=== PATIENT | male | born 1950 | race Caucasian/White ===

== ENCOUNTER 2019-06-03 13:42 | Observation (INO) | payer MEDICARE, OTHER ==
[2019-06-03] MEDS ORDERED: SODIUM CHLORIDE 0.9% 500 ML 500 ML IV STA (14:30)
--- NOTE | 2019-06-03 14:52 | ED ---
General Adult HPI <Willard Cano - Last Filed: 06/03/19 16:27> - General Source: patient, RN notes reviewed Mode of arrival: ambulatory Limitations: no limitations <Narciso Steel - Last Filed: 06/03/19 23:56> - General Chief complaint: Upper Respiratory Infection Stated complaint: Cough, fever Time Seen by Provider: 06/03/19 14:02 - History of Present Illness Initial comments: 69-year-old male with a past medical history of hypertension, aortic repair 6 years ago presents to the emergency department for a chief complaint of cough. Patient states that for the past 2 days he has had a productive with white sputum. States that he has been a little weak because of this cough and has had hot and cold spells however has not checked his temperature at home. Patient states that when he coughs he has a little bit of epigastric discomfort but otherwise denies any chest pain or shortness of breath whatsoever.Patient has no other complaints at this time including shortness of breath, chest pain, abdominal pain, nausea or vomiting, headache, or visual changes. (Narciso Steel) - Related Data Home Medications Medication Instructions Recorded Confirmed Aspirin EC [Ecotrin Low Dose] 81 mg PO DAILY 06/03/19 06/03/19 Allergies Allergy/AdvReac Type Severity Reaction Status Date / Time Penicillins Allergy Rash/Hives Verified 06/03/19 17:37 Review of Systems ROS Other: All systems not noted in ROS Statement are negative. <Willard Cano - Last Filed: 06/03/19 16:27> ROS Other: All systems not noted in ROS Statement are negative. <Narciso Steel - Last Filed: 06/03/19 23:56> ROS Statement: Those systems with pertinent positive or pertinent negative responses have been documented in the HPI. Past Medical History Past Medical History: Hypertension History of Any Multi-Drug Resistant Organisms: None Reported Past Surgical History: Joint Replacement Additional Past Surgical History / Comment(s): hip replacement, aortic repair, right BKA Past Psychological History: No Psychological Hx Reported Smoking Status: Never smoker Past Alcohol Use History: None Reported Past Drug Use History: None Reported <Narciso Steel - Last Filed: 06/03/19 23:56> General Exam Limitations: no limitations General appearance: alert, in no apparent distress Head exam: Present: atraumatic, normocephalic, normal inspection Eye exam: Present: normal appearance, PERRL, EOMI. Absent: scleral icterus, conjunctival injection, periorbital swelling ENT exam: Present: normal exam, mucous membranes moist Neck exam: Present: normal inspection, full ROM. Absent: tenderness, meningismus, lymphadenopathy Respiratory exam: Present: normal lung sounds bilaterally, chest wall tenderness (Minimal anterior chest wall tenderness, surgical scar is well appearing.). Absent: respiratory distress, wheezes, rales, rhonchi, stridor Cardiovascular Exam: Present: regular rate, normal rhythm, normal heart sounds. Absent: systolic murmur, diastolic murmur, rubs, gallop, clicks GI/Abdominal exam: Present: soft, normal bowel sounds. Absent: distended, tenderness, guarding, rebound, rigid Neurological exam: Present: alert Psychiatric exam: Present: normal affect, normal mood Skin exam: Present: warm, dry, intact, normal color. Absent: rash, diaphoretic <Narciso Steel - Last Filed: 06/03/19 23:56> Course Vital Signs 06/03/19 06/03/19 14:09 16:55 Temperature 98.6 F 98.2 F Pulse Rate 67 79 Respiratory 18 18 Rate Blood Pressure 208/112 194/100 O2 Sat by Pulse 99 98 Oximetry EKG Findings - EKG Comments: EKG Findings:: Normal sinus rhythm, ventricular rate 64, AR interval 164, QTc 48 6, repolarization noted., No previous to compare. <Narciso Steel - Last Filed: 06/03/19 23:56> Medical Decision Making - Lab Data Result diagrams: 06/03/19 15:00 06/03/19 15:00 <Willard Cano - Last Filed: 06/03/19 16:27> - Lab Data Result diagrams: 06/03/19 15:00 06/03/19 15:00 - EKG Data -: EKG Interpreted by Me (And Dr. Cano) When compared to previous EKG there are: previous EKG unavailable <Narciso Steel - Last Filed: 06/03/19 23:56> - Medical Decision Making Case was discussed with practitioner Milvia. Chart and results reviewed. Dr. Escoto paged again for admission. (Willard Cano) 69-year-old male with a past medical history hypertension, aortic repair 6 years ago presents for chief complaint of cough. States that for the past 2 days he has had a productive cough with white sputum. States that he has felt weak because of this cough and has had hot and cold spells. States that when he coughs he has a small amount epigastric discomfort but otherwise denies any chest pain or shortness of breath whatsoever. On exam he does have some minimal reproducible anterior chest wall tenderness, likely secondary from coughing. EKG was obtained which shows repolarization abnormalities and was reviewed by myself and Dr. Cano. CBC is unremarkable. CMP does show evidence of acute renal failure with a creatinine of 2.38. Elevated troponin of 0.074 is likely secondary to this. Patient started on hydralazine as he is hypertensive. Chest x-ray is obtained which shows cardiomegaly with new patchy left basilar acute infiltrate and atelectasis and small to tiny left pleural effusion. This was reviewed by myself and Dr. Cano. Patient symptoms likely secondary to pneu monia. Patient will be started on azithromycin and Rocephin and given fluids. He will be admitted to the hospital for further monitoring. (Narciso Steel) - Lab Data Lab Results 06/03/19 06/03/19 06/03/19 Range/Units 15:00 15:00 15:00 WBC 6.5 (3.8-10.6) k/uL RBC 4.88 (4.30-5.90) m/uL Hgb 14.0 (13.0-17.5) gm/dL Hct 42.1 (39.0-53.0) % MCV 86.4 (80.0-100.0) fL MCH 28.6 (25.0-35.0) pg MCHC 33.2 (31.0-37.0) g/dL RDW 14.9 (11.5-15.5) % Plt Count 171 (150-450) k/uL Neutrophils % 46 % Lymphocytes % 33 % Monocytes % 9 % Eosinophils % 7 % Basophils % 2 % Neutrophils # 3.0 (1.3-7.7) k/uL Lymphocytes # 2.2 (1.0-4.8) k/uL Monocytes # 0.6 (0-1.0) k/uL Eosinophils # 0.5 (0-0.7) k/uL Basophils # 0.1 (0-0.2) k/uL PT (9.0-12.0) sec INR (<1.2) APTT (22.0-30.0) sec Sodium 143 (137-145) mmol/L Potassium 4.6 (3.5-5.1) mmol/L Chloride 104 (98-107) mmol/L Carbon Dioxide 27 (22-30) mmol/L Anion Gap 12 mmol/L BUN 27 H (9-20) mg/dL Creatinine 2.38 H (0.66-1.25) mg/dL Est GFR (CKD-EPI)AfAm 31 (>60 ml/min/1.73 sqM) Est GFR (CKD-EPI)NonAf 27 (>60 ml/min/1.73 sqM) Glucose 94 (74-99) mg/dL Plasma Lactic Acid Walt (0.7-2.0) mmol/L Calcium 9.7 (8.4-10.2) mg/dL Total Bilirubin 0.6 (0.2-1.3) mg/dL AST 32 (17-59) U/L ALT 23 (21-72) U/L Alkaline Phosphatase 128 H (38-126) U/L Troponin I (0.000-0.034) ng/mL Total Protein 8.3 H (6.3-8.2) g/dL Albumin 4.6 (3.5-5.0) g/dL Influenza Type A RNA Not Detected (Not Detectd) Influenza Type B (PCR) Not Detected (Not Detectd) 06/03/19 06/03/19 06/03/19 Range/Units 15:00 15:00 15:00 WBC (3.8-10.6) k/uL RBC (4.30-5.90) m/uL Hgb (13.0-17.5) gm/dL Hct (39.0-53.0) % MCV (80.0-100.0) fL MCH (25.0-35.0) pg MCHC (31.0-37.0) g/dL RDW (11.5-15.5) % Plt Count (150-450) k/uL Neutrophils % % Lymphocytes % % Monocytes % % Eosinophils % % Basophils % % Neutrophils # (1.3-7.7) k/uL Lymphocytes # (1.0-4.8) k/uL Monocytes # (0-1.0) k/uL Eosinophils # (0-0.7) k/uL Basophils # (0-0.2) k/uL PT 10.1 (9.0-12.0) sec INR 0.9 (<1.2) APTT 27.1 (22.0-30.0) sec Sodium (137-145) mmol/L Potassium (3.5-5.1) mmol/L Chloride (98-107) mmol/L Carbon Dioxide (22-30) mmol/L Anion Gap mmol/L BUN (9-20) mg/dL Creatinine (0.66-1.25) mg/dL Est GFR (CKD-EPI)AfAm (>60 ml/min/1.73 sqM) Est GFR (CKD-EPI)NonAf (>60 ml/min/1.73 sqM) Glucose (74-99) mg/dL Plasma Lactic Acid Walt 0.9 (0.7-2.0) mmol/L Calcium (8.4-10.2) mg/dL Total Bilirubin (0.2-1.3) mg/dL AST (17-59) U/L ALT (21-72) U/L Alkaline Phosphatase (38-126) U/L Troponin I 0.074 H* (0.000-0.034) ng/mL Total Protein (6.3-8.2) g/dL Albumin (3.5-5.0) g/dL Influenza Type A RNA (Not Detectd) Influenza Type B (PCR) (Not Detectd) Disposition <Willard Cano - Last Filed: 06/03/19 16:27> Is patient prescribed a controlled substance at d/c from ED?: No Time of Disposition: 16:11 <Narciso Steel - Last Filed: 06/03/19 23:56> Clinical Impression: Pneumonia, Cough, Acute renal failure Disposition: ADMITTED IP TO THIS HOSP Condition: Serious
[2019-06-03 15:16] LABS: Basophils # (A) 0.1 k/uL (0-0.2); Basophils % (A) 2 %; Eosinophils # (A) 0.5 k/uL (0-0.7); Eosinophils % (A) 7 %; HCT 42.1 % (39.0-53.0); Lymphocytes # (A) 2.2 k/uL (1.0-4.8); Lymphocytes % (A) 33 %; MCH 28.6 pg (25.0-35.0); MCHC 33.2 g/dL (31.0-37.0); MCV 86.4 fL (80.0-100.0); Mean Platelet Volume 8.3; Monocytes # (A) 0.6 k/uL (0-1.0); Monocytes % (A) 9 %; Neutrophils % (A) 46 %; Platelet Count 171 k/uL (150-450); RBC 4.88 m/uL (4.30-5.90); RDW 14.9 % (11.5-15.5); WBC 6.5 k/uL (3.8-10.6)
[2019-06-03 15:22] LABS: INR 0.9 (<1.2); Partial Thromboplastin Time 27.1 sec (22.0-30.0); Prothrombin Time 10.1 sec (9.0-12.0)
[2019-06-03 15:27] LABS: Albumin 4.6 g/dL (3.5-5.0); Calcium 9.7 mg/dL (8.4-10.2); Potassium 4.6 mmol/L (3.5-5.1); Total Bilirubin 0.6 mg/dL (0.2-1.3); Total Protein 8.3 g/dL (6.3-8.2)
[2019-06-03] MEDS ORDERED: ENALAPRILAT 1.25 MG/ML 1 ML VIAL IVP STA (15:34)
--- NOTE | 2019-06-03 15:38 | XR ---
EXAMINATION TYPE: XR chest 2V DATE OF EXAM: 06/03/2019 COMPARISON: Chest x-ray November 27, 2012. HISTORY: History of ruptured aorta and repair with productive cough TECHNIQUE: Frontal and lateral views of the chest are obtained. FINDINGS: There is new patchy left basilar opacity. Right lung is clear. Suspect small left pleural effusion. The cardiac silhouette size remains enlarged. Overlying sternal wires are now present, mason ral which are broken. New right axillary surgical clips are now identified. Cholecystectomy clips are noted. Multilevel spurring in thoracic spine. IMPRESSION: Cardiomegaly with new patchy left basilar acute infiltrate and atelectasis and small to tiny left pleural effusion.
[2019-06-03] MEDS ORDERED: hydrALAZINE HCL 20 MG/ML 1 ML VIAL IVP STA (16:08)
[2019-06-03] MEDS ORDERED: NALOXONE 0.4 MG/ML 1 ML VIAL IV PRN (16:09)
[2019-06-03] MEDS ORDERED: AZITHROMYCIN 500 MG in SODIUM CHLORIDE 0.9% 250 ML IVPB ONE (16:15)
[2019-06-03] MEDS ORDERED: SODIUM CHLORIDE 0.9% 1,000 ML IV SCH (16:15)
[2019-06-03] MEDS ORDERED: hydrALAZINE HCL 20 MG/ML 1 ML VIAL IVP PRN (19:06)
[2019-06-03] MEDS ORDERED: LORazepam 2 MG/ML INJ IV PRN (19:07)
--- NOTE | 2019-06-03 20:41 | CT ---
EXAMINATION TYPE: CT chest wo con DATE OF EXAM: 06/03/2019 COMPARISON: None HISTORY: Abnormal cxr. CT DLP: 598.4 mGycm. Automated Exposure Control for Dose Reduction was Utilized. TECHNIQUE: CT scan of the thorax is performed without IV contrast. FINDINGS: There is some patchy atelectasis and linear density at the lung bases on the left side. There is mini mal left basilar pleural thickening. Exam is limited by lack of contrast. There is focal aneurysm of the descending thoracic aorta. This measures up to 7 cm. The lumen is difficult to evaluate with lack of contrast. There is coronary artery calcification. There is no mediastinal adenopathy. There are no hilar masses . The right lung is clear of infiltrate. There are numerous cysts involving both kidneys. There is right side hydronephrosis. There are clips from cholecystectomy. IMPRESSION: Aneurysm of the descending thoracic aorta. This could be a leaking aneurysm. There is alicia e pleural thickening and atelectasis at the left posterior lung base. Follow-up recommended. Contrast CT scan would be helpful. This exam was discussed with the patient's nurse on the floor [place] at 8:40 PM.
[2019-06-03] MEDS ORDERED: amLODIPine 5 MG TAB PO SCH (21:00)
[2019-06-03] MEDS: LABETALOL 200 MG in SODIUM CHLORIDE 0.9% 160 ML IV SCH (22:20)
--- NOTE | 2019-06-03 22:44 | HP ---
HISTORY AND PHYSICAL CHIEF COMPLAINT: A 69-year-old white male was admitted to the hospital. He has had a history of hypertension and aortic repair 6 years ago, presents to the ER with cough, productive of white sputum, hot/cold spells. A little bit epigastric discomfort. Denied any significant chest pain or shortness of breath, but had some diaphoresis and coughing and looked funny and so his and daughter brought him to the hospital. Denies any chest pain, abdominal pain, nausea, vomiting, headache, or visual changes. ALLERGIES: PENICILLINS. Long-standing hypertension. Person does not take any medicines. It has been 6 or 7 years since I have seen him in the office. He has not seen a doctor since. MEDICATIONS: Mentioned none. REVIEW OF SYMPTOMS: 14-point review of systems negative except for mentioned in HPI. PAST MEDICAL HISTORY: Hypertension as mentioned. SURGICAL HISTORY: Apparently had some kind aortic repair 6 or 7 years ago. LABORATORY DATA: Labs show elevated troponin of 0.7, BUN of 27, creatinine is 2.53, blood pressure is 208/112 on admission, currently 170s over 100. EKG shows sinus rhythm. White count is normal. Hemoglobin is normal. BUN 27, creatinine 2.38. Chest x-ray shows opacity left lower lobe significant for pneumonia, he was admitted to the hospital, placed on Rocephin and azithromycin by the ER physician. Elevated troponin was thought to be due to acute renal failure due to abnormal chest x-ray. I ordered a CT scan without contrast due to elevated creatinine. There was no contrast used. 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 Discussed the case with the [facility] transfer team. Once a labetalol drip started. Will transfer him and they have a bed available. I transferred him to the ICU under Dr. Puentes's care at this time with labetalol drip, Norvasc 5 mg, have been given, hydralazine 10 mg IV x2 has been given. We will control his blood pressure aggressively until he can be transferred for descending aortic aneurysm surgery. Acute renal failure; rehydration is being done. Blood pressure control is being done pneumonia. Continue IV antibiotics. Await for transfer team to take him. Jeronimo for blood pressure control. In the meantime, consult map colorer, Dr. Puentes. MMODL / IJN: [id number] /
[2019-06-03 23:22] VITALS: RESP 17; TEMP 98
[2019-06-03] MEDS ORDERED: ONDANSETRON 4 MG/2 ML VIAL IVP PRN (23:56)
[2019-06-04] MEDS: LABETALOL 200 MG in SODIUM CHLORIDE 0.9% 160 ML IV SCH (00:51)
[2019-06-04 00:56] LABS: Basophils # (A) 0.2 k/uL (0-0.2); Basophils % (A) 3 %; Eosinophils # (A) 0.3 k/uL (0-0.7); Eosinophils % (A) 5 %; HCT 36.7 % (39.0-53.0); Lymphocytes # (A) 1.2 k/uL (1.0-4.8); Lymphocytes % (A) 16 %; MCH 27.9 pg (25.0-35.0); MCHC 32.6 g/dL (31.0-37.0); MCV 85.4 fL (80.0-100.0); Monocytes # (A) 0.5 k/uL (0-1.0); Monocytes % (A) 7 %; Neutrophils # (A) 5.1 k/uL (1.3-7.7); Neutrophils % (A) 69 %; Platelet Count 164 k/uL (150-450); RBC 4.29 m/uL (4.30-5.90); RDW 13.8 % (11.5-15.5); WBC 7.4 k/uL (3.8-10.6)
[2019-06-04 01:01] LABS: Albumin 3.8 g/dL (3.5-5.0); Calcium 8.9 mg/dL (8.4-10.2); Potassium 3.9 mmol/L (3.5-5.1); Total Bilirubin 0.5 mg/dL (0.2-1.3); Total Protein 6.9 g/dL (6.3-8.2)
[2019-06-04 01:41] VITALS: BP 124/57; PULSE 60
[2019-06-04] MEDS ORDERED: AZITHROMYCIN 500 MG in SODIUM CHLORIDE 0.9% 250 ML IVPB SCH (17:00)
== END 2019-06-04 01:40 | disposition short-term general hospital, planned readmission (82) ==
LOC: EC 13:42 → 3SCARD 16:29
PROVIDERS: ADMIT Family Medicine; ATTEND Family Medicine
DX: J18.1 Lobar pneumonia, unspecified organism (principal); I71.01 Dissection of thoracic aorta; N17.9 Acute kidney failure, unspecified; I11.9 Hypertensive heart disease without heart failure; N13.30 Unspecified hydronephrosis; R77.8 Other specified abnormalities of plasma proteins; Z88.0 Allergy status to penicillin; Z79.82 Long term (current) use of aspirin; Z89.511 Acquired absence of right leg below knee; Z96.649 Presence of unspecified artificial hip joint; Z90.49 Acquired absence of other specified parts of digestive tract
CPT/HCPCS: 96376; 96366; 96367; 96375 ×3; 96361; 96365; 99285; 36415; 93005; 83880; 80061; 80053 ×2; 84443; 83605; 84484 ×2; 85025 ×2; 85610; 85730; 87040; 87502; 71046; 71250; G0378 ×2; G0103; J2060; J0360; J2405; J0696

== ENCOUNTER 2019-06-22 11:31 | Inpatient (IN) | payer MEDICARE, OTHER ==
[2019-06-22] MEDS ORDERED: hydrALAZINE HCL 20 MG/ML 1 ML VIAL IVP STA (12:04)
--- NOTE | 2019-06-22 12:20 | ED ---
General Adult HPI - General Chief complaint: Recheck/Abnormal Lab/Rx Stated complaint: Bleeding from nose Time Seen by Provider: 06/22/19 11:50 Source: patient, RN notes reviewed Mode of arrival: wheelchair Limitations: no limitations - History of Present Illness Initial comments: This is a 69-year-old male who presents to the emergency department with a right-sided nosebleed. Patient recently had carotid surgery and has a history of a thoracic aneurysm. The primary medical care doctor Dr. Quesada sent him over so we stop the nosebleed. Patient's nosebleed stopped prior to entering the emergency department however. Dr. Escoto also wanted us to do a CTA of his chest and abdomen. Patient denies any chest pain palpitations difficulty breathing or shortness of breath. Patient denies abdominal pain patient denies nausea vomiting per patient denies any fever chills. Patient states he is very fatigued but aside from that in the nosebleed he has no other complaints. - Related Data Home Medications Medication Instructions Recorded Confirmed Aspirin EC [Ecotrin Low Dose] 81 mg PO DAILY 06/03/19 06/22/19 Doxycycline Hyclate [Vibramycin] 100 mg PO BID 06/22/19 06/22/19 Moxifloxacin HCl 400 mg PO DAILY 06/22/19 06/22/19 Allergies Allergy/AdvReac Type Severity Reaction Status Date / Time Penicillins Allergy Rash/Hives Verified 06/22/19 12:34 Review of Systems ROS Statement: Those systems with pertinent positive or pertinent negative responses have been documented in the HPI. ROS Other: All systems not noted in ROS Statement are negative. Past Medical History Past Medical History: Hypertension Additional Past Medical History / Comment(s): KIDNEY STONES History of Any Multi-Drug Resistant Organisms: None Reported Past Surgical History: Heart Catheterization With Stent, Joint Replacement Additional Past Surgical History / Comment(s): hip replacement, aortic repair, right BKA, carotid endartecomy Past Anesthesia/Blood Transfusion Reactions: No Reported Reaction Past Psychological History: No Psychological Hx Reported Smoking Status: Never smoker Past Alcohol Use History: None Reported Past Drug Use History: None Reported - Past Family History Mother Family Medical History: Myocardial Infarction ([place]) Father Family Medical History: Myocardial Infarction ([place]) General Exam - General Exam Comments Initial Comments: GENERAL: Patient is well-developed and well-nourished. Patient is nontoxic and well- hydrated and is in mild distress. ENT: Neck is soft and supple. No significant lymphadenopathy is noted. Inside the right near was an area of clotted blood on the septum I suspect this to be possibly the area of the nosebleed. Oropharynx is clear. Moist mucous membranes. Neck has full range of motion without eliciting any pain. Patient's surgical sites did not look infected on the neck or groin or arm. EYES: The sclera were anicteric and conjunctiva were pink and moist. Extraocular movements were intact and pupils were equal round and reactive to light. Eyelids were unremarkable. PULMONARY: Unlabored respirations. Good breath sounds bilaterally. No audible rales rhonchi or wheezing was noted. CARDIOVASCULAR: There is a regular rate and rhythm without any murmurs gallops or rubs. ABDOMEN: Soft and nontender with normal bowel sounds. SKIN: Skin is clear with no lesions or rashes and otherwise unremarkable. NEUROLOGIC: Patient is alert and oriented x3. Cranial nerves II through XII are grossly intact. Motor and sensory are also intact. Normal speech, volume and content. Symmetrical smile. MUSCULOSKELETAL: Normal extremities with adequate strength and full range of motion. LYMPHATICS: No significant lymphadenopathy is noted PSYCHIATRIC: Normal psychiatric evaluation. Limitations: no limitations Course Vital Signs 06/22/19 11:49 Temperature 99.0 F Pulse Rate 92 Respiratory 18 Rate Blood Pressure 117/73 O2 Sat by Pulse 99 Oximetry Medical Decision Making - Medical Decision Making I spoke with Og Escoto because his hemoglobin was done to him all he wanted to watch him overnight and monitor his hemoglobin. He will also determine what to do about his CTA since his creatinine is elevated. - Lab Data Result diagrams: 06/22/19 12:22 06/22/19 12:22 Lab Results 06/22/19 06/22/19 06/22/19 Range/Units 12:22 12:22 12:22 WBC 9.9 (3.8-10.6) k/uL RBC 3.10 L (4.30-5.90) m/uL Hgb 9.0 L D (13.0-17.5) gm/dL Hct 26.1 L (39.0-53.0) % MCV 84.1 (80.0-100.0) fL MCH 28.9 (25.0-35.0) pg MCHC 34.4 (31.0-37.0) g/dL RDW 12.9 (11.5-15.5) % Plt Count 280 (150-450) k/uL Neutrophils % 71 % Lymphocytes % 10 % Monocytes % 9 % Eosinophils % 8 % Basophils % 1 % Neutrophils # 7.0 (1.3-7.7) k/uL Lymphocytes # 1.0 (1.0-4.8) k/uL Monocytes # 0.9 (0-1.0) k/uL Eosinophils # 0.8 H (0-0.7) k/uL Basophils # 0.1 (0-0.2) k/uL PT 10.8 (9.0-12.0) sec INR 1.0 (<1.2) APTT 24.9 (22.0-30.0) sec Sodium 137 (137-145) mmol/L Potassium 4.8 (3.5-5.1) mmol/L Chloride 102 (98-107) mmol/L Carbon Dioxide 25 (22-30) mmol/L Anion Gap 10 mmol/L BUN 27 H (9-20) mg/dL Creatinine 2.10 H (0.66-1.25) mg/dL Est GFR (CKD-EPI)AfAm 36 (>60 ml/min/1.73 sqM) Est GFR (CKD-EPI)NonAf 31 (>60 ml/min/1.73 sqM) Glucose 95 (74-99) mg/dL Calcium 8.7 (8.4-10.2) mg/dL Total Bilirubin 0.4 (0.2-1.3) mg/dL AST 50 (17-59) U/L ALT 61 (21-72) U/L Alkaline Phosphatase 110 (38-126) U/L Total Protein 6.7 (6.3-8.2) g/dL Albumin 3.2 L (3.5-5.0) g/dL Disposition Clinical Impression: Anemia, Epistaxis Disposition: ADMITTED IP TO THIS HOSP Referrals: Anant Escoto MD [REFERRING] - 1-2 days Time of Disposition: 14:00
[2019-06-22 12:38] LABS: Basophils # (A) 0.1 k/uL (0-0.2); Basophils % (A) 1 %; Eosinophils # (A) 0.8 k/uL (0-0.7); Eosinophils % (A) 8 %; HCT 26.1 % (39.0-53.0); Lymphocytes % (A) 10 %; MCH 28.9 pg (25.0-35.0); MCHC 34.4 g/dL (31.0-37.0); MCV 84.1 fL (80.0-100.0); Monocytes # (A) 0.9 k/uL (0-1.0); Monocytes % (A) 9 %; Neutrophils % (A) 71 %; Platelet Count 280 k/uL (150-450); RDW 12.9 % (11.5-15.5); WBC 9.9 k/uL (3.8-10.6)
[2019-06-22 12:41] LABS: Partial Thromboplastin Time 24.9 sec (22.0-30.0); Prothrombin Time 10.8 sec (9.0-12.0)
[2019-06-22 12:54] LABS: Albumin 3.2 g/dL (3.5-5.0); Calcium 8.7 mg/dL (8.4-10.2); Potassium 4.8 mmol/L (3.5-5.1); Total Bilirubin 0.4 mg/dL (0.2-1.3); Total Protein 6.7 g/dL (6.3-8.2)
[2019-06-22] MEDS ORDERED: SODIUM CHLORIDE 0.9% 1,000 ML IV ONE (14:00)
[2019-06-22 18:05] LABS: Basophils # (A) 0.1 k/uL (0-0.2); Basophils % (A) 1 %; Eosinophils # (A) 0.6 k/uL (0-0.7); Eosinophils % (A) 8 %; HCT 31.6 % (39.0-53.0); HGB 10.6 gm/dL (13.0-17.5); Hypochromasia Slight; Lymphocytes # (A) 0.9 k/uL (1.0-4.8); Lymphocytes % (A) 12 %; MCH 28.9 pg (25.0-35.0); MCHC 33.6 g/dL (31.0-37.0); MCV 85.9 fL (80.0-100.0); Monocytes # (A) 0.3 k/uL (0-1.0); Monocytes % (A) 5 %; Neutrophils # (A) 5.1 k/uL (1.3-7.7); Neutrophils % (A) 72 %; Platelet Count 231 k/uL (150-450); RBC 3.68 m/uL (4.30-5.90)
[2019-06-22] MEDS: DOXYCYCLINE 100 MG CAP PO SCH (20:55)
[2019-06-22] MEDS: MELATONIN 5 MG TABLET PO SCH (20:55)
[2019-06-23 00:45] LABS: Basophils # (A) 0.1 k/uL (0-0.2); Basophils % (A) 1 %; Eosinophils # (A) 0.7 k/uL (0-0.7); Eosinophils % (A) 7 %; HCT 26.2 % (39.0-53.0); Hypochromasia Slight; Lymphocytes # (A) 1.3 k/uL (1.0-4.8); Lymphocytes % (A) 13 %; MCH 28.9 pg (25.0-35.0); MCHC 33.6 g/dL (31.0-37.0); Mean Platelet Volume 6.9; Monocytes # (A) 0.7 k/uL (0-1.0); Monocytes % (A) 7 %; Neutrophils # (A) 6.9 k/uL (1.3-7.7); Neutrophils % (A) 69 %; Platelet Count 268 k/uL (150-450); RBC 3.05 m/uL (4.30-5.90); RDW 12.9 % (11.5-15.5)
[2019-06-23 00:49] LABS: HGB 8.8 gm/dL (13.0-17.5)
[2019-06-23] MEDS: DOXYCYCLINE 100 MG CAP PO SCH ×2 (08:34→20:56)
[2019-06-23] MEDS: ASPIRIN 81 MG PO SCH (08:35)
[2019-06-23] MEDS: amLODIPine 5 MG TAB PO SCH (08:35)
[2019-06-23] MEDS ORDERED: LEVOFLOXACIN 750 MG TAB PO SCH (09:00)
[2019-06-23 13:22] LABS: HCT 27.7 % (39.0-53.0); HGB 9.2 gm/dL (13.0-17.5); Hypochromasia Slight; MCHC 33.2 g/dL (31.0-37.0); MCV 87.4 fL (80.0-100.0); Mean Platelet Volume 6.8; Platelet Count 266 k/uL (150-450); RBC 3.17 m/uL (4.30-5.90); WBC 9.8 k/uL (3.8-10.6)
--- NOTE | 2019-06-23 18:23 | HP ---
HISTORY AND PHYSICAL DATE OF SERVICE: 06/22/2019 This 69-year-old white male came into the emergency room with significant right-sided nasal bleeding, lightheaded and dizziness, possible severe anemia, status post carotid bypass and thoracic aortic aneurysm. CT of the chest and abdomen were not done due to elevated creatinine level. No nausea, vomiting. Severe nasal bleeding, fatigue, at which time he was admitted to the hospital. HOME MEDICATIONS: Home medications include: 1. Vibramycin. 2. Moxifloxacin. 3. Aspirin. ALLERGIES: PENICILLIN. REVIEW OF SYSTEMS: Fourteen-point review of systems negative except for uncontrolled hypertension for many years and descending aortic aneurysm 7 cm and a carotid bypass in the past 2 weeks, joint replacements, right BKA, aortic repair in the past, carotid endarterectomy. FAMILY HISTORY: Mother with myocardial infarction. Father with myocardial infarction. PHYSICAL EXAMINATION: Well-developed, well-nourished white male. He looks pale, weak, fatigued. Nasal bleeding out of the right naris . Pupils equal, round, reactive. Lungs are clear. CARDIOVASCULAR: S1, S2. Abdomen is soft. Skin pale. NEUROLOGIC: Cranial nerves are intact. MUSCULOSKELETAL: Full range of motion. PSYCH: Normal. Blood pressure 117/73, oxygen 99%, respiratory rate 18-20, . Hemoglobin is 9.0, white count 9.9, BUN 27, creatinine 2.1. ASSESSMENT: 1. Epistaxis. 2. Status post carotid bypass. 3. Lightheadedness. 4. Dizziness. 5. Syncope. 6. Suspect severe anemia. 7. Acute on chronic renal insufficiency. 8. Hypertension acceleration. 9. Descending aortic aneurysm. Started on Norvasc. Monitor hemoglobins. ENT consult. MMODL / IJN: [id number] /
[2019-06-23 19:38] VITALS: RESP 18
[2019-06-23] MEDS: MELATONIN 5 MG TABLET PO SCH (20:56)
[2019-06-24 06:22] LABS: Basophils # (A) 0.1 k/uL (0-0.2); Basophils % (A) 2 %; Eosinophils # (A) 0.7 k/uL (0-0.7); Eosinophils % (A) 7 %; HCT 27.7 % (39.0-53.0); HGB 8.5 gm/dL (13.0-17.5); Hypochromasia Slight; Lymphocytes # (A) 1.1 k/uL (1.0-4.8); Lymphocytes % (A) 12 %; MCH 28.1 pg (25.0-35.0); MCHC 30.8 g/dL (31.0-37.0); MCV 91.4 fL (80.0-100.0); Mean Platelet Volume 7.6; Monocytes # (A) 0.6 k/uL (0-1.0); Monocytes % (A) 7 %; Neutrophils # (A) 6.4 k/uL (1.3-7.7); Neutrophils % (A) 70 %; Platelet Count 251 k/uL (150-450); RBC 3.03 m/uL (4.30-5.90); RDW 13.3 % (11.5-15.5); WBC 9.1 k/uL (3.8-10.6)
[2019-06-24 06:36] LABS: Albumin 3.4 g/dL (3.5-5.0); Calcium 9.1 mg/dL (8.4-10.2); Potassium 4.7 mmol/L (3.5-5.1); Total Bilirubin 0.4 mg/dL (0.2-1.3)
[2019-06-24 07:50] VITALS: TEMP 97.3
[2019-06-24] MEDS: DOXYCYCLINE 100 MG CAP PO SCH (09:16)
[2019-06-24] MEDS: amLODIPine 5 MG TAB PO SCH (09:16)
[2019-06-24] MEDS: ASPIRIN 81 MG PO SCH (09:16)
--- NOTE | 2019-06-24 11:54 | CT ---
EXAMINATION TYPE: CT neck chest without con DATE OF EXAM: 06/24/2019 COMPARISON: 06/03/2019 and 11/27/2012 HISTORY: 69-year-old male Epistaxis, hematoma CT DLP: 1154.7 mGycm Automated exposure control for dose reduction was used. FINDINGS: Neck: Visualized intracranial structures show mild age-related volume loss. Orbits and globes and mastoid a ir cells are clear. Mild mucosal thickening floors of the maxillary sinuses. Lack of IV contrast limits assessment of the cervical mucosal space. No gross contour deforming lesio n seen within the oropharynx or nasopharynx. This seems to be an elongated lobular mucoid material wi thin the posterior right nasopharynx measuring up to 2.8 cm long and 9 mm wide. The glottic and subglottic structures as well as the tracheal column appear clear. Bulky anterior endplate spondylosis from C4 through C7 levels. There is evidence of a right common carotid to left subclavian artery bypass graft. This courses duane g the prevertebral region, posterior to the cervical esophagus. Hemorrhagic fluid surrounds the anast omotic sites along the right common carotid space and left supraclavicular soft tissues. Some additional surgical material in the region of the brachiocephalic artery. There is no airway compromise. CHEST: Endovascular stent graft of the ascending aorta. The surgical material arises from the stent graft ex tending into the brachiocephalic artery and should be correlated clinically as to any clinical signif icance. Scattered nonenlarged mildly enlarged mediastinal lymph nodes measuring up to 1.1 cm in the right tra cheobronchial angle region. Mildly enlarged caliber to the main right and the pulmonary arteries are 3.0 and 2.7 cm, respectively, suggesting underlying pulmonary hypertension. Median sternotomy wires a re present with chronic nonunion of the patient's sternotomy. Heart is borderline enlarged without pericardial effusion. Extensive coronary vessel calcifications a re present. In 2012, aortic dissection involving the entire aortic arch and extended down the descending thoracic aorta. Limited assessment on noncontrast CT. The distal arch or the caliber of 3.5 cm which is mildl y aneurysmal but unchanged from 06/03/2019. There is ballooning of the descending thoracic aorta at the level of the mid thorax for caliber to 6. One centimeters that does not appear significantly changed from 06/03/2019 but is much larger from 11/27/2012 where it measured only 3.4 cm. Faint dissection flap is demonstrated extending from the mid de scending thoracic aorta down into the visualized mid abdominal aorta. Proximal abdominal aorta measur es up to 4.8 cm, unchanged from 06/03/2019 but increased from 12/09/2012 where it measured 3.2 cm. Mid abdominal aorta at the level of the renal arteries measures 3.6 cm, unchanged from 06/03/2019 but larg er from tree 2013 where it measured 2.8 m. There is increased small left pleural effusion now with left lower lobe collapse. Visualized upper abdomen shows cholecystectomy clips, bilateral renal cysts measuring up to 7.37 mm o n the left, and a 3 mm nonobstructive right renal calculus. However, there is appearance of moderate right-sided hydronephrosis which is new from 11/27/2012. Bones: [facility] throughout the mid to lower thoracic spine. IMPRESSION: 1. LIMITED ASSESSMENT DUE TO LACK OF IV CONTRAST. 2. BYPASS GRAFT EXTENDING FROM THE RIGHT COMMON CAROTID ARTERY TO THE LEFT SUBCLAVIAN ARTERY. THERE I S MODERATE HEMATOMA AND TRACKING HEMORRHAGE ALONG THE ANASTOMOTIC SITES. THE BYPASS COURSES ALONG THE PREVERTEBRAL REGION, POSTERIOR TO THE CERVICAL ESOPHAGUS. NO AIRWAY COMPROMISE. 3. ENDOVASCULAR STENT GRAFT REPAIR OF THE ASCENDING AORTA AND PROXIMAL ARCH WITH SOME TYPE OF SURGICA L MATERIAL/GRAFT WITHIN THE BRACHIOCEPHALIC ARTERY, NEW FROM 06/03/2019. AGAIN, LACK OF IV CONTRAST LI MITS ASSESSMENT. 4. DISSECTION WITHIN THE AORTIC ARCH AND DESCENDING THORACIC AORTA SEEN IN 2012 IS NOT WELL VISUALIZE D ON THIS NONCONTRAST STUDY. A SUBTLE DISSECTION FLAP IS VISUALIZED FROM THE MID DESCENDING THORACIC AORTIC LEVEL AND EXTENDS DOWN BEYOND THE [id number] WITH THE SCAN TERMINATING AT THE LEVEL OF THE MID ABDOMINAL AORTA. 5. DISSECTING ANEURYSM STABLE FROM 06/03/2019. MID DESCENDING THORACIC AORTA MEASURES UP TO AT LEAST 6 .1 CM VERSUS 3.4 CM ON 11/27/2012. AT THE THORACOABDOMINAL JUNCTION, IT MEASURES 4.8 CM VERSUS 3.2 CM I N 2012. AT THE MID ABDOMINAL AORTA MEASURES 3.6 CM VERSUS 2.8 CM IN 2012. 6. INCREASED SMALL LEFT PLEURAL EFFUSION NOW WITH LEFT LOWER LOBAR COLLAPSE. 7. THIS SEEMS TO BE MODERATE HYDRONEPHROSIS OF THE RIGHT KIDNEY. CORRELATE FOR POSSIBILITY OF OBSTRUC TIVE UROPATHY.
[2019-06-24 12:53] VITALS: BP 142/75; PULSE 92
[2019-06-25] MEDS ORDERED: LEVOFLOXACIN 750 MG TAB PO SCH (09:00)
== END 2019-06-24 14:11 | disposition short-term general hospital (02) | DRG 812 ==
LOC: EC 11:31 → SUPCPDRO 11:31 → 1SOBS 14:04 → OBSVTOIN 06-24 12:23
PROVIDERS: ADMIT Family Medicine; ATTEND Family Medicine
DX: D64.9 Anemia, unspecified (principal); N18.9 Chronic kidney disease, unspecified; I12.9 Hypertensive chronic kidney disease with stage 1 through stage 4 chronic kidney disease, or unspecified chronic kidney disease; I71.9 Aortic aneurysm of unspecified site, without rupture; Z98.890 Other specified postprocedural states; R04.0 Epistaxis; Z79.82 Long term (current) use of aspirin; Z82.49 Family history of ischemic heart disease and other diseases of the circulatory system; Z87.442 Personal history of urinary calculi; Z89.511 Acquired absence of right leg below knee; Z96.649 Presence of unspecified artificial hip joint; R55 Syncope and collapse; Z88.0 Allergy status to penicillin; Z79.2 Long term (current) use of antibiotics; I25.10 Atherosclerotic heart disease of native coronary artery without angina pectoris; Z95.5 Presence of coronary angioplasty implant and graft
CPT/HCPCS: 36415; 70490; 71250; 80053; 85025; 85027; 85610; 85730; 96374; 99284

== ENCOUNTER 2019-07-06 12:13 | Inpatient (IN) | payer MEDICARE ==
[2019-07-06 12:26] LABS: Glucose,Whole Blood 110 mg/dL (75-99)
[2019-07-06] MEDS ORDERED: SODIUM CHLORIDE 0.9% 500 ML 500 ML IV STA (12:30)
--- NOTE | 2019-07-06 12:38 | ED ---
General Adult HPI - General Chief complaint: Weakness Stated complaint: near syncope/weakness Time Seen by Provider: 07/06/19 12:15 Source: patient, RN notes reviewed Mode of arrival: wheelchair Limitations: no limitations - History of Present Illness Initial comments: This is a 69-year-old male who has a past medical history significant for a dissecting aortic aneurysm. Patient also had a graft placed from the common carotid to the left subclavian. Patient also appears to have had a graft placed in his ascending thoracic aorta into the proximal portion of the arch. Patient comes in today because family states he's altered mentally. Patient was up at night eating breakfast and appeared normal to them. Shortly thereafter he seemed extremely fatigued falls asleep very quickly and was saying things to them that weren't making sense. Patient himself has no complaints of pain however he states he is extremely tired and weak all over. Patient denies any chest pain shortness of breath or difficulty breathing patient denies any headache patient denies any focal weakness or any areas of numbness. Patient denies any recent fever chills. Patient states he recently about 3 weeks ago had a procedure at [facility] on his heart rate doesn't know what it was. Patient states he discharged the next day. Patient denies any recent injury or trauma. - Related Data Home Medications Medication Instructions Recorded Confirmed Aspirin EC [Ecotrin Low Dose] 81 mg PO DAILY 06/03/19 07/06/19 Allergies Allergy/AdvReac Type Severity Reaction Status Date / Time Penicillins Allergy Rash/Hives Verified 07/06/19 13:24 Review of Systems ROS Statement: Those systems with pertinent positive or pertinent negative responses have been documented in the HPI. ROS Other: All systems not noted in ROS Statement are negative. 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 Past Psychological History: No Psychological Hx Reported Smoking Status: Never smoker - Past Family History Mother Family Medical History: Myocardial Infarction (NH) Additional Family Medical History / Comment(s): Mother of a NH at the age of 37yrs. Father Family Medical History: Myocardial Infarction (NH) Additional Family Medical History / Comment(s): Father of a NH at the age of 58yrs. General Exam - General Exam Comments Initial Comments: GENERAL: Patient is well-developed and well-nourished. Patient is nontoxic and well- hydrated and is in mild distress and very fatigued. ENT: Neck is soft and supple. No significant lymphadenopathy is noted. Oropharynx is clear. Moist mucous membranes. Neck has full range of motion without eliciting any pain. EYES: The sclera were anicteric and conjunctiva were pink and moist. Extraocular movements were intact and pupils were equal round and reactive to light. Eyelids were unremarkable. PULMONARY: Unlabored respirations. Good breath sounds bilaterally. No audible rales rhonchi or wheezing was noted. CARDIOVASCULAR: There is a regular rate and rhythm without any murmurs gallops or rubs. ABDOMEN: Soft and nontender with normal bowel sounds. No palpable organomegaly was noted. There is no palpable pulsatile mass. SKIN: Skin is clear with no lesions or rashes and otherwise unremarkable. NEUROLOGIC: Patient is alert and oriented x3. Cranial nerves II through XII are grossly intact. Motor and sensory are also intact. Normal speech, volume and content. Symmetrical smile. Finger to nose cerebellar testing is normal bilaterally MUSCULOSKELETAL: She has a prosthetic device on the right lower leg. Left leg has no swelling no calf tenderness and has normal range of motion. LYMPHATICS: No significant lymphadenopathy is noted PSYCHIATRIC: Normal psychiatric evaluation. Limitations: no limitations Course Vital Signs 1007/06/19 07/06/19 12:14 12:23 12:30 Temperature 97.9 F Pulse Rate 102 H 95 Respiratory 20 36 H Rate Blood Pressure 132/82 147/76 O2 Sat by Pulse 97 98 98 Oximetry 07/06/19 07/06/19 07/06/19 12:40 12:50 13:00 Temperature Pulse Rate 90 93 87 Respiratory 21 20 18 Rate Blood Pressure 141/90 144/87 136/88 O2 Sat by Pulse 97 98 98 Oximetry 07/06/19 07/06/19 07/06/19 13:10 13:20 13:30 Temperature Pulse Rate 87 85 Respiratory 20 19 Rate Blood Pressure 136/87 142/87 145/92 O2 Sat by Pulse 97 95 Oximetry 07/06/19 07/06/19 07/06/19 13:40 13:50 14:00 Temperature Pulse Rate 82 87 Respiratory 20 20 Rate Blood Pressure 155/89 150/90 142/94 O2 Sat by Pulse 97 97 Oximetry 07/06/19 07/06/19 07/06/19 14:10 14:20 14:30 Temperature Pulse Rate 82 84 80 Respiratory 20 25 H 20 Rate Blood Pressure 146/97 149/86 159/94 O2 Sat by Pulse 100 99 100 Oximetry 07/06/19 07/06/19 07/06/19 14:40 14:50 15:00 Temperature Pulse Rate 80 84 84 Respiratory 40 H 24 37 H Rate Blood Pressure 161/99 159/99 159/101 O2 Sat by Pulse 100 100 100 Oximetry 07/06/19 07/06/19 07/06/19 15:10 15:20 15:30 Temperature Pulse Rate 80 88 89 Respiratory 36 H 28 H 23 Rate Blood Pressure 155/100 153/96 146/92 O2 Sat by Pulse 100 100 100 Oximetry 07/06/19 07/06/19 15:40 19:24 Temperature Pulse Rate 88 92 Respiratory 31 H 18 Rate Blood Pressure 151/95 115/80 O2 Sat by Pulse 100 96 Oximetry Medical Decision Making - Medical Decision Making EKG shows sinus rhythm with an occasional PAC at 96 bpm MO interval 164 110 QT Interval 396 QTC Is 500. She Is EKG Inverted T Waves in V5 and V6 As Well As [address] of the chest showed no obvious acute abnormality. Patient's CT of the brain showed no acute abnormality. Chest x-ray showed retrocardiac area that appeared to be a pleural effusion. When all the labs and tests were done. I went back in to speak to the family and the patient he was at his baseline according to family and patient had no complaints at this time. I spoke with Dr. Escoto he agreed to admit the patient admitted the patient wrote admitting orders. I spoke with Dr. Padilla the marketing services coordinator. He did not want the patient started he love secondary to the patient's past history of bleeds and dissection. He will follow-up the patient tomorrow. - Lab Data Result diagrams: 07/06/19 12:36 07/06/19 12:36 Lab Results 07/06/19 07/06/19 07/06/19 Range/Units 12:23 12:36 12:36 WBC 8.2 (3.8-10.6) k/uL RBC 3.72 L (4.30-5.90) m/uL Hgb 10.4 L (13.0-17.5) gm/dL Hct 33.3 L (39.0-53.0) % MCV 89.6 (80.0-100.0) fL MCH 27.9 (25.0-35.0) pg MCHC 31.2 (31.0-37.0) g/dL RDW 14.4 (11.5-15.5) % Plt Count 204 (150-450) k/uL Neutrophils % 65 % Lymphocytes % 19 % Monocytes % 5 % Eosinophils % 8 % Basophils % 1 % Neutrophils # 5.3 (1.3-7.7) k/uL Lymphocytes # 1.6 (1.0-4.8) k/uL Monocytes # 0.4 (0-1.0) k/uL Eosinophils # 0.7 (0-0.7) k/uL Basophils # 0.1 (0-0.2) k/uL Hypochromasia Slight PT (9.0-12.0) sec INR (<1.2) APTT (22.0-30.0) sec Sodium 139 (137-145) mmol/L Potassium 4.6 (3.5-5.1) mmol/L Chloride 105 (98-107) mmol/L Carbon Dioxide 21 L (22-30) mmol/L Anion Gap 13 mmol/L BUN 22 H (9-20) mg/dL Creatinine 2.30 H (0.66-1.25) mg/dL Est GFR (CKD-EPI)AfAm 32 (>60 ml/min/1.73 sqM) Est GFR (CKD-EPI)NonAf 28 (>60 ml/min/1.73 sqM) Glucose 139 H (74-99) mg/dL POC Glucose (mg/dL) 110 H (75-99) mg/dL POC Glu Sports Umpire ID [place] Plasma Lactic Acid Walt (0.7-2.0) mmol/L Calcium 9.2 (8.4-10.2) mg/dL Total Bilirubin 0.4 (0.2-1.3) mg/dL AST 27 (17-59) U/L ALT 25 (21-72) U/L Alkaline Phosphatase 146 H (38-126) U/L Troponin I (0.000-0.034) ng/mL Total Protein 7.9 (6.3-8.2) g/dL Albumin 3.8 (3.5-5.0) g/dL Urine Color Urine Appearance (Clear) Urine pH (5.0-8.0) Ur Specific Bartlett (1.001-1.035) Urine Protein (Negative) Urine Glucose (UA) (Negative) Urine Ketones (Negative) Urine Blood (Negative) Urine Nitrite (Negative) Urine Bilirubin (Negative) Urine Urobilinogen (<2.0) mg/dL Ur Leukocyte Esterase (Negative) Urine RBC (0-5) /hpf Urine WBC (0-5) /hpf Ur Squamous Epith Cells (0-4) /hpf Urine Bacteria (None) /hpf Urine Mucus (None) /hpf 07/06/19 07/06/19 07/06/19 Range/Units 12:36 12:36 12:36 WBC (3.8-10.6) k/uL RBC (4.30-5.90) m/uL Hgb (13.0-17.5) gm/dL Hct (39.0-53.0) % MCV (80.0-100.0) fL MCH (25.0-35.0) pg MCHC (31.0-37.0) g/dL RDW (11.5-15.5) % Plt Count (150-450) k/uL Neutrophils % % Lymphocytes % % Monocytes % % Eosinophils % % Basophils % % Neutrophils # (1.3-7.7) k/uL Lymphocytes # (1.0-4.8) k/uL Monocytes # (0-1.0) k/uL Eosinophils # (0-0.7) k/uL Basophils # (0-0.2) k/uL Hypochromasia PT 10.5 (9.0-12.0) sec INR 1.0 (<1.2) APTT 22.9 (22.0-30.0) sec Sodium (137-145) mmol/L Potassium (3.5-5.1) mmol/L Chloride (98-107) mmol/L Carbon Dioxide (22-30) mmol/L Anion Gap mmol/L BUN (9-20) mg/dL Creatinine (0.66-1.25) mg/dL Est GFR (CKD-EPI)AfAm (>60 ml/min/1.73 sqM) Est GFR (CKD-EPI)NonAf (>60 ml/min/1.73 sqM) Glucose (74-99) mg/dL POC Glucose (mg/dL) (75-99) mg/dL POC Glu Sports Umpire ID Plasma Lactic Acid Walt 1.8 (0.7-2.0) mmol/L Calcium (8.4-10.2) mg/dL Total Bilirubin (0.2-1.3) mg/dL AST (17-59) U/L ALT (21-72) U/L Alkaline Phosphatase (38-126) U/L Troponin I 0.560 H* (0.000-0.034) ng/mL Total Protein (6.3-8.2) g/dL Albumin (3.5-5.0) g/dL Urine Color Urine Appearance (Clear) Urine pH (5.0-8.0) Ur Specific Bartlett (1.001-1.035) Urine Protein (Negative) Urine Glucose (UA) (Negative) Urine Ketones (Negative) Urine Blood (Negative) Urine Nitrite (Negative) Urine Bilirubin (Negative) Urine Urobilinogen (<2.0) mg/dL Ur Leukocyte Esterase (Negative) Urine RBC (0-5) /hpf Urine WBC (0-5) /hpf Ur Squamous Epith Cells (0-4) /hpf Urine Bacteria (None) /hpf Urine Mucus (None) /hpf 07/06/19 Range/Units 14:10 WBC (3.8-10.6) k/uL RBC (4.30-5.90) m/uL Hgb (13.0-17.5) gm/dL Hct (39.0-53.0) % MCV (80.0-100.0) fL MCH (25.0-35.0) pg MCHC (31.0-37.0) g/dL RDW (11.5-15.5) % Plt Count (150-450) k/uL Neutrophils % % Lymphocytes % % Monocytes % % Eosinophils % % Basophils % % Neutrophils # (1.3-7.7) k/uL Lymphocytes # (1.0-4.8) k/uL Monocytes # (0-1.0) k/uL Eosinophils # (0-0.7) k/uL Basophils # (0-0.2) k/uL Hypochromasia PT (9.0-12.0) sec INR (<1.2) APTT (22.0-30.0) sec Sodium (137-145) mmol/L Potassium (3.5-5.1) mmol/L Chloride (98-107) mmol/L Carbon Dioxide (22-30) mmol/L Anion Gap mmol/L BUN (9-20) mg/dL Creatinine (0.66-1.25) mg/dL Est GFR (CKD-EPI)AfAm (>60 ml/min/1.73 sqM) Est GFR (CKD-EPI)NonAf (>60 ml/min/1.73 sqM) Glucose (74-99) mg/dL POC Glucose (mg/dL) (75-99) mg/dL POC Glu Sports Umpire ID Plasma Lactic Acid Walt (0.7-2.0) mmol/L Calcium (8.4-10.2) mg/dL Total Bilirubin (0.2-1.3) mg/dL AST (17-59) U/L ALT (21-72) U/L Alkaline Phosphatase (38-126) U/L Troponin I (0.000-0.034) ng/mL Total Protein (6.3-8.2) g/dL Albumin (3.5-5.0) g/dL Urine Color Yellow Urine Appearance Clear (Clear) Urine pH 5.5 (5.0-8.0) Ur Specific Bartlett 1.017 (1.001-1.035) Urine Protein 2+ H (Negative) Urine Glucose (UA) Negative (Negative) Urine Ketones Negative (Negative) Urine Blood Trace H (Negative) Urine Nitrite Negative (Negative) Urine Bilirubin Negative (Negative) Urine Urobilinogen <2.0 (<2.0) mg/dL Ur Leukocyte Esterase Small H (Negative) Urine RBC 2 (0-5) /hpf Urine WBC 11 H (0-5) /hpf Ur Squamous Epith Cells 1 (0-4) /hpf Urine Bacteria Rare H (None) /hpf Urine Mucus Rare H (None) /hpf Disposition Clinical Impression: Fatigue, Generalized weakness, Acute alteration in mental status Disposition: ADMITTED IP TO THIS [facility] Time of Disposition: 18:53
[2019-07-06 12:59] LABS: Basophils # (A) 0.1 k/uL (0-0.2); Basophils % (A) 1 %; Eosinophils # (A) 0.7 k/uL (0-0.7); Eosinophils % (A) 8 %; HCT 33.3 % (39.0-53.0); HGB 10.4 gm/dL (13.0-17.5); Hypochromasia Slight; Lymphocytes # (A) 1.6 k/uL (1.0-4.8); Lymphocytes % (A) 19 %; MCH 27.9 pg (25.0-35.0); MCHC 31.2 g/dL (31.0-37.0); MCV 89.6 fL (80.0-100.0); Mean Platelet Volume 7.2; Monocytes # (A) 0.4 k/uL (0-1.0); Monocytes % (A) 5 %; Neutrophils # (A) 5.3 k/uL (1.3-7.7); Neutrophils % (A) 65 %; Platelet Count 204 k/uL (150-450); RBC 3.72 m/uL (4.30-5.90); RDW 14.4 % (11.5-15.5); WBC 8.2 k/uL (3.8-10.6)
[2019-07-06 13:11] LABS: Albumin 3.8 g/dL (3.5-5.0); Calcium 9.2 mg/dL (8.4-10.2); Potassium 4.6 mmol/L (3.5-5.1); Total Bilirubin 0.4 mg/dL (0.2-1.3); Total Protein 7.9 g/dL (6.3-8.2)
[2019-07-06 13:13] LABS: Partial Thromboplastin Time 22.9 sec (22.0-30.0); Prothrombin Time 10.5 sec (9.0-12.0)
--- NOTE | 2019-07-06 13:34 | CT ---
EXAMINATION TYPE: CT brain wo con DATE OF EXAM: 07/06/2019 COMPARISON: None HISTORY: Altered mental status CT DLP: 1139.4 mGycm Automated exposure control for dose reduction was used. TECHNIQUE: CT scan of the head is performed without contrast. FINDINGS: There is no acute intracranial hemorrhage or midline shift identified. There is diffuse v entricular and sulcal prominence consistent with diffuse age-related cerebral atrophy. There is low- attenuation in the periventricular white matter consistent with chronic small vessel ischemic change. The globes are intact. Probable 1.0 cm mucosal retention cyst that is slightly complex is seen of t he anterolateral right maxillary sinus. Mild mucosal thickening is also seen within the remainder the right maxillary sinus and ethmoid sinuses. Scant mucosal thickening of the left maxillary sinus and sphenoid sinus. Frontal sinuses and mastoid air cells are well aerated. There is rightward nasal sept al deviation rightward nasal septal spur. IMPRESSION: 1. No acute intracranial hemorrhage or midline shift. 2. Diffuse age-related cerebral atrophy and chronic small vessel ischemic change noted. 3. Mild paranasal sinus disease within the maxillary, ethmoid, and sphenoid sinuses with a mildly com plex approximately 1.0 cm right maxillary mucosal retention cyst.
--- NOTE | 2019-07-06 14:14 | XR ---
EXAMINATION TYPE: XR chest 2V DATE OF EXAM: 07/06/2019 COMPARISON: 06/03/2019 HISTORY: Weakness TECHNIQUE: Frontal and lateral views of the chest are obtained. FINDINGS: New retrocardiac opacity is seen with small left pleural effusion. Remainder the lungs are clear. Post CABG changes the chest are seen with enlarged cardiomediastinal silhouette is partially obscured. Surgical clips are seen within the right axilla. Vascular stent is partially visualized of the ascending thoracic aorta. Mild to moderate degenerative changes of the spine. IMPRESSION: New retrocardiac opacity. Considerations are for small pleural effusion with compressive atelectasis or pneumonia in the appropriate clinical setting.
[2019-07-06 14:47] LABS: Appearance,Urine Clear (Clear); Bacteria,Urine Rare /hpf; Bilirubin,Urine Negative (Negative); Blood,Urine Trace (Negative); Color,Urine Yellow; Glucose,Urine (UA) Negative (Negative); Ketones,Urine Negative (Negative); Leukocyte Esterase,Urine Small (Negative); Mucus,Urine Rare /hpf; Nitrite,Urine Negative (Negative); PH, Urine 5.5 (5.0-8.0); Protein,Urine 2+ (Negative); RBC,Urine 2 /hpf (0-5); Specific Gravity,Urine 1.017 (1.001-1.035); Squamous Epithelial Cell,Urine 1 /hpf (0-4); Urobilinogen,Urine <2.0 mg/dL (<2.0); WBC,Urine 11 /hpf (0-5)
[2019-07-06] MEDS ORDERED: METOCLOPRAMIDE 5 MG/ML 2 ML VIAL IVP STA (18:19)
--- NOTE | 2019-07-06 18:49 | CT ---
EXAMINATION TYPE: CT chest wo con DATE OF EXAM: 07/06/2019 COMPARISON: Chest radiographs 07/06/2019; CT 06/03/2019 HISTORY: shortness of breath CT DLP: 468 mGycm. Automated Exposure Control for Dose Reduction was Utilized. TECHNIQUE: CT scan of the thorax is performed without IV contrast. FINDINGS: The amount is seen on the prior CT of 06/03/2019 are redemonstrated. New retrocardiac airlessness is a predominantly due to a small left pleural effusion and partial atel ectasis of the left lower lobe. It is difficult to delineate the margin of the noncontrast enhanced a neurysmal descending aorta from this left lung base retrocardiac airlessness. There is no pulmonary edema. No right pleural effusion. No abnormal gas collections. No pericardial effusion. Unchanged mild/moderate cardiomegaly with interval ascending aortic prosthesis noted. Impression: 1. New small left pleural effusion and left lower lobe partial atelectasis. 2. Redemonstrated aneurysmal ascending thoracic aorta, not well visualized.
[2019-07-06] MEDS ORDERED: SODIUM CHLORIDE 0.9% 1,000 ML IV ONE (19:00)
[2019-07-07] MEDS ORDERED: HEPARIN SODIUM,PORCINE 5,000 UNIT/ML 1 ML VIAL IV ONE (10:24)
[2019-07-07] MEDS ORDERED: HEPARIN SODIUM,PORCINE 5,000 UNIT/ML 1 ML VIAL IV PRN (10:24)
--- NOTE | 2019-07-07 10:25 | P.CRDCN ---
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 The patient also has one kidney with known abnormality in his BUN and creatinine. Patient underwent left subclavian to right carotid bypass on June 10 with vascular surgery at [facility]. He presents to the hospital on this occasion with symptoms of shortness of breath, mental status changes, fatigue and weakness. According to the family members at bedside in the patient, the symptoms came on fairly rapid. A CAT scan of the brain was performed on admission here which did not reveal any acute intracranial hemorrhage or midline shift. Diffuse age-related cerebral atrophy and chronic small vessel ischemia noted. Mild paranasal sinus disease with max illary, ethmoid, and sesamoid sinuses with evidence of a mucosal cyst. Chest x- ray showed new retrocardiac obesity. Considerations for small pleural effusion with compressive atelectasis or pneumonia. CAT scan of the chest was performed, revealed new small left pleural effusion and left lower lobe partial atelectasis. Redemonstrated aneurysmal ascending thoracic aorta. His EKG showed a normal sinus rhythm with evidence of LVH strain pattern and T-wave inversion noted in the lateral leads. Blood pressure this morning 164/70 with a heart rate in the 80s, 98% on room air. Blood cell count 8.2, he will globin 10.4, platelet count 204. D-dimer came back 8.06. Sodium 139, potassium 4.6, B UN 22 and creatinine 2.3. Troponin 0.56, 0.86. At the time of my examination this morning the patient is alert and oriented, feeling much back to his self. He is not currently on any antihypertensives, no statin, no anticoagulation or aspirin. According to the documentation from [facility], patient had been receiving subcu heparin there as well as the aspirin, he is also on considerable amount of antihypertensives with the goal to maintain a systolic blood pressure in the range of 100 to160. 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 Past Psychological History: No Psychological Hx Reported Additional Psychological History / Comment(s): Pt resides with his spouse. He is receiving home care thru [facility]. He is using a walker. He normally drives, but has not since his recent surgery. Smoking Status: Never smoker Past Alcohol Use History: None Reported Past Drug Use History: None Reported - Past Family History Mother Family Medical History: Myocardial Infarction (MA) Additional Family Medical History / Comment(s): Mother of a MA at the age of 37yrs. Father Family Medical History: Myocardial Infarction (MA) Additional Family Medical History / Comment(s): Father of a MA at the age of 58yrs. Medications and Allergies Home Medications Medication Instructions Recorded Confirmed Type Aspirin EC [Ecotrin Low Dose] 81 mg PO DAILY 06/03/19 07/06/19 History Allergies Allergy/AdvReac Type Severity Reaction Status Date / Time Penicillins Allergy Rash/Hives Verified 07/06/19 13:24 Physical Exam Vitals: Vital Signs Temp Pulse Pulse Resp BP BP Pulse Ox 07/07/19 08:36 98.4 F 83 18 164/75 98 07/07/19 04:00 90 18 07/06/19 22:47 90 18 07/06/19 21:55 97.6 F 90 18 145/89 100 07/06/19 21:52 90 18 07/06/19 21:09 92 18 143/85 97 07/06/19 19:24 92 18 115/80 96 07/06/19 15:40 88 31 H 151/95 100 07/06/19 15:30 89 23 146/92 100 07/06/19 15:20 88 28 H 153/96 100 07/06/19 15:10 80 36 H 155/100 100 07/06/19 15:00 84 37 H 159/101 100 07/06/19 14:50 84 24 159/99 100 07/06/19 14:40 80 40 H 161/99 100 07/06/19 14:30 80 20 159/94 100 07/06/19 14:20 84 25 H 149/86 99 07/06/19 14:10 82 20 146/97 100 07/06/19 14:00 142/94 07/06/19 13:50 87 20 150/90 97 07/06/19 13:40 82 20 155/89 97 07/06/19 13:30 85 19 145/92 95 07/06/19 13:20 87 20 142/87 97 07/06/19 13:10 136/87 07/06/19 13:00 87 18 136/88 98 07/06/19 12:50 93 20 144/87 98 07/06/19 12:40 90 21 141/90 97 07/06/19 12:30 95 36 H 147/76 98 07/06/19 12:23 98 07/06/19 12:14 97.9 F 102 H 20 132/82 97 Intake and Output 07/06/19 07/07/19 07/07/19 22:59 06:59 14:59 Intake Total 900 Output Total 100 Balance 800 Intake: Intake, IV Titration 900 Amount Sodium Chloride 0.9% 1, 900 000 ml @ 75 mls/hr IV . [id number] ONE Rx#:[id number] Output: Urine 100 Other: Voiding Method Toilet Toilet Toilet Urinal Urinal # Voids 1 Weight 92.4 kg PHYSICAL EXAMINATION: GENERAL: 69-year-old gentleman in no acute distress at the time of my examination HEENT: Head is atraumatic, normocephalic. Pupils equal, round. Sclera anicteric. Conjunctiva are clear. Mucous membranes of the mouth are moist. Neck is supple. There is no elevated jugular venous pressure. No carotid bruit is heard. HEART EXAMINATION: Heart S1, S2 systolic murmur is heard . CHEST EXAMINATION: Lungs reveal diminished air entry to bilateral bases. ABDOMEN: Soft, nontender. Bowel sounds are heard. No organomegaly noted. EXTREMITIES:[1+ peripheral pulses left lower extremity, patient has a right below the knee amputation. NEUROLOGIC patient is awake, alert and oriented 3 . . Results 07/06/19 12:36 07/06/19 12:36 Cardiac Enzymes 07/06/19 07/06/19 07/06/19 Range/Units 12:36 12:36 19:29 AST 27 (17-59) U/L Troponin I 0.560 H* 0.867 H* (0.000-0.034) ng/mL Coagulation 07/06/19 Range/Units 12:36 PT 10.5 (9.0-12.0) sec APTT 22.9 (22.0-30.0) sec CBC 07/06/19 Range/Units 12:36 WBC 8.2 (3.8-10.6) k/uL RBC 3.72 L (4.30-5.90) m/uL Hgb 10.4 L (13.0-17.5) gm/dL Hct 33.3 L (39.0-53.0) % Plt Count 204 (150-450) k/uL Comprehensive Metabolic Panel 07/06/19 Range/Units 12:36 Sodium 139 (137-145) mmol/L Potassium 4.6 (3.5-5.1) mmol/L Chloride 105 (98-107) mmol/L Carbon Dioxide 21 L (22-30) mmol/L BUN 22 H (9-20) mg/dL Creatinine 2.30 H (0.66-1.25) mg/dL Glucose 139 H (74-99) mg/dL Calcium 9.2 (8.4-10.2) mg/dL AST 27 (17-59) U/L ALT 25 (21-72) U/L Alkaline Phosphatase 146 H (38-126) U/L Total Protein 7.9 (6.3-8.2) g/dL Albumin 3.8 (3.5-5.0) g/dL Intake and Output 07/06/19 07/07/19 07/07/19 22:59 06:59 14:59 Intake Total 900 Output Total 100 Balance 800 Intake: Intake, IV Titration 900 Amount Sodium Chloride 0.9% 1, 900 000 ml @ 75 mls/hr IV . [id number] ONE Rx#:[id number] Output: Urine 100 Other: Voiding Method Toilet Toilet Toilet Urinal Urinal # Voids 1 Weight 92.4 kg Patient Weight 07/08/19 06:59 Weight 92.4 kg 07/06/19 12:36 07/06/19 12:36 EKG Interpretations (text) EKG shows normal sinus rhythm with evidence of LVH strain pattern, T wave inversion in the lateral leads and occasional PAC Assessment and Plan Plan: Assessment and plan #1 symptoms of fairly sudden onset of shortness of breath with associated mental status changes ,severe weakness and fatigue #2 abnormality in troponin, could represent a non-Q-wave MA, could also be secondary to abnormal kidney function. Patient did have troponins drawn while he was here in May 2019, they were in the range of 0.07 at that time. #3 hypertension #4 hyperlipidemia #5 history of type A dissection with prior LAD perfusion leading to aortic arch repair and right BKA in 2012 #67 cm aneurysm of the descending thoracic aorta for which the patient is sched uled for surgery in July at [facility] #7 normocytic anemia #8 history of having only one kidney, chronic renal insufficiency #9 recent left subclavian to right carotid bypass on June 10 at [facility] #10 elevated d-dimer, 8.06 Plan We will obtain an echocardiogram with Doppler study. We will also obtain a third troponin to assess the trend. We will start the patient on IV heparin in the interim. Patient also has a d-dimer of 8.06 and a requirement VQ scan to rule out the possibility of pulmonary embolism. We will start the patient on a baby aspirin along with antihypertensives. Further recommendations to follow. DNP note has been reviewed, I agree with a documented findings and plan of care. Patient was seen and examined.
[2019-07-07] MEDS ORDERED: ASPIRIN 81 MG PO SCH (10:30)
[2019-07-07] MEDS ORDERED: HEPARIN SOD,PORK IN 0.45% NACL 25,000 UNIT in 0.45% NACL 1 250ML.BAG IV SCH (10:30)
[2019-07-07] MEDS ORDERED: METOPROLOL SUCCINATE (ER) 25 MG TAB.ER.24H PO SCH (10:30)
--- NOTE | 2019-07-07 12:01 | ECHOF ---
Referral Reason:abn trop MEASUREMENTS -------- HEIGHT: 175.3 cm WEIGHT: 92.1 kg BP: IVSd: 1.5 cm (0.6 - 1.1) LVIDd: 6.2 cm (3.9 - 5.3) LVPWd: 1.4 cm (0.6 - 1.1) IVSs: 1.8 cm LVIDs: 6.2 cm LVPWs: 1.4 cm LAESV Index (A-L): 38.76 ml/m Ao Diam: 3.7 cm (2.0 - 3.7) AV Cusp: 2.0 cm (1.5 - 2.6) LA Diam: 4.5 cm (2.7 - 3.8) MV EXCURSION: 16.898 mm (> 18.000) MV EF SLOPE: 64 mm/s (70 - 150) EPSS: 3.1 cm MV E Robby: 0.82 m/s MV DecT: 269 ms MV A Robby: 1.08 m/s MV E/A Ratio: 0.76 AV maxP.23 mmHg AV meanP.57 mmHg AR PHT: 677 ms RAP: 5.00 mmHg RVSP: 17.74 mmHg TAPSE: 29.59 mm FINDINGS -------- Sinus rhythm. This was a technically adequate study. The left ventricle is mildly dilated. There is moderate concentric left ventricular hypertrophy. There is severe global hypokinesis of LV . Overall left ventricular systolic function is severely i mpaired with, an EF between 20 - 25 %. Increased LAP Grade 3 Diastolic Dysfunction. The right ventricle is normal in size. The right ventricular systolic function is normal. LA is moderately dilated 34-39 ml/m2 The right atrial size is normal. Aortic valve is trileaflet and is mildly thickened. There is mild aortic regurgitation. The mitral valve is normal. The mitral valve leaflets are mildly thickened. Mild mitral annular c alcification present. [id number] mitral regurgitation is present. The tricuspid valve appears structurally normal. Mild tricuspid regurgitation present. Right vent ricular systolic pressure is normal at < 35 mmHg. There is no pulmonic regurgitation present. The aortic root size is normal. Normal inferior vena cava with normal inspiratory collapse consistent with estimated right atrial pre ssure of 5 mmHg. There is a trivial pericardial effusion present. CONCLUSIONS -------- 1. Sinus rhythm. 2. This was a technically adequate study. 3. The left ventricle is mildly dilated. 4. There is moderate concentric left ventricular hypertrophy. 5. There is severe global hypokinesis of LV . 6. Overall left ventricular systolic function is severely impaired with, an EF between 20 - 25 %. 7. Increased LAP Grade 3 Diastolic Dysfunction. 8. The right ventricle is normal in size. 9. The right ventricular systolic function is normal. 10. LA is moderately dilated 34-39 ml/m2 11. The right atrial size is normal. 12. Aortic valve is trileaflet and is mildly thickened. 13. There is mild aortic regurgitation. 14. The mitral valve is normal. 15. The mitral valve leaflets are mildly thickened. 16. Mild mitral annular calcification present. 17. [id number] mitral regurgitation is present. 18. The tricuspid valve appears structurally normal. 19. Mild tricuspid regurgitation present. 20. Right ventricular systolic pressure is normal at < 35 mmHg. 21. There is no pulmonic regurgitation present. 22. The aortic root size is normal. 23. Normal inferior vena cava with normal inspiratory collapse consistent with estimated right atrial pressure of 5 mmHg. 24. There is a trivial pericardial effusion present. AERODYNAMIC CONSULTANT: Ghazala Mills RDCS
[2019-07-07 12:51] LABS: Basophils % (A) 0 %; Eosinophils # (A) 0.8 k/uL (0-0.7); Eosinophils % (A) 10 %; HGB 9.4 gm/dL (13.0-17.5); Hypochromasia Moderate; Lymphocytes # (A) 1.3 k/uL (1.0-4.8); Lymphocytes % (A) 18 %; MCH 29.3 pg (25.0-35.0); MCHC 32.5 g/dL (31.0-37.0); MCV 90.1 fL (80.0-100.0); Mean Platelet Volume 7.4; Monocytes # (A) 0.4 k/uL (0-1.0); Monocytes % (A) 6 %; Neutrophils # (A) 4.8 k/uL (1.3-7.7); Neutrophils % (A) 64 %; Platelet Count 176 k/uL (150-450); RBC 3.22 m/uL (4.30-5.90); RDW 13.9 % (11.5-15.5); WBC 7.5 k/uL (3.8-10.6)
--- NOTE | 2019-07-07 12:55 | NM ---
EXAMINATION TYPE: NM pul vent and perfuse DATE OF EXAM: 07/07/2019 COMPARISON: CT chest from yesterday. HISTORY: Shortness of breath TECHNIQUE: Utilizing inhalation of 71.6 mCi Tc 99m DTPA aerosol and intravenous injection of 4.97 mC i of Tc 99m MAA, ventilation and perfusion images are acquired post injection in multiple projections . FINDINGS: Poor uptake left lung base corresponds to cardiomegaly along with elevated left hemidiaphra gm and left basilar consolidation. There is no evidence of mismatched defects. IMPRESSION: Low scintigraphic evidence for pulmonary embolism.
[2019-07-07 13:01] LABS: Calcium 8.7 mg/dL (8.4-10.2); Potassium 5.1 mmol/L (3.5-5.1)
[2019-07-07 13:07] LABS: Partial Thromboplastin Time 23.9 sec (22.0-30.0); Prothrombin Time 10.7 sec (9.0-12.0)
--- NOTE | 2019-07-07 14:03 | HP ---
HISTORY AND PHYSICAL He was evaluated on 07/06/2019 in the Emergency Room. Came in with shortness of breath and altered mental status changes, some possible dehydration with decreasing renal function, possible UTI and possible pneumonia with abnormal chest x-ray. CAT scan of the chest is pending. He apparently has one kidney, elevated BUN and creatinine. There is descending aortic aneurysm of 7 cm. He had a recent carotid to carotid anastomosis, bypass done. He came in with the shortness of breath, mental status change, fatigue and weakness. CAT scan of the brain was negative. UA was positive. Urine culture is pending. CAT scan of the chest shows atelectasis versus pneumonia. Will start him on broad-spectrum antibiotics. Pulmonary and Cardiology consults for elevated troponins and abnormal CAT scan of the chest. V/Q scan is ordered also due to elevated D-dimer. PAST MEDICAL HISTORY: Dyslipidemia, hypertension, and vascular disorder. PAST SURGICAL HISTORY: Appendectomy, cholecystectomy, heart catheterization, orthopedic surgery, thoracic aortic aneurysm, left-sided head hemangioma, uncontrolled hypertension with renal insufficiency for many years. Does not smoke or do drugs. Mom had myocardial infarction, father had myocardial infarction. MEDICATIONS: Aspirin, supposed to be on a blood pressure pill and high cholesterol pill. Blood pressure 130s/80s and 90s, temp 98.4, O2 is 100%. He feels weak and fatigued. Family states he is a little bit confused compared to his baseline. HEART: S1, S2. LUNGS: Decreased breath sounds x4. ABDOMEN: Soft. EXTREMITIES: There is right below-knee amputation. His left leg is 1+ pedal edema. Alert and oriented x3, giving slow answers, he feels a little bit better since he has been given IV antibiotics here in the hospital. Elevated troponins mentioned 0.56, 0.87, hemoglobin is 10.4, white count is 8.2, BUN is 22, creatinine 2.3, carbon dioxide 21, alkaline phosphatase 146. EKG, LVH strain. ASSESSMENT: 1. Likely systolic congestive heart failure, ascending aortic aneurysm, rule out pneumonia, rule out pulmonary embolism, possible non-Q-wave myocardial infarction. 2. Hypertension. 3. Dyslipidemia. 4. History of type A dissection prior LAD, perfusion leading to aortic arch repair. 5. Right below-knee amputation 2012. 6. He has a 7 cm aneurysm descending aortic aneurysm now, scheduled for surgery mid July at [facility]. 7. Normocytic anemia. 8. Chronic renal insufficiency with some prerenal insufficiency at this time. 9. Left subclavian right carotid bypass, June 10, 2019 at [facility]. 10.Elevated D-dimer. Echo, V/Q scan, rule out urosepsis. Continue current treatment. Wait for possible rehydration and improvement of his confusion with IV fluids and await for Cardiology and Pack[employer] Weigher recommendations. Rule out urine culture urine infection. MMODL / IJN: [id number] /
--- NOTE | 2019-07-07 15:36 | DS ---
DISCHARGE SUMMARY DISCHARGE MEDICATIONS: 1. Toprol-XL 25 mg daily. 2. Atorvastatin 80 mg daily. 3. Aspirin 81 mg daily. CONDITION: Stable. PROGNOSIS: Guarded. Heparin protocol. He was found to have a non STEMI on admission with elevated troponins x3. He has a descending aortic aneurysm 7.4 cm. He was negative for pulmonary embolism with a V/Q scan, possible pleural effusion versus pneumonia. Will start him on empiric antibiotics. Cardiology recommended to do an echo that shows systolic CHF with an ejection fraction of 20%, elevated troponin and an aneurysm this time down to [facility] for tertiary care which was accomplished. I transferred the patient and discharge prognosis is guarded, condition stable. He appears to be greatly improved as he had some dehydration on admission, so he had acute on chronic renal insufficiency due to dehydration, chronic renal disease stage III non STEMI, descending aortic aneurysm, hypertension acceleration, status post altered mental status secondary to above, status post carotid the carotid surgery and patient will be stabilized and sent home in stable condition down to [facility] for further care including aneurysm repair. MMBRETTL / IJN: [id number] /
[2019-07-07 16:08] VITALS: BP 155/84; PULSE 78; RESP 20; TEMP 97.6
[2019-07-07] MEDS ORDERED: ATORVASTATIN 40 MG TAB PO SCH (21:00)
--- NOTE | 2019-07-13 08:21 | CDI ---
Documentation Clarification Form Date: 07/13/2019 6:21:00 AM From: Yoselin Barrons Phone: If you have a question about this query, please contact Ne Atkins Cord Cutter at [phone] between 8am and 5pm. If you have a question about this query, please contact Ne Atkins Cord Cutter at [phone] between 8am and 5pm. Admit Date: 07/07/2019 3:38:00 PM Patient Name: Wilner Up Visit Number: [id number] Discharge Date: 07/07/2019 8:20:00 PM ATTENTION: The Clinical Documentation Specialists (CDI) and [facility] Coding Staff appreciate your assistance in clarifying documentation. Please respond to the clarification below the line at the bottom and electronically sign. The CDI & [facility] Coding staff will review the response and follow-up if needed. Please note: Queries are made part of the Legal Health Record. If you have any questions, please contact the author of this message via ITS. Dr. Og Escoto Pneumonia was documented in your notes in H and P "rule out pneumonia". DCS documents "possible pleural effusion versus pneumonia will start on empiric antibiotics" Please clarify if patient had pneumonia or was it ruled out. History/Risk Factors: NSTEMI, systolic CHF, hx pneumonia, Vital signs: 97.9 F, 102 bpm, 20, 132/82, 97% RA WBC/Left shift: 8.2 X-ray: Pleural effusion, compressive atelectasis or pneumonia Treatment: empiric antibiotics In order to capture the severity of condition, please clarify if patient had Pneumonia or was pneumonia ruled out. Pneumonia Pneumonia ruled out (specify casual organism (if known) Other, please specify Unable to determine MTDD
--- NOTE | 2019-07-13 23:34 | DS ---
DISCHARGE SUMMARY DISCHARGE SUMMARY ADDENDUM: ADDITION TO HISTORY: Pneumonia ruled out. MMODL / IJN: [id number] /
--- NOTE | 2019-07-14 13:43 | CDI ---
Documentation Clarification Form Date: 07/14/2019 1:28:49 PM From: Yoselin Hidalgo Phone: If you have a question about this query, please contact Ne Atkins Surgical Oncologist at [phone] between 8am and 5pm. Admit Date: 07/07/2019 3:38:00 PM Patient Name: Wilner Up Visit Number: [id number] Discharge Date: 07/07/2019 8:20:00 PM ATTENTION: The Clinical Documentation Specialists (CDI) and [facility] Coding Staff appreciate your assistance in clarifying documentation. Please respond to the clarification below the line at the bottom and electronically sign. The CDI & [facility] Coding staff will review the response and follow-up if needed. Please note: Queries are made part of the Legal Health Record. If you have any questions, please contact the author of this message via ITS. Dr. Og Escoto CHF is documented as Systolic CHF. Please clarify whether systolic CHF is acute, chronic or acute and chronic.. History/Risk Factors: NSTEMI, HTN EF 20%, Left ventricular hypertrophy, severley impaired ventricular systolic function. In your professional opinion, can you please clarify the acuity of systolic CHF if known: Systolic Heart Failure: Acute Chronic Acute on Chronic MTDD
--- NOTE | 2019-07-14 14:03 | CDI ---
Documentation Clarification Form Date: 07/14/2019 1:49:48 PM From: Yoselin Hidalgo Phone: If you have a question about this query, please contact Ne Atkins Parts Coordinator at [phone] between 8am and 5pm. Admit Date: 07/07/2019 3:38:00 PM Patient Name: Wilner Up Visit Number: [id number] Discharge Date: 07/07/2019 8:20:00 PM ATTENTION: The Clinical Documentation Specialists (CDI) and [facility] Coding Staff appreciate your assistance in clarifying documentation. Please respond to the clarification below the line at the bottom and electronically sign. The CDI & [facility] Coding staff will review the response and follow-up if needed. Please note: Queries are made part of the Legal Health Record. If you have any questions, please contact the author of this message via ITS. Dr. Og Escoto Documentation of NSTEMI is throughout the chart. Please clarify type of NSTEMI. In order to capture the severity of condition and necessary documentation specificity, please clarify: Type of NSTEMI: NSTEMI Type 2 due to demand ischemia NSTEMI Type 2 Due to CHF NSTEMI Type 2 Due to ascending aortic aneurysm Unable to determine Other Condition, please specify MTDD
--- NOTE | 2019-07-25 21:56 | DS ---
DISCHARGE SUMMARY ADDENDUM: Please add to discharge summary on [facility]: IMPRESSION: 1. Acute on chronic systolic heart failure. 2. Non ST-elevation myocardial infarction secondary to demand ischemia. MMODL / IJN: [id number] /
== END 2019-07-07 20:20 | disposition short-term general hospital (02) | DRG 280 ==
LOC: EC 12:13 → 3SCARD 18:52 → OBSVTOIN 07-07 15:38
PROVIDERS: ADMIT Family Medicine; ATTEND Family Medicine
DX: I13.0 Hypertensive heart and chronic kidney disease with heart failure and stage 1 through stage 4 chronic kidney disease, or unspecified chronic kidney disease (principal); I21.A1 Myocardial infarction type 2; I50.23 Acute on chronic systolic (congestive) heart failure; I21.4 Non-ST elevation (NSTEMI) myocardial infarction; J98.11 Atelectasis; N18.3 Chronic kidney disease, stage 3 (moderate); D64.9 Anemia, unspecified; E78.5 Hyperlipidemia, unspecified; I71.2 Thoracic aortic aneurysm, without rupture; I73.9 Peripheral vascular disease, unspecified; Z79.82 Long term (current) use of aspirin; Z82.49 Family history of ischemic heart disease and other diseases of the circulatory system; Z87.01 Personal history of pneumonia (recurrent); Z87.442 Personal history of urinary calculi; Z89.511 Acquired absence of right leg below knee; Z90.5 Acquired absence of kidney; R79.1 Abnormal coagulation profile; Z90.49 Acquired absence of other specified parts of digestive tract; Z86.718 Personal history of other venous thrombosis and embolism; Z88.0 Allergy status to penicillin; Z86.79 Personal history of other diseases of the circulatory system; R55 Syncope and collapse
CPT/HCPCS: 36415; 70450; 71046; 71250; 78582; 80048; 80053; 81001; 83605; 84484; 85025; 85379; 85610; 85730; 87086; 93005; 93306; 96360; 96361; 96374; 99285

== ENCOUNTER 2019-07-16 10:54 | Emergency (ER) | payer MEDICARE ==
[2019-07-16 11:03] VITALS: RESP 18
[2019-07-16 11:06] LABS: Glucose,Whole Blood 88 mg/dL (75-99)
[2019-07-16 11:38] LABS: Basophils # (A) 0.1 k/uL (0-0.2); Basophils % (A) 1 %; Eosinophils # (A) 0.7 k/uL (0-0.7); Eosinophils % (A) 9 %; HCT 28.6 % (39.0-53.0); HGB 9.6 gm/dL (13.0-17.5); Hypochromasia Slight; Lymphocytes % (A) 13 %; MCH 29.2 pg (25.0-35.0); MCHC 33.4 g/dL (31.0-37.0); MCV 87.3 fL (80.0-100.0); Monocytes # (A) 0.5 k/uL (0-1.0); Monocytes % (A) 6 %; Neutrophils # (A) 5.4 k/uL (1.3-7.7); Neutrophils % (A) 69 %; Platelet Count 188 k/uL (150-450); Poikilocytosis Slight; RBC 3.28 m/uL (4.30-5.90); RDW 14.3 % (11.5-15.5); WBC 7.9 k/uL (3.8-10.6)
[2019-07-16 11:46] LABS: Albumin 3.6 g/dL (3.5-5.0); Calcium 9.3 mg/dL (8.4-10.2); Potassium 4.6 mmol/L (3.5-5.1); Total Bilirubin 0.6 mg/dL (0.2-1.3); Total Protein 7.2 g/dL (6.3-8.2)
--- NOTE | 2019-07-16 11:46 | CT ---
EXAMINATION TYPE: CT brain wo con for TPA DATE OF EXAM: 07/16/2019 COMPARISON: 07/06/2019 HISTORY: AMS CT DLP: 1086.[address] of the brain was performed. The ventricles, basal cisterns and sulci overlying the cerebral convexities demonstrate mild enlargem ent. There is no evidence for intracranial hemorrhage or sulcal effacement. There is decreased attenuation about the periventricular white matter and deep white matter of both c erebral hemispheres, compatible with chronic small vessel ischemia. Differential diagnosis does inclu de demyelination. No mass effects are seen.No midline shift. Osseous calvarium is intact. Cyst or polyp right maxillary sinus. If symptoms persist consider MRI. IMPRESSION: 1. Age related atrophic and chronic small vessel ischemic change without acute intracranial process s een at this time.
--- NOTE | 2019-07-16 11:59 | CT ---
EXAMINATION TYPE: CT chest wo con DATE OF EXAM: 07/16/2019 COMPARISON: 07/06/2019, 11/27/2012 HISTORY: Dissection CT DLP: 674.[address] of the chest was performed with lung and mediastinal window settings submitted. The la ck of contrast limits evaluation of the vascular, mediastinal and parenchymal structures including th e upper abdomen. LUNGS: Stable left lower lobe atelectasis and/or infiltrate with small effusion. The right lung is cl ear at this time. No atelectasis. No pulmonary nodule or mass is detected. No pleural effusion. No CT evidence of interstitial lung disease. MEDIASTINUM/NANCY: Ascending thoracic aortic graft noted to be in place. There is aneurysmal dilatatio n of the descending thoracic aorta. Greatest aneurysmal component of the distal descending thoracic a quynh measures 5.9 x 5.5 cm versus 6.0 x 5.6 cm previously. While there is a lack of contrast appears to be dissection which has been described dating back to 2012. The heart is enlarged. No evidence for mediastinal mass. No lymph nodes greater than 1cm. UPPER ABDOMEN: Renal cystic changes redemonstrated. Nonobstructing nephrolithiasis upper pole right k idney. The gallbladder surgically absent. OTHER: No significant other abnormality. IMPRESSION: 1. Stable left lower lobe atelectasis and/or infiltrate with small effusion. 2. Ascending thoracic aortic graft noted to be in place. There is aneurysmal dilatation of the descen ding thoracic aorta. Greatest aneurysmal component of the distal descending thoracic aorta measures 5 .9 x 5.5 cm versus 6.0 x 5.6 cm previously. While there is a lack of contrast appears to be dissectio n which has been described dating back to 2013.
[2019-07-16 12:02] LABS: Prothrombin Time 10.7 sec (9.0-12.0)
[2019-07-16] MEDS ORDERED: MORPHINE SULFATE 4 MG/ML SYRINGE IVP STA ×2 (12:05→13:35)
[2019-07-16] MEDS ORDERED: SODIUM CHLORIDE 0.9% 500 ML 500 ML IV STA (12:10)
[2019-07-16 12:13] LABS: Partial Thromboplastin Time 21.3 sec (22.0-30.0)
[2019-07-16] MEDS ORDERED: fentaNYL (PF) 50 MCG/ML 2 ML AMP IVP STA (12:29)
--- NOTE | 2019-07-16 13:41 | ED ---
General Adult HPI - General Chief complaint: Neuro Symptoms/Deficit Stated complaint: AMS Time Seen by Provider: 07/16/19 11:00 Source: patient, EMS Mode of arrival: EMS Limitations: no limitations - History of Present Illness Initial comments: The patient is a 69-year-old male with past medical history of ascending thoracic aneurysm with repair, descending thoracic aneurysm with dissection flap, carotid bypass and bifem bypass who presents emergency Department with syncope and possible strokelike symptoms. provides the history. She states that around 9:00 today she saw her lasts normal. He did take his medications. Shortly afterwards he suffered a syncopal episode while he was sitting in his chair. She denies that he fell or hit his head. Patient was out for approximately 2 minutes when he came to. was calling EMS that he persisted that she hang up. Later on he was requesting a haircut. was cutting his hair approximately 30 minutes later when she noted that he slumped over to the left side. He is complaining of paresthesias and weakness in his left upper extremity. He also had confused speech and facial droop. EMS was then called and did transport the patient to the emergency room. He comes in to us complaining of left upper extremity subjective paresthesias. He does have mild drift of the left upper extremity otherwise strength is intact. No lower extremity symptoms. Is complaining of intrascapular back pain. The patient was found to be hypoxic by EMS. Original saturation cannot be obtained. Patient currently satting 99% on 2 L. Patient does admit to shortness of breath. Also admits to nausea without vomiting. Patient is scheduled to have repair of his descending thoracic aneurysm in mid-July by Dr. Nunez. Patient was just recently discharged from [facility] for evaluation of PE. The patient is otherwise a poor historian. He is denying any headaches or visual changes.Difficulties. Denies any issues with his right upper extremity. No chest pain or abdominal pain. No changes in his bowel or bladder habits. There are no alleviating, precipitating or modifying factors - Related Data Home Medications Medication Instructions Recorded Confirmed Aspirin EC [Ecotrin Low Dose] 81 mg PO DAILY@0900 06/03/19 07/16/19 Atorvastatin [Lipitor] 80 mg PO HS@2100 07/16/19 07/16/19 Carvedilol [Coreg] 6.25 mg PO BID@0900,2100 07/16/19 07/16/19 Furosemide [Lasix] 40 mg PO DAILY@0900 07/16/19 07/16/19 Isosorbide Dinitrate 10 mg PO TID@0900,1500,2100 07/16/19 07/16/19 Lisinopril 40 mg PO DAILY@0900 07/16/19 07/16/19 amLODIPine [Norvasc] 5 mg PO DAILY@0900 07/16/19 07/16/19 hydrALAZINE HCL [Apresoline] 50 mg PO TID@0600,1400,2200 07/16/19 07/16/19 Allergies Allergy/AdvReac Type Severity Reaction Status Date / Time Penicillins Allergy Rash/Hives Verified 07/16/19 12:14 Review of Systems ROS Statement: Those systems with pertinent positive or pertinent negative responses have been documented in the HPI. ROS Other: All systems not noted in ROS Statement are negative. 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 Past Psychological History: No Psychological Hx Reported Smoking Status: Never smoker Past Alcohol Use History: None Reported Past Drug Use History: None Reported - Past Family History Mother Family Medical History: Myocardial Infarction ([place]) Additional Family Medical History / Comment(s): Mother of a ME at the age of 37yrs. Father Family Medical History: Myocardial Infarction ([place]) Additional Family Medical History / Comment(s): Father of a ME at the age of 58yrs. General Exam Limitations: no limitations General appearance: alert, anxious Head exam: Present: other (Left-sided scalp abrasion measuring 2 x 2 centimeters) Eye exam: Present: PERRL, EOMI ENT exam: Present: normal exam, normal oropharynx, mucous membranes moist Neck exam: Present: normal inspection. Absent: tenderness, meningismus Respiratory exam: Present: respiratory distress, rales (Right base). Absent: wheezes Cardiovascular Exam: Present: regular rate, normal rhythm GI/Abdominal exam: Present: soft. Absent: distended, tenderness, pulsatile mass Rectal exam: Present: deferred Extremities exam: Present: other (The patient does have subjective paresthesias of the left upper extremity. He does have drift in this extremity. He does have equal lumber scaler strength bilaterally. Normal strength in the left lower trauma. Right lower extremity is a prosthetic however continues to have normal range of motion) Neurological exam: Present: alert, oriented X3, CN II-XII intact Psychiatric exam: Present: normal affect, anxious Skin exam: Present: warm, dry, intact Course Vital Signs 07/16/19 07/16/19 07/16/19 10:59 11:10 11:25 Temperature 98.2 F 98.1 F 98.1 F Pulse Rate 68 68 67 Respiratory 18 18 18 Rate Blood Pressure 109/67 133/79 O2 Sat by Pulse 99 99 99 Oximetry 07/16/19 07/16/19 07/16/19 12:25 13:25 13:51 Temperature 98 F Pulse Rate 67 70 Respiratory 18 18 Rate Blood Pressure 109/73 125/76 O2 Sat by Pulse 99 99 Oximetry EKG Findings - EKG Comments: EKG Findings:: EKG demonstrates a normal sinus rhythm with a ventricular rate of 67. WV interval 172. QRS 114. QTC 496. There is a prolonged QT. Inverted T waves in lead 1, 2, V4 through V6. There is some J-point elevation in V1 and V2. I did compare this to patient's previous EKG and appears the same Medical Decision Making - Medical Decision Making Upon arrival, the patient is promptly placed into trauma bay 1. A thorough history of physical exam is performed. [facility] scale is provided by the nurse and his score of 3. Last known well was 9:00. We did activate a code stroke. Patient does have a history of chronic kidney disease and therefore family is insistent that he does not receive contrast. Patient is sent over for a CT of his brain as well as a noncontrasted CT of his thorax because of his history. I discussed the case with Dr. Gomez at 11:30 AM and he states that the patient will not be a TPA candidate because of improving symptoms, low NIH score and his history of dissection. CT chest demonstrates a stable left lower lobe atelectasis and/or infiltrate with small effusion, a sending thoracic aortic graft. There is aneurysmal dilation of the descending thoracic aorta. Greatest component is 5.9 x 5.5. 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 Exam is limited because of lack of contrast. CT brain demonstrates age-related atrophic and chronic small vessel ischemic changes. Laboratory studies were conducted. Hemoglobin is 9.6 which appears to be the patient's baseline. Creatinine is 2.2 which is also the patient's baseline. Troponin 0.053 which is improved from previous at 0.74 on the 16th. The patient's vitals remained stable while he is in the emergency department. He is complaining of the intrascapular back pain and therefore is originally given 50 g of fentanyl. I then followed this by 4 mg of morphine. Patient did receive 500 mL normal saline bolus. I talked to the patient's admitting physician, Dr. Puentes. He does not feel comfortable keeping the patient at the [facility] if this may be related to his current dissection. Because of this I did call discuss case with Dr. Barclay at [facility]. He does accept transfer of the patient. Patient will be taken to CAT 1. He was transferred in stable condition - Lab Data Result diagrams: 07/16/19 11:05 07/16/19 11:05 Lab Results 07/16/19 07/16/19 07/16/19 Range/Units 11:04 11:05 11:05 WBC 7.9 (3.8-10.6) k/uL RBC 3.28 L (4.30-5.90) m/uL Hgb 9.6 L (13.0-17.5) gm/dL Hct 28.6 L (39.0-53.0) % MCV 87.3 (80.0-100.0) fL MCH 29.2 (25.0-35.0) pg MCHC 33.4 (31.0-37.0) g/dL RDW 14.3 (11.5-15.5) % Plt Count 188 (150-450) k/uL Neutrophils % 69 % Lymphocytes % 13 % Monocytes % 6 % Eosinophils % 9 % Basophils % 1 % Neutrophils # 5.4 (1.3-7.7) k/uL Lymphocytes # 1.0 (1.0-4.8) k/uL Monocytes # 0.5 (0-1.0) k/uL Eosinophils # 0.7 (0-0.7) k/uL Basophils # 0.1 (0-0.2) k/uL Hypochromasia Slight Poikilocytosis Slight PT (9.0-12.0) sec INR (<1.2) APTT (22.0-30.0) sec Sodium 139 (137-145) mmol/L Potassium 4.6 (3.5-5.1) mmol/L Chloride 106 (98-107) mmol/L Carbon Dioxide 22 (22-30) mmol/L Anion Gap 11 mmol/L BUN 32 H (9-20) mg/dL Creatinine 2.27 H (0.66-1.25) mg/dL Est GFR (CKD-EPI)AfAm 33 (>60 ml/min/1.73 sqM) Est GFR (CKD-EPI)NonAf 28 (>60 ml/min/1.73 sqM) Glucose 107 H (74-99) mg/dL POC Glucose (mg/dL) 88 (75-99) mg/dL POC Glu [employer] Calcium 9.3 (8.4-10.2) mg/dL Total Bilirubin 0.6 (0.2-1.3) mg/dL AST 28 (17-59) U/L ALT 25 (21-72) U/L Alkaline Phosphatase 126 (38-126) U/L Troponin I (0.000-0.034) ng/mL Total Protein 7.2 (6.3-8.2) g/dL Albumin 3.6 (3.5-5.0) g/dL Blood Type Blood Type Recheck Bld Type Recheck Status Antibody Screen Spec Expiration Date 07/16/19 07/16/19 07/16/19 Range/Units 11:05 11:05 11:05 WBC (3.8-10.6) k/uL RBC (4.30-5.90) m/uL Hgb (13.0-17.5) gm/dL Hct (39.0-53.0) % MCV (80.0-100.0) fL MCH (25.0-35.0) pg MCHC (31.0-37.0) g/dL RDW (11.5-15.5) % Plt Count (150-450) k/uL Neutrophils % % Lymphocytes % % Monocytes % % Eosinophils % % Basophils % % Neutrophils # (1.3-7.7) k/uL Lymphocytes # (1.0-4.8) k/uL Monocytes # (0-1.0) k/uL Eosinophils # (0-0.7) k/uL Basophils # (0-0.2) k/uL Hypochromasia Poikilocytosis PT 10.7 (9.0-12.0) sec INR 1.0 (<1.2) APTT 21.3 L (22.0-30.0) sec Sodium (137-145) mmol/L Potassium (3.5-5.1) mmol/L Chloride (98-107) mmol/L Carbon Dioxide (22-30) mmol/L Anion Gap mmol/L BUN (9-20) mg/dL Creatinine (0.66-1.25) mg/dL Est GFR (CKD-EPI)AfAm (>60 ml/min/1.73 sqM) Est GFR (CKD-EPI)NonAf (>60 ml/min/1.73 sqM) Glucose (74-99) mg/dL POC Glucose (mg/dL) (75-99) mg/dL POC Glu Supervisor [employer] ID Calcium (8.4-10.2) mg/dL Total Bilirubin (0.2-1.3) mg/dL AST (17-59) U/L ALT (21-72) U/L Alkaline Phosphatase (38-126) U/L Troponin I 0.053 H* (0.000-0.034) ng/mL Total Protein (6.3-8.2) g/dL Albumin (3.5-5.0) g/dL Blood Type O Positive Blood Type Recheck O Pos Bld Type Recheck Status No Antibody Screen NEGATIVE Spec Expiration Date 07/19/2019 - 2307 Critical Care Time Critical Care Time: Yes Total Critical Care Time: 35 (minutes) Disposition Clinical Impression: Acute alteration in mental status, Thoracic aortic aneurysm Disposition: TRANSFER TO SHORT TERM [facility] Condition: Serious Is patient prescribed a controlled substance at d/c from ED?: No Referrals: Og Escoto MD [Primary Care Provider] - 1-2 days Time of Disposition: 13:44 - Out of Hospital Transfer - Req. Specs Out of Hospital Transfer - Requested Specifics: Other Emergency Center ([facility])
[2019-07-16 13:57] VITALS: BP 125/76; PULSE 70; TEMP 98
== END 2019-07-16 13:51 | disposition short-term general hospital (02) ==
LOC: EC 10:54
DX: I71.2 Thoracic aortic aneurysm, without rupture (principal); R41.82 Altered mental status, unspecified; R29.703 NIHSS score 3; S00.01XA Abrasion of scalp, initial encounter; N18.9 Chronic kidney disease, unspecified; J98.11 Atelectasis; J90 Pleural effusion, not elsewhere classified; I71.01 Dissection of thoracic aorta; G31.9 Degenerative disease of nervous system, unspecified; I67.82 Cerebral ischemia; M54.9 Dorsalgia, unspecified; R06.03 Acute respiratory distress; R20.2 Paresthesia of skin; R29.898 Other symptoms and signs involving the musculoskeletal system; R06.02 Shortness of breath; R11.0 Nausea; R55 Syncope and collapse; E78.5 Hyperlipidemia, unspecified; I12.9 Hypertensive chronic kidney disease with stage 1 through stage 4 chronic kidney disease, or unspecified chronic kidney disease; I73.9 Peripheral vascular disease, unspecified; Z89.511 Acquired absence of right leg below knee; Z88.0 Allergy status to penicillin; Z79.82 Long term (current) use of aspirin; Z79.899 Other long term (current) drug therapy; Z86.718 Personal history of other venous thrombosis and embolism; Z86.010 Personal history of colon polyps; Z95.818 Presence of other cardiac implants and grafts; Z98.890 Other specified postprocedural states; Z82.49 Family history of ischemic heart disease and other diseases of the circulatory system; X58.XXXA Exposure to other specified factors, initial encounter; Z53.8 Procedure and treatment not carried out for other reasons
CPT/HCPCS: 99291; 96374; 96375; 36415; 93005; 86900; 86901; 80053; 84484; 85025; 85610; 85730; 86850; 71250; 70450; J2270; J3010

== ENCOUNTER 2019-11-22 15:27 | Emergency (ER) | payer MEDICARE, OTHER ==
[2019-11-22 15:37] VITALS: RESP 18
[2019-11-22] MEDS ORDERED: LIDOCAINE/EPINEPHR/TETRACAINE 5 ML BOTTLE TOPICAL ONE (15:42)
[2019-11-22] MEDS ORDERED: OXYMETAZOLINE 0.05% NASL SPRAY 1 SPRAY BOTTLE NASAL STA (15:42)
[2019-11-22 16:52] LABS: Anisocytosis Slight; Basophils % (A) 0 %; Eosinophils # (A) 0.5 k/uL (0-0.7); Eosinophils % (A) 6 %; HCT 39.5 % (39.0-53.0); HGB 12.3 gm/dL (13.0-17.5); Lymphocytes # (A) 1.6 k/uL (1.0-4.8); Lymphocytes % (A) 21 %; MCH 25.1 pg (25.0-35.0); MCHC 31.2 g/dL (31.0-37.0); MCV 80.3 fL (80.0-100.0); Mean Platelet Volume 8.3; Monocytes # (A) 0.5 k/uL (0-1.0); Monocytes % (A) 6 %; Neutrophils # (A) 4.9 k/uL (1.3-7.7); Neutrophils % (A) 65 %; Platelet Count 200 k/uL (150-450); RBC 4.92 m/uL (4.30-5.90); RDW 16.2 % (11.5-15.5); WBC 7.6 k/uL (3.8-10.6)
[2019-11-22 17:00] LABS: INR 4.7 (<1.2); Partial Thromboplastin Time 47.2 sec (22.0-30.0); Prothrombin Time 46.5 sec (9.0-12.0)
--- NOTE | 2019-11-22 17:04 | ED ---
General Adult HPI - General Chief complaint: ENT Stated complaint: sent by /zay tam Time Seen by Provider: 11/22/19 15:41 Source: patient, RN notes reviewed Mode of arrival: ambulatory Limitations: no limitations - History of Present Illness Initial comments: 69-year-old male with a past medical history of hyperlipidemia, hypertension presents to the emergency department for nosebleed. Patient states that it started to bleed out of his right nose and down the back of his throat. States this started after he left his doctor's office and was given a new nasal spray. Patient does take Coumadin. Patient states he did not get it to stop with pressure.Patient has no other complaints at this time including shortness of breath, chest pain, abdominal pain, nausea or vomiting, headache, or visual changes. - Related Data Home Medications Medication Instructions Recorded Confirmed Aspirin EC [Ecotrin Low Dose] 81 mg PO DAILY@0900 06/03/19 07/16/19 Atorvastatin [Lipitor] 80 mg PO HS@2100 07/16/19 07/16/19 Carvedilol [Coreg] 6.25 mg PO BID@0900,2100 07/16/19 07/16/19 Furosemide [Lasix] 40 mg PO DAILY@0900 07/16/19 07/16/19 Isosorbide Dinitrate 10 mg PO TID@0900,1500,2100 07/16/19 07/16/19 Lisinopril 40 mg PO DAILY@0900 07/16/19 07/16/19 amLODIPine [Norvasc] 5 mg PO DAILY@0900 07/16/19 07/16/19 hydrALAZINE HCL [Apresoline] 50 mg PO TID@0600,1400,2200 07/16/19 07/16/19 Previous Rx's Medication Instructions Recorded Azithromycin [Zithromax Z-pack] 250 mg PO DIRECTED #6 tab 11/22/19 Allergies Allergy/AdvReac Type Severity Reaction Status Date / Time Penicillins Allergy Rash/Hives Verified 07/16/19 12:14 Review of Systems ROS Statement: Those systems with pertinent positive or pertinent negative responses have been documented in the HPI. ROS Other: All systems not noted in ROS Statement are negative. 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 Past Psychological History: No Psychological Hx Reported Smoking Status: Never smoker Past Alcohol Use History: None Reported Past Drug Use History: None Reported - Past Family History Mother Family Medical History: Myocardial Infarction ([place]) Additional Family Medical History / Comment(s): Mother of a [place] at the age of 37yrs. Father Family Medical History: Myocardial Infarction ([place]) Additional Family Medical History / Comment(s): Father of a [place] at the age of 58yrs. General Exam Limitations: no limitations General appearance: alert, in no apparent distress Head exam: Present: atraumatic, normocephalic, normal inspection Eye exam: Present: normal appearance, PERRL, EOMI. Absent: scleral icterus, conjunctival injection, periorbital swelling ENT exam: Present: normal exam, mucous membranes moist, TM's normal bilaterally, normal external ear exam, other (Patient does have bleeding from the right nare and into the oropharynx). Absent: normal oropharynx (Blood noted in the posterior oropharynx) Neck exam: Present: normal inspection, full ROM. Absent: tenderness, meningismus, lymphadenopathy Respiratory exam: Present: normal lung sounds bilaterally. Absent: respiratory distress, wheezes, rales, rhonchi, stridor Cardiovascular Exam: Present: regular rate, normal rhythm, normal heart sounds. Absent: systolic murmur, diastolic murmur, rubs, gallop, clicks Neurological exam: Present: alert Course Vital Signs 11/22/19 11/22/19 15:32 17:30 Temperature 98.2 F Pulse Rate 58 L 81 Respiratory 18 18 Rate Blood Pressure 125/57 123/68 O2 Sat by Pulse 97 96 Oximetry Medical Decision Making - Medical Decision Making Vitals are stable. I did pack the nose with a rapid Rhino. After packing patient started bleeding down the throat so the posterior cuff was inflated with 5 mL air as well as 5 mL in the anterior cuff. CBC unremarkable. CMP shows evidence of stage III chronic kidney disease as documented in patient's history. INR is elevated at 4.7. I discussed this with Dr. Cano. We are recommending a small dose of oral vitamin K. However patient is refusing this stating he will not under any circumstances risk developing a stroke again. I did discuss the patient that this will help with the bleeding and is a small appropriate dose however he is refusing to take this. Therefore I instructed patient to discontinue Coumadin for the next 2 days. I instructed him to follow up Friday with Dr. Escoto to repeat this lab. I had a very lengthy discussion with patient about all of these instructions and repeated these several times. and son are also in agreement. They will follow up with ENT in 2-3 days for packing removal. He is penicillin ALLERGIC and will take azithromycin. I did walk the patient prior to discharge and he did not have any recurrent bleeding with packing placed. - Lab Data Result diagrams: 11/22/19 16:39 11/22/19 16:39 Lab Results 11/22/19 11/22/19 11/22/19 Range/Units 16:39 16:39 16:39 WBC 7.6 (3.8-10.6) k/uL RBC 4.92 (4.30-5.90) m/uL Hgb 12.3 L (13.0-17.5) gm/dL Hct 39.5 (39.0-53.0) % MCV 80.3 (80.0-100.0) fL MCH 25.1 (25.0-35.0) pg MCHC 31.2 (31.0-37.0) g/dL RDW 16.2 H (11.5-15.5) % Plt Count 200 (150-450) k/uL Neutrophils % 65 % Lymphocytes % 21 % Monocytes % 6 % Eosinophils % 6 % Basophils % 0 % Neutrophils # 4.9 (1.3-7.7) k/uL Lymphocytes # 1.6 (1.0-4.8) k/uL Monocytes # 0.5 (0-1.0) k/uL Eosinophils # 0.5 (0-0.7) k/uL Basophils # 0.0 (0-0.2) k/uL Anisocytosis Slight PT 46.5 H (9.0-12.0) sec INR 4.7 H (<1.2) APTT 47.2 H (22.0-30.0) sec Sodium 139 (137-145) mmol/L Potassium 4.6 (3.5-5.1) mmol/L Chloride 104 (98-107) mmol/L Carbon Dioxide 24 (22-30) mmol/L Anion Gap 11 mmol/L BUN 44 H (9-20) mg/dL Creatinine 2.49 H (0.66-1.25) mg/dL Est GFR (CKD-EPI)AfAm 29 (>60 ml/min/1.73 sqM) Est GFR (CKD-EPI)NonAf 25 (>60 ml/min/1.73 sqM) Glucose 104 H (74-99) mg/dL Calcium 9.1 (8.4-10.2) mg/dL Total Bilirubin 0.4 (0.2-1.3) mg/dL AST 31 (17-59) U/L ALT 22 (4-49) U/L Alkaline Phosphatase 127 H (38-126) U/L Total Protein 7.8 (6.3-8.2) g/dL Albumin 4.1 (3.5-5.0) g/dL Disposition Clinical Impression: Epistaxis, Elevated INR Disposition: HOME SELF-CARE Condition: Good Instructions (If sedation given, give patient instructions): Nosebleed (ED) Additional Instructions: Please take antibiotic as directed. This is only once daily. Follow up with ENT. Call tomorrow for an appointment. You will need the packing removed in 2- 3 days. If you cannot get into ENT return to the emergency department for packing removal. Do not take Coumadin until Friday when you have your level repeated (INR/Coumadin level). Please follow up with Dr. Escoto on Friday. Call tomorrow to let them know that you will need this done. If you have any worsening symptoms or recurrent bleeding return to the emergency department. Prescriptions: Azithromycin [Zithromax Z-pack] 250 mg PO DIRECTED #6 tab Is patient prescribed a controlled substance at d/c from ED?: No Referrals: Og Escoto MD [Primary Care Provider] - 1-2 days Jason Shelley MD [STAFF PHYSICIAN] - 1-2 days Time of Disposition: 17:59
[2019-11-22 17:10] LABS: Albumin 4.1 g/dL (3.5-5.0); Calcium 9.1 mg/dL (8.4-10.2); Potassium 4.6 mmol/L (3.5-5.1); Total Bilirubin 0.4 mg/dL (0.2-1.3); Total Protein 7.8 g/dL (6.3-8.2)
[2019-11-22] MEDS ORDERED: AZITHROMYCIN 500 MG TAB PO STA (17:57)
[2019-11-22 18:23] VITALS: BP 127/61; PULSE 72; TEMP 98.1
== END 2019-11-22 18:15 | disposition home or self-care (01) ==
LOC: EC 15:27
DX: R04.0 Epistaxis (principal); R79.1 Abnormal coagulation profile; N18.3 Chronic kidney disease, stage 3 (moderate); E78.5 Hyperlipidemia, unspecified; I12.9 Hypertensive chronic kidney disease with stage 1 through stage 4 chronic kidney disease, or unspecified chronic kidney disease; I73.9 Peripheral vascular disease, unspecified; Z88.0 Allergy status to penicillin; Z79.01 Long term (current) use of anticoagulants; Z79.82 Long term (current) use of aspirin; Z79.899 Other long term (current) drug therapy; Z86.79 Personal history of other diseases of the circulatory system; Z86.718 Personal history of other venous thrombosis and embolism; Z89.511 Acquired absence of right leg below knee; Z86.010 Personal history of colon polyps; Z95.818 Presence of other cardiac implants and grafts; Z98.890 Other specified postprocedural states; Z53.29 Procedure and treatment not carried out because of patient's decision for other reasons
CPT/HCPCS: 30901; 36415; 80053; 85025; 85610; 85730; 99283

== ENCOUNTER 2020-06-23 17:35 | Inpatient (IN) | payer MEDICARE, OTHER ==
--- NOTE | 2020-06-23 18:05 | ED ---
General Adult HPI - General Stated complaint: Chest Pain Time Seen by Provider: 06/23/20 17:37 Source: patient, RN notes reviewed, old records reviewed Mode of arrival: EMS Limitations: no limitations - History of Present Illness Initial comments: 70-year-old male presenting for evaluation of chest pain. Pain began approximately 3 hours prior to arrival. Patient was transported by EMS. He had left upper chest pain radiating to the left arm. This was associated with diaphoresis. Patient states he has had previous MS and has coronary artery disease. Additionally he had pathology of the aorta, uncertain if this was aneurysm or dissection. 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 He denies any preceding cough, fever. No palpitations. No dyspnea. - Related Data Home Medications Medication Instructions Recorded Confirmed carvediloL [Coreg] 6.25 mg PO BID@1000,1800 07/16/19 06/23/20 Furosemide [Lasix] 20 mg PO DAILY@1000 06/23/20 06/23/20 Warfarin Sodium [Jantoven] 2 mg PO DAILY@1000 06/23/20 06/23/20 Allergies Allergy/AdvReac Type Severity Reaction Status Date / Time codeine Allergy Unknown Verified 06/23/20 19:05 Penicillins Allergy Rash/Hives Verified 06/23/20 19:05 strawberry Allergy Unknown Verified 06/23/20 19:05 Review of Systems ROS Statement: Those systems with pertinent positive or pertinent negative responses have been documented in the HPI. ROS Other: All systems not noted in ROS Statement are negative. 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 Past Psychological History: No Psychological Hx Reported Smoking Status: Never smoker Past Alcohol Use History: None Reported Past Drug Use History: None Reported - Past Family History Mother Family Medical History: Myocardial Infarction (MS) Additional Family Medical History / Comment(s): Mother of a MS at the age of 37yrs. Father Family Medical History: Myocardial Infarction (MS) Additional Family Medical History / Comment(s): Father of a MS at the age of 58yrs. General Exam Limitations: no limitations General appearance: alert, in no apparent distress Head exam: Present: atraumatic, normocephalic Eye exam: Present: normal appearance, PERRL ENT exam: Present: normal exam Neck exam: Present: normal inspection. Absent: tenderness, meningismus Respiratory exam: Present: normal lung sounds bilaterally. Absent: respiratory distress, wheezes Cardiovascular Exam: Present: regular rate, normal rhythm, systolic murmur GI/Abdominal exam: Present: soft. Absent: distended, tenderness Extremities exam: Present: normal capillary refill, other (Right lower extremity amputation) Neurological exam: Present: alert, oriented X3, CN II-XII intact. Absent: motor sensory deficit Psychiatric exam: Present: normal affect, normal mood Skin exam: Present: warm, dry, intact. Absent: cyanosis, diaphoretic Course Vital Signs 06/23/20 06/23/20 06/23/20 17:44 18:29 19:01 Temperature 98.1 F Pulse Rate 92 86 79 Respiratory 16 16 16 Rate Blood Pressure 119/79 112/71 118/71 O2 Sat by Pulse 98 99 98 Oximetry - Reevaluation(s) Reevaluation #1: 06/23/20 1830 Further history is revealed that this patient had aortic dissection, he has a known 7 mm thoracic aneurysm. Respiratory for vascular disease. He's had bilat eral carotid endarterectomies. He's had right below the knee amputation. He remains pain-free while in the emergency department. I would prefer imaging of the aorta in this patient however he has a single kidney and is currently in acute on chronic renal failure. Also would prefer this patient be evaluated by his thoracic surgeon at [facility] however he declines transfer. He states she's been transferred to [facility] at least 5 times from an outside hospital. And he is refusing any contrast studies secondary to his kidney failure. Reevaluation #2: 06/23/20 19:51 CT results were discussed with the patient regarding aneurysm and unchanged dissection flap. Again patient reiterates that he does not want to go to [facility] Reevaluation #3: 06/23/20 20:28 Patient evaluated by his primary care physician Dr. Escoto in the emergency department who will admit. Reevaluation #4: 06/23/20 20:33 Chest pain-free. EKG Findings - EKG Comments: EKG Findings:: EKG showing sinus rhythm, LVH, prolonged QT, rate of 96, FL interval 152, QRS 110, QTC 517, similar EKG compared to June 2019. Medical Decision Making - Medical Decision Making 70-year-old male presenting with an episode of chest pain, given aspirin and nitroglycerin by EMS. Patient is in the emergency department for several hours without further chest pain. He has significant past medical history of aortic pathology including previous dissection, chronic dissection, aneurysm or pressure remained stable and normal throughout his stay. He has a chest x-ray showing left pleural scarring and effusion. He has a supratherapeutic INR 4.4. He is in acute on chronic renal failure with a creatinine of 2.24. He has hemoglobin of 10.7. Troponin is mildly elevated 0.056. This is somewhat chronic for this patient in the setting of chronic renal insufficiency. He was supratherapeutic INR, Coumadin will be held. My preference would be to receive evaluation for his aneurysm and known dissection however patient refuses contrast study and refuses transfer to [facility]. He was evaluated by his primary care physician in the emergency department Dr. Escoto. He will accept admission to this institution for hydration for acute kidney injury and serial cardiac enzymes. Patient is agreeable with this plan, primary care Dr. Rangel will admit. - Lab Data Result diagrams: 06/23/20 17:51 06/23/20 17:51 Lab Results 06/23/20 06/23/20 06/23/20 Range/Units 17:51 17:51 17:51 WBC 7.0 (3.8-10.6) k/uL RBC 3.90 L (4.30-5.90) m/uL Hgb 10.7 L (13.0-17.5) gm/dL Hct 33.4 L (39.0-53.0) % MCV 85.7 (80.0-100.0) fL MCH 27.5 (25.0-35.0) pg MCHC 32.0 (31.0-37.0) g/dL RDW 14.0 (11.5-15.5) % Plt Count 199 (150-450) k/uL Neutrophils % 62 % Lymphocytes % 25 % Monocytes % 5 % Eosinophils % 7 % Basophils % 1 % Neutrophils # 4.3 (1.3-7.7) k/uL Lymphocytes # 1.7 (1.0-4.8) k/uL Monocytes # 0.4 (0-1.0) k/uL Eosinophils # 0.5 (0-0.7) k/uL Basophils # 0.0 (0-0.2) k/uL PT 43.4 H (9.0-12.0) sec INR 4.4 H (<1.2) APTT 54.6 H (22.0-30.0) sec Sodium 140 (137-145) mmol/L Potassium 4.9 (3.5-5.1) mmol/L Chloride 108 H (98-107) mmol/L Carbon Dioxide 23 (22-30) mmol/L Anion Gap 9 mmol/L BUN 42 H (9-20) mg/dL Creatinine 3.24 H (0.66-1.25) mg/dL Est GFR (CKD-EPI)AfAm 21 (>60 ml/min/1.73 sqM) Est GFR (CKD-EPI)NonAf 18 (>60 ml/min/1.73 sqM) Glucose 134 H (74-99) mg/dL Calcium 9.0 (8.4-10.2) mg/dL Magnesium 2.2 (1.6-2.3) mg/dL Total Bilirubin 0.5 (0.2-1.3) mg/dL AST 34 (17-59) U/L ALT 28 (4-49) U/L Alkaline Phosphatase 124 (38-126) U/L Troponin I (0.000-0.034) ng/mL Total Protein 7.9 (6.3-8.2) g/dL Albumin 4.1 (3.5-5.0) g/dL 06/23/20 Range/Units 17:51 WBC (3.8-10.6) k/uL RBC (4.30-5.90) m/uL Hgb (13.0-17.5) gm/dL Hct (39.0-53.0) % MCV (80.0-100.0) fL MCH (25.0-35.0) pg MCHC (31.0-37.0) g/dL RDW (11.5-15.5) % Plt Count (150-450) k/uL Neutrophils % % Lymphocytes % % Monocytes % % Eosinophils % % Basophils % % Neutrophils # (1.3-7.7) k/uL Lymphocytes # (1.0-4.8) k/uL Monocytes # (0-1.0) k/uL Eosinophils # (0-0.7) k/uL Basophils # (0-0.2) k/uL PT (9.0-12.0) sec INR (<1.2) APTT (22.0-30.0) sec Sodium (137-145) mmol/L Potassium (3.5-5.1) mmol/L Chloride (98-107) mmol/L Carbon Dioxide (22-30) mmol/L Anion Gap mmol/L BUN (9-20) mg/dL Creatinine (0.66-1.25) mg/dL Est GFR (CKD-EPI)AfAm (>60 ml/min/1.73 sqM) Est GFR (CKD-EPI)NonAf (>60 ml/min/1.73 sqM) Glucose (74-99) mg/dL Calcium (8.4-10.2) mg/dL Magnesium (1.6-2.3) mg/dL Total Bilirubin (0.2-1.3) mg/dL AST (17-59) U/L ALT (4-49) U/L Alkaline Phosphatase (38-126) U/L Troponin I 0.056 H* (0.000-0.034) ng/mL Total Protein (6.3-8.2) g/dL Albumin (3.5-5.0) g/dL Disposition Clinical Impression: Acute renal failure, Chest pain Disposition: ADMITTED IP TO THIS [facility] Condition: Stable Is patient prescribed a controlled substance at d/c from ED?: No Referrals: Og Escoto MD [Primary Care Provider] - 1-2 days Decision to Admit Reason: Admit from EC Decision Date: 06/23/20 Decision Time: 20:33
[2020-06-23 18:14] LABS: Basophils % (A) 1 %; Eosinophils # (A) 0.5 k/uL (0-0.7); Eosinophils % (A) 7 %; HCT 33.4 % (39.0-53.0); HGB 10.7 gm/dL (13.0-17.5); Lymphocytes # (A) 1.7 k/uL (1.0-4.8); Lymphocytes % (A) 25 %; MCH 27.5 pg (25.0-35.0); MCV 85.7 fL (80.0-100.0); Mean Platelet Volume 8.2; Monocytes # (A) 0.4 k/uL (0-1.0); Monocytes % (A) 5 %; Neutrophils # (A) 4.3 k/uL (1.3-7.7); Neutrophils % (A) 62 %; Platelet Count 199 k/uL (150-450)
[2020-06-23 18:25] LABS: Albumin 4.1 g/dL (3.5-5.0); Magnesium 2.2 mg/dL (1.6-2.3); Potassium 4.9 mmol/L (3.5-5.1); Total Bilirubin 0.5 mg/dL (0.2-1.3); Total Protein 7.9 g/dL (6.3-8.2)
[2020-06-23 18:33] LABS: INR 4.4 (<1.2); Partial Thromboplastin Time 54.6 sec (22.0-30.0); Prothrombin Time 43.4 sec (9.0-12.0)
[2020-06-23] MEDS ORDERED: SODIUM CHLORIDE 0.9% 500 ML 500 ML IV ONE (18:39)
--- NOTE | 2020-06-23 18:43 | XR ---
EXAMINATION TYPE: XR chest 1V portable DATE OF EXAM: 06/23/2020 COMPARISON: 07/06/2019 HISTORY: Weakness. Chest pain TECHNIQUE: FINDINGS: Heart is enlarged. There is blunting of left costophrenic angle. There are sternal wires. T here is no heart failure. Right lung is clear. IMPRESSION: There is pleural diaphragmatic scarring and fluid at the left lung base that is increased slightly compared to old exam. There is some nodular pleural thickening on the left lateral chest wa ll that is new compared to old exam. Follow-up recommended. No heart failure.
[2020-06-23] MEDS: SODIUM CHLORIDE 0.9% 1,000 ML IV SCH ×2 (18:57→22:58)
--- NOTE | 2020-06-23 19:42 | CT ---
EXAMINATION TYPE: CT chest wo con DATE OF EXAM: 06/23/2020 COMPARISON: 07/16/2019 HISTORY: Chest pain. CT DLP: 644.1 mGycm Automated exposure control for dose reduction was used. Images obtained from the thoracic inlet to the diaphragm without contrast. There is stent in the ascending aorta. There is coronary artery calcification. There is no mediastina l adenopathy. There are no hilar masses. There is large aneurysm of the descending thoracic aorta with probably chronic dissection. There is p leural thickening and mild infiltrate and atelectasis adjacent to the aneurysm in the left lower lobe . The aneurysm measures 6.2 x 7.2 cm. The upper abdominal soft tissues show multiple renal cortical cysts. Heart is enlarged. There is no p ericardial effusion. Thoracic spine is intact. There is no compression fracture. There are sternal wires. The ribs appear intact. IMPRESSION: Large aneurysm of the descending lower thoracic aorta which measures slightly increased compared to o ld exam. Old exam shows diameter of 6 cm and now measures 6.2 x 7.2 cm. There is some pleural thicken ing and atelectasis and infiltrate left posterior lung base improved compared to old exam. Cardiomegaly unchanged. There appears to be internal septation of the aneurysm related to dissection. Unchanged.
[2020-06-23] MEDS ORDERED: ACETAMINOPHEN TAB 325 MG TAB PO PRN (20:27)
[2020-06-23] MEDS ORDERED: NALOXONE 0.4 MG/ML 1 ML VIAL IV PRN (20:27)
[2020-06-23] MEDS ORDERED: NITROGLYCERIN SL TABS 0.4 MG TAB SUBLINGUAL PRN (20:28)
--- NOTE | 2020-06-23 23:20 | HP ---
HISTORY AND PHYSICAL DATE OF SERVICE: 06/23/2020 This patient is examined in the emergency room. He is a 70-year-old white male with chest pain 3 hours prior to arrival. He was given 2 nitros in the ambulance and one when he got to the ER, which took his pain away. He took a baby aspirin at home. Apparently he did not do any heavy exertion all day today. He was watching TV. It was associated with some diaphoresis. CT of the chest showed prior dissecting aneurysm which really has not changed much, and the patient refused to go down to [facility] anyways; at this point refuses transfer. Suspect coronary artery disease with elevated troponins of 0.5 up to 0.1 and possibly a non-STEMI. His chest pain resolved with 2 nitros. He had high BUN and creatinine, for which he will be given some fluid hydration overnight to see if this improves, and cardiology consult. He has a history of amputation below the right knee. He does not follow up in the office. He has poor compliance. He states his home medicines he has not including Coreg 6.25 b.i.d., Lasix 20 daily and warfarin 2 mg daily. His INR on admission was 4.1. ALLERGIES: CODEINE. PAST MEDICAL/SURGICAL HISTORY: Thoracic aneurysm with surgery, fem-fem bypass, 7.4 cm aortic aneurysm, recent stent at [facility] and carotid-carotid anastomosis. order worked on, but he is refusing to be transferred at this time. Appendectomy, cholecystectomy, heart catheterization with stent, orthopedic surgery. REVIEW OF SYSTEMS: Fourteen-point review of systems negative except for mentioned in HPI. PHYSICAL EXAMINATION: Temperature 98.1, pulse 90s to 70, blood pressures 110 to 128 over 60s to 70s, oxygen 98, respiratory rate 16 to 18, pulse 80s to 90s. LUNGS: Clear. CARDIOVASCULAR: S1, S2. ABDOMEN: Soft, distended. Obesity. NEUROLOGIC: Cranial nerves intact. PSYCH: Fair mood and affect. He is in no acute distress. SKIN: Warm, dry, intact. CT scan shows aneurysms unchanged. Elevated troponin. Possible non-STEMI. Cardiology will be consulted. Continue with aspirin, nitroglycerin, home medicines, beta blockers. Acute renal insufficiency. Acute on chronic renal disease. Acute tubular necrosis, dehydration. Refuses transfer. Continue with fluid rehydration. Monitor electrolytes. Cardiology consult. Possible heart catheterization or starting oral nitroglycerin for home use. Will see what Cardiology says in the morning. MMODL / IJN: [id number] /
[2020-06-24 08:36] LABS: Basophils % (A) 1 %; Eosinophils # (A) 0.4 k/uL (0-0.7); Eosinophils % (A) 7 %; HCT 31.2 % (39.0-53.0); HGB 9.5 gm/dL (13.0-17.5); Hypochromasia Slight; Lymphocytes # (A) 1.6 k/uL (1.0-4.8); Lymphocytes % (A) 26 %; MCH 26.8 pg (25.0-35.0); MCHC 30.4 g/dL (31.0-37.0); MCV 88.2 fL (80.0-100.0); Mean Platelet Volume 8.7; Monocytes # (A) 0.4 k/uL (0-1.0); Monocytes % (A) 6 %; Neutrophils # (A) 3.8 k/uL (1.3-7.7); Neutrophils % (A) 59 %; Platelet Count 165 k/uL (150-450); RBC 3.53 m/uL (4.30-5.90); RDW 14.3 % (11.5-15.5); WBC 6.3 k/uL (3.8-10.6)
[2020-06-24 08:42] LABS: Albumin 3.5 g/dL (3.5-5.0); Calcium 8.5 mg/dL (8.4-10.2); Potassium 4.9 mmol/L (3.5-5.1); Total Bilirubin 0.5 mg/dL (0.2-1.3)
[2020-06-24] MEDS: FUROSEMIDE 20 MG TAB PO SCH (11:11)
[2020-06-24] MEDS: carvediloL 6.25 MG TAB PO SCH ×2 (11:11→18:27)
[2020-06-24 12:41] LABS: Cholesterol 126 mg/dL (<200); HDL Cholesterol 22 mg/dL (40-60); LDL Cholesterol,Calculated 89 mg/dL (0-99); Triglycerides 76 mg/dL (<150)
--- NOTE | 2020-06-24 12:50 | CONS ---
CONSULTATION Mr. Up is a 70-year-old male who presented with symptoms of chest discomfort. He has a known history of aortic dissection, has underwent surgical repair at [facility]. Yesterday he presented with an episode of chest discomfort radiating to the left arm. At the time of my evaluation, he is pain free. He denies any associated dyspnea. The patient has a known history of type A dissection with a history of impaired perfusion to right lower extremities leading to right BKA. He had aortic arch repair and fem-fem bypass. He also has a history of descending thoracic aortic aneurysm and underwent left subclavian to right carotid bypass a year ago. It is unclear if he has any history of coronary artery disease. According to the patient, he does and yet at one time he said he may have had a heart attack. He has a prior history of stroke as well. He has been anticoagulated. According to him, he has not had any similar symptoms of chest discomfort. He has a history of chronic kidney disease with single kidney. There is no documentation of atrial fibrillation. He has underwent an echocardiogram in June 2019 and at that time was found to have a severely impaired left ventricular systolic function with mild to moderate mitral and mild aortic regurgitation and tricuspid regurgitation. He denies any dizziness or palpitation. He has no peripheral edema on the left lower extremity. He denies any PND or orthopnea. He has no history of chronic tobacco use. He is nondiabetic. Nonsmoker. MEDICATION: At home include Coreg 6.5 mg twice a day, Coumadin, and furosemide 20 mg daily. REVIEW OF SYSTEMS: Respiratory system: He has no recent wheezing or cough. No history of documented obstructive lung disease. GI system: No recent GI bleed. No peptic ulcer disease. system: No dysuria or hematuria. Nervous system: He had a prior history of stroke. PHYSICAL EXAMINATION: He is a 70-year-old male, alert, oriented, in no apparent distress. Blood pressure running in the 120s to 150s with a heart rate in the 60s. HEAD: Normocephalic. Eyes sclerae anicteric. NECK: No jugular venous distention with bruit bilaterally. LUNGS: Clear to auscultation. HEART: Regular rate and rhythm S1, S2. No S3 with systolic murmur 2/6 heard at the base. No diastolic murmur. No rub. ABDOMEN: Soft. Nontender. Positive bowel sounds. No megaly. EXTREMITIES: Status post right amputation. Left lower extremity no edema. LAB DATA: Revealed a hemoglobin of 9.5. INR of 4.4. BUN and creatinine 40 and 3.01. Troponin 0.056, 0.102 and 0.283. TSH of 1.580. EKG revealed a sinus mechanism, rate of [address]-T-wave changes and evidence of left ventricle hypertrophy. Chest x-ray shows no evidence of heart failure. CT scan of the chest shows an aneurysm of the descending lower thoracic aorta with slight increase in the size measuring up to 6.2 x 7.2 cm. IMPRESSION: 1. Episode of chest discomfort with evidence consistent with non ST-segment elevation myocardial infarction. 2. History of aortic dissection status post repair with evidence of thoracic aneurysm with mild increase in the size. 3. History of chronic kidney disease with single kidney. 4. History of stroke. 5. Peripheral vascular disease. 6. Cardiomyopathy. 7. Hypertension. RECOMMENDATIONS: From the cardiac standpoint, I have discussed with the patient the findings. He has elected to go to [facility]. I would obtain an echocardiogram with Doppler. I will add to his regimen nitrate, hydralazine as well as a statin. We will hold his anticoagulation at this time until his INR comes back to below 3. The patient is not a good candidate for coronary angiography in view of his kidneys. Depending on his progress, further recommendations will be made. If the left ventricular systolic function does not improve, he will be a candidate for ICD implantation. Thank you for this consult. We will follow with you. SIML / IJN: [id number] /
[2020-06-24] MEDS: ISOSORBIDE MONONITRATE ER 30 MG TAB.ER.24H PO SCH (12:54)
[2020-06-24] MEDS: hydrALAZINE HCL 25 MG TAB PO SCH ×2 (12:54→20:09)
[2020-06-24] MEDS: ATORVASTATIN 40 MG TAB PO SCH (12:54)
[2020-06-24] MEDS: ASPIRIN 81 MG PO SCH (12:54)
[2020-06-24 13:29] LABS: Hemoglobin A1C 5.1 % (4.0-6.0)
--- NOTE | 2020-06-24 15:57 | ECHOF ---
Referral Reason:mi MEASUREMENTS -------- HEIGHT: 180.3 cm WEIGHT: 85.7 kg BP: IVSd: 2.2 cm (0.6 - 1.1) LVIDd: 6.0 cm (3.9 - 5.3) LVPWd: 1.9 cm (0.6 - 1.1) EDV(Teich): 180 ml IVSs: 2.7 cm LVIDs: 5.0 cm LVPWs: 2.0 cm %IVS Thck: 23 % ESV(Teich): 120 ml EF(Teich): 33 % %FS: 16 % SV(Teich): 60 ml RVIDd: 2.3 cm (< 3.3) LVLd A4C: 9.4 cm LVEDV MOD A4C: 285 ml LVLs A4C: 9.3 cm LVESV MOD A4C: 225 ml LVEF MOD A4C: 21 % SV MOD A4C: 59 ml LALs A4C: 6.6 cm LAAs A4C: 29.4 cm LAESV A-L A4C: 111 ml LAESV MOD A4C: 106 ml LALs A2C: 6.5 cm LAAs A2C: 23.8 cm LAESV A-L A2C: 74 ml LAESV MOD A2C: 70 ml LAESV(A-L): 91 ml LAESV Index (A-L): 44.11 ml/m Ao Diam: 3.4 cm (2.0 - 3.7) LA Diam: 3.9 cm (2.7 - 3.8) AV Cusp: 2.3 cm (1.5 - 2.6) EPSS: 1.8 cm MV E Robby: 0.58 m/s MV DecT: 333 ms MV Dec Bureau: 1.7 m/s MV A Robby: 0.98 m/s MV E/A Ratio: 0.59 MV PHT: 97 ms MR Vmax: 5.05 m/s MR maxP.98 mmHg AV Vmax: 1.27 m/s AV maxP.42 mmHg AR Vmax: 4.48 m/s AR maxP.18 mmHg AR PHT: 706 ms AR Dec Time: 2433 ms AR Dec Bureau: 1.8 m/s PV Vmax: 1.35 m/s PV maxP.32 mmHg VT Vmax: 1.56 m/s VT maxP.77 mmHg VT PHT: 444 ms VT DecT: 1530 ms VT Dec Bureau: 1.0 m/s TR Vmax: 2.47 m/s TR maxP.35 mmHg RAP: 5.00 mmHg RVSP: 29.35 mmHg MV EF SLOPE: 25.69 mm/s (70 - 150) MV EXCURSION: 21.52 mm (> 18.000) FINDINGS -------- Sinus rhythm. This was a technically difficult study with suboptimal views. The left ventricle is moderately dilated. There is severe concentric left ventricular hypertrophy. Overall left ventricular systolic function is moderately impaired with, an EF between 35 - 40 %. The LV end diastolic pressure is elevated 14.87. Basal inferior LV wall motion is hypokinetic. B maximo inferoseptal LV wall motion is hypokinetic. The right ventricle is normal in size. LA is severely dilated >40 ml/m2 The right atrial size is normal. Lumason used The aortic valve is trileaflet and appears structurally normal. There is mild aortic regurgitation. The mitral valve leaflets are mildly thickened. [id number] mitral regurgitation is present. The tricuspid valve appears structurally normal. Mild tricuspid regurgitation present. Right vent ricular systolic pressure is normal at < 35 mmHg. Pulmonic valve appears structurally normal. Trace/mild (physiologic) pulmonic regurgitation. The aortic root size is normal. IVC Not well visulized. There is no pericardial effusion. CONCLUSIONS -------- 1. The left ventricle is moderately dilated. 2. There is severe concentric left ventricular hypertrophy. 3. Overall left ventricular systolic function is moderately impaired with, an EF between 35 - 40 %. 4. The LV end diastolic pressure is elevated 14.87. 5. Basal inferior LV wall motion is hypokinetic. 6. Basal inferoseptal LV wall motion is hypokinetic. 7. LA is severely dilated >40 ml/m2 8. There is mild aortic regurgitation. 9. The mitral valve leaflets are mildly thickened. 10. Rdjimobv-[id number] mitral regurgitation is present. 11. Mild tricuspid regurgitation present. 12. Trace/mild (physiologic) pulmonic regurgitation. 13. There is no pericardial effusion. TON CYLINDER INSPECTOR: Ghazala Mills RDCS
[2020-06-24] MEDS ORDERED: ZOLPIDEM 5 MG TAB PO PRN (19:40)
[2020-06-24] MEDS: SODIUM CHLORIDE 0.9% 1,000 ML IV SCH (20:10)
--- NOTE | 2020-06-24 23:52 | PN ---
PROGRESS NOTE 70-year-old white male who was seen by automotive production worker today as they ordered an echo on him. He has had no chest pain. Says he was seen on the way to the emergency room, relieved by 2 nitroglycerin and wants to be going home today and await Cardiology clears him. Moderately dilated left ventricle, severe LVH, mildly impaired ejection fraction 35-40 percent, hypokinesis, left atrial dilation. Mitral valve is thickened with moderate to severe mitral regurg. ASSESSMENT: 1. Atypical chest pain, suspect unstable angina. 2. Acute on chronic systolic diastolic heart failure. 3. Aortic aneurysm. 4. Carotid anastomosis. 5. History of Pataday resection. 6. Chest x-ray negative. CT scan shows aneurysm 6.2 x 7.2, INR is over 4, now is below 3. 7. He is not a good candidate for coronary angiography due to his kidneys. 8. He may get ICD implant implantation as an outpatient, but not going to do a heart catheterization. 9. We will start him on nitroglycerin and possibly discharge him home tomorrow if cardiology is not going to do anything procedure laguna with him. 10.BUN is 40, creatinine is improved with hydration from 3.24 to 3.01 with a GFR 23. 11.Chronic kidney stage IV. MMODL / IJN: [id number] /
[2020-06-25] MEDS: SODIUM CHLORIDE 0.9% 1,000 ML IV SCH (03:31)
[2020-06-25 08:03] LABS: Basophils % (A) 1 %; Eosinophils # (A) 0.5 k/uL (0-0.7); Eosinophils % (A) 8 %; HCT 28.5 % (39.0-53.0); HGB 9.1 gm/dL (13.0-17.5); Hypochromasia Slight; Lymphocytes # (A) 1.5 k/uL (1.0-4.8); Lymphocytes % (A) 25 %; MCH 27.7 pg (25.0-35.0); MCV 86.7 fL (80.0-100.0); Mean Platelet Volume 8.5; Monocytes # (A) 0.3 k/uL (0-1.0); Monocytes % (A) 5 %; Neutrophils # (A) 3.5 k/uL (1.3-7.7); Neutrophils % (A) 61 %; Platelet Count 156 k/uL (150-450); RBC 3.29 m/uL (4.30-5.90); RDW 14.1 % (11.5-15.5); WBC 5.8 k/uL (3.8-10.6)
[2020-06-25 08:16] LABS: Albumin 3.4 g/dL (3.5-5.0); Calcium 8.3 mg/dL (8.4-10.2); Total Bilirubin 0.6 mg/dL (0.2-1.3); Total Protein 6.9 g/dL (6.3-8.2)
[2020-06-25 08:21] LABS: Potassium 4.8 mmol/L (3.5-5.1)
[2020-06-25] MEDS: hydrALAZINE HCL 25 MG TAB PO SCH (10:24)
[2020-06-25] MEDS: FUROSEMIDE 20 MG TAB PO SCH (10:25)
[2020-06-25] MEDS: ASPIRIN 81 MG PO SCH (10:25)
[2020-06-25] MEDS: carvediloL 6.25 MG TAB PO SCH (10:25)
[2020-06-25] MEDS: ATORVASTATIN 40 MG TAB PO SCH (10:25)
[2020-06-25] MEDS: ISOSORBIDE MONONITRATE ER 30 MG TAB.ER.24H PO SCH (10:25)
[2020-06-25 11:25] VITALS: RESP 18; TEMP 98
--- NOTE | 2020-06-25 11:32 | PN ---
PROGRESS NOTE Mr. Up is a 70-year-old male with a history of aortic dissection, history of right lower extremity amputation, history of peripheral vascular disease and carotid disease, who presented with symptoms of chest discomfort and evidence to suggest non ST-segment elevation myocardial infarction. He is feeling better today. He is quite anxious to go home. He denies any chest pain. He denies any dizziness or palpitation. He denies any nausea. He denies any cough. He has a known history of chronic kidney disease with single kidney. He has been followed at [facility] in the past. He continues to be on aspirin once a day, Lipitor 40 mg daily, Coreg 6.5 mg twice a day, Lasix 20 mg daily, hydralazine 25 mg twice a day, isosorbide mononitrate 30 mg daily. He underwent an echocardiogram yesterday that showed a severely impaired systolic function, ejection fraction 35-40 percent with segmental wall motion abnormality. There was also moderate severe mitral regurgitation. PHYSICAL EXAMINATION: Blood pressure 124/70 with a heart rate in the 60s. LUNGS: Clear. HEART: Regular rate and rhythm S1, S2. No S3 with systolic at the base and a holosystolic murmur in the apex. ABDOMEN: Soft, nontender. EXTREMITIES: No significant edema on the left side, status post amputation on the right side. LAB DATA: BUN and creatinine 42 and 3.0, hemoglobin of 9.1. Potassium 4.8. IMPRESSION: 1. Non ST-segment elevation myocardial infarction. The patient is asymptomatic at this time. 2. Moderate to severe impairment of left ventricular systolic function. 3. Status post aortic dissection repair with evidence of thoracic aneurysm. 4. Chronic kidney disease with single kidney. 5. History of stroke. 6. Peripheral vascular disease. 7. Hypertension. 8. Hyperlipidemia. RECOMMENDATIONS: From the cardiac standpoint, I will continue on present therapy. Patient is anxious to go home. He should be able to resume his Coumadin and the aspirin. I suggested to the patient that he is followed at [facility] regarding his cardiac status in view of his severe vascular disease his complex history. In the meantime, we will continue present therapy. Unfortunately, the prognosis is guarded. MMODL / IJN: [id number] /
[2020-06-25 12:22] VITALS: BP 157/82; PULSE 68
[2020-06-25 12:36] LABS: Prothrombin Time 29.3 sec (9.0-12.0)
== END 2020-06-25 13:45 | disposition home or self-care (01) | DRG 280 ==
LOC: EC 17:35 → 3SCARD 20:28 → OBSVTOIN 06-25 10:03
PROVIDERS: ADMIT Family Medicine; ATTEND Family Medicine
DX: I21.4 Non-ST elevation (NSTEMI) myocardial infarction (principal); I50.43 Acute on chronic combined systolic (congestive) and diastolic (congestive) heart failure; N17.0 Acute kidney failure with tubular necrosis; I13.0 Hypertensive heart and chronic kidney disease with heart failure and stage 1 through stage 4 chronic kidney disease, or unspecified chronic kidney disease; I42.9 Cardiomyopathy, unspecified; N18.4 Chronic kidney disease, stage 4 (severe); E78.5 Hyperlipidemia, unspecified; I08.1 Rheumatic disorders of both mitral and tricuspid valves; I25.10 Atherosclerotic heart disease of native coronary artery without angina pectoris; I25.2 Old myocardial infarction; I73.9 Peripheral vascular disease, unspecified; J98.4 Other disorders of lung; R79.1 Abnormal coagulation profile; Z89.511 Acquired absence of right leg below knee; R94.31 Abnormal electrocardiogram [ECG] [EKG]; Z86.73 Personal history of transient ischemic attack (TIA), and cerebral infarction without residual deficits; Z79.01 Long term (current) use of anticoagulants; Z79.899 Other long term (current) drug therapy; Z82.49 Family history of ischemic heart disease and other diseases of the circulatory system; Z87.442 Personal history of urinary calculi; E86.0 Dehydration; Z87.01 Personal history of pneumonia (recurrent); Z86.010 Personal history of colon polyps; Z86.718 Personal history of other venous thrombosis and embolism; I71.9 Aortic aneurysm of unspecified site, without rupture; Z91.19 Patient's noncompliance with other medical treatment and regimen; Z90.49 Acquired absence of other specified parts of digestive tract; Z79.82 Long term (current) use of aspirin; Z88.5 Allergy status to narcotic agent; Z95.5 Presence of coronary angioplasty implant and graft
CPT/HCPCS: 36415; 71045; 71250; 80053; 80061; 83036; 83735; 84443; 84484; 85025; 85610; 85730; 93005; 93306; 96360; 96361; 99285

== ENCOUNTER 2020-06-27 09:03 | Inpatient (IN) | payer MEDICARE, OTHER ==
[2020-06-27] MEDS ORDERED: SODIUM CHLORIDE 0.9% 1,000 ML IV STA (09:19)
--- NOTE | 2020-06-27 09:39 | ED ---
Neuro HPI - General Chief Complaint: Neuro Symptoms/Deficit Stated Complaint: AMS Time Seen by Provider: 06/27/20 09:18 Source: patient, family, RN notes reviewed, old records reviewed Mode of arrival: ambulatory Limitations: no limitations - History of Present Illness Is the patient presenting with stroke symptoms?: No Initial Comments: This is a 70-year-old male who was discharged 2 days ago from this facility after a workup for chest pain who was brought in today after family found that he was confused speaking different languages thinking is from [place] which she isn't. Slurred speech watery eyes and generalized weakness. Currently has some blurry vision also has right eye. He apparently slept most of the day yesterday was found this way by a daughter. No reports of falls no fevers chills nausea vomiting sweats dysuria hematuria. The patient himself is a poor historian - Related Data Home Medications: Home Medications Medication Instructions Recorded Confirmed carvediloL [Coreg] 6.25 mg PO BID@1000,1800 07/16/19 06/27/20 Furosemide [Lasix] 20 mg PO DAILY@1000 06/23/20 06/27/20 Warfarin Sodium [Jantoven] 2 mg PO HS 06/23/20 06/27/20 Previous Rx's Medication Instructions Recorded Aspirin 81 mg PO DAILY 90 Days #90 chew 06/25/20 Atorvastatin [Lipitor] 40 mg PO DAILY 90 Days #90 tab 06/25/20 Isosorbide Mononitrate ER [Imdur] 30 mg PO DAILY 90 Days #90 06/25/20 tab.er.24h Nitroglycerin Sl Tabs [Nitrostat] 0.4 mg SUBLINGUAL Q5M PRN 180 Days 06/25/20 #100 tab hydrALAZINE HCL [Apresoline] 25 mg PO BID 90 Days #180 tab 06/25/20 Allergies/Adverse Reactions: Allergies Allergy/AdvReac Type Severity Reaction Status Date / Time codeine Allergy Unknown Verified 06/27/20 10:08 Penicillins Allergy Rash/Hives Verified 06/27/20 10:08 strawberry Allergy Unknown Verified 06/27/20 10:08 Review of Systems ROS Statement: Those systems with pertinent positive or pertinent negative responses have been documented in the HPI. ROS Other: All systems not noted in ROS Statement are negative. Limitations: ROS unobtainable due to patients medical condition General Exam - General Exam Comments Initial Comments: This is a well-developed well-nourished awake alert but confused male Limitations: no limitations, altered mental status, physical limitation (Generalized weakness) General appearance: alert, lethargic Head exam: Present: atraumatic, normocephalic, normal inspection Eye exam: Present: normal appearance, PERRL, EOMI. Absent: scleral icterus, conjunctival injection, periorbital swelling ENT exam: Present: normal exam, mucous membranes moist Neck exam: Present: normal inspection, full ROM, other (No stridor JVD or bruits). Absent: tenderness, meningismus, lymphadenopathy Respiratory exam: Present: normal lung sounds bilaterally. Absent: respiratory distress, wheezes, rales, rhonchi, stridor Cardiovascular Exam: Present: regular rate, normal rhythm, normal heart sounds. Absent: systolic murmur, diastolic murmur, rubs, gallop, clicks GI/Abdominal exam: Present: soft, normal bowel sounds. Absent: distended, tenderness, guarding, rebound, rigid Extremities exam: Present: full ROM, normal capillary refill, other (Right below-knee inpatient with prosthesis). Absent: tenderness, pedal edema, joint swelling, calf tenderness Back exam: Present: normal inspection Neurological exam: Present: alert, altered, CN II-XII intact Psychiatric exam: Present: flat affect Skin exam: Present: warm, dry, intact, normal color. Absent: rash Stroke MDM - Lab Data Result diagrams: 06/27/20 09:31 06/27/20 09:31 Lab Results 06/27/20 06/27/20 06/27/20 Range/Units 09:29 09:31 09:31 WBC 7.0 (3.8-10.6) k/uL RBC 3.75 L (4.30-5.90) m/uL Hgb 11.0 L (13.0-17.5) gm/dL Hct 33.3 L (39.0-53.0) % MCV 88.8 (80.0-100.0) fL MCH 29.3 (25.0-35.0) pg MCHC 33.0 (31.0-37.0) g/dL RDW 14.6 (11.5-15.5) % Plt Count 174 (150-450) k/uL Neutrophils % 60 % Lymphocytes % 24 % Monocytes % 7 % Eosinophils % 8 % Basophils % 1 % Neutrophils # 4.2 (1.3-7.7) k/uL Lymphocytes # 1.7 (1.0-4.8) k/uL Monocytes # 0.5 (0-1.0) k/uL Eosinophils # 0.6 (0-0.7) k/uL Basophils # 0.1 (0-0.2) k/uL Hypochromasia Slight PT 23.0 H (9.0-12.0) sec INR 2.4 H (<1.2) APTT 38.1 H (22.0-30.0) sec Sodium (137-145) mmol/L Potassium (3.5-5.1) mmol/L Chloride (98-107) mmol/L Carbon Dioxide (22-30) mmol/L Anion Gap mmol/L BUN (9-20) mg/dL Creatinine (0.66-1.25) mg/dL Est GFR (CKD-EPI)AfAm (>60 ml/min/1.73 sqM) Est GFR (CKD-EPI)NonAf (>60 ml/min/1.73 sqM) Glucose (74-99) mg/dL Calcium (8.4-10.2) mg/dL Total Bilirubin (0.2-1.3) mg/dL AST (17-59) U/L ALT (4-49) U/L Alkaline Phosphatase (38-126) U/L Creatine Kinase (55-170) U/L Troponin I (0.000-0.034) ng/mL Total Protein (6.3-8.2) g/dL Albumin (3.5-5.0) g/dL Urine Color Yellow Urine Appearance Clear (Clear) Urine pH 5.5 (5.0-8.0) Ur Specific [place] 1.012 (1.001-1.035) Urine Protein 1+ H (Negative) Urine Glucose (UA) Negative (Negative) Urine Ketones Negative (Negative) Urine Blood Trace H (Negative) Urine Nitrite Negative (Negative) Urine Bilirubin Negative (Negative) Urine Urobilinogen <2.0 (<2.0) mg/dL Ur Leukocyte Esterase Trace H (Negative) Urine RBC 4 (0-5) /hpf Urine WBC 5 (0-5) /hpf Ur Squamous Epith Cells <1 (0-4) /hpf Urine Mucus Rare H (None) /hpf 06/27/20 06/27/20 Range/Units 09:31 09:31 WBC (3.8-10.6) k/uL RBC (4.30-5.90) m/uL Hgb (13.0-17.5) gm/dL Hct (39.0-53.0) % MCV (80.0-100.0) fL MCH (25.0-35.0) pg MCHC (31.0-37.0) g/dL RDW (11.5-15.5) % Plt Count (150-450) k/uL Neutrophils % % Lymphocytes % % Monocytes % % Eosinophils % % Basophils % % Neutrophils # (1.3-7.7) k/uL Lymphocytes # (1.0-4.8) k/uL Monocytes # (0-1.0) k/uL Eosinophils # (0-0.7) k/uL Basophils # (0-0.2) k/uL Hypochromasia PT (9.0-12.0) sec INR (<1.2) APTT (22.0-30.0) sec Sodium 142 (137-145) mmol/L Potassium 5.2 H (3.5-5.1) mmol/L Chloride 109 H (98-107) mmol/L Carbon Dioxide 24 (22-30) mmol/L Anion Gap 9 mmol/L BUN 36 H (9-20) mg/dL Creatinine 3.19 H (0.66-1.25) mg/dL Est GFR (CKD-EPI)AfAm 21 (>60 ml/min/1.73 sqM) Est GFR (CKD-EPI)NonAf 19 (>60 ml/min/1.73 sqM) Glucose 105 H (74-99) mg/dL Calcium 9.0 (8.4-10.2) mg/dL Total Bilirubin 0.6 (0.2-1.3) mg/dL AST 28 (17-59) U/L ALT 20 (4-49) U/L Alkaline Phosphatase 116 (38-126) U/L Creatine Kinase 66 (55-170) U/L Troponin I 0.430 H* (0.000-0.034) ng/mL Total Protein 7.6 (6.3-8.2) g/dL Albumin 3.9 (3.5-5.0) g/dL Urine Color Urine Appearance (Clear) Urine pH (5.0-8.0) Ur Specific [place] (1.001-1.035) Urine Protein (Negative) Urine Glucose (UA) (Negative) Urine Ketones (Negative) Urine Blood (Negative) Urine Nitrite (Negative) Urine Bilirubin (Negative) Urine Urobilinogen (<2.0) mg/dL Ur Leukocyte Esterase (Negative) Urine RBC (0-5) /hpf Urine WBC (0-5) /hpf Ur Squamous Epith Cells (0-4) /hpf Urine Mucus (None) /hpf - NIH Stroke Scale 1a. Level of Consciousness: (0) alert 1b. LOC Questions: (1) answers 1 question correctly 1c. LOC Commands: (1) performs 1 task correctly 2. Best Gaze: (0) normal 3. Visual: (0) no visual loss 4. Facial Palsy: (0) normal symmetrical movement 5a. Motor Arm Left: (0) no drift 5b. Motor Arm Right: (0) no drift 6a. Motor Leg Left: (0) no drift 6b. Motor Leg Right: (0) no drift 7. Limb Ataxia: (0) absent 8. Sensory: (0) normal 9. Best Language: (0) no aphasia 10. Dysarthria: (1) mild/moderate dysarthria 11. Extinction/Inattention: (0) no abnormality - Thrombolytic Inclusion/Exclusion Thrombolytic Exclusion Criteria: Onset of Symptoms Unknown - Medical Decision Making I did discuss findings with patient family as well as Dr. Thompson and patient be admitted. Troponin is elevated more so than at discharge. Patient's had no chest pain however. Patient will be admitted. The case is discussed both with Dr. Escoto and with Dr. Gallo - EKG Data -: EKG Interpreted by Me EKG shows normal: sinus rhythm (Sinus rhythm at 66. ID Interval 172 QRS 110, QT since QTC 444/465, LVH with repolarization abnormality.) Past Medical History Past Medical History: CVA/TIA, Hyperlipidemia, Hypertension, Vascular Disorder Additional Past Medical History / Comment(s): Past thoracic aneurysm with surgery and fem fem bypass in 2012, current 7.4 cm aortic aneurym with recent stent at [facility] and needs further intervention per pt, recent caratid artery bypass done at [facility], PVD, DVT R leg with BKA, kidney stones which pt passed on his own, L kidney is nonfunctioning, R kidney functions at about 50%, bronchitis, recent pneumonia, benign colon polypectomy. 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 Past Psychological History: No Psychological Hx Reported Smoking Status: Never smoker Past Alcohol Use History: None Reported Past Drug Use History: None Reported - Past Family History Mother Family Medical History: Myocardial Infarction (CT) Additional Family Medical History / Comment(s): Mother of a CT at the age of 37yrs. Father Family Medical History: Myocardial Infarction (CT) Additional Family Medical History / Comment(s): Father of a CT at the age of 58yrs. Course Vital Signs 06/27/20 06/27/20 06/27/20 09:07 09:22 10:19 Temperature 98 F Pulse Rate 68 68 65 Respiratory 18 14 14 Rate Blood Pressure 108/58 117/73 111/72 O2 Sat by Pulse 98 96 97 Oximetry 06/27/20 11:23 Temperature Pulse Rate 65 Respiratory 14 Rate Blood Pressure 120/70 O2 Sat by Pulse 96 Oximetry - Reevaluation(s) Reevaluation #1: 06/27/20 11:05 Patient does seem a little bit more responsive. Denies any chest pain. Disposition Clinical Impression: Non-STEMI (non-ST elevated myocardial infarction), Chronic renal failure, Acute confusional state, Pleural effusion, Acute alteration in mental status Disposition: ADMITTED IP TO THIS HOSP Condition: Fair Referrals: Og Escoto MD [Primary Care Provider] - 1-2 days
[2020-06-27 09:50] LABS: Basophils # (A) 0.1 k/uL (0-0.2); Basophils % (A) 1 %; Eosinophils # (A) 0.6 k/uL (0-0.7); Eosinophils % (A) 8 %; HCT 33.3 % (39.0-53.0); Hypochromasia Slight; Lymphocytes # (A) 1.7 k/uL (1.0-4.8); Lymphocytes % (A) 24 %; MCH 29.3 pg (25.0-35.0); MCV 88.8 fL (80.0-100.0); Mean Platelet Volume 8.2; Monocytes # (A) 0.5 k/uL (0-1.0); Monocytes % (A) 7 %; Neutrophils # (A) 4.2 k/uL (1.3-7.7); Neutrophils % (A) 60 %; Platelet Count 174 k/uL (150-450); RBC 3.75 m/uL (4.30-5.90); RDW 14.6 % (11.5-15.5)
[2020-06-27 09:58] LABS: INR 2.4 (<1.2); Partial Thromboplastin Time 38.1 sec (22.0-30.0)
[2020-06-27 09:59] LABS: Albumin 3.9 g/dL (3.5-5.0); Potassium 5.2 mmol/L (3.5-5.1); Total Bilirubin 0.6 mg/dL (0.2-1.3); Total Protein 7.6 g/dL (6.3-8.2)
[2020-06-27 10:04] LABS: Appearance,Urine Clear (Clear); Bilirubin,Urine Negative (Negative); Blood,Urine Trace (Negative); Color,Urine Yellow; Glucose,Urine (UA) Negative (Negative); Ketones,Urine Negative (Negative); Leukocyte Esterase,Urine Trace (Negative); Mucus,Urine Rare /hpf; Nitrite,Urine Negative (Negative); PH, Urine 5.5 (5.0-8.0); Protein,Urine 1+ (Negative); RBC,Urine 4 /hpf (0-5); Specific Gravity,Urine 1.012 (1.001-1.035); Squamous Epithelial Cell,Urine <1 /hpf (0-4); Urobilinogen,Urine <2.0 mg/dL (<2.0); WBC,Urine 5 /hpf (0-5)
--- NOTE | 2020-06-27 10:28 | CT ---
EXAMINATION TYPE: CT brain wo con for TPA DATE OF EXAM: 06/27/2020 HISTORY: altered mental status CT DLP: 1098.4 mGycm. Automated Exposure Control for Dose Reduction was Utilized. TECHNIQUE: CT scan of the head is performed without contrast. COMPARISON: CT brain July 16, 2019 and older study July 06, 2019. FINDINGS: There is no acute intracranial hemorrhage or midline shift identified. There is diffuse v entricular and sulcal prominence consistent with diffuse age-related cerebral atrophy. There is low- attenuation in the periventricular white matter consistent with chronic small vessel ischemic change. Subacute or chronic infarcts new from prior studies high posterior right frontal lobe axial image 33 and inferior left cerebellar hemisphere are now present. Visualized portion of Globes are intact and visualized sinuses are clear. IMPRESSION: No acute intracranial hemorrhage or midline shift. There is background mild to moderate diffuse cerebral atrophy and moderate to advanced chronic small vessel ischemic change redemonstrate d. New from June 2019 but suspected subacute or chronic in age are tentorial infarct high posteri or right frontal lobe and inferior left cerebellar hemisphere.
--- NOTE | 2020-06-27 10:34 | XR ---
EXAMINATION TYPE: XR chest 2V DATE OF EXAM: 06/27/2020 COMPARISON: 06/23/2020 INDICATION: Altered mental status TECHNIQUE: Frontal and lateral views of the chest are obtained. FINDINGS: The heart size is upper limits of normal. The pulmonary vasculature is normal. Small left pleural effusion is present.. Sternotomy wires are in the midline. IMPRESSION: 1. Blunting left costophrenic angle. Small left pleural effusion is suspected.
[2020-06-27] MEDS ORDERED: NITROGLYCERIN SL TABS 0.4 MG TAB SUBLINGUAL PRN (11:37)
[2020-06-27] MEDS ORDERED: INFLUENZA VACCINE (6 MOS+) 60 MCG/0.5 ML SYRINGE IM ONE (12:54)
[2020-06-27] MEDS: SODIUM CHLORIDE 0.9% 1,000 ML IV SCH (14:49)
--- NOTE | 2020-06-27 16:06 | P.CNNES ---
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 Neurology was consulted for right facial droop. Patient was seen at bedside and he was accompanied by his daughter. Per the patient daughter she stated that the she came to the patient's house around 8:00 in the morning and that she found the patient then slumped over on the chair, with right facial droop and drooling and nonresponsive. There is no jerking episode associated with this episode. Episode lasted for about 3 1/2 hours to 4 hours. Patient denies any tongue bite or shortness of the tongue. Denies urinary or bowel incontinence. Per the patient daughter this is the fourth episode that this happened he had the an episode similar to this and that October 2019 in the December 2019 and in February 2020. Each episode lasted about the same time 3-1/2 hours to 4 hours and none with jerking of extremities. Patient does not have history of seizures as a prior to this. Per ED note NIH 3 (1 Loc Question, 1 LOC command and 1 dysarthria). Patient is a product of the normal vaginal delivery, term and there is no complication. There is no family history of seizures. Patient stated that he had a stroke in the past where his left arm was weak and numb. He had a stroke workup at [facility] and that at [facility] and the last 1 year to 1 year and half. At [facility] he had the carotid bypass of the right left a carotid in April 2019. He has been compliant taking his Coumadin as well as aspirin in the last 1 year. He is taking Coumadin because of his DVT. He denies any EEG in past. Also patient stated that he had hemangioma and had it removed at the age of [age] and he said it was on his skull. It was done at the [facility]. He is on Coumadin for his DVTs. As well as the patient is on aspirin 325 and Lipitor 40 mg daily. Patient denies tobacco use, alcohol use or any illicit drug use. Hospital workup consisted of: Initial vital signs is blood pressure of 108/58, heart rate of 68, temperature of 98 Fahrenheit oral, respiratory of 18 and the pulse ox of [address] of the head was reported as no acute intracranial hemorrhage or midline shift. There is back: Mild to moderate diffuse cerebral atrophy and moderate to advanced chronic small vessel ischemic changes redemonstrated. From June 2019 but suspected subacute or chronic in age are tentorial infarct in the high posterior right frontal lobe and inferior left cerebellar hemisphere. I personally reviewed the CT of the head and I felt these were more chronic over the left cerebellar and over the right frontal parietal region. There is no acute ischemia or hemorrhage seen. EKG was reported as normal sinus rhythm. Ventricle rate of 66. Left ventricular hypertrophy with repolarization abnormality. Abnormal EKG. On presentation the patient does not have leukocytosis. Urinalysis shows that the urine was clear, nitrate was negative, leukocyte esterase was trace and the urine white blood cell is 5. Of note patient had an 2D-echocardiogram on 06/24/2020 and was reported as severe concentric left ventricular hypertrophy. Ejection fraction 35-40%. Left ventricular end-diastolic pressure was elevated. Left atrium is severely dilated. Moderate to severe mitral regurgitation is present. Lipid profile on 06/24/2020 was reported as triglyceride of 76, cholesterol of 126, LDL of 89 and HDL 22. TSH is 1.58. Review of Systems Review of system: The 12 point system was reviewed and apparent positive and negative per HPI. Past Medical History Past Medical History: CVA/TIA, Deep Vein Thrombosis (DVT), Eye Disorder, Hyperlipidemia, Hypertension, Pneumonia, Renal Disease, Skin Disorder, Vascular Disorder Additional Past Medical History / Comment(s): Pt recently admitted to [facility] on 06/23/20 with NSTEMI. 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 Smoking Status: Never smoker - Past Family History Mother Family Medical History: Myocardial Infarction ([place]) Additional Family Medical History / Comment(s): Mother of a UT at the age of 37yrs. Father Family Medical History: Myocardial Infarction ([place]) Additional Family Medical History / Comment(s): Father of a UT at the age of 58yrs. Medications and Allergies Home Medications Medication Instructions Recorded Confirmed Type carvediloL [Coreg] 6.25 mg PO BID@1000,1800 07/16/19 06/27/20 History Furosemide [Lasix] 20 mg PO DAILY@1000 06/23/20 06/27/20 History Warfarin Sodium [Jantoven] 2 mg PO HS 06/23/20 06/27/20 History Aspirin 81 mg PO DAILY 90 Days #90 chew 06/25/20 06/27/20 Rx Atorvastatin [Lipitor] 40 mg PO DAILY 90 Days #90 tab 06/25/20 06/27/20 Rx Isosorbide Mononitrate ER [Imdur] 30 mg PO DAILY 90 Days #90 06/25/20 06/27/20 Rx tab.er.24h Nitroglycerin Sl Tabs [Nitrostat] 0.4 mg SUBLINGUAL Q5M PRN 180 Days 06/25/20 06/27/20 Rx #100 tab hydrALAZINE HCL [Apresoline] 25 mg PO BID 90 Days #180 tab 06/25/20 06/27/20 Rx Allergies Allergy/AdvReac Type Severity Reaction Status Date / Time codeine Allergy Unknown Verified 06/27/20 10:08 Penicillins Allergy Rash/Hives Verified 06/27/20 10:08 strawberry Allergy Unknown Verified 06/27/20 10:08 Physical Examination - Vital Signs Vital Signs: Vital Signs Temp Pulse Resp BP Pulse Ox 06/27/20 12:50 97.7 F 64 18 111/65 96 06/27/20 11:23 65 14 120/70 96 06/27/20 10:19 65 14 111/72 97 06/27/20 09:22 68 14 117/73 96 06/27/20 09:07 98 F 68 18 108/58 98 Intake and Output 06/26/20 06/27/20 06/27/20 22:59 06:59 14:59 Other: Weight 87.543 kg GENERAL: The patient is lying in bed and is not in acute distress. CHEST: The heart rate is regular rate rhythm. No murmurs to auscultation. No carotid bruit bilaterally. LUNG: Clear to auscultation bilaterally no wheezing noted throughout. Not labored breathing. ABDOMEN/GI: Bowel sounds present in all 4 quadrants. No tenderness to palpation throughout. NEUROLOGICAL: Higher mental function: The patient is awake, alert, oriented to self, place and time. Patient is following commands. No aphasia and no neglect. Cranial nerves: The pupils are round, equal (3mm bilaterally) and reactive to light. Visual garcia are full to confrontation on the left while right he said he has blurry vision for the past 6 month and was intact to threat. Extraocular movement is intact no nystagmus is noted. Facial sensation is normal to touch throughout. The facial strength is normal throughout. Hearing is normal bilaterally to hand rub. Tongue is midline and moved [id number] without any difficulty. No dysarthria is noted. Shoulder shrug is normal bilaterally. Motor: Gait was walking with temporary prostetic of right lower extremity and had outward rotation of leg with movement. Right distal lower extremity is limited because of patient amputation. Otherwise the strength is 5 over 5 throughout. Normal tone and bulk. Cerebellum: Minimal dysmeteria of finger to nose over the left. Otherwise Normal finger to nose heel over the right. Sensation: Sensation is normal to touch throughout. Reflexes (right/left): Unable to assess right patellar or ankle because of condition. Other 2+ throughout except ankle 1+. Plantars is downgoing over the left. Results BUN is 36 and creatinine is 3.19. Patient creatinine baseline is 2.12 2.4. On the previous admission of 06/23/2020 patient came in with the creatinine of 3.24 and discharged with a creatinine of 3.0 Patient troponin is 0.430 X2. Coagulation study: PT of 23.0, INR 2.4 and PTT of 38.1. - Laboratory Findings CBC and BMP: 06/27/20 09:31 06/27/20 09:31 Abnormal Lab Findings: Abnormal Labs 06/27/20 06/27/20 06/27/20 09:29 09:31 09:31 RBC 3.75 L Hgb 11.0 L Hct 33.3 L PT 23.0 H INR 2.4 H APTT 38.1 H Potassium Chloride BUN Creatinine Glucose Troponin I Urine Protein 1+ H Urine Blood Trace H Ur Leukocyte Esterase Trace H Urine Mucus Rare H 06/27/20 06/27/20 06/27/20 09:31 09:31 12:28 RBC Hgb Hct PT INR APTT Potassium 5.2 H Chloride 109 H BUN 36 H Creatinine 3.19 H Glucose 105 H Troponin I 0.430 H* 0.430 H* Urine Protein Urine Blood Ur Leukocyte Esterase Urine Mucus Assessment and Plan Assessment: Syncope. Cannot exclude seizure especially with history of old stroke which can cause cortical irritability. Another possibility is cardiac in etiology (especially with elevated troponin) Chronic stroke (right fronto-parietal and left cerebellar). Seems cardioembolic. Carotid bypass (right-left) on 04/2019 Hemangioma s/p removal at age [age] years old Elevated troponin EVELIO on CKI Hx of DVT Hx of PVD Hx of Thoracic aneurysm HTN Hyperlipidemia Above Knee amputation Plan: Currently the patient is on the Coumadin and INR is therapeutic. As well as on aspirin 325 and Lipitor 40 mg. 2D-echocardiogram on 06/24/2020 and was reported as severe concentric left ventricular hypertrophy. Ejection fraction 35-40%. Left ventricular end- diastolic pressure was elevated. Left atrium is severely dilated. Moderate to severe mitral regurgitation is present. No need to repeat. Lipid profile on 06/24/2020 was reported as triglyceride of 76, cholesterol of 126, LDL of 89 and HDL 22. No need to repeat. TSH (06/24/20) is 1.58 and HbA1c: 5.1. Ordered ammonia level as well as the vitamin B12. Patient refuses to get an EEG. I notified him that I'm concerned that these episodes could be seizures because of multiple episodes as well as his the strokes can cause cortical irritability which can give him seizures. Patient re fused to be on anti-epileptic drug. Patient also refuses to get any further neurological workup such as a carotid duplex or any further imaging from a neurological standpoint. We'll defer the elevated troponin the cardiology team. Patient was notified that he needs to follow-up with a neurologist as well as the neuro-surgeon regarding management of his strokes, episodes of loss of consciousness as well as this carotid bypass. He said the only thing that he will take into consideration is follow-up with a neurologist as an outpatient if he continues to have the these spells further down the line. Thank you for the consult. Bob Cabrera M.D. Neuro-hospitalist Time with Patient: Greater than 30
[2020-06-27] MEDS: WARFARIN 2 MG TAB PO SCH (17:31)
[2020-06-27] MEDS: carvediloL 6.25 MG TAB PO SCH (17:31)
[2020-06-27] MEDS: hydrALAZINE HCL 25 MG TAB PO SCH (20:33)
--- NOTE | 2020-06-27 23:30 | HP ---
HISTORY AND PHYSICAL A 70-year-old white male with multiple history of strokes, left cerebellar in the last 1-1/2 years, cardiac bypass, [id number], 2018, hypertension, dyslipidemia, thoracic aortic aneurysm, femoral bypass 2012, DVT, peripheral vascular disease, [id number] amputation right lower extremity, on Coumadin, presents to the ER due to worsening confusion and slurring words, not knowing who he was. His daughter and sent him to the hospital about 8 o'clock this morning, episode lasted 3-1/2 to 4 hours. Currently sitting up here in the room and he is talking normal, sitting on the side of the bed. Denies any tongue biting, shortness of breath. Denies bowel or bladder incontinence. No jerking of extremities. No history of seizures. He is on Coumadin due to a DVT. He has had a carotid carotid bypass. He had a stroke and was seen at [facility] a year and a half ago and had carotid carotid bypass. He is on aspirin, Lipitor, cardiac medications. He recently left the hospital after being cleared by Cardiology. He has LVH, ejection fraction 35% and 45% on echo, left atrial dilation, severe mitral regurgitation. He had CT of the head more chronic over the left cerebellar area, right frontal parietal region, no acute ischemia seen. EKG shows sinus rhythm. HOME MEDICINES: See list. FAMILY HISTORY: Mother with myocardial infarction. Father myocardial infarction. SURGERIES: See list. PHYSICAL EXAMINATION: VITAL SIGNS: Temperature 98, pulse 60s to 70s, respiratory rate 16 to 18, blood pressure 110 to 120 over 60s to 70s, O2 of 96% to 98%. PSYCH: He has given appropriate answers, sitting on the side of the bed. CARDIOVASCULAR: S1, S2. LUNGS: Clear. He was given appropriate answers. No facial asymmetry. Good strength in all 4 extremities. BUN is 36, creatinine is 3.19, baseline is 2.12 to 2.4. Troponins elevated about 0.43 x3 of them. INR is 2.4. Hemoglobin is 11. Potassium 5.2. Sodium 142. BUN 36, creatinine 3.19. Platelets ASSESSMENT: 1. Syncope, possible stroke with 4 hours of confusion and slurred speech. 2. Possibly acute on chronic stroke or with acute ischemia in acute stroke versus transient ischemic attack. 3. Possible non ST-elevation myocardial infarction with elevated troponin continuing. 4. Elevated troponin. 5. Acute kidney injury, prerenal renal failure with dehydration. 6. History of deep venous thrombosis. 7. History of peripheral vascular disease. 8. Thoracic aneurysm. 9. Hypertension. 10.Dyslipidemia. 11.Right -[id number]-tkgf amputation. He is refusing MRI and EEG at this time. His Coumadin, INR . He is on aspirin and Lipitor. He has severe mitral regurgitation. I suspect he had a TIA and not a seizure. No history of seizures. His labs were reviewed. He may agree to get an MRI, but I think we need to possibly think about possibly a non STEMI and some cardiac heart cath maybe versus switching him off Coumadin to give like Eliquis if he continues to have strokes for multiple reasons may be embolic from the heart. He has refused to go on antiseizure medicine. He says he did not have a seizure. Will see what Neurology says tomorrow as well as Cardiology. MMODL / IJN: [id number] /
[2020-06-28 06:51] LABS: INR 2.4 (<1.2); Prothrombin Time 23.1 sec (9.0-12.0)
[2020-06-28 06:55] LABS: Calcium 8.5 mg/dL (8.4-10.2); HCT 29.3 % (39.0-53.0); Hypochromasia Slight; MCH 29.2 pg (25.0-35.0); MCHC 32.6 g/dL (31.0-37.0); MCV 89.5 fL (80.0-100.0); Mean Platelet Volume 8.4; Platelet Count 149 k/uL (150-450); Potassium 5.3 mmol/L (3.5-5.1); RBC 3.27 m/uL (4.30-5.90); RDW 14.7 % (11.5-15.5)
[2020-06-28 07:00] LABS: HGB 9.5 gm/dL (13.0-17.5)
[2020-06-28] MEDS ORDERED: ISOSORBIDE MONONITRATE ER 30 MG TAB.ER.24H PO SCH (09:00)
[2020-06-28] MEDS: ATORVASTATIN 40 MG TAB PO SCH (09:12)
[2020-06-28] MEDS: hydrALAZINE HCL 25 MG TAB PO SCH ×2 (09:12→22:16)
[2020-06-28] MEDS: ASPIRIN 325 MG TAB PO SCH (09:12)
[2020-06-28] MEDS: FUROSEMIDE 20 MG TAB PO SCH (09:13)
[2020-06-28] MEDS: carvediloL 6.25 MG TAB PO SCH ×2 (09:14→17:57)
--- NOTE | 2020-06-28 12:07 | P.PN ---
Subjective Progress Note Date: 06/28/20 patient was seen at bedside and there is no family members at bedside accompanied with him. He denies any further episodes of passing since the being in the hospital. He states that he's doing well, denies of any weakness, numbness, slurring of the speech. He continues to not wanting any workup from a neurological standpoint. Objective - Vital Signs Vital signs: Vital Signs Temp 97.8 F 06/28/20 09:18 Pulse 56 L 06/28/20 09:18 Resp 16 06/28/20 09:18 BP 159/87 06/28/20 09:18 Pulse Ox 96 06/28/20 09:18 Intake & Output 06/27/20 06/28/20 06/28/20 18:59 06:59 18:59 Output Total 840 375 Balance -840 -375 Weight 87.543 kg 87.3 kg Output: Urine 840 375 Other: # Voids 0 1 1 # Bowel Movements 1 - Exam GENERAL: The patient is lying in bed and is not in acute distress. CHEST: The heart rate is regular rate rhythm. No murmurs to auscultation. No carotid bruit bilaterally. LUNG: Clear to auscultation bilaterally no wheezing noted throughout. Not labored breathing. ABDOMEN/GI: Bowel sounds present in all 4 quadrants. No tenderness to palpation throughout. NEUROLOGICAL: Higher mental function: The patient is awake, alert, oriented to self, place and time. Patient is following commands. No aphasia and no neglect. Cranial nerves: The pupils are round, equal (3mm bilaterally) and reactive to light. Visual garcia are full to confrontation on the left while right he said he has blurry vision for the past 6 month and was intact to threat. Extraocular movement is intact no nystagmus is noted. Facial sensation is normal to touch throughout. The facial strength is normal throughout. Hearing is normal bilaterally to hand rub. Tongue is midline and moved [id number] without any difficulty. No dysarthria is noted. Shoulder shrug is normal bilaterally. Motor: Gait was walking with temporary prostetic of right lower extremity and had outward rotation of leg with movement. Right distal lower extremity is limited because of patient amputation. Otherwise the strength is 5 over 5 throughout. Normal tone and bulk. Cerebellum: Minimal dysmeteria of finger to nose over the left. Otherwise Normal finger to nose heel over the right. Sensation: Sensation is normal to touch throughout. Reflexes (right/left): Unable to assess right patellar or ankle because of condition. Other 2+ throughout except ankle 1+. Plantars is downgoing over the left. - Labs CBC & Chem 7: 06/28/20 06:11 06/28/20 06:11 Labs: Abnormal Lab Results - Last 24 Hours (Table) 06/27/20 06/27/20 06/28/20 Range/Units 12:28 15:44 06:11 RBC (4.30-5.90) m/uL Hgb (13.0-17.5) gm/dL Hct (39.0-53.0) % Plt Count (150-450) k/uL PT (9.0-12.0) sec INR (<1.2) Potassium 5.3 H (3.5-5.1) mmol/L Chloride 111 H (98-107) mmol/L BUN 35 H (9-20) mg/dL Creatinine 3.02 H (0.66-1.25) mg/dL Troponin I 0.430 H* 0.497 H* (0.000-0.034) ng/mL HDL Cholesterol 22 L (40-60) mg/dL 06/28/20 06/28/20 Range/Units 06:11 06:11 RBC 3.27 L (4.30-5.90) m/uL Hgb 9.5 L D (13.0-17.5) gm/dL Hct 29.3 L (39.0-53.0) % Plt Count 149 L (150-450) k/uL PT 23.1 H (9.0-12.0) sec INR 2.4 H (<1.2) Potassium (3.5-5.1) mmol/L Chloride (98-107) mmol/L BUN (9-20) mg/dL Creatinine (0.66-1.25) mg/dL Troponin I (0.000-0.034) ng/mL HDL Cholesterol (40-60) mg/dL Assessment and Plan Assessment: Syncope. Cannot exclude seizure especially with history of old stroke which can cause cortical irritability. Another possibility is cardiac in etiology (especially with elevated troponin). Cannot exclude TIA. Chronic stroke (right fronto-parietal and left cerebellar). Seems cardioembolic. Carotid bypass (right-left) on 04/2019 Hemangioma s/p removal at age [age] years old Elevated troponin EVELIO on CKI Hx of DVT Hx of PVD Hx of Thoracic aneurysm HTN Hyperlipidemia Above Knee amputation Plan: Currently the patient is on the Coumadin and INR is therapeutic. As well as on aspirin 325 and Lipitor 40 mg. 2D-echocardiogram on 06/24/2020 and was reported as severe concentric left ventricular hypertrophy. Ejection fraction 35-40%. Left ventricular end-diastolic pressure was elevated. Left atrium is severely dilated. Moderate to severe mitral regurgitation is present. No need to repeat. Lipid profile: triglyceride of 76, cholesterol of 91, LDL of 54 and HDL 22. TSH (06/24/20) is 1.58 and HbA1c: 5.1. Ammonia level <9. Vitamin B12: 386. Reason why I felt like this was more possibly a seizure > transient ischemic attack is a from the daughter's description of him being slumped over, unresponsive (with similar episodes in past X3). I cannot exclude a transient ischemic attack. Patient refuses to get an EEG. I notified him that I'm concerned that these episodes could be seizures because of multiple episodes as well as his the strokes can cause cortical irritability which can give him seizures. Patient refused to be on anti-epileptic drug. Patient also refuses to get carotid duplex or any further neurological work-up. We'll defer the elevated troponin the cardiology team. Patient was notified that he needs to follow-up with a neurologist as well as the neuro-surgeon regarding management of his strokes, episodes of loss of consciousness as well as this carotid bypass. He said the only thing that he will take into consideration is follow-up with a neurologist as an outpatient if he continues to have the these spells further down the line. Bob Cabrera M.D. Neuro-hospitalist Time with Patient: Less than 30
--- NOTE | 2020-06-28 12:21 | P.CRDCN ---
<Jeannine Martel - Last Filed: 06/28/20 13:18> History of Present Illness Consult date: 06/28/20 History of present illness: CHIEF COMPLAINT: Elevated troponin HISTORY OF PRESENT ILLNESS: This is a 70-year old male with a past medical history significant for CVA, chronic kidney disease, hyperlipidemia, hypertension, and PVD. 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 We have been asked to see the patient in consultation for elevated troponin. Patient also has a history of aortic dissection with surgical repair at [facility] in [place]. He has also underwent an aortic arch repair and fem- fem bypass along with a left subclavian to right carotid bypass. Patient reports after his aortic dissection he developed ischemia to his leg and underwent right BKA. Patient examined at the bedside. Jolynn is somewhat of a poor historian. He reports his daughter handles most of his medical stuff for him. Patient apparently was brought to the hospital by his family for confusion and slurred speech. He has been evaluated by neurology and has refusing further testing from a neurology standpoint. Patient reports having some chest pain occasionally for the last week. He denies previous cardiac cath. No chest pain at time of examination. No shortness of breath. DIAGNOSTICS: EKG reveals sinus rhythm with T-wave inversions unchanged from previous EKGs. Chest xray small left pleural effusion. Laboratory data: WBC 7.0. Hemoglobin 9.5. Platelet count 149. INR 2.4. Sodium 139. Potassium 5.3. BUN 35. Creatinine 3.02. Troponin 0.430. 0.430. 0.497. Current home cardiac medications include hydralazine 25 mg twice a day, Coreg 6.25 mg twice a day, Coumadin, Imdur 30 mg daily, Lasix 20 mg daily, Lipitor 40 mg daily, and aspirin 81 mg daily Echocardiogram completed 06/24/2020 reveals ejection fraction 35-40%, LV hypokinesis, and moderate to severe mitral regurgitation. REVIEW OF SYSTEMS: At the time of my exam: CONSTITUTIONAL: Denies fever or chills. HEENT: Denies blurred vision, vision changes, or eye pain. Denies hemoptysis CARDIOVASCULAR: Denies chest pain, orthopnea, PND or palpitations RESPIRATORY: No shortness of breath. GASTROINTESTINAL: Denies abdominal pain. Denies nausea or vomiting. HEMATOLOGIC: Denies bleeding disorders. GENITOURINARY: Denies any blood in urine. SKIN: Denies pruitis. Denies rash. PHYSICAL EXAM: VITAL SIGNS: Reviewed. GENERAL: Well-developed in no acute distress. HEENT: Head is normocephalic. Pupils are equal, round. Sclerae anicteric. Mucous membranes of the mouth are moist. Neck supple. No JVD or thyromegaly LUNGS: Respirations even and unlabored. Lungs essentially clear to auscultation bilaterally. HEART: Regular rate and rhythm. S1 and S2 heard. ABDOMEN: Soft. Nondistended. Nontender. EXTREMITIES: Right BKA. Normal range of motion. No clubbing or cyanosis. Peripheral pulses intact. No lower extremity edema NEUROLOGIC: Awake and alert. Oriented x 3. ASSESSMENT: Chest pain with abnormal troponins Altered mental status, neurology following Chronic kidney disease Cardiomyopathy, suspect ischemic in nature, EF 35-40% History of aortic dissection with previous surgical repair History of aortic arch repair and fem-fem bypass History of left subclavian to right carotid bypass History of DVT, on long-term anticoagulation with Coumadin History of CVA History of limb ischemia with right [id number] amputation Hypertension Hyperlipidemia PLAN: Neurology following. Appreciate recommendations Continue current cardiac medications Increase Imdur to 60mg daily Discussed possibility cardiac catheterization with patient and the risk of requiring hemodialysis after cardiac cath. Patient states he does not want to be on hemodialysis and is unsure if he wants to take that risk to undergo cardiac cath. We will continue with medical management at this time. Further recommendations pending patient's course. Nurse practitioner note has been reviewed by physician. Signing provider agrees with the documented findings, assessment, and plan of care. Past Medical History Past Medical History: CVA/TIA, Deep Vein Thrombosis (DVT), Eye Disorder, Hyperlipidemia, Hypertension, Pneumonia, Renal Disease, Skin Disorder, Vascular Disorder Additional Past Medical History / Comment(s): Pt recently admitted to [facility] on 06/23/20 with NSTEMI. 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 Smoking Status: Never smoker - Past Family History Mother Family Medical History: Myocardial Infarction (AR) Additional Family Medical History / Comment(s): Mother of a AR at the age of 37yrs. Father Family Medical History: Myocardial Infarction (AR) Additional Family Medical History / Comment(s): Father of a AR at the age of 58yrs. Medications and Allergies Home Medications Medication Instructions Recorded Confirmed Type carvediloL [Coreg] 6.25 mg PO BID@1000,1800 07/16/19 06/27/20 History Furosemide [Lasix] 20 mg PO DAILY@1000 06/23/20 06/27/20 History Warfarin Sodium [Jantoven] 2 mg PO HS 06/23/20 06/27/20 History Aspirin 81 mg PO DAILY 90 Days #90 chew 06/25/20 06/27/20 Rx Atorvastatin [Lipitor] 40 mg PO DAILY 90 Days #90 tab 06/25/20 06/27/20 Rx Isosorbide Mononitrate ER [Imdur] 30 mg PO DAILY 90 Days #90 06/25/20 06/27/20 Rx tab.er.24h Nitroglycerin Sl Tabs [Nitrostat] 0.4 mg SUBLINGUAL Q5M PRN 180 Days 06/25/20 06/27/20 Rx #100 tab hydrALAZINE HCL [Apresoline] 25 mg PO BID 90 Days #180 tab 06/25/20 06/27/20 Rx Allergies Allergy/AdvReac Type Severity Reaction Status Date / Time codeine Allergy Unknown Verified 06/27/20 10:08 Penicillins Allergy Rash/Hives Verified 06/27/20 10:08 strawberry Allergy Unknown Verified 06/27/20 10:08 Physical Exam Vitals: Vital Signs Temp Pulse Pulse Resp BP BP Pulse Ox 06/28/20 12:00 98.5 F 69 16 129/69 98 06/28/20 09:18 97.8 F 56 L 16 159/87 96 06/28/20 04:19 98.2 F 59 L 16 141/83 98 06/28/20 01:04 97.9 F 64 18 132/60 98 06/27/20 20:00 98.2 F 65 18 126/58 98 06/27/20 16:00 96.9 F L 64 18 154/73 96 06/27/20 14:51 66 20 151/73 98 06/27/20 12:50 97.7 F 64 18 111/65 96 Intake and Output 06/27/20 06/28/20 06/28/20 22:59 06:59 14:59 Output Total 180 660 375 Balance -180 -660 -375 Output: Urine 180 660 375 Other: # Voids 2 1 1 # Bowel Movements 1 Weight 87.3 kg Results 06/28/20 06:11 06/28/20 06:11 Cardiac Enzymes 06/27/20 06/27/20 Range/Units 12:28 15:44 Troponin I 0.430 H* 0.497 H* (0.000-0.034) ng/mL Coagulation 06/28/20 Range/Units 06:11 PT 23.1 H (9.0-12.0) sec Lipids 06/28/20 Range/Units 06:11 Triglycerides 76 (<150) mg/dL Cholesterol 91 (<200) mg/dL HDL Cholesterol 22 L (40-60) mg/dL CBC 06/28/20 Range/Units 06:11 WBC 7.0 (3.8-10.6) k/uL RBC 3.27 L (4.30-5.90) m/uL Hgb 9.5 L D (13.0-17.5) gm/dL Hct 29.3 L (39.0-53.0) % Plt Count 149 L (150-450) k/uL Comprehensive Metabolic Panel 06/28/20 Range/Units 06:11 Sodium 139 (137-145) mmol/L Potassium 5.3 H (3.5-5.1) mmol/L Chloride 111 H (98-107) mmol/L Carbon Dioxide 22 (22-30) mmol/L BUN 35 H (9-20) mg/dL Creatinine 3.02 H (0.66-1.25) mg/dL Glucose 97 (74-99) mg/dL Calcium 8.5 (8.4-10.2) mg/dL Current Medications Generic Name Dose Route Start Last Admin Trade Name Cody PRN Reason Stop Dose Admin Aspirin 325 mg 06/28/20 09:00 06/28/20 09:12 Aspirin 325 Mg Tab PO 325 mg DAILY [facility]ARY Administration Atorvastatin Calcium 40 mg 06/28/20 09:00 06/28/20 09:12 Atorvastatin 40 Mg Tab PO 40 mg DAILY [facility] Administration Carvedilol 6.25 mg 06/27/20 18:00 06/28/20 09:14 Carvedilol 6.25 Mg Tab PO 6.25 mg BID@1000,1800 [facility] Administration Furosemide 20 mg 06/28/20 10:00 06/28/20 09:13 Furosemide 20 Mg Tab PO 20 mg DAILY@1000 [facility] Administration Hydralazine HCl 25 mg 06/27/20 21:00 06/28/20 09:12 Hydralazine Hcl 25 Mg Tab PO 25 mg BID [facility] Administration Sodium Chloride 1,000 mls @ 20 mls/hr 06/27/20 11:45 06/27/20 14:49 Saline 0.9% IV Not Given .Q24H [facility] Isosorbide Mononitrate 30 mg 06/28/20 09:00 06/28/20 09:12 Isosorbide Mononitrate Er 30 Mg Tab.Er.24h PO 30 mg DAILY [facility]ARY Administration Miscellaneous Information 0 each 06/27/20 12:01 Warfarin Per Pharmacy MISCELLANE DIRECTED PRN INR Nitroglycerin 0.4 mg 06/27/20 11:37 Nitroglycerin Sl Tabs 0.4 Mg Tab SUBLINGUAL Q5M PRN Chest Pain Warfarin Sodium 2 mg 06/27/20 18:00 06/27/20 17:31 Warfarin 2 Mg Tab PO 2 mg DAILY@1800 [facility] Administration Intake and Output 06/27/20 06/28/20 06/28/20 22:59 06:59 14:59 Output Total 180 660 375 Balance -180 -660 -375 Output: Urine 180 660 375 Other: # Voids 2 1 1 # Bowel Movements 1 Weight 87.3 kg 06/28/20 06:11 06/28/20 06:11 <Wade Gallo - Last Filed: 06/28/20 16:29> History of Present Illness History of present illness: Long discussion with patient and daughter. Patient with most recent admission last week with chest pain and mildly elevated troponins. Patient was discharged home and had more strokelike symptoms at home with slurred speech and drooping face per daughter. These have since resolved. He additionally does have intermittent chest pain. I had long discussion with patient and daughter about any heart catheterization requiring contrast which may cause kidney failure given his chronic kidney disease. Patient with extensive vascular issues including aneurysm, pseudoaneurysm, complex bypass. Unclear what patient's anatomy is for possible intervention. We will attempt to obtain prior workup pe rformed at [facility]. Patient does have likely ischemic cardiomyopathy with ejection fraction 35-40%. We will attempt to optimize heart failure regimen as well as antianginal regimen. Nephrology recommendations regarding possible need for dialysis if a heart catheterization is performed. Wade Gallo D.O. Physical Exam Vitals: Vital Signs Temp Pulse Resp BP Pulse Ox 06/28/20 12:00 98.5 F 69 16 129/69 98 06/28/20 09:18 97.8 F 56 L 16 159/87 96 06/28/20 04:19 98.2 F 59 L 16 141/83 98 06/28/20 01:04 97.9 F 64 18 132/60 98 06/27/20 20:00 98.2 F 65 18 126/58 98 Intake and Output 06/28/20 06/28/20 06/28/20 06:59 14:59 22:59 Intake Total 222 Output Total 660 500 Balance -660 -278 Intake: Oral 222 Output: Urine 660 500 Other: # Voids 1 1 # Bowel Movements 1 Weight 87.3 kg Results 06/28/20 06:11 06/28/20 06:11 Cardiac Enzymes 06/27/20 Range/Units 15:44 Troponin I 0.497 H* (0.000-0.034) ng/mL Coagulation 06/28/20 Range/Units 06:11 PT 23.1 H (9.0-12.0) sec Lipids 06/28/20 Range/Units 06:11 Triglycerides 76 (<150) mg/dL Cholesterol 91 (<200) mg/dL HDL Cholesterol 22 L (40-60) mg/dL CBC 06/28/20 Range/Units 06:11 WBC 7.0 (3.8-10.6) k/uL RBC 3.27 L (4.30-5.90) m/uL Hgb 9.5 L D (13.0-17.5) gm/dL Hct 29.3 L (39.0-53.0) % Plt Count 149 L (150-450) k/uL Comprehensive Metabolic Panel 06/28/20 Range/Units 06:11 Sodium 139 (137-145) mmol/L Potassium 5.3 H (3.5-5.1) mmol/L Chloride 111 H (98-107) mmol/L Carbon Dioxide 22 (22-30) mmol/L BUN 35 H (9-20) mg/dL Creatinine 3.02 H (0.66-1.25) mg/dL Glucose 97 (74-99) mg/dL Calcium 8.5 (8.4-10.2) mg/dL Current Medications Generic Name Dose Route Start Last Admin Trade Name Freq PRN Reason Stop Dose Admin Aspirin 325 mg 06/28/20 09:00 06/28/20 09:12 Aspirin 325 Mg Tab PO 325 mg DAILY [facility] Administration Atorvastatin Calcium 40 mg 06/28/20 09:00 06/28/20 09:12 Atorvastatin 40 Mg Tab PO 40 mg DAILY [facility] Administration Carvedilol 6.25 mg 06/27/20 18:00 06/28/20 09:14 Carvedilol 6.25 Mg Tab PO 6.25 mg BID@1000,1800 [facility] Administration Furosemide 20 mg 06/28/20 10:00 06/28/20 09:13 Furosemide 20 Mg Tab PO 20 mg DAILY@1000 [facility] Administration Hydralazine HCl 25 mg 06/27/20 21:00 06/28/20 09:12 Hydralazine Hcl 25 Mg Tab PO 25 mg BID [facility] Administration Sodium Chloride 1,000 mls @ 20 mls/hr 06/27/20 11:45 06/27/20 14:49 Saline 0.9% IV Not Given .Q24H [facility] Isosorbide Mononitrate 60 mg 06/29/20 09:00 Isosorbide Mononitrate Er 60 Mg Tab.Er.24h PO DAILY [facility] Miscellaneous Information 0 each 06/27/20 12:01 Warfarin Per Pharmacy MISCELLANE DIRECTED PRN INR Nitroglycerin 0.4 mg 06/27/20 11:37 Nitroglycerin Sl Tabs 0.4 Mg Tab SUBLINGUAL Q5M PRN Chest Pain Warfarin Sodium 2 mg 06/27/20 18:00 06/27/20 17:31 Warfarin 2 Mg Tab PO 2 mg DAILY@1800 [facility] Administration Intake and Output 06/28/20 06/28/20 06/28/20 06:59 14:59 22:59 Intake Total 222 Output Total 660 500 Balance -828 -680 Intake: Oral 222 Output: Urine 660 500 Other: # Voids 1 1 # Bowel Movements 1 Weight 87.3 kg 06/28/20 06:11 06/28/20 06:11
[2020-06-28] MEDS: SODIUM CHLORIDE 0.9% 1,000 ML IV SCH (17:56)
[2020-06-28] MEDS: WARFARIN 2 MG TAB PO SCH (17:57)
--- NOTE | 2020-06-29 00:14 | PN ---
PROGRESS NOTE This 70-year-old white male with non-STEMI, chronic renal failure has agreed to do a heart catheterization after I discussed it with him. He has agreed to do a heart catheterization in the morning. He does not want an MRI of the brain or EEG of the brain. He wants to go in and get his heart fixed possible. Vital signs are reviewed. CARDIOVASCULAR: S1, S2. LUNGS: Clear. Sitting up in bed, giving answers appropriately. He was alert and oriented x3. He had 2+ edema. ASSESSMENT: 1. Lay-TB-jrtadvnvx myocardial infarction. 2. Coronary artery disease, likely aortic aneurysm. 3. Prior stroke. 4. Status post carotid carotid anastomosis. 5. Hypertension acceleration. 6. History of noncompliance. PLAN: Heart catheterization in the morning. Does not want MRI, seizure medicines or EEG, but will agree to do a heart catheterization in the a.m. even though he is at risk for going on dialysis. He feels he needs his heart fixed. MMODL / IJN: [id number] /
[2020-06-29 07:49] LABS: INR 2.2 (<1.2); Prothrombin Time 21.3 sec (9.0-12.0)
--- NOTE | 2020-06-29 09:53 | P.PN ---
Subjective Progress Note Date: 06/29/20 The patient was seen at bedside and he said he is doing well. Denies any weakness, numbness or visual disturbance. No events overnight. I personally saw the patient twice yesterday and he refused any neurological work-up. Objective - Vital Signs Vital signs: Vital Signs Temp 98.2 F 06/29/20 03:26 Pulse 62 06/29/20 03:26 Resp 16 06/29/20 03:26 BP 146/82 06/29/20 03:26 Pulse Ox 97 06/29/20 03:26 Intake & Output 06/28/20 06/29/20 06/29/20 18:59 06:59 18:59 Intake Total 444 240 250 Output Total 750 745 Balance -306 -505 250 Weight 97 kg Intake: Oral 444 240 250 Output: Urine 750 745 Other: # Voids 2 1 # Bowel Movements 1 - Exam GENERAL: The patient is lying in bed and is not in acute distress. CHEST: The heart rate is regular rate rhythm. No murmurs to auscultation. LUNG: Clear to auscultation bilaterally no wheezing noted throughout. Not labored breathing. ABDOMEN/GI: Bowel sounds present in all 4 quadrants. No tenderness to palpation throughout. NEUROLOGICAL: Higher mental function: The patient is awake, alert, oriented to self, place and time. Patient is following commands. No aphasia and no neglect. Cranial nerves: The pupils are round, equal (3mm bilaterally) and reactive to light. Visual garcia are full to confrontation on the left while right he said he has blurry vision for the past 6 month and was intact to threat. Extraocular movement is intact no nystagmus is noted. Facial sensation is normal to touch throughout. The facial strength is normal throughout. Hearing is normal lorraine aterally to hand rub. Tongue is midline and moved [id number] without any difficulty. No dysarthria is noted. Shoulder shrug is normal bilaterally. Motor: Gait is defered. Right distal lower extremity is limited because of patient amputation. Otherwise the strength is 5 over 5 throughout. Normal tone and bulk. Cerebellum: Minimal dysmeteria of finger to nose over the left. Otherwise Norm al finger to nose heel over the right. Sensation: Sensation is normal to touch throughout. Reflexes (right/left): Unable to assess right patellar or ankle because of condition. Other 2+ throughout except ankle 1+. Plantars is downgoing over the left. - Labs CBC & Chem 7: 06/28/20 06:11 06/28/20 06:11 Labs: Abnormal Lab Results - Last 24 Hours (Table) 06/29/20 Range/Units 07:01 PT 21.3 H (9.0-12.0) sec INR 2.2 H (<1.2) Assessment and Plan Assessment: Syncope. Possibility is cardiac in etiology (especially with elevated troponin). Cannot exclude seizure especially with history of old stroke which can cause cortical irritability vs TIA. Chronic stroke (right fronto-parietal and left cerebellar). Seems cardioembolic. Carotid bypass (right-left) on 04/2019 Hemangioma s/p removal at age [age] years old Elevated troponin EVELIO on CKI Hx of DVT Hx of PVD Hx of Thoracic aneurysm HTN Hyperlipidemia Above Knee amputation Plan: Currently the patient is on the Coumadin and INR is therapeutic. As well as on aspirin 325 and Lipitor 40 mg. 2D-echocardiogram on 06/24/2020 and was reported as severe concentric left ventricular hypertrophy. Ejection fraction 35-40%. Left ventricular end- diastolic pressure was elevated. Left atrium is severely dilated. Moderate to severe mitral regurgitation is present. No need to repeat. Lipid profile: triglyceride of 76, cholesterol of 91, LDL of 54 and HDL 22. TSH (06/24/20) is 1.58 and HbA1c: 5.1. Ammonia level <9. Vitamin B12: 386. Reason why I felt like this was more possibly a seizure > transient ischemic attack is a from the daughter's description of him being slumped over, unresponsive (with similar episodes in past X3). I cannot exclude a transient ischemic attack. Patient refuses to get an EEG. I notified him that I'm concerned that these episodes could be seizures because of multiple episodes as well as his the strokes which can cause cortical irritability which can give him seizures. Patient refused to be on anti-epileptic drug. Patient also refuses to get carotid duplex or any further neurological work-up (for the last 3 days he refuses any neurological work-up). We'll defer the elevated troponin the cardiology team. Is in agreement of getting cardiac cath. Patient was notified that he needs to follow-up with a neurologist as well as the neuro-surgeon regarding management of his strokes, episodes of loss of consciousness as well as this carotid bypass. He said the only thing that he will take into consideration is follow-up with a neurologist as an outpatient if he continues to have the these spells further down the line. From neurology perspective no further work-up since he refuses. Will sign off. Please reconsult if needed. Bob Cabrera M.D. Neuro-hospitalist Time with Patient: Less than 30
[2020-06-29] MEDS: ASPIRIN 325 MG TAB PO SCH (10:13)
[2020-06-29] MEDS: hydrALAZINE HCL 25 MG TAB PO SCH ×2 (10:13→20:26)
[2020-06-29] MEDS: ISOSORBIDE MONONITRATE ER 60 MG TAB.ER.24H PO SCH (10:13)
[2020-06-29] MEDS: carvediloL 6.25 MG TAB PO SCH ×2 (10:13→17:19)
[2020-06-29] MEDS: ATORVASTATIN 40 MG TAB PO SCH (10:13)
[2020-06-29] MEDS: FUROSEMIDE 20 MG TAB PO SCH (10:13)
[2020-06-29] MEDS: SODIUM CHLORIDE 0.9% 1,000 ML IV SCH (10:14)
--- NOTE | 2020-06-29 11:13 | P.NPCON ---
History of Present Illness - Reason for Consult acute renal failure, chronic renal failure - History of Present Illness Reason for consultation: Acute kidney injury and chronic kidney disease History of present illness: Patient is a 70-year-old male seen in renal consultation for acute kidney injury on chronic kidney disease. Patient has chronic kidney disease stage III with baseline creatinine in the range of 2-2.5 from November 2019 through March 2020. Creatinine this admission was 3.19 and is 3.02 today. patient presented to the hospital in June 27 due to confusion. He was also noted to have slurred speech. brain CT revealed no acute changes. Diffuse cerebral atrophy and chronic small vessel ischemic changes were noted. patient has a history of aortic dissection with surgical repair at [facility]. He subsequently developed lower extremity ischemia and underwent ight [id number] amputation. 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 denies regular use of nonsteroidals. No history of diabetes. He's been considered for cardiac catheterization this admission. Denies chest pain or shortness of breath. He admits to good urine output. No hematuria or dysuria. Maintain on oral Lasix 20 mg once daily. Denies family history of renal disease. Vital signs are stable. General: The patient appeared well nourished and normally developed. HEENT: Head exam is unremarkable. Neck is without jugular venous distension. LUNGS: Breath sounds decreased. HEART: Rate and Rhythm are regular. ABDOMEN: soft, nontender. EXTREMITITES: No clubbing, cyanosis, or edema. Right BKA noted. Past Medical History Past Medical History: CVA/TIA, Deep Vein Thrombosis (DVT), Eye Disorder, Hyperlipidemia, Hypertension, Pneumonia, Renal Disease, Skin Disorder, Vascular Disorder Additional Past Medical History / Comment(s): Pt recently admitted to [facility] on 06/23/20 with NSTEMI. 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 Smoking Status: Never smoker - Past Family History Mother Family Medical History: Myocardial Infarction ([place]) Additional Family Medical History / Comment(s): Mother of a KS at the age of 37yrs. Father Family Medical History: Myocardial Infarction ([place]) Additional Family Medical History / Comment(s): Father of a KS at the age of 58yrs. Medications and Allergies Home Medications Medication Instructions Recorded Confirmed Type carvediloL [Coreg] 6.25 mg PO BID@1000,1800 07/16/19 06/27/20 History Furosemide [Lasix] 20 mg PO DAILY@1000 06/23/20 06/27/20 History Warfarin Sodium [Jantoven] 2 mg PO HS 06/23/20 06/27/20 History Aspirin 81 mg PO DAILY 90 Days #90 chew 06/25/20 06/27/20 Rx Atorvastatin [Lipitor] 40 mg PO DAILY 90 Days #90 tab 06/25/20 06/27/20 Rx Isosorbide Mononitrate ER [Imdur] 30 mg PO DAILY 90 Days #90 06/25/20 06/27/20 Rx tab.er.24h Nitroglycerin Sl Tabs [Nitrostat] 0.4 mg SUBLINGUAL Q5M PRN 180 Days 06/25/20 06/27/20 Rx #100 tab hydrALAZINE HCL [Apresoline] 25 mg PO BID 90 Days #180 tab 06/25/20 06/27/20 Rx Allergies Allergy/AdvReac Type Severity Reaction Status Date / Time codeine Allergy Unknown Verified 06/27/20 10:08 Penicillins Allergy Rash/Hives Verified 06/27/20 10:08 strawberry Allergy Unknown Verified 06/27/20 10:08 Physical Exam Vitals: Vital Signs Temp Pulse Resp BP Pulse Ox 06/29/20 10:10 98.2 F 63 16 138/88 97 06/29/20 03:26 98.2 F 62 16 146/82 97 06/29/20 00:00 98.4 F 65 18 153/84 97 06/28/20 16:30 98.2 F 63 18 143/79 97 06/28/20 12:00 98.5 F 69 16 129/69 98 Intake and Output 06/28/20 06/29/20 06/29/20 22:59 06:59 14:59 Intake Total 222 240 250 Output Total 370 625 350 Balance -148 -385 -100 Intake: Oral 222 240 250 Output: Urine 370 625 350 Other: # Voids 1 1 Weight 97 kg Results - Lab Results Most recent lab results Calcium 8.5 mg/dL (8.4-10.2) 06/28/20 06:11 06/28/20 06:11 06/28/20 06:11 Assessment and Plan Plan: assessment: 1. Acute kidney injury secondary to hemodynamic ATN. Creatinine 3.19 on a dmission is 3.02 today. This concern for progression of underlying chronic kidney disease. 2. Chronic kidney disease stage III with baseline creatinine in the range of 2- 2.5 from October 2019 through March 2020. 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 Patient does mention that his left kidney is not functioning and right kidneys functioning only a 50%. 3. Hypertension with chronic kidney disease. Stable. 4. History of aortic dissection status post surgical repair at [facility]. 5. Status post right BKA. 6. chronic systolic CHF with ejection fraction of 35-40% with moderate to sever e mitral regurgitation. plan: I discussed with the patient the risk of developing worsening renal failure and potentially requiring renal replacement therapy post IV contrast exposure. Patient understands and is willing to proceed with cardiac catheterization. Start normal saline at 50 mL an hour 6 hours before cardiac catheterization and to be continued for 6-8 hours post cardiac catheterization. Avoid aggressive IV hydration due to patient's history of CHF. Avoid nephrotoxins. Continue to monitor renal function and urine output. Check renal ultrasound. Thank you for the consultation. I will continue to follow the patient with you during his hospital stay.
[2020-06-29] MEDS ORDERED: ALPRAZolam 0.25 MG TAB PO PRN (14:30)
[2020-06-29] MEDS ORDERED: SODIUM CHLORIDE 0.9% 1,000 ML in EMPTY BAG 1 BAG IV ONE (14:30)
[2020-06-29] MEDS ORDERED: NITROGLYCERIN SL TABS 0.4 MG TAB SUBLINGUAL PRN (14:30)
--- NOTE | 2020-06-29 14:38 | P.PN ---
Subjective Progress Note Date: 06/29/20 CHIEF COMPLAINT: Elevated troponin HISTORY OF PRESENT ILLNESS: Patient examined this morning at the bedside. He denies chest pain. Denies shortness of breath. Patient has been evaluated by nephrology. Patient would like to proceed with cardiac catheterization. INR today 2.2 PHYSICAL EXAM: VITAL SIGNS: Reviewed. GENERAL: Well-developed in no acute distress. HEENT: Head is normocephalic. Pupils are equal, round. Sclerae anicteric. Mucous membranes of the mouth are moist. Neck supple. No JVD or thyromegaly LUNGS: Respirations even and unlabored. Lungs essentially clear to auscultation bilaterally. HEART: Regular rate and rhythm. S1 and S2 heard. ABDOMEN: Soft. Nondistended. Nontender. EXTREMITIES: Right BKA. Normal range of motion. No clubbing or cyanosis. Peripheral pulses intact. No lower extremity edema NEUROLOGIC: Awake and alert. Oriented x 3. ASSESSMENT: Chest pain with abnormal troponins Altered mental status, neurology following Chronic kidney disease Cardiomyopathy, suspect ischemic in nature, EF 35-40% History of aortic dissection with previous surgical repair History of aortic arch repair and fem-fem bypass History of left subclavian to right carotid bypass History of DVT, on long-term anticoagulation with Coumadin History of CVA History of limb ischemia with right [id number] amputation Hypertension Hyperlipidemia PLAN: Continue current cardiac medications Hold Coumadin dose tonight. Repeat INR in a.m. Nephrology has been consulted and evaluated patient. Nephrology recommended normal saline at 50 mL an hour for 6 hours prior to cardiac cath and to be continued for 6-8 hours post cardiac cath. If INR is less than 1.7 tomorrow morning, will begin IV fluids prior to cardiac cath tomorrow Nurse practitioner note has been reviewed by physician. Signing provider agrees with the documented findings, assessment, and plan of care. Objective - Vital Signs Vital signs: Vital Signs Temp 98 F 06/29/20 13:10 Pulse 64 06/29/20 13:10 Resp 16 06/29/20 13:10 BP 117/65 06/29/20 13:10 Pulse Ox 96 06/29/20 13:10 Intake & Output 06/28/20 06/29/20 06/29/20 18:59 06:59 18:59 Intake Total 444 240 510 Output Total 750 745 350 Balance -306 -505 160 Weight 97 kg Intake: IV 20 Invasive Line 1 20 Oral 444 240 490 Output: Urine 750 745 350 Other: Voiding Method Urinal # Voids 2 1 1 # Bowel Movements 1 - Labs CBC & Chem 7: 06/28/20 06:11 06/28/20 06:11 Labs: Abnormal Lab Results - Last 24 Hours (Table) 06/29/20 Range/Units 07:01 PT 21.3 H (9.0-12.0) sec INR 2.2 H (<1.2)
[2020-06-29 15:05] LABS: Albumin 3.5 g/dL (3.5-5.0); Calcium 8.7 mg/dL (8.4-10.2); Potassium 4.9 mmol/L (3.5-5.1); Total Bilirubin 0.5 mg/dL (0.2-1.3); Total Protein 6.8 g/dL (6.3-8.2)
[2020-06-29 15:07] LABS: HCT 29.7 % (39.0-53.0); HGB 9.3 gm/dL (13.0-17.5); Hypochromasia Moderate; MCHC 31.3 g/dL (31.0-37.0); MCV 89.5 fL (80.0-100.0); Mean Platelet Volume 9.8; Platelet Count 160 k/uL (150-450); RBC 3.32 m/uL (4.30-5.90); WBC 6.4 k/uL (3.8-10.6)
--- NOTE | 2020-06-29 16:04 | US ---
EXAMINATION TYPE: US kidneys/renal and bladder DATE OF EXAM: 06/29/2020 COMPARISON: CT 11/27/12 CLINICAL HISTORY: tuyet. Hx of renal stones EXAM MEASUREMENTS: Right Kidney: 13.1 x 6.0 x 7.5 cm Left Kidney: 16.1 x 8.6 x 8.8 cm Right Kidney: Hydronephrosis; Enlarged size; Multiple cysts largest UP 3.7 x 3.5 x 3.7 cm Left Kidney: Enlarged size; Multiple cysts largest lower pole 8.2 x 4.8 x 7.0 cm Bladder: wnl Bilateral Jets seen: Yes There is no evidence for hydronephrosis at this point in time. No nephrolithiasis is seen. No wyatt s are identified. The urinary bladder is anechoic. Bilateral ureteral jets are seen. Appearing adjacent to or part of the inferior Lt kidney is a large, complex, non-vascular area with internal mobile debris measuring 10.9 x 10.6 x 11.2 cm IMPRESSION: 1. Marked right hydronephrosis. The obstructing etiology is not identified by ultrasound. 2. Multiple bilateral renal cysts. 3. Complex heterogenous circumscribed area left hemipelvis. Additional workup is recommended. Conside r CT abdomen pelvis.
[2020-06-29] MEDS: ALPRAZolam 0.5 MG TAB PO PRN (22:32)
--- NOTE | 2020-06-30 00:21 | PN ---
PROGRESS NOTE Patient is a 70-year-old white male who has agreed to undergo a heart catheterization tomorrow if Dr. Celestin will allow it, being evaluated by Nephrology also. INR is 2.2. Sitting in the bed, talking loudly, given appropriate answers. CARDIOVASCULAR: S1, S2. LUNGS: Clear. GI: Soft. EXTREMITIES: Right BKA. ASSESSMENT: 1. Chest pain, abnormal troponins, altered mental status, all resolved. 2. Possible transient ischemic attacks. Does not want seizure workup or any other neurologic workup at this point. 3. Chronic kidney disease. 4. Cardiomyopathy, suspect ischemia in nature 35% to 40% ejection fraction, systolic heart failure. 5. History of aortic dissection and previous surgical repair and aortic arch repair. 6. Femoral-femoral bypass, left subclavian to right carotid bypass. 7. History of deep venous thrombosis. 8. Cerebrovascular accident. 9. Limb ischemia. 10.Right below-knee amputation. 11.Hypertension. 12.Dyslipidemia. PLAN: Continue current cardiac medications. Hold Coumadin dose tonight. Repeat INR in a.m. Give normal saline 50 mL an hour for 6 hours prior to cardiac cath and 6 to 8 hours post cardiac cath. INR is less than 1.7. Will be given IV fluids prior to cardiac cath tomorrow. MMODL / IJN: [id number] /
[2020-06-30] MEDS: ATORVASTATIN 40 MG TAB PO SCH (06:23)
[2020-06-30] MEDS: hydrALAZINE HCL 25 MG TAB PO SCH ×2 (06:26→20:00)
[2020-06-30] MEDS: carvediloL 6.25 MG TAB PO SCH ×2 (06:26→17:29)
[2020-06-30] MEDS: ISOSORBIDE MONONITRATE ER 60 MG TAB.ER.24H PO SCH (06:26)
[2020-06-30 06:50] LABS: Basophils % (A) 0 %; Eosinophils # (A) 0.6 k/uL (0-0.7); Eosinophils % (A) 9 %; HCT 29.9 % (39.0-53.0); HGB 9.5 gm/dL (13.0-17.5); Hypochromasia Moderate; Lymphocytes # (A) 1.5 k/uL (1.0-4.8); Lymphocytes % (A) 24 %; MCH 28.2 pg (25.0-35.0); MCHC 31.7 g/dL (31.0-37.0); MCV 88.9 fL (80.0-100.0); Mean Platelet Volume 8.5; Monocytes # (A) 0.4 k/uL (0-1.0); Monocytes % (A) 7 %; Neutrophils # (A) 3.6 k/uL (1.3-7.7); Neutrophils % (A) 58 %; Platelet Count 162 k/uL (150-450); RBC 3.36 m/uL (4.30-5.90); RDW 15.1 % (11.5-15.5); WBC 6.2 k/uL (3.8-10.6)
[2020-06-30 06:58] LABS: Potassium 4.4 mmol/L (3.5-5.1)
[2020-06-30 06:59] LABS: Albumin 3.6 g/dL (3.5-5.0); Calcium 8.6 mg/dL (8.4-10.2); Magnesium 2.1 mg/dL (1.6-2.3); Total Bilirubin 0.5 mg/dL (0.2-1.3); Total Protein 7.1 g/dL (6.3-8.2)
[2020-06-30] MEDS ORDERED: ASPIRIN 325 MG TAB PO ONE (07:00)
[2020-06-30] MEDS ORDERED: ATORVASTATIN 80 MG TAB PO ONE (07:00)
[2020-06-30 07:25] LABS: Prothrombin Time 19.3 sec (9.0-12.0)
[2020-06-30] MEDS: FUROSEMIDE 20 MG TAB PO SCH (08:17)
--- NOTE | 2020-06-30 10:52 | P.PN ---
Subjective patient is seen in follow-up for acute kidney injury and chronic kidney disease. Renal function fairly stable. Cardiac catheterization scheduled for tomorrow. No chest pain or shortness of breath. Oral intake is good. Good urine output. Vital signs are stable. General: The patient appeared well nourished and normally developed. HEENT: Head exam is unremarkable. Neck is without jugular venous distension. LUNGS: Lungs are clear to auscultation and percussion. Breath sounds decreased. HEART: Rate and Rhythm are regular. ABDOMEN: soft, nontender. EXTREMITITES: No clubbing, cyanosis, or edema. Objective - Vital Signs Vital signs: Vital Signs Temp 97.6 F 06/30/20 08:17 Pulse 56 L 06/30/20 08:17 Resp 16 06/30/20 08:17 BP 118/67 06/30/20 08:17 Pulse Ox 96 06/30/20 08:17 Intake & Output 06/29/20 06/30/20 06/30/20 18:59 06:59 18:59 Intake Total 1280 320 300 Output Total 350 475 Balance 930 -155 300 Weight 96.5 kg Intake: IV 190 320 Invasive Line 1 30 Sodium Chloride 0.9% 1, 160 320 000 ml @ 20 mls/hr IV . Q24H [facility] Rx#:[id number] Oral 1090 300 Output: Urine 350 475 Other: Voiding Method Urinal Urinal # Voids 1 - Labs CBC & Chem 7: 06/30/20 06:14 06/30/20 06:14 Labs: Abnormal Lab Results - Last 24 Hours (Table) 06/29/20 06/29/20 06/30/20 Range/Units 07:01 07:01 06:14 RBC 3.32 L (4.30-5.90) m/uL Hgb 9.3 L (13.0-17.5) gm/dL Hct 29.7 L (39.0-53.0) % PT 19.3 H (9.0-12.0) sec INR 2.0 H (<1.2) Chloride 112 H (98-107) mmol/L Carbon Dioxide (22-30) mmol/L BUN 33 H (9-20) mg/dL Creatinine 2.97 H (0.66-1.25) mg/dL 06/30/20 06/30/20 Range/Units 06:14 06:14 RBC 3.36 L (4.30-5.90) m/uL Hgb 9.5 L (13.0-17.5) gm/dL Hct 29.9 L (39.0-53.0) % PT (9.0-12.0) sec INR (<1.2) Chloride 112 H (98-107) mmol/L Carbon Dioxide 21 L (22-30) mmol/L BUN 33 H (9-20) mg/dL Creatinine 3.18 H (0.66-1.25) mg/dL Assessment and Plan Plan: assessment: 1. Acute kidney injury secondary to hemodynamic ATN. also possible component of obstructive uropathy. Creatinine 3.19 on admission is 3.18 today. This concern for progression of underlying chronic kidney disease. 2. Chronic kidney disease stage III with baseline creatinine in the range of 2- 2.5 from October 2019 through March 2020. 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 Patient does mention that his left kidney is not functioning and right kidneys functioning only a 50%. 3. Hypertension with chronic kidney disease. Stable. 4. History of aortic dissection status post surgical repair at [facility]. 5. Status post right BKA. 6. chronic systolic CHF with ejection fraction of 35-40% with moderate to severe mitral regurgitation. 7. Right-sided hydronephrosis. plan: I discussed with the patient the risk of developing worsening renal failure and potentially requiring renal replacement therapy post IV contrast exposure. Patient understands and is willing to proceed with cardiac catheterization. Start normal saline at 50 mL an hour 6 hours before cardiac catheterization and to be continued for 6-8 hours post cardiac catheterization. Avoid aggressive IV hydration due to patient's history of CHF. Avoid nephrotoxins. Continue to monitor renal function and urine output. consult urology for the hydronephrosis.
[2020-06-30] MEDS: SODIUM CHLORIDE 0.9% 1,000 ML IV SCH (11:24)
--- NOTE | 2020-06-30 14:49 | P.PN ---
Subjective Progress Note Date: 06/30/20 CHIEF COMPLAINT: Elevated troponin HISTORY OF PRESENT ILLNESS: Patient examined this morning at the bedside. He denies chest pain. Denies shortness of breath. Patient's vital signs are stable. INR 2.0 today PHYSICAL EXAM: VITAL SIGNS: Reviewed. GENERAL: Well-developed in no acute distress. HEENT: Head is normocephalic. Pupils are equal, round. Sclerae anicteric. Mucous membranes of the mouth are moist. Neck supple. No JVD or thyromegaly LUNGS: Respirations even and unlabored. Lungs essentially clear to auscultation bilaterally. HEART: Regular rate and rhythm. S1 and S2 heard. ABDOMEN: Soft. Nondistended. Nontender. EXTREMITIES: Right BKA. Normal range of motion. No clubbing or cyanosis. Peripheral pulses intact. No lower extremity edema NEUROLOGIC: Awake and alert. Oriented x 3. ASSESSMENT: Chest pain with abnormal troponins Altered mental status, neurology following Chronic kidney disease Cardiomyopathy, suspect ischemic in nature, EF 35-40% History of aortic dissection with previous surgical repair History of aortic arch repair and fem-fem bypass History of left subclavian to right carotid bypass History of DVT, on long-term anticoagulation with Coumadin History of CVA History of limb ischemia with right [id number] amputation Hypertension Hyperlipidemia PLAN: Continue current cardiac medications Hold Coumadin dose tonight. Repeat INR in a.m. Nephrology has been consulted and evaluated patient. Nephrology recommended normal saline at 50 mL an hour for 6 hours prior to cardiac cath and to be continued for 6-8 hours post cardiac cath. If INR is less than 1.7 tomorrow morning, will begin IV fluids prior to cardiac cath tomorrow Nurse practitioner note has been reviewed by physician. Signing provider agrees with the documented findings, assessment, and plan of care. Objective - Vital Signs Vital signs: Vital Signs Temp 98.7 F 06/30/20 11:16 Pulse 71 06/30/20 11:16 Resp 16 06/30/20 11:16 BP 115/70 06/30/20 11:16 Pulse Ox 97 06/30/20 11:16 Intake & Output 06/29/20 06/30/20 06/30/20 18:59 06:59 18:59 Intake Total 1280 320 910 Output Total 350 475 Balance 930 -155 910 Weight 96.5 kg Intake: IV 190 320 10 Invasive Line 1 30 Invasive Line 2 10 Sodium Chloride 0.9% 1, 160 320 000 ml @ 20 mls/hr IV . Q24H [facility] Rx#:[id number] Oral 1090 900 Output: Urine 350 475 Other: Voiding Method Urinal Urinal # Voids 1 - Labs CBC & Chem 7: 06/30/20 06:14 06/30/20 06:14 Labs: Abnormal Lab Results - Last 24 Hours (Table) 06/29/20 06/29/20 06/30/20 Range/Units 07:01 07:01 06:14 RBC 3.32 L (4.30-5.90) m/uL Hgb 9.3 L (13.0-17.5) gm/dL Hct 29.7 L (39.0-53.0) % PT 19.3 H (9.0-12.0) sec INR 2.0 H (<1.2) Chloride 112 H (98-107) mmol/L Carbon Dioxide (22-30) mmol/L BUN 33 H (9-20) mg/dL Creatinine 2.97 H (0.66-1.25) mg/dL 06/30/20 06/30/20 Range/Units 06:14 06:14 RBC 3.36 L (4.30-5.90) m/uL Hgb 9.5 L (13.0-17.5) gm/dL Hct 29.9 L (39.0-53.0) % PT (9.0-12.0) sec INR (<1.2) Chloride 112 H (98-107) mmol/L Carbon Dioxide 21 L (22-30) mmol/L BUN 33 H (9-20) mg/dL Creatinine 3.18 H (0.66-1.25) mg/dL
[2020-06-30] MEDS ORDERED: WARFARIN 0.5 MG TAB PO ONE (18:00)
--- NOTE | 2020-06-30 21:13 | P.GSCN ---
History of Present Illness Consult date: 06/30/20 Reason for Consult: Right hydronephrosis History of present illness: The patient is a 70-year-old male admitted through the emergency room for e valuation of a change in his level of consciousness associated with right facial drooping. He has a history of a previous left-sided CVA and there was concern in regard to either a repeat CVA or TIA but he has refused further neurologic evaluation. He was found to have a non-ST elevation myocardial infarction and has an ejection fraction in the 30-40% range. He is scheduled to undergo cardiac catheterization tomorrow. His BUN/creatinine on 06/28 were 35/3.02. There were 33/2.97 on and 33/3.18 on 06/30. His baseline creatinine had been in the 2-2.3 range between 05/2019 and 06/2019. His chronic kidney disease is felt to be on the basis of ischemic nephropathy. Nephrology consultation was obtained due to the risk of worsening his renal failure with IV contrast from the planned cardiac catheterization. Renal ultrasound was obtained on 06/29 and this showed severe right hydronephrosis. Bilateral renal cysts were also noted. I was asked to see the patient for further evaluation. The patient has a history of urolithiasis and had originally seen Dr. Delatorre in 2001 and at that time had a 2 mm nonobstructive right renal calculus. No further evaluation was recommended at that time. He has a history of a thoracic aneurysm and CT scans of the thorax without IV contrast in 06/10 and again in 07/10 showed evidence of moderately severe right hydronephrosis and bilateral renal cysts. The kidneys were incompletely visualized at that time however. A previous CT scan of the abdomen and pelvis with IV contrast in 11/2012 showed an 11 mm calculus in the right renal pelvis and a 2 mm calculus in the right lower pole. Bilateral renal cysts were present. There was no evidence of hyd ronephrosis and both kidneys appeared to function normally at that time. The patient denies any abdominal or flank pain. He has had no gross hematuria. He has no history of recurrent urinary tract infections. He says he usually voids every 2-3 hours during the day and once or twice at night. He has noted a reduced urinary flow but feels he voids completely. Review of Systems - Constitutional Reports as per HPI - Gastrointestinal Reports as per HPI - Genitourinary Reports as per HPI Past Medical History Past Medical History: CVA/TIA, Deep Vein Thrombosis (DVT), Eye Disorder, Hyperlipidemia, Hypertension, Pneumonia, Renal Disease, Skin Disorder, Vascular Disorder Additional Past Medical History / Comment(s): Pt recently admitted to [facility] on 06/23/20 with NSTEMI. Other hx: Past aortic dissection with impaired perf usion R lower extremity/BKA-pt states hehad a dvt, thoracic aortic aneurysm and had L subclavian to R caratid bypass, cardiomyopathy, current 7.4 cm aortic aneurym will need further intervention per pt, PVD, cva with L arm weakness and speech slurred at times, DVT R leg with BKA, kidney stones which pt passed on his own, L kidney is nonfunctioning, R kidney functions at about 50%, bronchitis, benign colon polypectomy, R eye blurry vision. 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 Smoking Status: Never smoker - Past Family History Mother Family Medical History: Myocardial Infarction (OR) Additional Family Medical History / Comment(s): Mother of a OR at the age of 37yrs. Father Family Medical History: Myocardial Infarction (OR) Additional Family Medical History / Comment(s): Father of a OR at the age of 58yrs. Medications and Allergies Home Medications Medication Instructions Recorded Confirmed Type carvediloL [Coreg] 6.25 mg PO BID@1000,1800 07/16/19 06/27/20 History Furosemide [Lasix] 20 mg PO DAILY@1000 06/23/20 06/27/20 History Warfarin Sodium [Jantoven] 2 mg PO HS 06/23/20 06/27/20 History Aspirin 81 mg PO DAILY 90 Days #90 chew 06/25/20 06/27/20 Rx Atorvastatin [Lipitor] 40 mg PO DAILY 90 Days #90 tab 06/25/20 06/27/20 Rx Isosorbide Mononitrate ER [Imdur] 30 mg PO DAILY 90 Days #90 06/25/20 06/27/20 Rx tab.er.24h Nitroglycerin Sl Tabs [Nitrostat] 0.4 mg SUBLINGUAL Q5M PRN 180 Days 06/25/20 06/27/20 Rx #100 tab hydrALAZINE HCL [Apresoline] 25 mg PO BID 90 Days #180 tab 06/25/20 06/27/20 Rx Allergies Allergy/AdvReac Type Severity Reaction Status Date / Time codeine Allergy Unknown Verified 06/27/20 10:08 Penicillins Allergy Rash/Hives Verified 06/27/20 10:08 strawberry Allergy Unknown Verified 06/27/20 10:08 Surgical - Exam Vital Signs Temp Pulse Resp BP Pulse Ox 98 F 68 18 108/58 98 06/27/20 09:07 06/27/20 09:07 06/27/20 09:07 06/27/20 09:07 06/27/20 09:07 - General well developed, no distress, obese - ENT no hearing loss - Neck no masses, no lymphadectomy - Respiratory normal respiratory effort - Abdomen Abdomen: soft, non tender, no organomegaly Results - Labs 06/30/20 06:14 06/30/20 06:14 Abnormal Lab Results - Last 24 Hours (Table) 06/30/20 06/30/20 06/30/20 Range/Units 06:14 06:14 06:14 RBC 3.36 L (4.30-5.90) m/uL Hgb 9.5 L (13.0-17.5) gm/dL Hct 29.9 L (39.0-53.0) % PT 19.3 H (9.0-12.0) sec INR 2.0 H (<1.2) Chloride 112 H (98-107) mmol/L Carbon Dioxide 21 L (22-30) mmol/L BUN 33 H (9-20) mg/dL Creatinine 3.18 H (0.66-1.25) mg/dL Diabetes panel 06/30/20 Range/Units 06:14 Sodium 141 (137-145) mmol/L Potassium 4.4 (3.5-5.1) mmol/L Chloride 112 H (98-107) mmol/L Carbon Dioxide 21 L (22-30) mmol/L BUN 33 H (9-20) mg/dL Creatinine 3.18 H (0.66-1.25) mg/dL Glucose 89 (74-99) mg/dL Calcium 8.6 (8.4-10.2) mg/dL AST 26 (17-59) U/L ALT 17 (4-49) U/L Alkaline Phosphatase 125 (38-126) U/L Total Protein 7.1 (6.3-8.2) g/dL Albumin 3.6 (3.5-5.0) g/dL Calcium panel 06/30/20 Range/Units 06:14 Calcium 8.6 (8.4-10.2) mg/dL Albumin 3.6 (3.5-5.0) g/dL Pituitary panel 06/30/20 Range/Units 06:14 Sodium 141 (137-145) mmol/L Potassium 4.4 (3.5-5.1) mmol/L Chloride 112 H (98-107) mmol/L Carbon Dioxide 21 L (22-30) mmol/L BUN 33 H (9-20) mg/dL Creatinine 3.18 H (0.66-1.25) mg/dL Glucose 89 (74-99) mg/dL Calcium 8.6 (8.4-10.2) mg/dL Adrenal panel 06/30/20 Range/Units 06:14 Sodium 141 (137-145) mmol/L Potassium 4.4 (3.5-5.1) mmol/L Chloride 112 H (98-107) mmol/L Carbon Dioxide 21 L (22-30) mmol/L BUN 33 H (9-20) mg/dL Creatinine 3.18 H (0.66-1.25) mg/dL Glucose 89 (74-99) mg/dL Calcium 8.6 (8.4-10.2) mg/dL Total Bilirubin 0.5 (0.2-1.3) mg/dL AST 26 (17-59) U/L ALT 17 (4-49) U/L Alkaline Phosphatase 125 (38-126) U/L Total Protein 7.1 (6.3-8.2) g/dL Albumin 3.6 (3.5-5.0) g/dL Assessment and Plan (1) Hydronephrosis, right Narrative/Plan: The patient's right hydronephrosis is chronic and dates back at least 1 year. He has a history of an 11 mm calculus in the right renal pelvis in 2012 and it is possible that he has chronic ureteral obstruction from the calculus. Unfortunately the mid and lower pole of the kidneys and ureters had not been imaged well since 2012. In view of the chronicity of the obstruction it is likely that only minimal return of function will occur with decompression of the right kidney. CT scan of the abdomen without IV contrast should be obtained at some point but at the present time the patient's more pressing problem is his recent myocardial infarction. Further evaluation of the right hydronephrosis could be set up as an outpatient. Current Visit: Yes Status: Acute Code(s): N13.30 - UNSPECIFIED HYDRONEPHROSIS SNOMED Code(s): 85993268
[2020-06-30] MEDS: ALPRAZolam 0.5 MG TAB PO PRN (22:41)
--- NOTE | 2020-06-30 23:37 | PN ---
PROGRESS NOTE The patient was admitted with elevated troponin, shortness of breath. Vital signs stable. INR is 2. Cardiovascular S1, S2. Lungs clear. GI soft. Hematology negative Homans. Psych fair mood and affect. The patient is supposed to get a heart catheterization today or tomorrow. He has ischemic cardiomyopathy, elevated troponins, non STEMI, status post right carotid bypass, aortic arch repair, fem-fem bypass, aortic dissection, previous surgical repair. He has hydronephrosis on CT scan of the abdomen for which surgical consult with Urology is being planned. He is going to get Coumadin held again tonight and wait for urology to see him for hydronephrosis and wait for cardiac catheterization in the morning. MMODL / IJN: [id number] /
[2020-07-01] MEDS: ASPIRIN 81 MG PO SCH (06:30)
[2020-07-01] MEDS: ISOSORBIDE MONONITRATE ER 60 MG TAB.ER.24H PO SCH (06:31)
[2020-07-01] MEDS: hydrALAZINE HCL 25 MG TAB PO SCH ×2 (06:31→20:26)
[2020-07-01] MEDS: carvediloL 6.25 MG TAB PO SCH ×2 (06:31→17:22)
[2020-07-01] MEDS: ATORVASTATIN 40 MG TAB PO SCH (06:31)
[2020-07-01 07:04] LABS: Albumin 3.6 g/dL (3.5-5.0); Calcium 8.6 mg/dL (8.4-10.2); Magnesium 1.9 mg/dL (1.6-2.3); Potassium 4.7 mmol/L (3.5-5.1); Total Bilirubin 0.6 mg/dL (0.2-1.3); Total Protein 7.1 g/dL (6.3-8.2)
[2020-07-01 07:13] LABS: INR 1.7 (<1.2); Prothrombin Time 16.5 sec (9.0-12.0)
[2020-07-01 07:16] LABS: Basophils % (A) 1 %; Eosinophils # (A) 0.6 k/uL (0-0.7); Eosinophils % (A) 11 %; HCT 30.4 % (39.0-53.0); Hypochromasia Slight; Lymphocytes # (A) 1.5 k/uL (1.0-4.8); Lymphocytes % (A) 26 %; MCH 29.4 pg (25.0-35.0); MCHC 32.7 g/dL (31.0-37.0); MCV 89.9 fL (80.0-100.0); Mean Platelet Volume 8.7; Monocytes # (A) 0.4 k/uL (0-1.0); Monocytes % (A) 7 %; Neutrophils # (A) 3.2 k/uL (1.3-7.7); Neutrophils % (A) 55 %; Platelet Count 154 k/uL (150-450); RBC 3.39 m/uL (4.30-5.90); RDW 15.1 % (11.5-15.5); WBC 5.9 k/uL (3.8-10.6)
[2020-07-01] MEDS ORDERED: NITROGLYCERIN SL TABS 0.4 MG TAB SUBLINGUAL PRN (07:36)
[2020-07-01] MEDS ORDERED: ALPRAZolam 0.5 MG TAB PO PRN (07:36)
[2020-07-01] MEDS ORDERED: ALPRAZolam 0.25 MG TAB PO PRN (07:36)
[2020-07-01] MEDS ORDERED: SODIUM CHLORIDE 0.9% 1,000 ML in EMPTY BAG 1 BAG IV ONE (07:36)
[2020-07-01] MEDS ORDERED: ATORVASTATIN 40 MG TAB PO STA (07:36)
[2020-07-01] MEDS ORDERED: ASPIRIN 81 MG PO STA (07:42)
[2020-07-01] MEDS ORDERED: SODIUM CHLORIDE 0.9% 1,000 ML IV SCH ×2 (07:45→17:30)
[2020-07-01] MEDS: FUROSEMIDE 20 MG TAB PO SCH (08:28)
[2020-07-01] MEDS ORDERED: ASPIRIN 325 MG TAB PO SCH (09:00)
[2020-07-01 11:51] LABS: Glucose,Whole Blood 84 mg/dL (75-99)
--- NOTE | 2020-07-01 12:20 | P.PN ---
Subjective patient is admitted for possible non-ST elevation microinfarction and patient will undergo cardiac catheterization today patient's creatinine is high at 3 will be closely monitored and patient was on Coumadin which is being held for Sushila catheterization. Constitutional: Denied any fatigue denied any fever. Cardio vascular: denied any chest pain, palpitations Gastrointestinal denied any nausea vomiting Pulmonary: Denied any shortness of breath cough Neurologic denied any new focal deficits All inpatient medications were reviewed and appropriate changes in these medications as dictated in the interval history and assessment and plan. Objective - Vital Signs Vital signs: Vital Signs Temp 97.8 F 07/01/20 11:00 Pulse 59 L 07/01/20 11:00 Resp 18 07/01/20 11:00 BP 115/74 07/01/20 11:00 Pulse Ox 97 07/01/20 11:00 Intake & Output 06/30/20 07/01/20 07/01/20 18:59 06:59 18:59 Intake Total 1780 160 20 Output Total 600 850 Balance 1180 -690 20 Weight 96 kg Intake: IV 20 160 20 Invasive Line 2 20 20 Sodium Chloride 0.9% 1, 160 000 ml @ 20 mls/hr IV . Q24H [facility] Rx#:[id number] Intake, IV Titration 160 Amount Sodium Chloride 0.9% 1, 160 000 ml @ 20 mls/hr IV . Q24H [facility] Rx#:[id number] Oral 1600 Output: Urine 600 850 Other: Voiding Method Urinal Urinal - Exam PHYSICAL EXAMINATION: GENERAL: The patient is alert and oriented x3, not in any acute distress. Well developed, well nourished. HEENT: Pupils are round and equally reacting to light. EOMI. No scleral icterus. No conjunctival pallor. Normocephalic, atraumatic. No pharyngeal erythema. No thyromegaly. CARDIOVASCULAR: S1 and S2 present. No murmurs, rubs, or gallops. PULMONARY: Chest is clear to auscultation, no wheezing or crackles. ABDOMEN: Soft, nontender, nondistended, normoactive bowel sounds. No palpable organomegaly. MUSCULOSKELETAL: No joint swelling or deformity. EXTREMITIES: No cyanosis, clubbing, or pedal edema. NEUROLOGICAL: Gross neurological examination did not reveal any focal deficits. SKIN: No rashes. - Labs CBC & Chem 7: 07/01/20 06:32 07/01/20 06:32 Labs: Abnormal Lab Results - Last 24 Hours (Table) 07/01/20 07/01/20 07/01/20 Range/Units 06:32 06:32 06:32 RBC 3.39 L (4.30-5.90) m/uL Hgb 10.0 L (13.0-17.5) gm/dL Hct 30.4 L (39.0-53.0) % PT 16.5 H (9.0-12.0) sec INR 1.7 H (<1.2) Chloride 109 H (98-107) mmol/L BUN 36 H (9-20) mg/dL Creatinine 3.24 H (0.66-1.25) mg/dL Assessment and Plan Plan: possible non-ST elevation microinfarction: Patient will undergo cardiac catheterization today -Ischemic myopathy with EF of around 35-40% patient the is euvolemic at this time -Chronic kidney disease stage IV nephrology evaluated the patient they will continue to follow the patient post cardiac catheterization -Hypertension -Hyperlipidemia patient will be followed by Dr. Escoto tomorrow
[2020-07-01] MEDS ORDERED: VERAPAMIL 2.5 MG/ML 2 ML AMP ONE (14:05)
[2020-07-01] MEDS ORDERED: LIDOCAINE 1% INJ 10MG/ML (20 ML MDV) ONE (14:05)
[2020-07-01] MEDS ORDERED: IV FLUID CONTINUATION 1,000 ML IV ONE (14:20)
[2020-07-01] MEDS ORDERED: fentaNYL (PF) 50 MCG/ML 2 ML AMP ONE (14:39)
[2020-07-01] MEDS ORDERED: fentaNYL (PF) 50 MCG/ML 2 ML AMP IVP ONE (14:41)
[2020-07-01] MEDS ORDERED: LIDOCAINE 1% INJ 10MG/ML (20 ML MDV) SQ ONE (14:41)
[2020-07-01] MEDS: MIDAZOLAM 2 MG/2 ML VIAL IVP ONE ×2 (14:41→15:44)
[2020-07-01] MEDS ORDERED: VERAPAMIL SYRINGE (5 MG/10 ML) INTRAARTER ONE (14:43)
[2020-07-01] MEDS ORDERED: HEPARIN SODIUM 1,000 UN/ML (10ML VL) ONE (14:49)
[2020-07-01] MEDS: HEPARIN SODIUM 1,000 UN/ML (10ML VL) IV ONE ×2 (14:50→15:10)
[2020-07-01] MEDS ORDERED: SODIUM CHLORIDE 0.9% 1,000 ML IV ONE (14:53)
[2020-07-01] MEDS ORDERED: CLOPIDOGREL 75 MG TAB ONE (15:05)
--- NOTE | 2020-07-01 15:06 | PN ---
PROGRESS NOTE REASON FOR REQUEST: Patient is seen for follow up for chronic kidney disease and acute kidney injury. He is scheduled for cardiac catheterization later today. Patient is aware that his kidney disease is fairly advanced with the current creatinine of about 3.24. Possibility for need for renal replacement therapy has been discussed with the patient. PHYSICAL EXAMINATION: On examination today, blood pressure was 141/74, earlier today heart rate 60 per minute, he is afebrile. Examination of the heart S1, S2. Examination of the lungs, bilateral breath sounds are heard. Abdomen is soft, nontender. Examination of lower extremities shows trace edema bilaterally. BUSINESS PROCESS LEAD exam grossly intact. LAB: Show sodium of 140, potassium 4.7, chloride 109, BUN 36, hemoglobin 10.0 g/dL. ASSESSMENT: 1. Chronic kidney disease with the baseline creatinine 2-2.5 mg/dL, NKF stage 3B secondary to ischemic nephropathy with chronic right hydronephrosis. 2. Acute kidney injury, mostly acute tubular necrosis. I am not sure how much the right hydronephrosis is contributing to his acute kidney injury at this time. 3. Hypertension with chronic kidney disease. 4. History of aortic dissection status post surgical repair. 5. Status post right below the knee amputation. 6. Chronic systolic congestive heart failure, ejection fraction 35-40% with moderate to severe mitral regurgitation. PLAN: Proceed with cardiac cath. Repeat labs in a.m. Nay continue with small dose of Lasix. Avoid hypotension and follow up with Urology as outpatient. MMODL / IJN: [id number] /
[2020-07-01] MEDS ORDERED: CLOPIDOGREL 75 MG TAB PO ONE (15:09)
[2020-07-01] MEDS ORDERED: NITROGLYCERIN 1000MCG/10ML SYRINGE INTRACORON ONE (15:44)
[2020-07-01] MEDS ORDERED: IOPAMIDOL-370 125ML BTL INJ ONE (15:53)
[2020-07-01] MEDS ORDERED: ATROPINE SULFATE 0.1 MG/ML 10ML SYRINGE IV PRN (16:19)
[2020-07-01] MEDS ORDERED: ZOLPIDEM 5 MG TAB PO PRN (16:19)
[2020-07-01] MEDS ORDERED: MAG HYDROX/AL HYDROX/SIMETH 30 ML CUP PO PRN (16:19)
[2020-07-01] MEDS ORDERED: RX INFO: IV CONTRAST WAS GIVEN 1 EACH MISC MISCELLANE PRN (16:19)
--- NOTE | 2020-07-01 16:41 | P.PRCINT ---
Percutaneous Coronary Int. 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 He was found to have non-STEMI as well as new cardiomyopathy with ejection fraction approximately 35%. He has CKD 4 and risks versus benefits of catheterization were explained in detail with patient including high likelihood of needing dialysis. Patient and family were understanding and agreeable to proceed with heart catheterization. CONSENT:I have discussed the risks, benefits and alternative therapies for the above-mentioned procedure and for both sedation/analgesia as well as necessary blood product administration, if indicated, as they pertain to this patient. Th e patient has indicated understanding and acceptance of the risks and procedures discussed. PROCEDURE: After the risks, benefits and alternatives of the above mentioned procedure explained in detail with the patient, informed consent was obtained. Patient was taken to the catheterization lab and prepped and draped in usual fashion. 1% lidocaine was used to anesthetize the left radial artery. A 6- Slovak sheath was placed in the left radial artery using modified Seldinger technique. Left coronary angiography was performed with a 5-Slovak JL 4.0 catheter and right coronary angiography was performed with a 5-Slovak JR5 catheter in various views, with attempts to limit contrast as much as possible. A 5-Slovak pigtail catheter was inserted into the left ventricle and pressure measurements were obtained. A decision was made to perform PCI of the RCA. Heparin was given for an ACT over 250. A 6-Slovak AL 0.75 guide was used to engage the RCA. A 0.014 BMW guidewire was used to advance into the PDA. The proximal to mid RCA was predilated with a 3.0 balloon. Overlapping 4.0 x 38 mm, 4.0 x 33 mm and 4.0 x 18 mm Xience RACHEL were placed from the proximal to mid RCA. The stents were postdilated with a 4.5 noncompliant balloon. There was a distal RCA 70% stenosis which was treated with a 3.5 x 12 mm Xience RACHEL. The wire was withdrawn. Final angiograms were performed. Per intervention there was 95% stenosis with BALTAZAR 3 flow and post intervention there was 0% stenosis with BALTAZAR 3 flow without evidence of dissection. The left radial sheath was removed and a TR band was placed with hemostasis achieved. The patient tolerated the procedure well. Patient was transported back to the post catheterization holding area in stable condition. Conscious Sedation: Patient was monitored under the direct supervision of vision of myself for conscious sedation using Versed and fentanyl for a total duration of 77 minutes HEMODYNAMICS: Aorta: 142/78 LV: 138/4, LVEDP 13mmHg SELECTIVE CORONARY ARTERIOGRAPHY: LEFT MAIN: The left main is a large caliber vessel which bifurcates into the LAD and circumflex. There is no significant stenosis. LEFT ANTERIOR DESCENDING CORONARY ARTERY: LAD is a large caliber vessel which wraps around to the apex. There is a proximal LAD 50-60% stenosis and a mid 30- 40% LAD stenosis. There is a moderate diagonal 1 branch with origin 30% stenos is and a mid 40% diagonal 1 stenosis. The distal apical LAD has a 100% stenosis with left to left collaterals. LEFT CIRCUMFLEX CORONARY ARTERY: Left circumflex is a large caliber vessel which gives off a large caliber OM1 there is proximal 40% circumflex stenosis. RIGHT CORONARY ARTERY: The right coronary artery is a large caliber vessel which gives off a PDA and PLV branch and is the dominant vessel. There is a long approximately 80 mm proximal to mid diffusely diseased segment with at its worst 95% stenosis. The mid to distal RCA appears relatively normal with mild luminal irregularities. There is an additional 70% distal RCA stenosis. There is a 60- 70% PDA stenosis. There are right to left collaterals to the distal LAD. FINAL IMPRESSION: 1. Coronary artery disease as described above including proximal LAD 50-60% stenosis, apical LAD 100% stenosis, RCA 95% and 70% stenosis, PDA 60-70% stenosis. 2. Non-STEMI 3. CKD stage IV 4. Cardiomyopathy with ejection fraction 35% 5. Normal left-sided pressures 6. Status post successful PCI of proximal to mid RCA with overlapping 4.0 x 18 mm, 4.0 x 33 mm and 4.0 x 38 mm Xience RACHEL and PCI of distal RCA with 3.5 x 12 mm Xience RACHEL PLAN: 1. Aggressive risk factor modification per most recent ACC/AHA guidelines. 2. Monitor kidney function closely. We will perform Poseidon protocol IV fluids with 3 mL/kg/hr for the next 4 hrs. 3. Continue aspirin and Plavix with Coumadin for 1 month and then ideally change to Coumadin and Plavix for 12 months.
[2020-07-01] MEDS ORDERED: WARFARIN 2 MG TAB PO ONE (20:00)
[2020-07-02 07:33] LABS: INR 1.5 (<1.2)
[2020-07-02 07:41] LABS: Calcium 8.3 mg/dL (8.4-10.2); Potassium 4.9 mmol/L (3.5-5.1)
[2020-07-02] MEDS: ISOSORBIDE MONONITRATE ER 60 MG TAB.ER.24H PO SCH (08:02)
[2020-07-02] MEDS: CLOPIDOGREL 75 MG TAB PO SCH (08:02)
[2020-07-02] MEDS: FUROSEMIDE 20 MG TAB PO SCH (08:02)
[2020-07-02] MEDS: carvediloL 6.25 MG TAB PO SCH ×2 (08:02→17:24)
[2020-07-02] MEDS: ATORVASTATIN 40 MG TAB PO SCH (08:02)
[2020-07-02] MEDS: ASPIRIN 81 MG PO SCH (08:02)
[2020-07-02] MEDS: hydrALAZINE HCL 25 MG TAB PO SCH ×2 (08:02→19:34)
[2020-07-02 14:09] VITALS: BMI 26.4
--- NOTE | 2020-07-02 15:10 | PN ---
PROGRESS NOTE Patient is seen for followup for acute kidney injury. He is status post cardiac catheterization done yesterday by Dr. Gallo. The patient had successful PCI of proximal to mid RCA and PCI of distal RCA done yesterday. The patient has good urine output. His serum creatinine is at 2.9 from 3.2 yesterday. He is maintained on IV fluids. PHYSICAL EXAMINATION: On examination today, blood pressure is 114/66, heart rate 72 per minute, patient is afebrile. Examination of the heart S1, S2. Examination of lungs, decreased breath sounds at bases. Abdomen is soft, nontender. Examination of lower extremities shows no significant edema. Patient has right BKA. LAB: Show sodium 139, potassium 4.9, chloride 111. CO2 is 21, BUN 35, creatinine 2.97. ASSESSMENT: 1. Acute kidney injury, multifactorial, mostly acute tubular necrosis. The patient also has right hydronephrosis, but this is chronic. Renal function slightly better. Currently maintained on IV fluids. The patient has good urine output. 2. Chronic kidney disease, baseline creatinine 2-2.5, NKF stage 3B secondary to ischemic nephropathy and chronic right hydronephrosis. 3. Cardiomyopathy, ejection fraction 35-40% with moderate to severe mitral regurgitation. 4. Congestive heart failure, acute on top of chronic, currently on a small dose of p.o. Lasix status post IV fluids yesterday post catheterization. PLAN: Continue with current dose of Lasix. Repeat labs in a.m. Follow up as outpatient. MMODL / IJN: [id number] /
--- NOTE | 2020-07-02 16:39 | P.PN ---
Subjective Progress Note Date: 07/02/20 HISTORY OF PRESENT ILLNESS: Patient examined this morning at the bedside. patient underwent left heart catheterization yesterday with PCI of the RCA. This was performed via the left radial approach and patient denies any hematoma. He denies any chest pain or pressure. Patient did receive IV fluids per Poseidon protocol. He has been making urine with last creatinine this morning at 2.97. Pharmacy is dosing his Coumadin. PHYSICAL EXAM: VITAL SIGNS: Reviewed. GENERAL: Well-developed in no acute distress. HEENT: Head is normocephalic. Pupils are equal, round. Sclerae anicteric. Mucous membranes of the mouth are moist. Neck supple. No JVD or thyromegaly LUNGS: Respirations even and unlabored. Lungs essentially clear to auscultation bilaterally. HEART: Regular rate and rhythm. S1 and S2 heard. ABDOMEN: Soft. Nondistended. Nontender. EXTREMITIES: Right BKA. Normal range of motion. No clubbing or cyanosis. Peripheral pulses intact. No lower extremity edema NEUROLOGIC: Awake and alert. Oriented x 3. ASSESSMENT: non-STEMI Altered mental status, neurology following, improved Chronic kidney disease stage IV Cardiomyopathy, suspect ischemic in nature, EF 35-40% History of aortic dissection with previous surgical repair History of aortic arch repair and fem-fem bypass History of left subclavian to right carotid bypass History of DVT, on long-term anticoagulation with Coumadin History of CVA History of limb ischemia with right [id number] amputation Hypertension Hyperlipidemia History of AAA, unrepaired per patient coronary artery disease status post PCI of the RCA 07/01/2020. Patient with residual proximal LAD 50-60% stenosis which did not appear significant on catheterization. PLAN: Continue triple therapy with Coumadin, aspirin and Plavix for one month and then transition to just Coumadin and Plavix. continue heart failure regimen with Coreg 6.25 mgtwice a day, Lasix 20 mg daily. ideally ABRIL inhibitor or ARB however blood pressure is borderline and we will continue to monitor kidney function. Monitor kidney function after his heart catheterization for any signs of contrast-induced nephropathy. Likely this would result 48 hours after catheterization. Hopeful discharge in next 24-48 hours. Objective - Vital Signs Vital signs: Vital Signs Temp 97.7 F 07/02/20 15:02 Pulse 76 07/02/20 15:02 Resp 16 07/02/20 15:05 BP 136/80 07/02/20 15:02 Pulse Ox 98 07/02/20 15:02 Intake & Output 07/01/20 07/02/20 07/02/20 18:59 06:59 18:59 Intake Total 1190 560 Output Total 635 700 Balance 555 -700 560 Weight 81 kg 81 kg Intake: IV 830 20 Invasive Line 2 30 20 Sodium Chloride 0.9% 1, 300 000 ml @ 300 mls/hr IV . Q3H20M [facility] Rx#:[id number] Oral 360 540 Output: Urine 635 700 Other: Voiding Method Urinal Urinal Urinal # Voids 1 200 - Labs CBC & Chem 7: 07/01/20 06:32 07/02/20 07:15 Labs: Abnormal Lab Results - Last 24 Hours (Table) 07/02/20 07/02/20 Range/Units 07:15 07:15 PT 15.0 H (9.0-12.0) sec INR 1.5 H (<1.2) Chloride 111 H (98-107) mmol/L Carbon Dioxide 21 L (22-30) mmol/L BUN 35 H (9-20) mg/dL Creatinine 2.97 H (0.66-1.25) mg/dL Calcium 8.3 L (8.4-10.2) mg/dL
[2020-07-02] MEDS ORDERED: WARFARIN 3 MG TAB PO ONE (18:00)
[2020-07-02 20:45] VITALS: RESP 18
[2020-07-02] MEDS: ALPRAZolam 0.5 MG TAB PO PRN (22:30)
--- NOTE | 2020-07-03 03:11 | PN ---
PROGRESS NOTE A 70-year-old white male status post PTCA x4 yesterday of the RCA, PDA from the left radial approach. His creatinine this morning is better at 2.97, which is great. Pharmacy doses Coumadin. He is well developed, in no acute distress. CARDIOVASCULAR: S1, S2. Heart S1, S2. LUNGS: Are clear. EXTREMITIES: Right BKA. NEUROLOGIC: Alert and oriented x3. ASSESSMENT: 1. Non ST-elevation myocardial infarction, status post PTCA x4. 2. Chronic kidney disease stage 4. 3. Cardiomyopathy, systolic in nature, ischemic in nature, ejection fraction 35% to 40%. 4. History of aortic dissection, aortic arch repair. 5. Left subclavian to right carotid bypass. 6. History of deep venous thrombosis, on Coumadin. 7. History of cerebrovascular accident .. 8. History of limb ischemia. 9. Hypertension. 10.Dyslipidemia. 11.AAA. 12.Proximal LAD 50% to 60% stenosis. Continue triple therapy, Coumadin, aspirin, Plavix for a month then just Coumadin and Plavix. Coreg 6.25 b.i.d. for heart failure as well as Lasix 20 mg daily. Monitor kidney function. Check for any contrast induced nephropathy. Hopefully discharge in next 24 to 48 hours. Check labs in the morning. MMODL / IJN: [id number] /
[2020-07-03 06:59] LABS: Basophils % (A) 1 %; Eosinophils # (A) 0.6 k/uL (0-0.7); Eosinophils % (A) 10 %; HCT 29.5 % (39.0-53.0); HGB 9.6 gm/dL (13.0-17.5); Hypochromasia Slight; Lymphocytes # (A) 1.2 k/uL (1.0-4.8); Lymphocytes % (A) 23 %; MCH 29.1 pg (25.0-35.0); MCHC 32.5 g/dL (31.0-37.0); MCV 89.5 fL (80.0-100.0); Mean Platelet Volume 8.7; Monocytes # (A) 0.5 k/uL (0-1.0); Monocytes % (A) 9 %; Neutrophils # (A) 3.1 k/uL (1.3-7.7); Neutrophils % (A) 57 %; Platelet Count 148 k/uL (150-450); RDW 14.8 % (11.5-15.5); WBC 5.4 k/uL (3.8-10.6)
[2020-07-03 07:07] LABS: Albumin 3.4 g/dL (3.5-5.0); Calcium 8.5 mg/dL (8.4-10.2); Potassium 4.5 mmol/L (3.5-5.1); Total Bilirubin 0.4 mg/dL (0.2-1.3); Total Protein 6.7 g/dL (6.3-8.2)
[2020-07-03 07:08] LABS: INR 1.7 (<1.2); Prothrombin Time 16.3 sec (9.0-12.0)
--- NOTE | 2020-07-03 08:32 | P.PN ---
Subjective Progress Note Date: 07/03/20 as per note. The patient appears to have chronic left hydronephrosis. It is probably due to ureteral stone. The creatinine hasn't changed. This can be addressed as an outpatient. I'll make an appointment to see him in couple weeks in the office at which time we'll order a CAT scan for follow-up. Objective - Vital Signs Vital signs: Vital Signs Temp 98.2 F 07/02/20 22:31 Pulse 64 07/03/20 04:00 Resp 18 07/03/20 04:00 BP 97/53 07/03/20 04:00 Pulse Ox 95 07/03/20 04:00 Intake & Output 07/02/20 07/03/20 07/03/20 18:59 06:59 18:59 Intake Total 860 Output Total 550 Balance 860 -550 Weight 81 kg 81.5 kg Intake: IV 20 Invasive Line 2 20 Oral 840 Output: Urine 550 Other: Voiding Method Urinal Urinal # Voids 200 - Labs CBC & Chem 7: 07/03/20 06:14 07/03/20 06:14 Labs: Abnormal Lab Results - Last 24 Hours (Table) 07/03/20 07/03/20 07/03/20 Range/Units 06:14 06:14 06:14 RBC 3.30 L (4.30-5.90) m/uL Hgb 9.6 L (13.0-17.5) gm/dL Hct 29.5 L (39.0-53.0) % Plt Count 148 L (150-450) k/uL PT 16.3 H (9.0-12.0) sec INR 1.7 H (<1.2) Chloride 110 H (98-107) mmol/L BUN 31 H (9-20) mg/dL Creatinine 3.25 H (0.66-1.25) mg/dL Albumin 3.4 L (3.5-5.0) g/dL
[2020-07-03] MEDS: ASPIRIN 81 MG PO SCH (09:12)
[2020-07-03] MEDS: CLOPIDOGREL 75 MG TAB PO SCH (09:12)
[2020-07-03] MEDS: FUROSEMIDE 20 MG TAB PO SCH (09:13)
[2020-07-03] MEDS: hydrALAZINE HCL 25 MG TAB PO SCH (09:13)
[2020-07-03] MEDS: ATORVASTATIN 40 MG TAB PO SCH (09:13)
[2020-07-03] MEDS: ISOSORBIDE MONONITRATE ER 60 MG TAB.ER.24H PO SCH (09:13)
[2020-07-03] MEDS: carvediloL 6.25 MG TAB PO SCH (09:13)
[2020-07-03 10:14] VITALS: TEMP 98
--- NOTE | 2020-07-03 11:59 | P.PN ---
Subjective Progress Note Date: 07/03/20 CHIEF COMPLAINT: Elevated troponin HISTORY OF PRESENT ILLNESS: Patient is s/p cardiac cath with PCI to the RCA, Patient examined this morning at the bedside. He denies chest pain. Denies shortness of breath. Patient's vital signs are stable. PHYSICAL EXAM: VITAL SIGNS: Reviewed. GENERAL: Well-developed in no acute distress. HEENT: Head is normocephalic. Pupils are equal, round. Sclerae anicteric. Mucous membranes of the mouth are moist. Neck supple. No JVD or thyromegaly LUNGS: Respirations even and unlabored. Lungs essentially clear to auscultation bilaterally. HEART: Regular rate and rhythm. S1 and S2 heard. ABDOMEN: Soft. Nondistended. Nontender. EXTREMITIES: Right BKA. Normal range of motion. No clubbing or cyanosis. Peripheral pulses intact. No lower extremity edema. Left radial cath site with pulse present. NEUROLOGIC: Awake and alert. Oriented x 3. ASSESSMENT: NSTEMI Altered mental status, neurology following, resolved Chronic kidney disease Cardiomyopathy, ischemic, EF 35-40% History of aortic dissection with previous surgical repair History of aortic arch repair and fem-fem bypass History of left subclavian to right carotid bypass History of DVT, on long-term anticoagulation with Coumadin History of CVA History of limb ischemia with right [id number] amputation Hypertension Hyperlipidemia PLAN: Continue current cardiac medications Patient may be discharged home today from a cardiac standpoint Follow up with Dr. Gallo outpatient in 1 week Nurse practitioner note has been reviewed by physician. Signing provider agrees with the documented findings, assessment, and plan of care. Objective - Vital Signs Vital signs: Vital Signs Temp 98.0 F 07/03/20 08:50 Pulse 76 07/03/20 08:50 Resp 18 07/03/20 08:50 BP 147/74 07/03/20 08:50 Pulse Ox 96 07/03/20 08:50 Intake & Output 07/02/20 07/03/20 07/03/20 18:59 06:59 18:59 Intake Total 860 240 Output Total 550 Balance 860 -550 240 Weight 81 kg 81.5 kg Intake: IV 20 Invasive Line 2 20 Oral 840 240 Output: Urine 550 Other: Voiding Method Urinal Urinal # Voids 200 - Labs CBC & Chem 7: 07/03/20 06:14 07/03/20 06:14 Labs: Abnormal Lab Results - Last 24 Hours (Table) 07/03/20 07/03/20 07/03/20 Range/Units 06:14 06:14 06:14 RBC 3.30 L (4.30-5.90) m/uL Hgb 9.6 L (13.0-17.5) gm/dL Hct 29.5 L (39.0-53.0) % Plt Count 148 L (150-450) k/uL PT 16.3 H (9.0-12.0) sec INR 1.7 H (<1.2) Chloride 110 H (98-107) mmol/L BUN 31 H (9-20) mg/dL Creatinine 3.25 H (0.66-1.25) mg/dL Albumin 3.4 L (3.5-5.0) g/dL
--- NOTE | 2020-07-03 12:10 | PN ---
PROGRESS NOTE Patient is seen for followup for acute kidney injury. Patient is status post cardiac catheterization. Renal function is fairly stable. Creatinine was down to 2.9 yesterday with IV fluids. Today it is at 3.25. The patient has had good urine output. He is being discharged today. He also has chronic left hydro for which he will follow up with Urology as outpatient. PHYSICAL EXAMINATION: On examination today, blood pressure is 147/74, heart rate 76 per minute, he is afebrile examination of the heart S1, S2. Examination of the lungs, bilateral breath sounds are heard. Abdomen is soft, nontender. Examination of the lower extremities shows right BKA, 1+ edema left lower extremity. INDUSTRIAL ENG exam grossly intact. LABS: Show sodium 138, potassium 4.5, chloride 110, CO2 is 22, BUN 31, creatinine 3.25. ASSESSMENT: 1. Acute kidney injury ATN, currently stable with good urine output. 2. Chronic kidney disease stage 3B. Baseline creatinine 2-2.5 mg/dL. Etiology ischemic nephropathy. Chronic right hydronephrosis. 3. Cardiomyopathy, ejection fraction 35%-40% with moderate to severe mitral regurgitation. 4. Congestive heart failure acute on top of chronic, mainly systolic. PLAN: May continue with small dose of p.o. Lasix. Follow up as outpatient for CKD and follow up with Urology for the chronic right hydronephrosis. MMODL / IJN: [id number] /
[2020-07-03 12:46] VITALS: BP 99/63; PULSE 69
--- NOTE | 2020-07-03 15:22 | DS ---
DISCHARGE SUMMARY MEDICATIONS: At home include aspirin 81 mg daily, Lipitor 40 mg daily, carvedilol 6.25 b.i.d., Plavix 75 mg daily, Lasix 20 mg daily, hydralazine 25 mg b.i.d., Imdur 60 mg daily, Nitrostat sublingual p.r.n. 0.4 mg, Coumadin 3 mg daily. CONDITION: Stable. PROGNOSIS: Guarded and ambulate as tolerated. DISCHARGE DIAGNOSES: 1. Non STEMI, PTCA of the coronary arteries x4. PCI to the RCA. 2. Altered mental status secondary to dehydration. 3. Coronary artery disease. 4. Cardiomyopathy, ischemic. 5. Systolic CHF. 6. Aortic dissection history, aortic arch repair, fem-fem bypass, left subclavian to right carotid bypass. 7. History of DVT, CVA. 8. Limb ischemia, right BKA. 9. Hypertension. 10.Dyslipidemia. Patient was admitted to the hospital. Patient had a non STEMI, underwent cardiac catheterization with 4 stents placed in the right coronary artery. Patient was stabilized on triple therapy with aspirin, Plavix, Coumadin for a month and then switched back to Coumadin and Plavix after a month. Follow up in my office in a week. Condition stable, prognosis guarded. Altered mental status on admission resolved with dehydration with PTCA. Patient feels better, work him up. Down at [facility] for possible aortic dissection surgery in the near future. MMODL / ALVARADON: [id number] /
[2020-07-03] MEDS ORDERED: WARFARIN 3 MG TAB PO ONE (18:00)
== END 2020-07-03 14:02 | disposition home or self-care (01) | DRG 246 ==
LOC: EC 09:03 → 3SCARD 11:37
PROVIDERS: ADMIT Family Medicine; ATTEND Family Medicine
PROC: 3E02340 Introduction of Influenza Vaccine into Muscle, Percutaneous Approach (ICD-10-PCS; 2020-06-27)
PROC: 027037Z Dilation of Coronary Artery, One Artery with Four or More Drug-eluting Intraluminal Devices, Percutaneous Approach (ICD-10-PCS; principal; 2020-07-01 14:01)
PROC: 4A023N7 Measurement of Cardiac Sampling and Pressure, Left Heart, Percutaneous Approach (ICD-10-PCS; principal; 2020-07-01 14:01)
PROC: B2111ZZ Fluoroscopy of Multiple Coronary Arteries using Low Osmolar Contrast (ICD-10-PCS; principal; 2020-07-01 14:01)
DX: I21.4 Non-ST elevation (NSTEMI) myocardial infarction (principal); N17.0 Acute kidney failure with tubular necrosis; I13.0 Hypertensive heart and chronic kidney disease with heart failure and stage 1 through stage 4 chronic kidney disease, or unspecified chronic kidney disease; N18.4 Chronic kidney disease, stage 4 (severe); I50.22 Chronic systolic (congestive) heart failure; N13.2 Hydronephrosis with renal and ureteral calculous obstruction; G45.9 Transient cerebral ischemic attack, unspecified; I25.10 Atherosclerotic heart disease of native coronary artery without angina pectoris; E78.5 Hyperlipidemia, unspecified; I25.5 Ischemic cardiomyopathy; Z53.20 Procedure and treatment not carried out because of patient's decision for unspecified reasons; I73.9 Peripheral vascular disease, unspecified; I71.4 Abdominal aortic aneurysm, without rupture; I34.0 Nonrheumatic mitral (valve) insufficiency; E86.0 Dehydration; I71.2 Thoracic aortic aneurysm, without rupture; Z79.899 Other long term (current) drug therapy; Z79.82 Long term (current) use of aspirin; Z23 Encounter for immunization; Z79.01 Long term (current) use of anticoagulants; Z88.5 Allergy status to narcotic agent; Z88.0 Allergy status to penicillin; Z91.018 Allergy to other foods; Z82.49 Family history of ischemic heart disease and other diseases of the circulatory system; Z86.718 Personal history of other venous thrombosis and embolism; Z86.73 Personal history of transient ischemic attack (TIA), and cerebral infarction without residual deficits; Z86.79 Personal history of other diseases of the circulatory system; Z91.19 Patient's noncompliance with other medical treatment and regimen; Z89.511 Acquired absence of right leg below knee; Z87.442 Personal history of urinary calculi; Z90.49 Acquired absence of other specified parts of digestive tract; Z98.890 Other specified postprocedural states; Z87.01 Personal history of pneumonia (recurrent); Z98.61 Coronary angioplasty status
CPT/HCPCS: 36415; 70450; 71046; 76770; 80048; 80053; 80061; 81001; 82140; 82550; 82607; 83735; 84484; 85025; 85027; 85610; 85730; 90686; 93005; 93458; 96360; 96361; 99285

== ENCOUNTER 2020-07-06 10:26 | Inpatient (IN) | payer MEDICARE, OTHER ==
[2020-07-06] MEDS ORDERED: SODIUM CHLORIDE 0.9% 1,000 ML IV STA ×2 (10:45→11:18)
[2020-07-06] MEDS ORDERED: OXYMETAZOLINE 0.05% NASL SPRAY 1 SPRAY BOTTLE NASAL STA (11:05)
[2020-07-06] MEDS ORDERED: ONDANSETRON 4 MG/2 ML VIAL IVP STA (11:10)
--- NOTE | 2020-07-06 11:13 | ED ---
General Adult HPI - General Chief complaint: ENT Stated complaint: Nose bleed, stents put in on Friday Time Seen by Provider: 07/06/20 10:40 Source: patient, RN notes reviewed, old records reviewed Mode of arrival: wheelchair Limitations: physical limitation - History of Present Illness Initial comments: This is a 70-year-old male who presents emergency department for a right-sided nasal bleed. Patient states it started yesterday morning and has been drinking tingling ever since. Patient states that he is a little bit lightheaded and feels nauseated so he decided come the emergency department. Patient states on Friday he had 2 stents he is on Coumadin as well as Plavix. Patient denies any chest pain difficulty breathing shortness of breath. Patient denies any trauma to the nose. - Related Data Home Medications Medication Instructions Recorded Confirmed carvediloL [Coreg] 6.25 mg PO BID@1000,1800 07/16/19 07/06/20 Furosemide [Lasix] 20 mg PO DAILY@1000 06/23/20 07/06/20 Warfarin [Coumadin] 3 mg PO DAILY@1800 07/06/20 07/06/20 Previous Rx's Medication Instructions Recorded Aspirin 81 mg PO DAILY 90 Days #90 chew 06/25/20 Atorvastatin [Lipitor] 40 mg PO DAILY 90 Days #90 tab 06/25/20 Nitroglycerin Sl Tabs [Nitrostat] 0.4 mg SUBLINGUAL Q5M PRN 180 Days 06/25/20 #100 tab hydrALAZINE HCL [Apresoline] 25 mg PO BID 90 Days #180 tab 06/25/20 Clopidogrel [Plavix] 75 mg PO DAILY 90 Days #90 tab 07/03/20 Isosorbide Mononitrate ER [Imdur] 60 mg PO DAILY 90 Days #90 07/03/20 tab.er.24h Allergies Allergy/AdvReac Type Severity Reaction Status Date / Time codeine Allergy Unknown Verified 07/06/20 11:30 Penicillins Allergy Rash/Hives Verified 07/06/20 11:30 strawberry Allergy Unknown Verified 07/06/20 11:30 Review of Systems ROS Statement: Those systems with pertinent positive or pertinent negative responses have been documented in the HPI. ROS Other: All systems not noted in ROS Statement are negative. Past Medical History Past Medical History: CVA/TIA, Deep Vein Thrombosis (DVT), Eye Disorder, Hyperlipidemia, Hypertension, Myocardial Infarction (CT), Pneumonia, Renal Disease, Skin Disorder, Vascular Disorder Additional Past Medical History / Comment(s): Past aortic dissection with impaired perfusion R lower extremity/BKA-pt states hehad a dvt, thoracic aortic aneurysm and had L subclavian to R caratid bypass, cardiomyopathy, current 7.4 cm aortic aneurym will need further intervention per pt, PVD, cva with L arm weakness and speech slurred at times, DVT R leg with BKA, kidney stones which pt passed on his own, L kidney is nonfunctioning, R kidney functions at about 50%, bronchitis, benign colon polypectomy, R eye blurry vision. 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 Past Psychological History: No Psychological Hx Reported Smoking Status: Never smoker Past Alcohol Use History: None Reported Past Drug Use History: None Reported - Past Family History Mother Family Medical History: Myocardial Infarction (CT) Additional Family Medical History / Comment(s): Mother of a CT at the age of 37yrs. Father Family Medical History: Myocardial Infarction (CT) Additional Family Medical History / Comment(s): Father of a CT at the age of 58yrs. General Exam - General Exam Comments Initial Comments: GENERAL: Patient is well-developed and well-nourished. Patient is nontoxic and well- hydrated and is in mild distress. ENT: Patient has a cough stuffiness right near. But there is no active bleeding around it at this time. EYES: The sclera were anicteric and conjunctiva were pink and moist. Extraocular movements were intact and pupils were equal round and reactive to light. Eyelids were unremarkable. PULMONARY: Unlabored respirations. Good breath sounds bilaterally. No audible rales rhonchi or wheezing was noted. CARDIOVASCULAR: There is a regular rate and rhythm without any murmurs gallops or rubs. ABDOMEN: Soft and nontender with normal bowel sounds. SKIN: Skin is clear with no lesions or rashes and otherwise unremarkable. NEUROLOGIC: Patient is alert and oriented x3. Cranial nerves II through XII are grossly intact. Motor and sensory are also intact. Normal speech, volume and content. Symmetrical smile. MUSCULOSKELETAL: Normal extremities with adequate strength and full range of motion. LYMPHATICS: No significant lymphadenopathy is noted PSYCHIATRIC: Normal psychiatric evaluation. Limitations: physical limitation Course Vital Signs 07/06/20 07/06/20 07/06/20 10:41 11:20 12:00 Temperature 99.0 F Pulse Rate 79 70 74 Respiratory 18 18 18 Rate Blood Pressure 70/38 91/67 101/73 O2 Sat by Pulse 97 96 99 Oximetry 07/06/20 07/06/20 13:40 14:00 Temperature Pulse Rate 75 72 Respiratory 18 18 Rate Blood Pressure 90/57 92/68 O2 Sat by Pulse 95 95 Oximetry Medical Decision Making - Medical Decision Making EKG shows a normal sinus rhythm at 73 bpm [place] interval is on a 74 QRS is 154 Q-T intervals 482 QTC is 531. Patient's EKG shows a right bundle branch block. I compared this EKG with previous EKG in no acute abnormalities noted Patient's epistaxis stopped in the emergency department after Afrin and a clamp was placed. Patient walked from the emergency without any problem. Patient's kidney function is approximately at his baseline. Patient was ready to be discharged home and his blood pressure dropped below 100 even though he remained asymptomatic and it was thought to be safer to keep the hospitalist was spoke with Dr. Escoto he agreed to admit the patient admitted the patient consult cardiology. - Lab Data Result diagrams: 07/06/20 11:09 07/06/20 11:09 Lab Results 07/06/20 07/06/20 07/06/20 Range/Units 11: 11: 11:09 WBC 8.3 (3.8-10.6) k/uL RBC 3.56 L (4.30-5.90) m/uL Hgb 10.0 L (13.0-17.5) gm/dL Hct 31.7 L (39.0-53.0) % MCV 89.0 (80.0-100.0) fL MCH 28.2 (25.0-35.0) pg MCHC 31.7 (31.0-37.0) g/dL RDW 14.7 (11.5-15.5) % Plt Count 219 (150-450) k/uL Neutrophils % 59 % Lymphocytes % 25 % Monocytes % 6 % Eosinophils % 8 % Basophils % 1 % Neutrophils # 4.9 (1.3-7.7) k/uL Lymphocytes # 2.1 (1.0-4.8) k/uL Monocytes # 0.5 (0-1.0) k/uL Eosinophils # 0.7 (0-0.7) k/uL Basophils # 0.0 (0-0.2) k/uL Hypochromasia Slight Poikilocytosis Slight PT 32.2 H (9.0-12.0) sec INR 3.3 H (<1.2) APTT 54.4 H (22.0-30.0) sec Sodium 140 (137-145) mmol/L Potassium 4.5 (3.5-5.1) mmol/L Chloride 109 H (98-107) mmol/L Carbon Dioxide 23 (22-30) mmol/L Anion Gap 8 mmol/L BUN 34 H (9-20) mg/dL Creatinine 3.40 H (0.66-1.25) mg/dL Est GFR (CKD-EPI)AfAm 20 (>60 ml/min/1.73 sqM) Est GFR (CKD-EPI)NonAf 17 (>60 ml/min/1.73 sqM) Glucose 107 H (74-99) mg/dL Calcium 9.0 (8.4-10.2) mg/dL Magnesium 1.9 (1.6-2.3) mg/dL Total Bilirubin 0.6 (0.2-1.3) mg/dL AST 29 (17-59) U/L ALT 19 (4-49) U/L Alkaline Phosphatase 115 (38-126) U/L Troponin I (0.000-0.034) ng/mL Total Protein 7.3 (6.3-8.2) g/dL Albumin 3.6 (3.5-5.0) g/dL 07/06/20 Range/Units 11:09 WBC (3.8-10.6) k/uL RBC (4.30-5.90) m/uL Hgb (13.0-17.5) gm/dL Hct (39.0-53.0) % MCV (80.0-100.0) fL MCH (25.0-35.0) pg MCHC (31.0-37.0) g/dL RDW (11.5-15.5) % Plt Count (150-450) k/uL Neutrophils % % Lymphocytes % % Monocytes % % Eosinophils % % Basophils % % Neutrophils # (1.3-7.7) k/uL Lymphocytes # (1.0-4.8) k/uL Monocytes # (0-1.0) k/uL Eosinophils # (0-0.7) k/uL Basophils # (0-0.2) k/uL Hypochromasia Poikilocytosis PT (9.0-12.0) sec INR (<1.2) APTT (22.0-30.0) sec Sodium (137-145) mmol/L Potassium (3.5-5.1) mmol/L Chloride (98-107) mmol/L Carbon Dioxide (22-30) mmol/L Anion Gap mmol/L BUN (9-20) mg/dL Creatinine (0.66-1.25) mg/dL Est GFR (CKD-EPI)AfAm (>60 ml/min/1.73 sqM) Est GFR (CKD-EPI)NonAf (>60 ml/min/1.73 sqM) Glucose (74-99) mg/dL Calcium (8.4-10.2) mg/dL Magnesium (1.6-2.3) mg/dL Total Bilirubin (0.2-1.3) mg/dL AST (17-59) U/L ALT (4-49) U/L Alkaline Phosphatase (38-126) U/L Troponin I 0.739 H* (0.000-0.034) ng/mL Total Protein (6.3-8.2) g/dL Albumin (3.5-5.0) g/dL Disposition Clinical Impression: Epistaxis, Hypotension Disposition: ADMITTED IP TO THIS [facility] Is patient prescribed a controlled substance at d/c from ED?: No Time of Disposition: 13:12
[2020-07-06 11:19] LABS: Basophils % (A) 1 %; Eosinophils # (A) 0.7 k/uL (0-0.7); Eosinophils % (A) 8 %; HCT 31.7 % (39.0-53.0); Hypochromasia Slight; Lymphocytes # (A) 2.1 k/uL (1.0-4.8); Lymphocytes % (A) 25 %; MCH 28.2 pg (25.0-35.0); MCHC 31.7 g/dL (31.0-37.0); Mean Platelet Volume 8.7; Monocytes # (A) 0.5 k/uL (0-1.0); Monocytes % (A) 6 %; Neutrophils # (A) 4.9 k/uL (1.3-7.7); Neutrophils % (A) 59 %; Platelet Count 219 k/uL (150-450); Poikilocytosis Slight; RBC 3.56 m/uL (4.30-5.90); RDW 14.7 % (11.5-15.5); WBC 8.3 k/uL (3.8-10.6)
[2020-07-06 11:32] LABS: INR 3.3 (<1.2); Partial Thromboplastin Time 54.4 sec (22.0-30.0); Prothrombin Time 32.2 sec (9.0-12.0)
[2020-07-06 11:44] LABS: Albumin 3.6 g/dL (3.5-5.0); Magnesium 1.9 mg/dL (1.6-2.3); Potassium 4.5 mmol/L (3.5-5.1); Total Bilirubin 0.6 mg/dL (0.2-1.3); Total Protein 7.3 g/dL (6.3-8.2)
[2020-07-06] MEDS ORDERED: OXYMETAZOLINE 0.05% NASL SPRAY 1 SPRAY BOTTLE ONE (12:55)
[2020-07-06] MEDS: SODIUM CHLORIDE 0.9% 1,000 ML IV SCH (17:38)
--- NOTE | 2020-07-06 18:10 | HP ---
HISTORY AND PHYSICAL This patient is a 70-year-old white male who presented to the ER with right-sided nosebleed with lightheadedness, dizziness, nausea and hypotension. Due to hypotension and elevated INR over 3 with nasal bleeding, he was brought to the emergency room and he will be kept overnight. He is on Coreg 6.25 b.i.d., Lasix 20 mg daily. He has been on 3 mg of Coumadin at home, Lipitor 40 mg daily, Apresoline 25 b.i.d., Plavix 75 mg daily, Imdur 60 daily, nitroglycerin sublingually p.r.n. He is status post PTCA of his coronary arteries last week with 4 stents. He has a history of DVT, CVA, TIA, hypertension, coronary artery disease, renal disease, multiple vascular surgeries, including descending aortic aneurysm, which is still present, thoracic aortic aneurysm, subclavian bypass surgery, appendectomy, cholecystectomy, heart catheterization with stent. FAMILY HISTORY: Father with myocardial infarction. Mother same. PHYSICAL EXAMINATION: Vital signs stable. Low blood pressure around 80s to 90 systolic over 60s. He looks well hydrated. HEENT: Normocephalic, atraumatic. Pupils equal, round, reactive. NEUROLOGIC: Alert and oriented x3. MUSCULOSKELETAL: Range of motion full. No lymphadenopathy. PSYCH: Normal psychiatric. Temperature 99, pulse 70s, respiratory rate 16-18, blood pressures 70s to the low 100s systolic, oxygen saturation 97% to 98%. EKG shows normal sinus rhythm. Epistaxis stopped, but due to severe hypotension, elevated INR , it is not safe for him to go home. Will admit him to the hospital and monitor him overnight for bleeding. Hold his Coumadin. Rehydrate him to elevated BUN and creatinine. Prognosis is guarded at this time. MMODL / IJN: [id number] /
[2020-07-07] MEDS: SODIUM CHLORIDE 0.9% 1,000 ML IV SCH ×2 (00:26→20:53)
[2020-07-07] MEDS ORDERED: OXYMETAZOLINE 0.05% NASL SPRAY 1 SPRAY BOTTLE NASAL STA (08:48)
[2020-07-07 08:50] LABS: HCT 28.9 % (39.0-53.0); Hypochromasia Moderate; MCH 28.2 pg (25.0-35.0); MCHC 31.1 g/dL (31.0-37.0); MCV 90.6 fL (80.0-100.0); Mean Platelet Volume 8.9; Platelet Count 162 k/uL (150-450); Poikilocytosis Slight; RBC 3.19 m/uL (4.30-5.90); RDW 14.7 % (11.5-15.5); WBC 6.2 k/uL (3.8-10.6)
[2020-07-07 08:55] LABS: INR 3.2 (<1.2)
[2020-07-07] MEDS ORDERED: PHYTONADIONE ORAL 5 MG/5 ML ORAL.SYRG PO STA (09:19)
--- NOTE | 2020-07-07 09:40 | P.CRDCN ---
History of Present Illness History of present illness: HISTORY OF PRESENTING ILLNESS This is a pleasant 70-year-old male past medical history significant for coronary artery disease status post recent PCI, chronic kidney disease, hypertension, dyslipidemia, aortic dissection status post surgical repair, fem- fem bypass with left subclavian to right carotid bypass, right BKA, history of DVT, ischemic cardiomyopathy and chronic systolic heart failure. He follows in the office with Dr. Gallo. We have been asked to see in consultation for hypotension and nosebleed with recent PCI. On July 01 he underwent cardiac catheterization secondary to a non-ST elevated myocardial infarction and successful PCI of the proximal to mid RCA and the distal RCA. He was sent home on Plavix, aspirin and Coumadin. He presented to the hospital yesterday afternoon with persistent nosebleed. He states the bleeding started on Friday. Yesterday he started becoming dizzy and feeling nauseated secondary to he felt that she was swallowing a lot of blood. He denies any chest pain, shortness of breath or palpitations. DIAGNOSTICS EKG reveals sinus mechanism, right bundle branch block, ST depression inferiorly/laterally with LVH. Laboratory reviewed, WBC 6.2, hemoglobin on admission 10 repeat this morning 9, INR 3.2, sodium 140, potassium 4.5, creatinine 3.4, magnesium 1.9, troponin 0.739. Current cardiac medications include aspirin 81 mg daily, atorvastatin 40 mg daily, Lasix 20 mg daily, Imdur 60 mg daily, Coumadin 3 mg daily, carvedilol 6.25 mg twice a day and hydralazine 25 mg twice a day. Most recent echocardiogram obtained on last admission reveals impaired LV systolic function ejection fraction 35-40%, basal inferior and basal paraseptal wall motion hypokinesia, severely dilated left atrium, moderate to severe MR and mild TR. REVIEW OF SYSTEMS At the time of my exam: CONSTITUTIONAL: Denies fever or chills. CARDIOVASCULAR: Denies chest pain, shortness of breath, orthopnea, PND or palpitations. RESPIRATORY: Denies cough. GASTROINTESTINAL: Denies abdominal pain, diarrhea, constipation, nausea or vomiting. MUSCULOSKELETAL: Denies myalgias. NEUROLOGIC: Denies numbness, tingling or weakness. ENDOCRINE: Denies fatigue, weight change, polydipsia or polyurina. GENITOURINARY: Denies burning, hematuria or urgency with micturation. HEMATOLOGIC: Denies history of anemia or bleeding. PHYSICAL EXAMINATION Blood pressure 98/56 heart rate 70 afebrile and maintaining oxygen saturation on room air. CONSTITUTIONAL: No apparent distress. HEENT: Head is normocephalic. Pupils are equal, round. Sclerae anicteric. Mucous membranes of the mouth are moist. No JVD. No carotid bruit. Tissue packing in the right nare. CHEST EXAMINATION: Lungs are clear to auscultation. No chest wall tenderness is noted on palpation or with deep breathing. HEART EXAMINATION: Regular rate and rhythm. S1, S2 heard. Systolic ejection murmur at the base and left sternal border, no gallops or rub. ABDOMEN: Soft, nontender. Positive bowel sounds. EXTREMITIES: 2+ peripheral pulses, no lower extremity edema and no calf tenderness. Right BKA with prosthesis in place. NEUROLOGIC EXAMINATION: Patient is awake, alert and oriented x3. ASSESSMENT Epistaxis Anemia secondary to above Supratherapeutic INR Hypotension Coronary artery disease status post PCI July 01 maintained on aspirin and Plavix along with Coumadin secondary to history of DVT in 2012 Troponin leak, no symptoms of ACS. Likely secondary to renal function as well as recent [place] Ischemic cardiomyopathy Chronic systolic heart failure, clinically euvolemic Chronic kidney disease Hypertension Dyslipidemia Peripheral vascular disease History of aortic dissection status post surgical repair PLAN Hold Coumadin, aspirin and Plavix pending ENT evaluation. Give vitamin K for supratherapeutic INR. Consider complete discontinuation of Coumadin for history of DVT. If bleeding is stabilized we'll resume aspirin and Plavix tomorrow. Repeat limited echo to assess LV function. Further recommendations to follow based upon clinical course. Thank you kindly for this consultation. Nurse Practitioner note has been reviewed, I agree with a documented findings and plan of care. Patient was seen and examined. Past Medical History Past Medical History: Coronary Artery Disease (CAD), Heart Failure, CVA/TIA, Deep Vein Thrombosis (DVT), Eye Disorder, Hyperlipidemia, Hypertension, Myocardial Infarction (IN), Pneumonia, Renal Disease, Skin Disorder, Vascular Disorder Additional Past Medical History / Comment(s): Pt recently admitted to [facility] on 06/27/20 NSTEMI/AMS d/t dehydration/chf/chronic L hydronephrosis which is to be followed up outpt. 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 Date of Last Stent Placement:: 07/01/20 Past Psychological History: No Psychological Hx Reported Additional Psychological History / Comment(s): Pt resides with his spouse. He uses a cane prn. He drives. He is independent. Smoking Status: Never smoker Past Alcohol Use History: None Reported Past Drug Use History: None Reported - Past Family History Mother Family Medical History: Myocardial Infarction (IN) Additional Family Medical History / Comment(s): Mother of a IN at the age of 37yrs. Father Family Medical History: Myocardial Infarction (IN) Additional Family Medical History / Comment(s): Father of a IN at the age of 58yrs. Medications and Allergies Home Medications Medication Instructions Recorded Confirmed Type carvediloL [Coreg] 6.25 mg PO BID@1000,1800 07/16/19 07/06/20 History Furosemide [Lasix] 20 mg PO DAILY@1000 06/23/20 07/06/20 History Aspirin 81 mg PO DAILY 90 Days #90 chew 06/25/20 07/06/20 Rx Atorvastatin [Lipitor] 40 mg PO DAILY 90 Days #90 tab 06/25/20 07/06/20 Rx Nitroglycerin Sl Tabs [Nitrostat] 0.4 mg SUBLINGUAL Q5M PRN 180 Days 06/25/20 07/06/20 Rx #100 tab hydrALAZINE HCL [Apresoline] 25 mg PO BID 90 Days #180 tab 06/25/20 07/06/20 Rx Clopidogrel [Plavix] 75 mg PO DAILY 90 Days #90 tab 07/03/20 07/06/20 Rx Isosorbide Mononitrate ER [Imdur] 60 mg PO DAILY 90 Days #90 07/03/20 07/06/20 Rx tab.er.24h Warfarin [Coumadin] 3 mg PO DAILY@1800 07/06/20 07/06/20 History Allergies Allergy/AdvReac Type Severity Reaction Status Date / Time codeine Allergy Unknown Verified 07/06/20 11:30 Penicillins Allergy Rash/Hives Verified 07/06/20 11:30 strawberry Allergy Unknown Verified 07/06/20 11:30 Physical Exam Vitals: Vital Signs Temp Pulse Pulse Resp BP BP Pulse Ox 07/07/20 08:17 98.1 F 70 16 98/56 94 L 07/07/20 08:00 16 07/07/20 04:00 97.5 F L 69 16 104/66 94 L 07/07/20 00:00 98.0 F 73 18 97/69 94 L 07/06/20 21:00 97.2 F L 66 18 114/66 94 L 07/06/20 19:00 61 18 110/64 96 07/06/20 18:00 64 18 96 07/06/20 17:00 64 18 100/62 96 07/06/20 16:00 69 18 109/70 96 07/06/20 15:00 70 18 86/68 96 07/06/20 14:00 72 18 92/68 95 07/06/20 13:40 75 18 90/57 95 07/06/20 12:00 74 18 101/73 99 07/06/20 11:20 70 18 91/67 96 07/06/20 10:41 99.0 F 79 18 70/38 97 Intake and Output 07/06/20 07/07/20 07/07/20 22:59 06:59 14:59 Intake Total 600 180 Output Total 0 800 50 Balance 0 -200 130 Intake: Intake, IV Titration 600 Amount Sodium Chloride 0.9% 1, 600 000 ml @ 100 mls/hr IV . Q10H [facility] Rx#:[id number] Oral 180 Output: Urine 0 800 50 Other: Voiding Method Toilet Toilet Toilet Urinal Urinal Urinal # Voids 2 Weight 92 kg Results 07/07/20 08:37 07/06/20 11:09 Cardiac Enzymes 07/06/20 07/06/20 Range/Units 11:09 11:09 AST 29 (17-59) U/L Troponin I 0.739 H* (0.000-0.034) ng/mL Coagulation 07/06/20 07/07/20 Range/Units 11:09 08:31 PT 32.2 H 31.0 H (9.0-12.0) sec APTT 54.4 H (22.0-30.0) sec CBC 07/06/20 07/07/20 Range/Units 11:09 08:37 WBC 8.3 6.2 (3.8-10.6) k/uL RBC 3.56 L 3.19 L (4.30-5.90) m/uL Hgb 10.0 L 9.0 L (13.0-17.5) gm/dL Hct 31.7 L 28.9 L (39.0-53.0) % Plt Count 219 162 (150-450) k/uL Comprehensive Metabolic Panel 07/06/20 Range/Units 11:09 Sodium 140 (137-145) mmol/L Potassium 4.5 (3.5-5.1) mmol/L Chloride 109 H (98-107) mmol/L Carbon Dioxide 23 (22-30) mmol/L BUN 34 H (9-20) mg/dL Creatinine 3.40 H (0.66-1.25) mg/dL Glucose 107 H (74-99) mg/dL Calcium 9.0 (8.4-10.2) mg/dL AST 29 (17-59) U/L ALT 19 (4-49) U/L Alkaline Phosphatase 115 (38-126) U/L Total Protein 7.3 (6.3-8.2) g/dL Albumin 3.6 (3.5-5.0) g/dL Current Medications Generic Name Dose Route Start Last Admin Trade Name Freq PRN Reason Stop Dose Admin Atorvastatin Calcium 40 mg 07/07/20 09:30 Atorvastatin 40 Mg Tab PO DAILY [facility] Sodium Chloride 1,000 mls @ 100 mls/hr 07/06/20 16:30 07/07/20 00:26 Saline 0.9% IV 75 mls/hr .Q10H [facility] Administration Intake and Output 07/06/20 07/07/20 07/07/20 22:59 06:59 14:59 Intake Total 600 180 Output Total 0 800 50 Balance 0 -200 130 Intake: Intake, IV Titration 600 Amount Sodium Chloride 0.9% 1, 600 000 ml @ 100 mls/hr IV . Q10H [facility] Rx#:[id number] Oral 180 Output: Urine 0 800 50 Other: Voiding Method Toilet Toilet Toilet Urinal Urinal Urinal # Voids 2 Weight 92 kg 07/07/20 08:37 07/06/20 11:09
[2020-07-07 09:46] LABS: Calcium 8.4 mg/dL (8.4-10.2); Potassium 4.8 mmol/L (3.5-5.1)
--- NOTE | 2020-07-07 09:59 | ECHOF ---
Referral Reason:lv function MEASUREMENTS -------- HEIGHT: 180.3 cm WEIGHT: 91.6 kg BP: IVSd: 2.0 cm (0.6 - 1.1) LVIDd: 5.7 cm (3.9 - 5.3) LVPWd: 2.0 cm (0.6 - 1.1) IVSs: 2.2 cm LVIDs: 5.0 cm LVPWs: 2.0 cm FINDINGS -------- Sinus rhythm. Limited Study for LV function The left ventricular size is normal. There is severe concentric left ventricular hypertrophy. Ove rall left ventricular systolic function is moderately impaired with, an EF between 35 - 40 %. Basal inferior LV wall motion is hypokinetic. Mid inferior LV wall motion is hypokinetic. There is no pericardial effusion. CONCLUSIONS -------- 1. Limited Study for LV function 2. There is severe concentric left ventricular hypertrophy. 3. Overall left ventricular systolic function is moderately impaired with, an EF between 35 - 40 %. 4. Basal inferior LV wall motion is hypokinetic. 5. Mid inferior LV wall motion is hypokinetic. 6. There is no pericardial effusion. FOOT DOCTOR: [place] [facility]
[2020-07-07] MEDS: ATORVASTATIN 40 MG TAB PO SCH (10:32)
--- NOTE | 2020-07-07 14:47 | PN ---
PROGRESS NOTE This is a 70-year-old white male who had a recurrence of rhinorrhea today up on the floor. He was sent down to the emergency room to get the nasal bleeding stopped. He has also had severe hypotension overnight. He has been given fluids, oral beta blockers and cardiac medicines have been stopped, status post stent placement a week ago for 4 stents. He is very weak and fatigued. Integument looks dry skin turgor, poor mucous membranes. Cardiovascular S1, S2. Lungs clear. GI soft. ASSESSMENT: Epistaxis, anemia secondary to epistaxis, supratherapeutic INR, hypertension, coronary disease status post stenting times 4 a week ago. Coumadin secondary to DVT in 2012, ischemic cardiomyopathy, chronic systolic heart failure, chronic kidney disease, hypertension, dyslipidemia, peripheral vascular disease. His Coumadin is on hold. Aspirin, Plavix pending ENT. Vitamin K for high INR. No Coumadin at this time. Continue with aspirin, Plavix. Cardiology said maybe hold Coumadin long-term. Please see further orders. Check hemoglobins. Monitor closely. MMODL / IJN: [id number] /
[2020-07-07] MEDS: carvediloL 6.25 MG TAB PO SCH (17:00)
--- NOTE | 2020-07-07 22:12 | CONS ---
CONSULTATION REASON FOR CONSULTATION: Epistaxis. HISTORY: This is a 70-year-old white male who states that for about a year he has had difficulties with intermittent epistaxis, especially from the right side of the nose, but more recently this has been more significant. He had multiple stents placed in the coronary arteries last week and has been on Coumadin and Plavix as well as aspirin. He was having more difficulties with the right-sided epistaxis and came to the ER for this. He was admitted due to hypotension and some anemia. He has had some recurrent epistaxis from the right side of the nose today, although it has improved today by this point with Afrin. PAST MEDICAL HISTORY: Positive for DVT, CVA, TIA, hypertension, coronary artery disease, renal disease, multiple vascular surgeries. PAST SURGICAL HISTORY: Appendectomy, cholecystectomy, heart catheterization with stent, orthopedic surgeries, right [id number] amputation, colonoscopy. SOCIAL HISTORY: He does not smoke. He does not drink alcohol. MEDICATIONS: Medications at home will not be repeated, as they are in the chart already as well as medications in the hospital. REVIEW OF SYSTEMS: Review of systems is negative other than with a 14-point review of systems other than as noted above in the history of present illness. PHYSICAL EXAMINATION: Vital signs are stable. GENERAL: Well-developed white male in no acute distress. He is alert, awake and oriented x3. HEENT: Head normocephalic, atraumatic. Ears: Bilateral canals clear. Tympanic membranes unremarkable and mobile. Nose shows deviation of the septum to the right. No abnormalities on the left. On the right anterior septum there is some fresh blood with minimal ooze. Mouth and throat show no abnormal masses or lesions. NECK: Supple without adenopathy or tenderness. ASSESSMENT: 1. Right-sided epistaxis. 2. Deviated nasal septum. 3. Anticoagulated status. PLAN: Recommended nasal cauterization of the right anterior septum and the patient was agreeable to this. This was performed and controlled of the bleeding quite readily, as well as a small pledget of Nasalcease, nasal dressing placed overlying this. Recommended no nose-blowing, humidification at home, as well as nasal saline spray. Followup in my office on an as-needed basis. He will need to be continued on some anticoagulants obviously, but minimizing this would be helpful potentially. PROCEDURE NOTE: PREOPERATIVE DIAGNOSIS: Right epistaxis. POSTOPERATIVE DIAGNOSIS: Right epistaxis. PROCEDURE: Nasal cauterization with silver nitrate, right anterior septum. ANESTHESIA: None. BLOOD LOSS: Minimal; less than 2 mL. COMPLICATIONS: None. PROCEDURE DESCRIPTION: Patient was in his hospital bed and topical Afrin and lidocaine on cotton was placed in the right nasal cavity. This was removed after 5 minutes. The prominent vessel right anterior septum had minimal arterial bleeding. Points were noted, which were cauterized with silver nitrate, which was well controlled. A small pledget of Nasalcease nasal dressing was placed over this as a dissolvable nasal dressing. The patient tolerated this well with no complications. MMODL / IJN: [id number] /
[2020-07-08] MEDS: SODIUM CHLORIDE 0.9% 1,000 ML IV SCH (05:36)
[2020-07-08 08:26] LABS: Basophils % (A) 1 %; Eosinophils # (A) 0.5 k/uL (0-0.7); Eosinophils % (A) 8 %; HGB 8.8 gm/dL (13.0-17.5); Hypochromasia Marked; Lymphocytes # (A) 1.6 k/uL (1.0-4.8); Lymphocytes % (A) 28 %; MCH 28.4 pg (25.0-35.0); MCHC 31.2 g/dL (31.0-37.0); MCV 90.8 fL (80.0-100.0); Mean Platelet Volume 8.6; Monocytes # (A) 0.4 k/uL (0-1.0); Monocytes % (A) 6 %; Neutrophils # (A) 3.2 k/uL (1.3-7.7); Neutrophils % (A) 56 %; Platelet Count 156 k/uL (150-450); Poikilocytosis Slight; RBC 3.08 m/uL (4.30-5.90); RDW 14.7 % (11.5-15.5); WBC 5.7 k/uL (3.8-10.6)
[2020-07-08 08:44] LABS: Albumin 3.3 g/dL (3.5-5.0); Calcium 8.5 mg/dL (8.4-10.2); Potassium 4.8 mmol/L (3.5-5.1); Total Bilirubin 0.5 mg/dL (0.2-1.3); Total Protein 6.6 g/dL (6.3-8.2)
[2020-07-08] MEDS: ATORVASTATIN 40 MG TAB PO SCH (10:01)
[2020-07-08] MEDS: carvediloL 6.25 MG TAB PO SCH (10:01)
[2020-07-08] MEDS ORDERED: ASPIRIN 81 MG PO SCH (12:45)
[2020-07-08] MEDS ORDERED: CLOPIDOGREL 75 MG TAB PO SCH (12:45)
--- NOTE | 2020-07-08 14:11 | P.PN ---
Subjective HISTORY OF PRESENTING ILLNESS This is a pleasant 70-year-old male past medical history significant for coronary artery disease status post recent PCI, chronic kidney disease, hypertension, dyslipidemia, aortic dissection status post surgical repair, fem- fem bypass with left subclavian to right carotid bypass, right BKA, history of DVT, ischemic cardiomyopathy and chronic systolic heart failure. He follows in the office with Dr. Gallo. We have been asked to see in consultation for hypotension and nosebleed with recent PCI. On July 01 he underwent cardiac catheterization secondary to a non-ST elevated myocardial infarction and successful PCI of the proximal to mid RCA and the distal RCA. He was sent home on Plavix, aspirin and Coumadin. He presented to the hospital yesterday afternoon with persistent nosebleed. He states the bleeding started on Friday. Yesterday he started becoming dizzy and feeling nauseated secondary to he felt that she was swallowing a lot of blood. He denies any chest pain, shortness of breath or palpitations. 07/08/2020 Patient is seen and examined sitting up in bed. Dr. Gandara was n last night and performed bedside cauterization with silver nitrate which subsided his epistaxis. He has had no further nose bleeding since that time. Blood pressure 118/69 heart rate 70 afebrile maintaining oxygen saturation on room air. Laboratory data reviewed, hemoglobin 8.8 down from 10 on admission, sodium 141, potassium 4.8, creatinine 3. Limited echo reveals impaired LV systolic function with ejection fraction 35-40% with basal inferior and mid inferior wall motion hypokinesia. No change from previous. PHYSICAL EXAMINATION CONSTITUTIONAL: No apparent distress. HEENT: Head is normocephalic. Pupils are equal, round. Sclerae anicteric. Mucous membranes of the mouth are moist. No JVD. No carotid bruit. Tissue packing in the right nare. CHEST EXAMINATION: Lungs are clear to auscultation. No chest wall tenderness is noted on palpation or with deep breathing. HEART EXAMINATION: Regular rate and rhythm. S1, S2 heard. Systolic ejection murmur at the base and left sternal border, no gallops or rub. EXTREMITIES: 2+ peripheral pulses, no lower extremity edema and no calf tender ness. Right BKA with prosthesis in place. ASSESSMENT Epistaxis Anemia secondary to above Supratherapeutic INR Hypotension Coronary artery disease status post PCI July 01 maintained on aspirin and Plavix along with Coumadin secondary to history of DVT in 2013 Troponin leak, no symptoms of ACS. Likely secondary to renal function as well as recent [place] Ischemic cardiomyopathy Chronic systolic heart failure, clinically euvolemic Chronic kidney disease Hypertension Dyslipidemia Peripheral vascular disease History of aortic dissection status post surgical repair PLAN Stable from a cardiac perspective. Resume aspirin and Plavix. Recommend discontinuing Coumadin Follow-up in the office with Dr. Gallo upon discharge. Nurse Practitioner note has been reviewed, I agree with a documented findings and plan of care. Patient was seen and examined. Objective - Vital Signs Vital signs: Vital Signs Temp 97.6 F 07/08/20 12:00 Pulse 70 07/08/20 12:00 Resp 18 07/08/20 12:00 BP 118/69 07/08/20 12:00 Pulse Ox 98 07/08/20 12:00 Intake & Output 07/07/20 07/08/20 07/08/20 18:59 06:59 18:59 Intake Total 654 240 236 Output Total 350 750 375 Balance 304 -510 -139 Weight 97.5 kg Intake: Oral 654 240 236 Output: Urine 350 750 375 Other: Voiding Method Toilet Toilet Urinal Urinal # Voids 1 1 - Labs CBC & Chem 7: 07/08/20 07:32 07/08/20 07:32 Labs: Abnormal Lab Results - Last 24 Hours (Table) 07/08/20 07/08/20 Range/Units 07:32 07:32 RBC 3.08 L (4.30-5.90) m/uL Hgb 8.8 L (13.0-17.5) gm/dL Hct 28.0 L (39.0-53.0) % Chloride 113 H (98-107) mmol/L BUN 31 H (9-20) mg/dL Creatinine 3.00 H (0.66-1.25) mg/dL Albumin 3.3 L (3.5-5.0) g/dL
[2020-07-08 16:19] VITALS: BP 138/69; PULSE 60; RESP 16; TEMP 97.7
--- NOTE | 2020-07-10 16:29 | CDI ---
Documentation Clarification Form Date: 07/10/2020 03:11:00 PM From: Yoselin Hidalgo Phone: If you have a question about this query, please contact Ne Atkins Mate Chief at [phone] between 8am and 5pm. Admit Date: 07/06/2020 02:04:00 PM Patient Name: Wilner Up Visit Number: [id number] Discharge Date: 07/08/2020 05:59:00 PM ATTENTION: The Clinical Documentation Specialists (CDI) and [facility] Coding Staff appreciate your assistance in clarifying documentation. Please respond to the clarification below the line at the bottom and electronically sign. The CDI & [facility] Coding staff will review the response and follow-up if needed. Please note: Queries are made part of the Legal Health Record. If you have any questions, please contact the author of this message via ITS. Dr. Og Escoto Anemia secondary to epistaxis is documented in cardiology consult. Please clarify type of anemia. History/Risk Factors: epistaxis, on Coumadin, subtherapeutic INR Hemoglobin: 10.0 - 8.8 Hematocrit: 31.7 - 28.0 Treatment: Vitamin K and cautterization of nasal bleed In order to capture the severity of condition, please clarify the type of anemia caused by epistaxis. Acute blood loss anemia Acute on chronic blood loss anemia Chronic blood loss anemia Iron deficiency anemia Anemia of chronic kidney disease Unable to determine Other, please specify MTDD
--- NOTE | 2020-07-13 09:26 | CDI ---
Documentation Clarification Form Date: 07/10/2020 03:11:00 PM From: Yoselin Hidalgo Phone: If you have a question about this query, please contact Ne Atkins Hse Advisor at [phone] between 8am and 5pm. Admit Date: 07/06/2020 02:04:00 PM Patient Name: Wilner Up Visit Number: [id number] Discharge Date: 07/08/2020 05:59:00 PM ATTENTION: The Clinical Documentation Specialists (CDI) and [facility] Coding Staff appreciate your assistance in clarifying documentation. Please respond to the clarification below the line at the bottom and electronically sign. The CDI & [facility] Coding staff will review the response and follow-up if needed. Please note: Queries are made part of the Legal Health Record. If you have any questions, please contact the author of this message via ITS. Dr. Og Escoto Anemia secondary to epistaxis is documented in cardiology consult. Please clarify type of anemia. History/Risk Factors: epistaxis, on Coumadin, subtherapeutic INR Hemoglobin: 10.0 - 8.8 Hematocrit: 31.7 - 28.0 Treatment: Vitamin K and cautterization of nasal bleed In order to capture the severity of condition, please clarify the type of anemia caused by epistaxis. Acute blood loss anemia Acute on chronic blood loss anemia Chronic blood loss anemia Iron deficiency anemia Anemia of chronic kidney disease Unable to determine Other, please specify MTDD
--- NOTE | 2020-07-24 09:20 | PN ---
PROGRESS NOTE ADDENDUM: Acute blood-loss anemia secondary to nasal bleeding. MMODL / IJN: [id number] /
--- NOTE | 2020-07-28 01:44 | DS ---
DISCHARGE SUMMARY DISCHARGE MEDICINE: 1. Coreg 6.25 b.i.d. 2. Lasix 20 mg daily. 3. Apresoline 25 b.i.d. 4. Aspirin 81 mg daily. 5. Lipitor 40 daily. 6. Nitro sublingual p.r.n. 7. Imdur 60 mg daily. 8. Plavix 75 mg daily. CONDITION: Stable. PROGNOSIS: Guarded. AMBULATE: As tolerated. DISCHARGE DIAGNOSES: 1. Atypical chest pain. 2. Ischemic cardiomyopathy. 3. Below knee amputation on the right knee. 4. Chronic systolic heart failure. 5. Persistent epistaxis with severe anemia. 6. Dizziness and dehydration secondary to epistaxis. 7. Supratherapeutic INR which was reversed with vitamin K. 8. Hypotension due to bleeding. 9. Status post PCI July 01, maintaining on aspirin and Plavix. The patient was stabilized. Coumadin was stopped. He will follow up as an outpatient. MMODL / IJN: [id number] /
== END 2020-07-08 17:59 | disposition home or self-care (01) | DRG 315 ==
LOC: EC 10:26 → 3SCARD 14:04
PROVIDERS: ADMIT Family Medicine; ATTEND Family Medicine
PROC: 093K7ZZ Control Bleeding in Nasal Mucosa and Soft Tissue, Via Natural or Artificial Opening (ICD-10-PCS; principal; 2020-07-07)
DX: I95.9 Hypotension, unspecified (principal); I13.0 Hypertensive heart and chronic kidney disease with heart failure and stage 1 through stage 4 chronic kidney disease, or unspecified chronic kidney disease; I50.22 Chronic systolic (congestive) heart failure; D62 Acute posthemorrhagic anemia; E78.5 Hyperlipidemia, unspecified; I25.10 Atherosclerotic heart disease of native coronary artery without angina pectoris; I25.2 Old myocardial infarction; I25.5 Ischemic cardiomyopathy; I45.10 Unspecified right bundle-branch block; I71.2 Thoracic aortic aneurysm, without rupture; N18.30 Chronic kidney disease, stage 3 unspecified; I73.9 Peripheral vascular disease, unspecified; J34.2 Deviated nasal septum; R04.0 Epistaxis; R79.1 Abnormal coagulation profile; Z79.01 Long term (current) use of anticoagulants; Z79.02 Long term (current) use of antithrombotics/antiplatelets; Z79.82 Long term (current) use of aspirin; Z79.899 Other long term (current) drug therapy; Z82.49 Family history of ischemic heart disease and other diseases of the circulatory system; Z86.718 Personal history of other venous thrombosis and embolism; Z86.73 Personal history of transient ischemic attack (TIA), and cerebral infarction without residual deficits; Z87.442 Personal history of urinary calculi; Z89.511 Acquired absence of right leg below knee; Z98.61 Coronary angioplasty status; R79.89 Other specified abnormal findings of blood chemistry; H53.8 Other visual disturbances; Z90.49 Acquired absence of other specified parts of digestive tract; I71.4 Abdominal aortic aneurysm, without rupture; Z86.79 Personal history of other diseases of the circulatory system; Z88.5 Allergy status to narcotic agent; Z88.0 Allergy status to penicillin
CPT/HCPCS: 36415; 80048; 80053; 83735; 84484; 85025; 85027; 85610; 85730; 93005; 93308; 96360; 96361; 96374; 99285

== ENCOUNTER → 2021-02-13 | Outpatient (CLI) | payer MEDICARE, OTHER ==
[2021-02-13 14:02] LABS: Basophils % (A) 1 %; Eosinophils # (A) 0.4 k/uL (0-0.7); Eosinophils % (A) 7 %; HCT 30.6 % (39.0-53.0); HGB 9.9 gm/dL (13.0-17.5); Hypochromasia Marked; Lymphocytes # (A) 1.4 k/uL (1.0-4.8); Lymphocytes % (A) 24 %; MCH 26.2 pg (25.0-35.0); MCHC 32.3 g/dL (31.0-37.0); MCV 81.1 fL (80.0-100.0); Mean Platelet Volume 9.4; Monocytes # (A) 0.5 k/uL (0-1.0); Monocytes % (A) 8 %; Neutrophils # (A) 3.5 k/uL (1.3-7.7); Neutrophils % (A) 59 %; Platelet Count 125 k/uL (150-450); RBC 3.77 m/uL (4.30-5.90); RDW 15.9 % (11.5-15.5)
[2021-02-13 14:20] LABS: Calcium 9.1 mg/dL (8.4-10.2); Potassium 4.6 mmol/L (3.5-5.1)
== END | disposition home or self-care (01) ==
LOC: LABPAT 12:30
PROVIDERS: ATTEND Urology
DX: Z01.812 Encounter for preprocedural laboratory examination (principal); N39.0 Urinary tract infection, site not specified; N20.1 Calculus of ureter
CPT/HCPCS: 36415; 80048; 85025

== ENCOUNTER 2021-02-26 11:12 | Emergency (ER) | payer MEDICARE, OTHER ==
[2021-02-26 11:35] VITALS: TEMP 97.6
[2021-02-26] MEDS ORDERED: ONDANSETRON 4 MG/2 ML VIAL IVP STA (12:04)
[2021-02-26] MEDS ORDERED: HYDROmorphone 0.5 MG/0.5 ML SYRINGE IVP STA (12:04)
[2021-02-26 12:20] VITALS: BP 111/72; PULSE 110; RESP 22
[2021-02-26 12:44] LABS: Albumin 4.2 g/dL (3.5-5.0); Calcium 9.4 mg/dL (8.4-10.2); Magnesium 2.5 mg/dL (1.6-2.3); Potassium 5.1 mmol/L (3.5-5.1); Total Bilirubin 0.7 mg/dL (0.2-1.3); Total Protein 7.1 g/dL (6.3-8.2)
[2021-02-26 12:48] LABS: Basophils # (A) 0.1 k/uL (0-0.2); Basophils % (A) 1 %; Eosinophils # (A) 0.5 k/uL (0-0.7); Eosinophils % (A) 7 %; HCT 32.1 % (39.0-53.0); HGB 10.1 gm/dL (13.0-17.5); Hypochromasia Moderate; Lymphocytes # (A) 1.2 k/uL (1.0-4.8); Lymphocytes % (A) 18 %; MCH 25.3 pg (25.0-35.0); MCHC 31.6 g/dL (31.0-37.0); MCV 79.9 fL (80.0-100.0); Mean Platelet Volume 9.2; Monocytes # (A) 0.6 k/uL (0-1.0); Monocytes % (A) 9 %; Neutrophils # (A) 4.2 k/uL (1.3-7.7); Neutrophils % (A) 65 %; Platelet Count 125 k/uL (150-450); RBC 4.01 m/uL (4.30-5.90); RDW 15.6 % (11.5-15.5); WBC 6.5 k/uL (3.8-10.6)
--- NOTE | 2021-02-26 13:13 | XR ---
EXAMINATION TYPE: XR chest 2V DATE OF EXAM: 02/26/2021 COMPARISON: Chest x-ray June 27, 2020. Chest CT June 23, 2020. HISTORY: History of CHF. Shortness of breath TECHNIQUE: Frontal and lateral views of the chest are obtained. FINDINGS: Overlying sternal wires several which are broken are redemonstrated. There is persistent ca rdiomegaly with atherosclerotic and aneurysmal thoracic aorta. Metallic stent in the ascending aorta is redemonstrated. Persistent tiny left pleural effusion and associated scarring and/or atelectasis. Prominent posterior retrocardiac opacity corresponds to known descending thoracic aortic aneurysm. Ch olecystectomy clips are seen on lateral view. Osseous structures are intact. Right axillary surgical clips. IMPRESSION: Chronic changes and cardiomegaly with stable tiny left pleural effusion and left basila r scarring and/or atelectasis. No new focal infiltrate.
--- NOTE | 2021-02-26 13:25 | ED ---
General Adult HPI - General Chief complaint: Abdominal Pain Stated complaint: abd pain Time Seen by Provider: 02/26/21 11:51 Source: patient, RN notes reviewed Mode of arrival: wheelchair Limitations: physical limitation - History of Present Illness Initial comments: 70-year-old male with a complicated past medical history including CAD, heart failure, CVA, hypertension, DVT, aortic aneurysm presents to the emergency room for a chief complaint of abdominal pain. Patient reports 2 days ago he started to have left lower quadrant abdominal pain. States it is a persistent pain. It does not come and go. Patient has also had nausea vomiting and diarrhea with this. Denies fevers. Denies chest pain. Patient has no other complaints at this time including shortness of breath, chest pain, headache, or visual changes. - Related Data Home Medications Medication Instructions Recorded Confirmed carvediloL [Coreg] 6.25 mg PO BID@1000,1800 07/16/19 07/06/20 Furosemide [Lasix] 20 mg PO DAILY@1000 06/23/20 07/06/20 Previous Rx's Medication Instructions Recorded Aspirin 81 mg PO DAILY 90 Days #90 chew 06/25/20 Atorvastatin [Lipitor] 40 mg PO DAILY 90 Days #90 tab 06/25/20 Nitroglycerin Sl Tabs [Nitrostat] 0.4 mg SUBLINGUAL Q5M PRN 180 Days 06/25/20 #100 tab hydrALAZINE HCL [Apresoline] 25 mg PO BID 90 Days #180 tab 06/25/20 Clopidogrel [Plavix] 75 mg PO DAILY 90 Days #90 tab 07/03/20 Isosorbide Mononitrate ER [Imdur] 60 mg PO DAILY 90 Days #90 07/03/20 tab.er.24h HYDROcodone/APAP 5-325MG [[place] 1 tab PO Q6HR PRN #10 tab 02/26/21 5-325] Allergies Allergy/AdvReac Type Severity Reaction Status Date / Time cephalexin [From Keflex] Allergy Rash/Hives Verified 02/26/21 11:36 codeine Allergy Unknown Verified 02/26/21 11:35 Penicillins Allergy Rash/Hives Verified 02/26/21 11:35 strawberry Allergy Unknown Verified 02/26/21 11:35 Review of Systems ROS Statement: Those systems with pertinent positive or pertinent negative responses have been documented in the HPI. ROS Other: All systems not noted in ROS Statement are negative. Past Medical History Past Medical History: Coronary Artery Disease (CAD), Heart Failure, CVA/TIA, Deep Vein Thrombosis (DVT), Eye Disorder, Hypertension, Myocardial Infarction ([place]), Pneumonia, Renal Disease, Skin Disorder, Vascular Disorder Additional Past Medical History / Comment(s): NSTEMI/AMS d/t dehydration/chf/chronic L hydronephrosis which is to be followed up outpt. 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 Date of Last Stent Placement:: 07/01/20 Past Psychological History: No Psychological Hx Reported Smoking Status: Never smoker Past Alcohol Use History: None Reported Past Drug Use History: None Reported - Past Family History Mother Family Medical History: Myocardial Infarction ([place]) Additional Family Medical History / Comment(s): Mother of a [place] at the age of 37yrs. Father Family Medical History: Myocardial Infarction ([place]) Additional Family Medical History / Comment(s): Father of a [place] at the age of 58yrs. General Exam Limitations: physical limitation General appearance: alert, in no apparent distress Head exam: Present: atraumatic, normocephalic, normal inspection Eye exam: Present: normal appearance, PERRL, EOMI. Absent: scleral icterus, conjunctival injection, periorbital swelling ENT exam: Present: normal exam, mucous membranes moist Neck exam: Present: normal inspection, full ROM Respiratory exam: Present: normal lung sounds bilaterally. Absent: respiratory distress, wheezes, rales, rhonchi, stridor Cardiovascular Exam: Present: regular rate, normal rhythm, normal heart sounds GI/Abdominal exam: Present: soft, tenderness (Left lower quadrant abdominal tenderness.), normal bowel sounds. Absent: distended, guarding, rebound, rigid Course Vital Signs 02/26/21 02/26/21 11:33 12:17 Temperature 97.6 F Pulse Rate 112 H 110 H Respiratory 18 22 Rate Blood Pressure 115/69 111/72 O2 Sat by Pulse 97 98 Oximetry EKG Findings - EKG Comments: EKG Findings:: Sinus tachycardia, ventricular rate 111, NM interval 124, QTC 530 Medical Decision Making - Medical Decision Making Vitals are stable. CBC unremarkable. CMP does show chronic kidney disease. Urinalysis reveals 52 white cells. Chest x-ray shows no acute process. CT abdomen and pelvis was obtained. This did show aortic dissection with a new lobulated and irregular 4.9 cm aneurysm of the distal abdominal aorta right before bifurcation. Patient's family member states they were just seen at [facility] for this in the past couple weeks and was told he had the 5 cm aneurysm. They're following up for this. Additionally there is the enlarging 11.3 cm now slightly hyperdense round circumscribed lesion left lower quadrant that appears to reflect enlarging thin-walled exophytic cyst from the left kidney, could have blood products or hemorrhage. There is also a new severe right-sided hydronephrosis due to obstructing 18 mm calculus proximal right ureter. Case is discussed with Dr. Clinton. He was able to review this as well as previous imaging and feels both the cyst and hydronephrosis are the same from several months ago. Feels that from a urologist and white lesion be discharged home. Patient's pain is controlled at this time. He does want patient that with antibiotics such as a fluoroquinolone given his ALLERGIES for possible UTI. Culture pending. He would like him to follow up at his outpatient surgery on . If he has any worsening symptoms he will return here.I discussed this case with attending Dr. lorenzo who agrees with this assessment and treatment plan. - Lab Data Result diagrams: 02/26/21 12:15 02/26/21 12:15 Lab Results 02/26/21 02/26/21 02/26/21 Range/Units 12:15 12:15 12:15 WBC 6.5 (3.8-10.6) k/uL RBC 4.01 L (4.30-5.90) m/uL Hgb 10.1 L (13.0-17.5) gm/dL Hct 32.1 L (39.0-53.0) % MCV 79.9 L (80.0-100.0) fL MCH 25.3 (25.0-35.0) pg MCHC 31.6 (31.0-37.0) g/dL RDW 15.6 H (11.5-15.5) % Plt Count 125 L (150-450) k/uL MPV 9.2 Neutrophils % 65 % Lymphocytes % 18 % Monocytes % 9 % Eosinophils % 7 % Basophils % 1 % Neutrophils # 4.2 (1.3-7.7) k/uL Lymphocytes # 1.2 (1.0-4.8) k/uL Monocytes # 0.6 (0-1.0) k/uL Eosinophils # 0.5 (0-0.7) k/uL Basophils # 0.1 (0-0.2) k/uL Hypochromasia Moderate Sodium 139 (137-145) mmol/L Potassium 5.1 (3.5-5.1) mmol/L Chloride 103 (98-107) mmol/L Carbon Dioxide 26 (22-30) mmol/L Anion Gap 10 mmol/L BUN 29 H (9-20) mg/dL Creatinine 3.19 H (0.66-1.25) mg/dL Est GFR (CKD-EPI)AfAm 21 (>60 ml/min/1.73 sqM) Est GFR (CKD-EPI)NonAf 19 (>60 ml/min/1.73 sqM) Glucose 96 (74-99) mg/dL Plasma Lactic Acid Walt (0.7-2.0) mmol/L Calcium 9.4 (8.4-10.2) mg/dL Magnesium 2.5 H (1.6-2.3) mg/dL Total Bilirubin 0.7 (0.2-1.3) mg/dL AST 18 (17-59) U/L ALT 11 (4-49) U/L Alkaline Phosphatase 114 (38-126) U/L Total Protein 7.1 (6.3-8.2) g/dL Albumin 4.2 (3.5-5.0) g/dL Amylase 35 (30-110) U/L Lipase 93 (23-300) U/L Urine Color Light Yellow Urine Appearance Clear (Clear) Urine pH 7.5 (5.0-8.0) Ur Specific [place] 1.009 (1.001-1.035) Urine Protein 1+ H (Negative) Urine Glucose (UA) Negative (Negative) Urine Ketones Negative (Negative) Urine Blood Negative (Negative) Urine Nitrite Negative (Negative) Urine Bilirubin Negative (Negative) Urine Urobilinogen <2.0 (<2.0) mg/dL Ur Leukocyte Esterase Large H (Negative) Urine WBC 52 H (0-5) /hpf Ur Squamous Epith Cells <1 (0-4) /hpf Urine Bacteria Rare H (None) /hpf 02/26/21 Range/Units 12:15 WBC (3.8-10.6) k/uL RBC (4.30-5.90) m/uL Hgb (13.0-17.5) gm/dL Hct (39.0-53.0) % MCV (80.0-100.0) fL MCH (25.0-35.0) pg MCHC (31.0-37.0) g/dL RDW (11.5-15.5) % Plt Count (150-450) k/uL MPV Neutrophils % % Lymphocytes % % Monocytes % % Eosinophils % % Basophils % % Neutrophils # (1.3-7.7) k/uL Lymphocytes # (1.0-4.8) k/uL Monocytes # (0-1.0) k/uL Eosinophils # (0-0.7) k/uL Basophils # (0-0.2) k/uL Hypochromasia Sodium (137-145) mmol/L Potassium (3.5-5.1) mmol/L Chloride (98-107) mmol/L Carbon Dioxide (22-30) mmol/L Anion Gap mmol/L BUN (9-20) mg/dL Creatinine (0.66-1.25) mg/dL Est GFR (CKD-EPI)AfAm (>60 ml/min/1.73 sqM) Est GFR (CKD-EPI)NonAf (>60 ml/min/1.73 sqM) Glucose (74-99) mg/dL Plasma Lactic Acid Walt 0.7 (0.7-2.0) mmol/L Calcium (8.4-10.2) mg/dL Magnesium (1.6-2.3) mg/dL Total Bilirubin (0.2-1.3) mg/dL AST (17-59) U/L ALT (4-49) U/L Alkaline Phosphatase (38-126) U/L Total Protein (6.3-8.2) g/dL Albumin (3.5-5.0) g/dL Amylase (30-110) U/L Lipase (23-300) U/L Urine Color Urine Appearance (Clear) Urine pH (5.0-8.0) Ur Specific [place] (1.001-1.035) Urine Protein (Negative) Urine Glucose (UA) (Negative) Urine Ketones (Negative) Urine Blood (Negative) Urine Nitrite (Negative) Urine Bilirubin (Negative) Urine Urobilinogen (<2.0) mg/dL Ur Leukocyte Esterase (Negative) Urine WBC (0-5) /hpf Ur Squamous Epith Cells (0-4) /hpf Urine Bacteria (None) /hpf Disposition Clinical Impression: Abdominal pain, Kidney stone, Renal cyst Disposition: HOME SELF-CARE Condition: Good Instructions (If sedation given, give patient instructions): Abdominal Pain (ED) Additional Instructions: Please take pain medications as directed. Please follow-up with your urologist at your surgery in 3 days. Return to the emergency room for any worsening symptoms. Prescriptions: HYDROcodone/APAP 5-325MG [[place] 5-325] 1 tab PO Q6HR PRN #10 tab PRN Reason: Pain Is patient prescribed a controlled substance at d/c from ED?: Yes When asked, does pt state using other controlled substances?: No If prescribed controlled substance>3 days was MAPS reviewed?: Prescribed <3 Days If opioid is for acute pain is fill amount 7 days or less?: Yes If Rx opioid, was Start Talking consent form obtained?: Yes Referrals: Og Escoto MD [Primary Care Provider] - 1-2 days Nick Clinton MD [STAFF PHYSICIAN] - 1-2 days Time of Disposition: 14:53
[2021-02-26 13:44] LABS: Appearance,Urine Clear (Clear); Bacteria,Urine Rare /hpf; Bilirubin,Urine Negative (Negative); Blood,Urine Negative (Negative); Color,Urine Light Yellow; Glucose,Urine (UA) Negative (Negative); Ketones,Urine Negative (Negative); Leukocyte Esterase,Urine Large (Negative); Nitrite,Urine Negative (Negative); PH, Urine 7.5 (5.0-8.0); Protein,Urine 1+ (Negative); Specific Gravity,Urine 1.009 (1.001-1.035); Squamous Epithelial Cell,Urine <1 /hpf (0-4); Urobilinogen,Urine <2.0 mg/dL (<2.0); WBC,Urine 52 /hpf (0-5)
--- NOTE | 2021-02-26 14:10 | CT ---
EXAMINATION TYPE: CT abdomen pelvis wo con DATE OF EXAM: 02/26/2021 HISTORY: LLQ pain CT DLP: 1020.4 mGycm. Automated Exposure Control for Dose Reduction was Utilized. TECHNIQUE: CT scan of the abdomen and pelvis is performed without oral or IV contrast. COMPARISON: CTA aorta November 27, 2012 FINDINGS: Within the limitations of a non-contrast study, the following observations are made. LUNG BASES: Persistent cardiomegaly. Partial visualization of overlying sternal wires from CABG proce dure. Left basilar consolidation and/or atelectasis with tiny left pleural fluid collection. LIVER/GB: Cholecystectomy clips redemonstrated.. PANCREAS: No significant abnormality is seen. SPLEEN: Splenule in the anterior splenic hilum axial image 46 stable or slightly larger. ADRENALS: No significant abnormality is seen. KIDNEYS: Thin-walled cysts of varying size and shape bilaterally are identified. Some cortical thinni ng bilaterally. There are to 3 small calculi scattered throughout right kidney measuring 3 mm or smal ler in size. There is severe right-sided hydronephrosis due to obstructing 18 mm calculus proximal ri ght ureter coronal image 52. Prior visualized large exophytic thin-walled simple cyst lower pole left kidney now shows heterogeneous hyperdense material measuring by 11.3 x 11.2 x 9.8 cm axial image 92 and coronal image 48 suggesting internal blood product or hemorrhage, increased in size from prior st udy with local mass effect. No left-sided hydronephrosis. BOWEL: No significant abnormality is seen. GENITAL ORGANS: Prostate gland is stable and upper limits of normal in size. LYMPH NODES: No greater than 1cm abdominal or pelvic lymph nodes are appreciated. OSSEOUS STRUCTURES: Mild to moderate multilevel spurring in the spine. Moderate disc space narrowing L4-L5 level. Moderate narrowing and spurring about both hip joints OTHER: Moderate calcified plaque of the aorta extends into branch vessels. There is chronic dissectio n visualized portion of aorta with new irregular anterior outpouching measuring up to 4.9 cm axial im age 81. New bifemoral stent graft anterior pelvis. IMPRESSION: 1. Enlarging 11.3 cm now slightly hyperdense round circumscribed lesion left lower quadrant appears t o reflect enlarging thin-walled exophytic cyst from the left kidney. Presents of new hyperdense mater ial suggests blood product or hemorrhage. Correlate clinically. Local mass effect may be accounting f or patient's symptoms. 2. Known aortic dissection less well seen on noncontrast imaging. New Lobulated and irregular 4.9 cm aneurysm of the distal abdominal aorta right before bifurcation . Advise vascular surgical referral. 3. New severe right-sided hydronephrosis due to obstructing 18 mm calculus proximal right ureter.
== END 2021-02-26 15:01 | disposition home or self-care (01) ==
LOC: EC 11:12
DX: N20.0 Calculus of kidney (principal); N28.1 Cyst of kidney, acquired; I25.10 Atherosclerotic heart disease of native coronary artery without angina pectoris; I50.9 Heart failure, unspecified; Z86.718 Personal history of other venous thrombosis and embolism; Z90.49 Acquired absence of other specified parts of digestive tract; Z90.89 Acquired absence of other organs; Z95.5 Presence of coronary angioplasty implant and graft
CPT/HCPCS: 36415; 93005; 80053; 82150; 83605; 83690; 83735; 85025; 81001; 87086; 71046; 74176; 99284; 96374; 96375; J2405; J1170

== ENCOUNTER 2021-03-01 10:11 | Day surgery (SDC) | payer MEDICARE, OTHER ==
[2021-02-28 10:30] VITALS: BMI 30.1
--- NOTE | 2021-02-28 11:51 | P.GSHP ---
History of Present Illness H&P Date: 02/16/21 Chief Complaint: Right hydronephrosis The patient is a 70-year-old white male with a history of urolithiasis. In 2012 he was found to have an 11 mm right renal pelvic calculus. Since May 2019, he has been noted to have marked right hydroureteronephrosis due to a 10 x 17 mm right midureteral calculus. He sustained a left-sided stroke in June 2020, and underwent PTCA with stent placement at that time. Alternative treatment options a been reviewed. He has an abdominal aortic aneurysm adjacent to the calculus, and he has been advised that ureteroscopy with laser lithotripsy as the optimal treatment method. He has been cleared by Cardiology (Dr. Harding). - Constitutional Constitutional: Denies chills, Denies fever - Genitourinary (Male) Genitourinary: Reports kidney stones, Denies dysuria, Denies flank pain, Denies hematuria Past Medical History Past Medical History: Coronary Artery Disease (CAD), Heart Failure, CVA/TIA, Deep Vein Thrombosis (DVT), Eye Disorder, Hyperlipidemia, Hypertension, Myocardial Infarction ([place]), Pneumonia, Renal Disease, Skin Disorder, Vascular Disorder Additional Past Medical History / Comment(s): Pt recently admitted to [facility] on 06/27/20 NSTEMI/AMS d/t dehydration/chf/chronic L hydronephrosis which is to be followed up outpt. 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 Date of Last Stent Placement:: 07/01/20 Past Psychological History: No Psychological Hx Reported Additional Psychological History / Comment(s): Pt resides with his spouse. He uses a cane prn. He drives. He is independent. Smoking Status: Never smoker Past Alcohol Use History: None Reported Past Drug Use History: None Reported - Past Family History Mother Family Medical History: Myocardial Infarction ([place]) Additional Family Medical History / Comment(s): Mother of a [place] at the age of 37yrs. Father Family Medical History: Myocardial Infarction ([place]) Additional Family Medical History / Comment(s): Father of a [place] at the age of 58yrs. Medications and Allergies Home Medications Medication Instructions Recorded Confirmed Type carvediloL [Coreg] 6.25 mg PO BID@1000,1800 07/16/19 02/28/21 History Furosemide [Lasix] 20 mg PO DAILY@1000 06/23/20 02/28/21 History Atorvastatin [Lipitor] 40 mg PO DAILY 90 Days #90 tab 06/25/20 02/28/21 Rx Nitroglycerin Sl Tabs [Nitrostat] 0.4 mg SUBLINGUAL Q5M PRN 180 Days 06/25/20 02/28/21 Rx #100 tab hydrALAZINE HCL [Apresoline] 25 mg PO BID 90 Days #180 tab 06/25/20 02/28/21 Rx Clopidogrel [Plavix] 75 mg PO DAILY 90 Days #90 tab 07/03/20 02/28/21 Rx Isosorbide Mononitrate ER [Imdur] 60 mg PO DAILY 90 Days #90 07/03/20 02/28/21 Rx tab.er.24h Ciprofloxacin HCl [Cipro] 500 mg PO BID 7 Days #14 tab 02/26/21 02/28/21 Rx HYDROcodone/APAP 5-325MG [[place] 1 tab PO Q6HR PRN #10 tab 02/26/21 02/28/21 Rx 5-325] Apixaban [Eliquis] 2.5 mg PO BID 02/28/21 02/28/21 History Allergies Allergy/AdvReac Type Severity Reaction Status Date / Time cephalexin [From Keflex] Allergy Rash/Hives Verified 02/28/21 10:10 codeine Allergy Unknown Verified 02/28/21 10:10 Penicillins Allergy Rash/Hives Verified 02/28/21 10:10 strawberry Allergy Unknown Verified 02/28/21 10:10 Surgical - Exam - General well developed, well nourished, no distress - Respiratory normal respiratory effort, clear to auscultation - Cardiovascular Rhythm: regular Abnormal Heart Sounds: no systolic murmur, no diastolic murmur, no rub, no S3 Gallop, no S4 Gallop, no click, no other - Abdomen Abdomen: soft, non tender, no guarding, no rigid, no rebound - Genitourinary normal penis with no external lesions, testicles non-tender - Psychiatric oriented to time, oriented to person, oriented to place, speech is normal, memory intact Results - Imaging CT scan - abdomen: report reviewed, image reviewed Assessment and Plan (1) Calculus of ureter Status: Acute Code(s): N20.1 - CALCULUS OF URETER SNOMED Code(s): 15935709 (2) Hydronephrosis with renal and ureteral calculous obstruction Status: Acute Code(s): N13.2 - HYDRONEPHROSIS WITH RENAL AND URETERAL CALCULOUS OBSTRUCTION SNOMED Code(s): 100116377 Plan: Cystoscopy, right ureteroscopy with holmium laser lithotripsy, right ureteral stent insertion. The procedure has been reviewed in detail with the patient and his daughter. They are aware of potential risks, which include anesthesia, bleeding, infection, and ureteral injury. He is aware that multiple procedures may be required. He is aware that he has lost some right renal function, and that he is at risk of developing a right ureteral stricture.
[~2021-03-01 10:11] MED LIST: DEXAMETHASONE SOD PHOSPHATE 4 MG/ML 1 ML VIAL IV ONE; HYDROmorphone 0.5 MG/0.5 ML SYRINGE IVP PRN; LACTATED RINGERS 1,000 ML IV SCH; LEVOFLOXACIN 500MG-D5W PMX 500 MG in DEXTROSE/WATER 1 100ML.BAG IVPB PRN; ONDANSETRON 4 MG/2 ML VIAL IVP ONE
[2021-03-01] MEDS ORDERED: LIDOCAINE 1% (10MG/ML) FOR IV START SQ ONE (11:15)
--- NOTE | 2021-03-01 11:39 | XR ---
EXAMINATION TYPE: XR KUB DATE OF EXAM: 03/01/2021 COMPARISON: CT 02/26/2021 INDICATION: Renal stones right side TECHNIQUE: Single view abdomen supine view FINDINGS: There is a nonspecific bowel gas pattern. Psoas margins are normal. No organomegaly is present. There is a large 2.6 x 1.4 cm oval calcification overlying the right iliac crest at the level of the L5 vertebral body. IMPRESSION: 1. Large right ureteral stone may be present. This correlates with the CT examination
[2021-03-01] MEDS ORDERED: PHENYLEPHRINE-0.9% NACL SYG 1,000 MCG/10 ML SYRINGE ONE (12:47)
[2021-03-01] MEDS ORDERED: fentaNYL (PF) 50 MCG/ML 2 ML AMP ONE (12:47)
[2021-03-01] MEDS ORDERED: LIDOCAINE 1% INJ 10MG/ML (20 ML MDV) ONE (12:47)
[2021-03-01] MEDS ORDERED: PROPOFOL 10 MG/ML 20 ML VIAL IV ONE (12:47)
[2021-03-01] MEDS ORDERED: MIDAZOLAM 2 MG/2 ML VIAL ONE (12:47)
[2021-03-01] MEDS ORDERED: LACTATED RINGERS 1,000 ML IV ONE (14:20)
--- NOTE | 2021-03-01 14:49 | P.OP ---
Date of Procedure: 03/01/21 Preoperative Diagnosis: Right ureteral calculus Postoperative Diagnosis: Same Procedure(s) Performed: Cystoscopy, right ureteroscopy with Holmium laser lithotripsy and stone basketing, right ureteral stent insertion Anesthesia: LEIDAA Surgeon: Nick Clinton Estimated Blood Loss (ml): 5 IV fluids (ml): 1,200 Pathology: other (Calculus fragments, sent for chemical analysis) Condition: stable Disposition: PACU Indications for Procedure: The patient is a 70-year-old white male with a history of urolithiasis. In 2012 he was found to have an 11 mm right renal pelvic calculus. Since May 2019, he has been noted to have marked right hydroureteronephrosis due to a 10 x 17 mm right midureteral calculus. He sustained a left-sided stroke in June 2020, and underwent PTCA with stent placement at that time. Alternative treatment options a been reviewed. He has an abdominal aortic aneurysm adjacent to the calculus, and he has been advised that ureteroscopy with laser lithotripsy as the optimal treatment method. Operative Findings: Large right mid-ureteral calculus, not impacted, fragmented well. Description of Procedure: The patient was taken to the operating room and placed in the dorsolithotomy position, with legs supported in Moy stirrups. The external genitalia was prepped and draped sterilely. The 30 lens was used to introduce the 21-Guine[place] Suarez cystoscopic sheath through the urethra and into the bladder under direct vision. The prostatic urethra showed evidence of mild lateral lobe enlargement. The bladder was examined in its entirety. Both ureteral orifices were normal anatomic location and configuration, and clear urine effluxed from both. No tumors or foreign bodies were seen. A 0.038 inch Glidewire was passed through the cystoscope. The ureteral orifice was cannulated, and the Glidewire was advanced beyond the calculus and up to the renal pelvis. The cystoscope was removed, and an 12/14-Guinean ureteral access catheter was passed over the wire, up to the mid-ureter. The flexible ureteroscope was then passed through the ureteral access catheter sheath, up to the stone. The 272 micron Holmium laser probe was passed through the ureteroscope, and lithotripsy was performed. The calculus was not impacted. It was not particularly dense and fragmented well. After fragmenting the calculus, a 1.9-Guinean nitinol basket was used to remove some of the calculus fragments. However, they were still abundant that it was difficult to maneuver within the ureter. There was no evidence of ureteral perforation. The decision was made to place a ureteral stent. The Glidewire was passed through the ureteral access catheter sheath, which was removed. The Glidewire was backloaded into the cystoscope, which was passed into the bladder. A 26 cm, 6-Guinean double-J ureteral stent was placed over the wire. Proper stent positioning was verified fluoroscopically and endoscopically. The bladder was emptied and the cystoscope removed. The patient tolerated the procedure well and was taken to the recovery room in stable condition. [facility] [place] Report: Procedure Acuity: Elective Stone Size and Location: 10 x 17 mm, right mid ureter Ureteral Dilation: No Ureteral Access Sheath Used: Yes Stone Sent for Analysis: Yes All Stones/Fragments Were Removed with a Basket: No Complications: No Preoperative Antibiotics Given: Yes Stent Placed: Yes If Stent Placed, Was String Left Attached: No If Stent Placed, When is it to be Removed: 1 month Discharge Medications:
[2021-03-01 15:00] VITALS: TEMP 97.7
[2021-03-01 15:37] VITALS: RESP 18
[2021-03-01 15:54] VITALS: BP 125/87; PULSE 98
--- NOTE | 2021-03-01 17:00 | FL ---
Fluoroscopy INDICATION: Pain FINDINGS: Fluoroscopy time: 46 seconds. Images obtained: 3. IMPRESSIONS: 1. Documentation of fluoroscopy.
== END 2021-03-01 16:15 | disposition home or self-care (01) ==
LOC: OR 10:11
PROVIDERS: ATTEND Urology
DX: N13.2 Hydronephrosis with renal and ureteral calculous obstruction (principal); I25.10 Atherosclerotic heart disease of native coronary artery without angina pectoris; Z86.711 Personal history of pulmonary embolism; I25.2 Old myocardial infarction; E78.5 Hyperlipidemia, unspecified; I13.0 Hypertensive heart and chronic kidney disease with heart failure and stage 1 through stage 4 chronic kidney disease, or unspecified chronic kidney disease; I50.9 Heart failure, unspecified; N18.30 Chronic kidney disease, stage 3 unspecified; I42.9 Cardiomyopathy, unspecified; I71.2 Thoracic aortic aneurysm, without rupture; Z79.899 Other long term (current) drug therapy; Z79.02 Long term (current) use of antithrombotics/antiplatelets; Z95.5 Presence of coronary angioplasty implant and graft; Z79.01 Long term (current) use of anticoagulants
CPT/HCPCS: 84132; 82365; 74018; 52356; C2625; C1769; C1894; J2250; J1100; J2405; J1956; J2001; J3010; J2370; J2704

== ENCOUNTER → 2021-03-21 | Day surgery (SDC) | payer MEDICARE, OTHER ==
--- NOTE | 2021-03-19 07:22 | P.GSHP ---
History of Present Illness H&P Date: 03/19/21 Chief Complaint: Right hydronephrosis The patient is a 70-year-old white male with a history of urolithiasis. In 2012 he was found to have an 11 mm right renal pelvic calculus. Since May 2019, he has been noted to have marked right hydroureteronephrosis due to a 10 x 17 mm right midureteral calculus. He sustained a left-sided stroke in June 2020, and underwent PTCA with stent placement at that time. On 03/01/2021 he underwent right ureteroscopy with laser lithotripsy. The majority of the calculus was removed at that time. There was a considerable amount of debris within the ureter, and therefore a ureteral stent was placed. He now comes for stent removal. Ureteroscopy will be performed to remove any residual calculus fragments, either via laser lithotripsy and/or stone basketing. - Constitutional Constitutional: Denies chills, Denies fever - Genitourinary (Male) Genitourinary: Reports kidney stones, Denies flank pain, Denies hematuria Past Medical History Past Medical History: Coronary Artery Disease (CAD), Heart Failure, CVA/TIA, Deep Vein Thrombosis (DVT), Eye Disorder, Hypertension, Myocardial Infarction (NE), Pneumonia, Renal Disease, Skin Disorder, Vascular Disorder Additional Past Medical History / Comment(s): NSTEMI/AMS d/t dehydration/chf/chronic L hydronephrosis which is to be followed up outpt. 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 Date of Last Stent Placement:: 07/01/20 Past Psychological History: No Psychological Hx Reported Smoking Status: Never smoker Past Alcohol Use History: None Reported Past Drug Use History: None Reported - Past Family History Mother Family Medical History: Myocardial Infarction (NE) Additional Family Medical History / Comment(s): Mother of a NE at the age of 37yrs. Father Family Medical History: Myocardial Infarction (NE) Additional Family Medical History / Comment(s): Father of a NE at the age of 58yrs. Medications and Allergies Home Medications Medication Instructions Recorded Confirmed Type carvediloL [Coreg] 6.25 mg PO BID@1000,1800 07/16/19 03/01/21 History Furosemide [Lasix] 20 mg PO DAILY@1000 06/23/20 03/01/21 History Atorvastatin [Lipitor] 40 mg PO DAILY 90 Days #90 tab 06/25/20 03/01/21 Rx Nitroglycerin Sl Tabs [Nitrostat] 0.4 mg SUBLINGUAL Q5M PRN 180 Days 06/25/20 03/01/21 Rx #100 tab hydrALAZINE HCL [Apresoline] 25 mg PO BID 90 Days #180 tab 06/25/20 03/01/21 Rx Clopidogrel [Plavix] 75 mg PO DAILY 90 Days #90 tab 07/03/20 02/28/21 Rx Isosorbide Mononitrate ER [Imdur] 60 mg PO DAILY 90 Days #90 07/03/20 03/01/21 Rx tab.er.24h Ciprofloxacin HCl [Cipro] 500 mg PO BID 7 Days #14 tab 02/26/21 03/01/21 Rx HYDROcodone/APAP 5-325MG [[place] 1 tab PO Q6HR PRN #10 tab 02/26/21 03/01/21 Rx 5-325] Apixaban [Eliquis] 2.5 mg PO BID 02/28/21 02/28/21 History Allergies Allergy/AdvReac Type Severity Reaction Status Date / Time cephalexin [From Keflex] Allergy Rash/Hives Verified 03/01/21 11:04 codeine Allergy Unknown Verified 03/01/21 11:04 Penicillins Allergy Rash/Hives Verified 03/01/21 11:04 strawberry Allergy Unknown Verified 03/01/21 11:04 Surgical - Exam - General well developed, well nourished, no distress - Respiratory normal respiratory effort, clear to auscultation - Cardiovascular Rhythm: regular Abnormal Heart Sounds: no systolic murmur - Abdomen Abdomen: soft, non tender, no guarding, no rigid, no rebound - Genitourinary normal penis with no external lesions, testicles non-tender - Psychiatric oriented to time, oriented to person, oriented to place, speech is normal, memory intact Results - Imaging CT scan - abdomen: report reviewed, image reviewed Assessment and Plan (1) Calculus of ureter Status: Acute Code(s): N20.1 - CALCULUS OF URETER SNOMED Code(s): 96422014 Plan: Cystoscopy, right ureteral stent removal, right ureteroscopy with holmium laser lithotripsy and possible stone basketing to remove residual calculus fragments. The procedure has been reviewed in detail with the patient and his daughter. They are aware of potential risks, which include anesthesia, bleeding, infection, and ureteral injury. He is aware that additional procedures may be required. He is aware that he has lost some right renal function, and that he is at risk of developing a right ureteral stricture.
[2021-03-19 14:05] VITALS: BMI 30.2
[~2021-03-21] MED LIST changes: +GLYCOPYRROLATE 0.2 MG/ML 2 ML VIAL ONE; -HYDROmorphone 0.5 MG/0.5 ML SYRINGE IVP PRN; +LACTATED RINGERS 1,000 ML IV ONE; -LACTATED RINGERS 1,000 ML IV SCH; +LIDOCAINE 1% (10MG/ML) FOR IV START INTRADERMA ONE; +LIDOCAINE 1% INJ 10MG/ML (20 ML MDV) ONE; -ONDANSETRON 4 MG/2 ML VIAL IVP ONE; +ONDANSETRON 4 MG/2 ML VIAL ONE; +PHENYLEPHRINE-0.9% NACL SYG 1,000 MCG/10 ML SYRINGE ONE; +PROPOFOL 10 MG/ML 20 ML VIAL IV ONE; +SUCCINYLCHOLINE CHLORIDE 100 MG/5 ML SYR IV ONE; +ePHEDrine SULFATE/0.9% NACL/PF 50 MG/5 ML SYRINGE IV ONE; +fentaNYL (PF) 50 MCG/ML 2 ML AMP ONE
--- NOTE | 2021-03-21 11:54 | XR ---
EXAMINATION TYPE: XR KUB DATE OF EXAM: 03/21/2021 10:59 AM CLINICAL HISTORY: Preoperative, right sided kidney stone history TECHNIQUE: Single supine KUB image of the abdomen is obtained. COMPARISON: None. FINDINGS: Cholecystectomy clips. Right ureteral stent is seen. There are probably 2 adjacent calculi at the distal portion of the mid ureter measuring up to 1.1 cm with the smaller calculus measuring up to 5 mm. This is at the level L4-5. Stool and gas obscure visualization of the right renal contour. No definite evidence of left renal or ureteral calculi. Presumed left hemipelvic calcified phlebolith s. Degenerative changes of the lower lumbar spine and hips. IMPRESSION: 1. Right ureteral stent. Probably at least 2 calculi measuring up to 1.1 cm at the distal portion of the mid ureter at L4-5 level. Stool and gas obscure visualization of the right renal contour. 2. No definite evidence of left renal or ureteral calculi. 3. Cholecystectomy.
--- NOTE | 2021-03-21 16:31 | P.OP ---
Date of Procedure: 03/21/21 Preoperative Diagnosis: Right ureteral calculus Postoperative Diagnosis: Same Procedure(s) Performed: Cystoscopy, right ureteral stent removal, right ureteroscopy with Holmium laser lithotripsy Anesthesia: LEIDAA Surgeon: Nick Clinton Estimated Blood Loss (ml): 0 IV fluids (ml): 700 Pathology: none sent Condition: stable Disposition: PACU Indications for Procedure: The patient is a 70-year-old white male with a history of urolithiasis. In 2012 he was found to have an 11 mm right renal pelvic calculus. Since May 2019, he has been noted to have marked right hydroureteronephrosis due to a 10 x 17 mm right midureteral calculus. He sustained a left-sided stroke in June 2020, and underwent PTCA with stent placement at that time. On 03/01/2021 he underwent right ureteroscopy with laser lithotripsy. The majority of the calculus was removed at that time. There was a considerable amount of debris within the ureter, and therefore a ureteral stent was placed. He now comes for stent removal. Ureteroscopy will be performed to remove any residual calculus fragments, either via laser lithotripsy and/or stone basketing. Operative Findings: Residual right ureteral calculus fragments, fragmented completely. Description of Procedure: The patient was taken to the operating room and placed in the dorsolithotomy position, with legs supported in Moy stirrups. The external genitalia was prepped and draped sterilely. The 30 lens was used to introduce the 21-Bulgarian Suarez cystoscopic sheath through the urethra and into the bladder under direct vision. The prostatic urethra showed evidence of mild lateral lobe enlargement. The bladder was examined in its entirety. Both ureteral orifices were normal anatomic location and configuration, and clear urine effluxed from both. No tumors or foreign bodies were seen. Grasping forceps were used to grasp the distal end of the right ureteral stent, which was removed along with the cystoscope. The semirigid ureteroscope was advanced into the bladder under direct vision. The right ureteral orifice was cannulated, and the ureteroscope was slowly advanced under direct vision. Calculus fragments were encountered within the di stal ureter. A 200 holmium laser probe was passed through the ureteroscope, and lithotripsy was performed. After fragmenting these calculi, the ureteroscope was slowly advanced to encounter additional calculi, which were fragmented. There was an area of ureteral narrowing, through which the ureteroscope could be advanced without difficulty. After fragmenting all of the ureteral calculus fragments to less than 1 mm, the semirigid ureteroscope was removed and the flexible ureteroscope was passed into the bladder. The right ureteral orifice was cannulated, and the ureteroscope was advanced under direct vision up to the right renal pelvis. Within a lower pole calyx were several calculus fragments measuring 3-4 mm in size. These were fragmented to 1 mm fragments, and the ureteroscope was then slowly withdrawn under direct vision. Additional lithotripsy was performed as needed. There was no evidence of ureteral perforation. After removing the ureteroscope, the cystoscope was again passed into the bladder. Calculus fragments were removed from the bladder as the bladder was emptied. The cystoscope was removed and the procedure was terminated. The patient tolerated the procedure well and was taken to the recovery room in stable condition.
[2021-03-21 16:55] VITALS: TEMP 96.9
[2021-03-21 16:57] VITALS: RESP 16
[2021-03-21 18:45] VITALS: PULSE 100
[2021-03-21 18:46] VITALS: BP 135/90
--- NOTE | 2021-03-23 09:55 | FL ---
Fluoroscopy HISTORY: Renal stone 14 seconds fluoroscopy time supplied to the referring clinician. 1 intraoperative C-arm images docum ent the procedure. See dictated report from urology.
== END | disposition home or self-care (01) ==
LOC: OR 10:35
PROVIDERS: ATTEND Urology
DX: Z46.6 Encounter for fitting and adjustment of urinary device (principal); N20.1 Calculus of ureter; I25.10 Atherosclerotic heart disease of native coronary artery without angina pectoris; Z86.73 Personal history of transient ischemic attack (TIA), and cerebral infarction without residual deficits; Z86.718 Personal history of other venous thrombosis and embolism; I13.0 Hypertensive heart and chronic kidney disease with heart failure and stage 1 through stage 4 chronic kidney disease, or unspecified chronic kidney disease; N18.30 Chronic kidney disease, stage 3 unspecified; I50.9 Heart failure, unspecified; I48.91 Unspecified atrial fibrillation; I25.2 Old myocardial infarction; Z87.01 Personal history of pneumonia (recurrent); Z86.010 Personal history of colon polyps; Z89.511 Acquired absence of right leg below knee; Z98.890 Other specified postprocedural states; Z90.49 Acquired absence of other specified parts of digestive tract; Z95.5 Presence of coronary angioplasty implant and graft; Z87.442 Personal history of urinary calculi; Z82.49 Family history of ischemic heart disease and other diseases of the circulatory system; Z79.01 Long term (current) use of anticoagulants; Z79.02 Long term (current) use of antithrombotics/antiplatelets; Z79.899 Other long term (current) drug therapy; Z88.1 Allergy status to other antibiotic agents; Z88.5 Allergy status to narcotic agent; Z88.0 Allergy status to penicillin; Z91.018 Allergy to other foods
CPT/HCPCS: 84132; 74018; 52353; C1769; J1100; J2405; J1956; J2001; J3010; J2370; J0330; J2704

== ENCOUNTER 2021-04-01 06:39 | Inpatient (IN) | payer MEDICARE, OTHER ==
[2021-04-01] MEDS ORDERED: ASPIRIN 81 MG PO STA (07:29)
[2021-04-01] MEDS ORDERED: NITROGLYCERIN OINT 1 INCH/GM PACKET TOPICAL STA (07:29)
--- NOTE | 2021-04-01 07:49 | ED ---
General Adult HPI - General Chief complaint: Chest Pain Stated complaint: Chest pain Time Seen by Provider: 04/01/21 07:00 Source: patient, EMS, RN notes reviewed, old records reviewed Mode of arrival: EMS - History of Present Illness Initial comments: This is a 71-year-old male who presents emergency department with past medical history significant for aortic dissection. Patient states he had repair years ago. Patient states he woke up this morning in the middle the night with chest discomfort and shortness of breath. Patient states it's much improved at this point time and it does not feel at all like the aortic dissection. Patient states he is having chest discomfort now. No shortness of breath. Patient denies any headache patient denies numbness weakness. Patient denies any back pain. Patient denies any radiation of the pain. Patient denies any diaphoretic episodes. Patient denies any nausea vomiting diarrhea. Patient denies any abdominal pain. Patient denies any recent fever chills or cough. - Related Data Home Medications Medication Instructions Recorded Confirmed carvediloL [Coreg] 6.25 mg PO BID@1000,1800 07/16/19 03/19/21 Furosemide [Lasix] 20 mg PO DAILY@1000 06/23/20 03/21/21 Apixaban [Eliquis] 2.5 mg PO BID 02/28/21 03/20/21 Isosorbide Mononitrate ER [Imdur] 30 mg PO DAILY 03/19/21 03/19/21 Previous Rx's Medication Instructions Recorded Nitroglycerin Sl Tabs [Nitrostat] 0.4 mg SUBLINGUAL Q5M PRN 180 Days 06/25/20 #100 tab hydrALAZINE HCL [Apresoline] 25 mg PO BID 90 Days #180 tab 06/25/20 Clopidogrel [Plavix] 75 mg PO DAILY 90 Days #90 tab 07/03/20 Allergies Allergy/AdvReac Type Severity Reaction Status Date / Time cephalexin [From Keflex] Allergy Rash/Hives Verified 04/01/21 06:47 codeine Allergy Unknown Verified 04/01/21 06:47 Penicillins Allergy Rash/Hives Verified 04/01/21 06:47 strawberry Allergy Rash/Hives Verified 04/01/21 06:47 Review of Systems ROS Statement: Those systems with pertinent positive or pertinent negative responses have been documented in the HPI. ROS Other: All systems not noted in ROS Statement are negative. Past Medical History Past Medical History: Coronary Artery Disease (CAD), Heart Failure, CVA/TIA, Deep Vein Thrombosis (DVT), Eye Disorder, Hyperlipidemia, Hypertension, Myocardial Infarction (NE), Pneumonia, Renal Disease, Skin Disorder Additional Past Medical History / Comment(s): NSTEMI/AMS d/t dehydration/chf/chronic L hydronephrosis which is to be followed up outpt. 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 Date of Last Stent Placement:: 07/01/20 Past Psychological History: Anxiety Smoking Status: Never smoker - Past Family History Mother Family Medical History: Myocardial Infarction (NE) Additional Family Medical History / Comment(s): Mother of a NE at the age of 37yrs. Father Family Medical History: Myocardial Infarction (NE) Additional Family Medical History / Comment(s): Father of a NE at the age of 58yrs. General Exam - General Exam Comments Initial Comments: GENERAL: Patient is well-developed and well-nourished. Patient is nontoxic and well- hydrated and is in mild distress. ENT: Neck is soft and supple. No significant lymphadenopathy is noted. Oropharynx is clear. Moist mucous membranes. Neck has full range of motion without eliciting any pain. EYES: The sclera were anicteric and conjunctiva were pink and moist. Extraocular movements were intact and pupils were equal round and reactive to light. Eyelids were unremarkable. PULMONARY: Unlabored respirations. Patient has diminished breath sounds in the left base CARDIOVASCULAR: There is a regular rate and rhythm without any murmurs gallops or rubs. ABDOMEN: Soft and nontender with normal bowel sounds. SKIN: Skin is clear with no lesions or rashes and otherwise unremarkable. NEUROLOGIC: Patient is alert and oriented x3. Cranial nerves II through XII are grossly intact. Motor and sensory are also intact. Normal speech, volume and content. Symmetrical smile. MUSCULOSKELETAL: Normal extremities with adequate strength and full range of motion. No lower extremity swelling or edema. No calf tenderness. LYMPHATICS: No significant lymphadenopathy is noted PSYCHIATRIC: Normal psychiatric evaluation. Course Vital Signs 04/01/21 04/01/21 04/01/21 06:42 07:12 08:33 Temperature 98.1 F Pulse Rate 115 H 110 H 110 H Respiratory 18 16 18 Rate Blood Pressure 119/95 113/85 117/89 O2 Sat by Pulse 95 100 96 Oximetry Medical Decision Making - Medical Decision Making EKG shows sinus tachycardia at 111 bpm MD interval 268 QRSs 160 QTC intervals 408 QTC is 554. Patient's EKG shows some ST segment depression in V4 V5 and V6 which she is slight and seen on a Homero EKG. Patient states he has been having tachycardia for the last few months. Chest x-ray shows left-sided pleural effusion that is relatively unchanged from last chest x-ray. One pack and reevaluate the patient to me he had no more chest pain and he was feeling considerably better. Patient's heart rate was still 110. Patient's d- dimer was elevated however I could not to CT with IV contrast because of his kidney dysfunction. Patient's BNP was elevated but clinically he did not appear to be pulmonary edema. I spoke with Dr. Escoto I indicated to him his d-dimer was elevated but was unable to do a computed tomography scan and therefore unable to start him on heparin at this point time he was aware I consult cardiology and I ordered a VQ scan. - Lab Data Result diagrams: 04/01/21 07:36 04/01/21 07:36 Lab Results 04/01/21 04/01/21 04/01/21 Range/Units 07:36 07:36 07:36 WBC 4.8 (3.8-10.6) k/uL RBC 3.87 L (4.30-5.90) m/uL Hgb 9.2 L (13.0-17.5) gm/dL Hct 30.5 L (39.0-53.0) % MCV 78.8 L (80.0-100.0) fL MCH 23.8 L (25.0-35.0) pg MCHC 30.2 L (31.0-37.0) g/dL RDW 15.6 H (11.5-15.5) % Plt Count 149 L (150-450) k/uL MPV 9.2 Neutrophils % 64 % Lymphocytes % 21 % Monocytes % 6 % Eosinophils % 7 % Basophils % 1 % Neutrophils # 3.0 (1.3-7.7) k/uL Lymphocytes # 1.0 (1.0-4.8) k/uL Monocytes # 0.3 (0-1.0) k/uL Eosinophils # 0.3 (0-0.7) k/uL Basophils # 0.0 (0-0.2) k/uL Hypochromasia Marked PT 11.5 (9.0-12.0) sec INR 1.1 (<1.2) APTT 24.9 (22.0-30.0) sec D-Dimer 4.49 H (<0.60) mg/L FEU Sodium 141 (137-145) mmol/L Potassium 4.3 (3.5-5.1) mmol/L Chloride 108 H (98-107) mmol/L Carbon Dioxide 26 (22-30) mmol/L Anion Gap 7 mmol/L BUN 35 H (9-20) mg/dL Creatinine 2.69 H (0.66-1.25) mg/dL Est GFR (CKD-EPI)AfAm 26 (>60 ml/min/1.73 sqM) Est GFR (CKD-EPI)NonAf 23 (>60 ml/min/1.73 sqM) Glucose 104 H (74-99) mg/dL Calcium 8.8 (8.4-10.2) mg/dL Magnesium 2.2 (1.6-2.3) mg/dL Total Bilirubin 0.4 (0.2-1.3) mg/dL AST 26 (17-59) U/L ALT 18 (4-49) U/L Alkaline Phosphatase 108 (38-126) U/L Troponin I (0.000-0.034) ng/mL NT-Pro-B Natriuret Pep pg/mL Total Protein 6.3 (6.3-8.2) g/dL Albumin 3.5 (3.5-5.0) g/dL 04/01/21 04/01/21 Range/Units 07:36 07:36 WBC (3.8-10.6) k/uL RBC (4.30-5.90) m/uL Hgb (13.0-17.5) gm/dL Hct (39.0-53.0) % MCV (80.0-100.0) fL MCH (25.0-35.0) pg MCHC (31.0-37.0) g/dL RDW (11.5-15.5) % Plt Count (150-450) k/uL MPV Neutrophils % % Lymphocytes % % Monocytes % % Eosinophils % % Basophils % % Neutrophils # (1.3-7.7) k/uL Lymphocytes # (1.0-4.8) k/uL Monocytes # (0-1.0) k/uL Eosinophils # (0-0.7) k/uL Basophils # (0-0.2) k/uL Hypochromasia PT (9.0-12.0) sec INR (<1.2) APTT (22.0-30.0) sec D-Dimer (<0.60) mg/L FEU Sodium (137-145) mmol/L Potassium (3.5-5.1) mmol/L Chloride (98-107) mmol/L Carbon Dioxide (22-30) mmol/L Anion Gap mmol/L BUN (9-20) mg/dL Creatinine (0.66-1.25) mg/dL Est GFR (CKD-EPI)AfAm (>60 ml/min/1.73 sqM) Est GFR (CKD-EPI)NonAf (>60 ml/min/1.73 sqM) Glucose (74-99) mg/dL Calcium (8.4-10.2) mg/dL Magnesium (1.6-2.3) mg/dL Total Bilirubin (0.2-1.3) mg/dL AST (17-59) U/L ALT (4-49) U/L Alkaline Phosphatase (38-126) U/L Troponin I 0.032 (0.000-0.034) ng/mL NT-Pro-B Natriuret Pep 31063 pg/mL Total Protein (6.3-8.2) g/dL Albumin (3.5-5.0) g/dL Critical Care Time Critical Care Time: Yes Total Critical Care Time: 35 Disposition Clinical Impression: Unstable angina, Elevated d-dimer Disposition: ADMITTED IP TO THIS HOSP Referrals: Og Escoto MD [Primary Care Provider] - 1-2 days Time of Disposition: 08:46
[2021-04-01 07:58] LABS: Basophils % (A) 1 %; Eosinophils # (A) 0.3 k/uL (0-0.7); Eosinophils % (A) 7 %; HCT 30.5 % (39.0-53.0); HGB 9.2 gm/dL (13.0-17.5); Hypochromasia Marked; Lymphocytes % (A) 21 %; MCH 23.8 pg (25.0-35.0); MCHC 30.2 g/dL (31.0-37.0); MCV 78.8 fL (80.0-100.0); Mean Platelet Volume 9.2; Monocytes # (A) 0.3 k/uL (0-1.0); Monocytes % (A) 6 %; Neutrophils % (A) 64 %; Platelet Count 149 k/uL (150-450); RBC 3.87 m/uL (4.30-5.90); RDW 15.6 % (11.5-15.5); WBC 4.8 k/uL (3.8-10.6)
[2021-04-01 08:06] LABS: Albumin 3.5 g/dL (3.5-5.0); Calcium 8.8 mg/dL (8.4-10.2); Magnesium 2.2 mg/dL (1.6-2.3); Potassium 4.3 mmol/L (3.5-5.1); Total Bilirubin 0.4 mg/dL (0.2-1.3); Total Protein 6.3 g/dL (6.3-8.2)
--- NOTE | 2021-04-01 08:08 | XR ---
EXAMINATION TYPE: XR chest 2V DATE OF EXAM: 04/01/2021 COMPARISON: Chest x-ray and CT abdomen pelvis 02/26/2021 HISTORY: Chest pain TECHNIQUE: Frontal and lateral views of the chest are obtained. FINDINGS: Patient is post median sternotomy. There is an aortic stent along the distribution of the ascending aorta similar to prior exam with associated aneurysm. The heart remains enlarged. There is no evident pneumothorax. A sore density on the left with obscured left hemidiaphragm and heart border is stable and may represent chronic pleural reaction, effusion and associated atelectasis, difficult to exclude pneumonia. Surgical clips present over the right upper chest. IMPRESSION: Stable abnormal findings. Patient with known aortic aneurysm, dissection. There is cardi omegaly, postop change, possible chronic pleural reaction, lower lobe atelectasis or scar.
[2021-04-01 08:16] LABS: INR 1.1 (<1.2); Partial Thromboplastin Time 24.9 sec (22.0-30.0); Prothrombin Time 11.5 sec (9.0-12.0)
[2021-04-01] MEDS ORDERED: NITROGLYCERIN SL TABS 0.4 MG TAB SUBLINGUAL PRN ×2 (08:47→11:06)
--- NOTE | 2021-04-01 11:30 | NM ---
EXAMINATION TYPE: NM pul vent and perfuse DATE OF EXAM: 04/01/2021 COMPARISON: Prior exam 07/07/2019, chest x-ray 04/01/2021 HISTORY: Chest pain, elevated d-dimer and shortness of breath TECHNIQUE: Utilizing inhalation of 39.6 mCi Tc 99m DTPA aerosol and intravenous injection of 3.1 mCi of Tc 99m MAA, ventilation and perfusion images are acquired post injection in multiple projections. FINDINGS: Decreased uptake on ventilation and perfusion images within the left lung shows a matching appearance . Relative normal perfusion within the right lung. Perfusion overall is improved as compared to venti lation on the right. There is no evidence of mismatched defects. IMPRESSION: Findings are stable compared to prior ventilation/perfusion scan, low probability for pulmonary embol us
[2021-04-01] MEDS ORDERED: NITROGLYCERIN OINT 1 INCH/GM PACKET TOPICAL SCH (12:00)
--- NOTE | 2021-04-01 12:13 | CT ---
EXAMINATION TYPE: CT chest wo con DATE OF EXAM: 04/01/2021 COMPARISON: Chest x-ray 04/01/2021, CT chest 06/23/2020 HISTORY: Dyspnea, thoracic aneurysm, elevated d-dimer CT DLP: 494.5 mGycm. Automated Exposure Control for Dose Reduction was Utilized. TECHNIQUE: CT scan of the thorax is performed without IV contrast. FINDINGS: Lack of intravenous contrast could compromise sensitivity. LUNGS: The lungs are similar in appearance with some slight increase in attenuation adjacent to the p atient's descending aorta, interval development of minimal right pleural effusion, left pleural effus ion has grown slightly in the interval The tracheobronchial tree is patent. MEDIASTINUM: Lack of IV contrast is noted to limit evaluation for mediastinal and especially hilar ad enopathy. There is stable retrocaval pretracheal node, short axis measurement of approximately 15 mm No cardiomegaly or pericardial effusion is seen. Coronary artery calcifications are present. OTHER: Postop changes are again noted, there is a stent within the a sending aorta. The descending ao rta shows aneurysm and dissection similar to prior. Multiple cysts are associated with the kidneys. P atient is post cholecystectomy. IMPRESSION: There is a slight interval increase in the left pleural effusion, minimal right pleural e ffusion has developed. Some local atelectatic change or scarring at the left lung base along the desc ending aorta has increased as compared to prior. Cardiomegaly, coronary artery disease. Descending th oracic aortic aneurysm with dissection. Postop changes. Exam is limited due to lack of intravenous co ntrast. Cannot exclude a leaking aneurysm.
[2021-04-01] MEDS: carvediloL 12.5 MG TAB PO SCH ×2 (14:02→17:27)
[2021-04-01] MEDS: AMIODARONE 200 MG TAB PO SCH (14:03)
[2021-04-01] MEDS: ISOSORBIDE MONONITRATE ER 30 MG TAB.ER.24H PO SCH (14:05)
[2021-04-01] MEDS: prednisoLONE ACETATE 1% OPHTH DROPS 5 ML BTL RIGHT EYE SCH ×2 (17:47→20:02)
[2021-04-01] MEDS ORDERED: carvediloL 6.25 MG TAB PO SCH (18:00)
[2021-04-01] MEDS: BRIMONIDINE TARTRATE 0.2% DROPS 5 ML BTL RIGHT EYE SCH (20:02)
[2021-04-01] MEDS: APIXABAN 2.5 MG TABLET PO SCH (20:02)
[2021-04-01] MEDS: hydrALAZINE HCL 25 MG TAB PO SCH (22:02)
--- NOTE | 2021-04-02 06:29 | HP ---
HISTORY AND PHYSICAL 71-year-old white male came in with significant history of aortic dissection repaired years ago, middle of the night, chest discomfort, shortness of breath, much improved at this time. He woke up short of breath. Not sure if he has sleep apnea, has not been tested. He does not feel like he has aortic dissection prior, heavy chest discomfort now relieved by nitroglycerin in the emergency room and in ambulance at home. Currently is sitting up, sleeping good at this time, talking good at this time with minimal chest pain. He is on nitroglycerin patch. Denies any nausea, vomiting, diarrhea. Denies abdominal pain. Denies any fever, chills or cough. MEDICATIONS: Home medicines is Coreg 6.25 b.i.d., Lasix 20 daily, Eliquis 2.5 b.i.d., Imdur 30 mg daily, nitro sublingual p.r.n., hydralazine 25 b.i.d., Plavix 75 daily. ALLERGIES: TO KEFLEX, CODEINE, PENICILLIN, STRAWBERRIES. REVIEW OF SYSTEMS: Fourteen-point review of systems negative except for severe anxiety. PAST MEDICAL HISTORY: Coronary artery disease, heart failure, CVA, TIA, DVT, dyslipidemia, hypertension, myocardial infarction, renal disease, skin disorder, non STEMI, BKA, thoracic aortic aneurysm. SURGERIES: Appendectomy, cholecystectomy, heart catheterization with stent, orthopedic surgery. He had a left subclavian to right carotid bypass, thoracic aneurysm repair, colonoscopy, polypectomy, bilateral knee arthroscopies. FAMILY MEDICAL HISTORY: Mother myocardial infarction and father myocardial infarction. PHYSICAL EXAM: Well developed, well nourished, no acute distress. PSYCH: Fair mood and affect. MUSCULOSKELETAL: Range of motion full. NEUROLOGIC: Cranial nerves intact. SKIN: No rash, excoriation, bruising. GI soft. HEMATOLOGY: Negative Homans. Temperature 98.1, pulse is 110-115, respiratory 16 to 18, blood pressure 117 to 119 over 80s to 90s, O2 95-100. EKG sinus tachycardia. Suspect he has sleep apnea with chest pains, cause from atrial fibrillation rapid ventricular response. Elevated D-dimer. He has low contrast though V/Q low probability. He does not appear to have pulmonary edema, but his BNP is severely high. We will do a CT scan without contrast. Cardiology has seen him. He appears to be prerenal renal insufficiency with elevated BUN of 35 and creatinine 2.69. He has recently had a renal stone removed twice in the past month, but his creatinine has not improved at all since that time period. So, kidney stone likely has had little effect of his kidney function as a cause. His dissection aneurysm, which is chronic, hypertension acceleration, atrial fibrillation, rapid ventricular response. He states amiodarone is recently increased up to 200 mg a day. I suspect he has sleep apnea at home and needs a home sleep apnea machine, but he had a PA in the past. He has not been able to take it because of the cost of the machine, which is what he needs at home. MMODL / IJN: [id number] /
[2021-04-02] MEDS: carvediloL 12.5 MG TAB PO SCH ×2 (06:32→16:48)
[2021-04-02] MEDS: prednisoLONE ACETATE 1% OPHTH DROPS 5 ML BTL RIGHT EYE SCH ×3 (08:38→19:59)
[2021-04-02] MEDS: ISOSORBIDE MONONITRATE ER 30 MG TAB.ER.24H PO SCH (08:38)
[2021-04-02] MEDS: AMIODARONE 200 MG TAB PO SCH (08:38)
[2021-04-02] MEDS: APIXABAN 2.5 MG TABLET PO SCH ×2 (08:38→19:58)
[2021-04-02] MEDS: TAMSULOSIN 0.4 MG CAP.ER.24H PO SCH (08:38)
[2021-04-02] MEDS: CLOPIDOGREL 75 MG TAB PO SCH (08:38)
[2021-04-02] MEDS: hydrALAZINE HCL 25 MG TAB PO SCH ×2 (08:38→21:36)
[2021-04-02] MEDS: FUROSEMIDE 20 MG TAB PO SCH (08:38)
[2021-04-02] MEDS: BRIMONIDINE TARTRATE 0.2% DROPS 5 ML BTL RIGHT EYE SCH ×2 (08:42→19:59)
[2021-04-02] MEDS ORDERED: ISOSORBIDE MONONITRATE ER 30 MG TAB.ER.24H PO SCH (09:00)
[2021-04-02] MEDS ORDERED: ASPIRIN 325 MG TAB PO SCH (09:00)
[2021-04-02 11:38] LABS: Chol/HDL Ratio 3.27; LDL Cholesterol,Calculated 48.2 mg/dL (0.0-131.0); VLDL Calculation 10.8 mg/dL (5.00-40.00)
--- NOTE | 2021-04-02 11:40 | P.CRDCN ---
History of Present Illness Consult date: 04/02/21 History of present illness: HISTORY OF PRESENT ILLNESS: This is a 71-year-old male with a past medical history significant for coronary artery disease with previous PCI, paroxysmal atrial fibrillation on anticoagulation with Eliquis, aortic dissection repair, right BKA, systolic heart failure, chronic kidney disease, hypertension, hyperlipidemia, and ischemic cardiomyopathy. Patient follows in the office with Dr. Harding. We have been asked to see the patient in consultation for chest pain. Patient examined at the bedside. Patient states yesterday morning when he woke up he began having palpitations, shortness of breath, and chest pain. He denies any radiation of the pain. He does report feeling lightheaded during this time. He denied nausea, vomiting, or diaphoresis. Patient states his symptoms have all resolved this morning. Telemetry reveals atrial fibrillation with controlled ventricular rate. EKG reveals atrial fibrillation with controlled ventricular rate Chest xray stable abnormal findings. Patient with known aortic aneurysm and dissection. There is cardiomegaly, postoperative change, possible chronic pleural reaction, lower lobe atelectasis or scar. VQ scan: Low probability for PE Chest CT: Slight interval increase in left pleural effusion, minimal right pleural effusion has developed. Some local atelectatic changes or scarring at the left lung base along the descending aorta has increased compared to old exam . Cardiomegaly. Coronary artery disease. Descending thoracic aortic aneurysm with dissection. Postoperative changes. Laboratory data: WBC 4.8. Hemoglobin 9.2. Platelet count 149. D-dimer 4.49. Sodium 141. Potassium 4.3. BUN 35. Creatinine 2.69. Troponin negative 3. BNP 11,400. Current home cardiac medications include hydralazine 25 mg twice a day, Imdur 30 mg daily, Lasix 20 mg daily, Plavix 75 mg daily, Coreg 25 mg twice a day, Eliquis 2.5 mg twice a day, amiodarone 200 mg daily Most recent echocardiogram obtained in June 2020 revealed ejection fraction 35-40% basal inferior and mid inferior LV wall hypokinesis. Cardiac catheterization history: June 2020 with stenting to the RCA with 4 stents. Proximal LAD 50-60% stenosis. Mid LAD 30-40% stenosis. Diagonal 1 branch with 30% stenosis and mid 40% diagonal one stenosis. Distal apical LAD has 100% stenosis with left to left collaterals. Proximal circumflex 40% stenosis. REVIEW OF SYSTEMS: At the time of my exam: CONSTITUTIONAL: Denies fever or chills. HEENT: Denies blurred vision, vision changes, or eye pain. Denies hemoptysis CARDIOVASCULAR: Denies chest pain. Denies orthopnea. Denies PND. Denies palpitations RESPIRATORY: Denies shortness of breath. GASTROINTESTINAL: Denies abdominal pain. Denies nausea or vomiting. HEMATOLOGIC: Denies bleeding disorders. GENITOURINARY: Denies any blood in urine. SKIN: Denies pruitis. Denies rash. PHYSICAL EXAM: VITAL SIGNS: Reviewed. GENERAL: Well-developed in no acute distress. HEENT: Head is normocephalic. Pupils are equal, round. Sclerae anicteric. Mucous membranes of the mouth are moist. Neck supple. No JVD or thyromegaly LUNGS: Respirations even and unlabored. Lungs essentially clear to auscultation bilaterally. HEART: Irregular rate and rhythm. S1 and S2 heard. Systolic murmur noted. ABDOMEN: Soft. Nondistended. Nontender. EXTREMITIES: Normal range of motion. No clubbing or cyanosis. Peripheral pulses intact. No lower extremity edema. Right BKA noted. NEUROLOGIC: Awake and alert. Oriented x 3. ASSESSMENT: Chest pain, troponin negative x 3 Shortness of breath Paroxysmal atrial fibrillation, on anticoagulation with Eliquis Coronary artery disease with PCI to RCA, 2020 History of aortic dissection with repair Right BKA Chronic systolic heart failure, currently euvolemic, despite elevated BNP Ischemic cardiomyopathy Hypertension Hyperlipidemia Chronic kidney disease PLAN: An acute coronary event has been ruled out Continue home cardiac medications Continue anticoagulation with Eliquis Continue telemetry monitoring Further recommendations pending patient course Nurse practitioner note has been reviewed by physician. Signing provider agrees with the documented findings, assessment, and plan of care. Past Medical History Past Medical History: Coronary Artery Disease (CAD), Heart Failure, CVA/TIA, Deep Vein Thrombosis (DVT), Eye Disorder, Hyperlipidemia, Hypertension, Myocardial Infarction ([place]), Pneumonia, Renal Disease, Skin Disorder Additional Past Medical History / Comment(s): NSTEMI/AMS d/t dehydration/chf/chronic L hydronephrosis which is to be followed up outpt. 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 Date of Last Stent Placement:: 07/01/20 Past Psychological History: Anxiety Additional Psychological History / Comment(s): Pt resides with his spouse. He uses a cane prn. He drives. He is independent. Smoking Status: Never smoker Past Alcohol Use History: None Reported Past Drug Use History: None Reported - Past Family History Mother Family Medical History: Myocardial Infarction ([place]) Additional Family Medical History / Comment(s): Mother of a [place] at the age of 37yrs. Father Family Medical History: Myocardial Infarction ([place]) Additional Family Medical History / Comment(s): Father of a [place] at the age of 58yrs. Medications and Allergies Home Medications Medication Instructions Recorded Confirmed Type Furosemide [Lasix] 20 mg PO DAILY@1000 06/23/20 04/01/21 History Nitroglycerin Sl Tabs [Nitrostat] 0.4 mg SUBLINGUAL Q5M PRN 180 Days 06/25/20 04/01/21 Rx #100 tab hydrALAZINE HCL [Apresoline] 25 mg PO BID 90 Days #180 tab 06/25/20 04/01/21 Rx Clopidogrel [Plavix] 75 mg PO DAILY 90 Days #90 tab 07/03/20 04/01/21 Rx Apixaban [Eliquis] 2.5 mg PO BID 02/28/21 04/01/21 History Amiodarone HCl [Pacerone] 200 mg PO DAILY 04/01/21 04/01/21 History Brimonidine Tartrate [Alphagan P 1 drops RIGHT EYE BID 04/01/21 04/01/21 History 0.2% Ophth Soln] Carvedilol [Coreg] 25 mg PO BID 04/01/21 04/01/21 History Isosorbide Mononitrate ER [Imdur] 30 mg PO DAILY 04/01/21 04/01/21 History Tamsulosin [Flomax] 0.4 mg PO DAILY 04/01/21 04/01/21 History prednisoLONE ACETATE [Pred Forte 1 drop RIGHT EYE TID 04/01/21 04/01/21 History 1%] Allergies Allergy/AdvReac Type Severity Reaction Status Date / Time cephalexin [From Keflex] Allergy Rash/Hives Verified 04/01/21 11:53 codeine Allergy Unknown Verified 04/01/21 11:53 Penicillins Allergy Rash/Hives Verified 04/01/21 11:53 strawberry Allergy Rash/Hives Verified 04/01/21 11:53 Physical Exam Vitals: Vital Signs Temp Pulse Pulse Resp BP BP BP 04/02/21 07:37 04/02/21 04:00 102 H 18 118/84 04/01/21 23:54 80 18 102/65 04/01/21 22:02 94/67 04/01/21 20:00 97.9 F 91 18 86/47 74/51 04/01/21 14:50 18 04/01/21 14:49 97.8 F 97 18 110/70 04/01/21 14:21 110 H 18 116/78 04/01/21 10:00 110 H 22 117/89 04/01/21 09:00 109 H 20 117/89 Pulse Ox 04/02/21 07:37 100 04/02/21 04:00 100 04/01/21 23:54 99 04/01/21 22:02 04/01/21 20:00 100 04/01/21 14:50 04/01/21 14:49 100 04/01/21 14:21 98 04/01/21 10:00 99 04/01/21 09:00 96 Intake and Output 04/01/21 04/02/21 04/02/21 22:59 06:59 14:59 Intake Total 440 240 Balance 440 240 Intake: Oral 440 240 Other: # Voids 2 Weight 91.6 kg Results 04/01/21 07:36 04/01/21 07:36 Cardiac Enzymes 04/01/21 04/01/21 Range/Units 11:57 14:52 Troponin I 0.032 0.029 (0.000-0.034) ng/mL Current Medications Generic Name Dose Route Start Last Admin Trade Name Freq PRN Reason Stop Dose Admin Amiodarone HCl 200 mg 04/01/21 12:15 04/02/21 08:38 Amiodarone 200 Mg Tab PO 200 mg DAILY CARY Administration Apixaban 2.5 mg 04/01/21 21:00 04/02/21 08:38 Apixaban 2.5 Mg Tablet PO 2.5 mg BID CARY Administration Protocol Aspirin 325 mg 04/02/21 09:00 04/02/21 08:38 Aspirin 325 Mg Tab PO 325 mg DAILY CARY Administration Brimonidine Tartrate 1 drops 04/01/21 21:00 04/02/21 08:42 Brimonidine Tartrate 0.2% Drops 5 Ml Btl RIGHT EYE 1 drops BID CARY Administration Carvedilol 25 mg 04/01/21 12:15 04/02/21 06:32 Carvedilol 12.5 Mg Tab PO 25 mg AC-BID CARY Administration Clopidogrel Bisulfate 75 mg 04/02/21 09:00 04/02/21 08:38 Clopidogrel 75 Mg Tab PO 75 mg DAILY CARY Administration Furosemide 20 mg 04/02/21 10:00 04/02/21 08:38 Furosemide 20 Mg Tab PO 20 mg DAILY@1000 CARY Administration Hydralazine HCl 25 mg 04/01/21 21:00 04/02/21 08:38 Hydralazine Hcl 25 Mg Tab PO 25 mg BID CARY Administration Isosorbide Mononitrate 30 mg 04/01/21 12:15 04/02/21 08:38 Isosorbide Mononitrate Er 30 Mg Tab.Er.24h PO 30 mg DAILY CARY Administration Nitroglycerin 0.4 mg 04/01/21 08:47 Nitroglycerin Sl Tabs 0.4 Mg Tab SUBLINGUAL Q5M PRN Chest Pain Prednisolone Acetate 1 drops 04/01/21 16:00 04/02/21 08:38 Prednisolone Acetate 1% Ophth Drops 5 Ml Btl RIGHT EYE 1 drops TID CARY Administration Tamsulosin HCl 0.4 mg 04/02/21 09:00 04/02/21 08:38 Tamsulosin 0.4 Mg Cap.Er.24h PO 0.4 mg DAILY CARY Administration Intake and Output 04/01/21 04/02/21 04/02/21 22:59 06:59 14:59 Intake Total 440 240 Balance 440 240 Intake: Oral 440 240 Other: # Voids 2 Weight 91.6 kg 04/01/21 07:36 04/01/21 07:36
--- NOTE | 2021-04-02 11:40 | P.CNPUL ---
History of Present Illness Consult date: 04/02/21 Reason for consult: dyspnea, chest pain Chief complaint: Intermittent chest pain History of present illness: Patient is a 71-year-old male came into the hospital with intermittent chest pain, yesterday he woke up in the middle night with chest discomfort and shortness of breath and decided to come into the hospital he has a history of aortic dissection but does not feel the pain was similar to that, currently on evaluation denies any chest pain denies any shortness of breath patient does have a history of sleep disorder breathing and sleep apnea however does not use a CPAP machine, declined further Evaluation, denies any chest pain cough or sputum production denies any fever or chills, his past medical history significant for aortic dissection hypertension hypertensive cardiovascular disease, coronary artery disease, history of stroke DVT, dyslipidemia history of multiple [place], patient has a dissection with right compromise circulation status post BKA also had Subclavian right carotid bypass he has a 7 cm aortic aneurysm follows at [facility] Review of Systems All systems: negative Past Medical History Past Medical History: Coronary Artery Disease (CAD), Heart Failure, CVA/TIA, Deep Vein Thrombosis (DVT), Eye Disorder, Hyperlipidemia, Hypertension, Myocardial Infarction ([place]), Pneumonia, Renal Disease, Skin Disorder Additional Past Medical History / Comment(s): NSTEMI/AMS d/t dehydratio n/chf/chronic L hydronephrosis which is to be followed up outpt. 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 Date of Last Stent Placement:: 07/01/20 Past Psychological History: Anxiety Additional Psychological History / Comment(s): Pt resides with his spouse. He uses a cane prn. He drives. He is independent. Smoking Status: Never smoker Past Alcohol Use History: None Reported Past Drug Use History: None Reported - Past Family History Mother Family Medical History: Myocardial Infarction ([place]) Additional Family Medical History / Comment(s): Mother of a [place] at the age of 37yrs. Father Family Medical History: Myocardial Infarction ([place]) Additional Family Medical History / Comment(s): Father of a [place] at the age of 58yrs. Medications and Allergies Home Medications Medication Instructions Recorded Confirmed Type Furosemide [Lasix] 20 mg PO DAILY@1000 06/23/20 04/01/21 History Nitroglycerin Sl Tabs [Nitrostat] 0.4 mg SUBLINGUAL Q5M PRN 180 Days 06/25/20 04/01/21 Rx #100 tab hydrALAZINE HCL [Apresoline] 25 mg PO BID 90 Days #180 tab 06/25/20 04/01/21 Rx Clopidogrel [Plavix] 75 mg PO DAILY 90 Days #90 tab 07/03/20 04/01/21 Rx Apixaban [Eliquis] 2.5 mg PO BID 02/28/21 04/01/21 History Amiodarone HCl [Pacerone] 200 mg PO DAILY 04/01/21 04/01/21 History Brimonidine Tartrate [Alphagan P 1 drops RIGHT EYE BID 04/01/21 04/01/21 History 0.2% Ophth Soln] Carvedilol [Coreg] 25 mg PO BID 04/01/21 04/01/21 History Isosorbide Mononitrate ER [Imdur] 30 mg PO DAILY 04/01/21 04/01/21 History Tamsulosin [Flomax] 0.4 mg PO DAILY 04/01/21 04/01/21 History prednisoLONE ACETATE [Pred Forte 1 drop RIGHT EYE TID 04/01/21 04/01/21 History 1%] Allergies Allergy/AdvReac Type Severity Reaction Status Date / Time cephalexin [From [facility]] Allergy Rash/Hives Verified 04/01/21 11:53 codeine Allergy Unknown Verified 04/01/21 11:53 Penicillins Allergy Rash/Hives Verified 04/01/21 11:53 strawberry Allergy Rash/Hives Verified 04/01/21 11:53 Physical Exam Vitals: Vital Signs Temp Pulse Pulse Resp BP BP BP 04/02/21 08:00 97.6 F 72 16 94/56 04/02/21 07:37 04/02/21 04:00 102 H 18 118/84 04/01/21 23:54 80 18 102/65 04/01/21 22:02 94/67 04/01/21 20:00 97.9 F 91 18 86/47 74/51 04/01/21 14:50 18 04/01/21 14:49 97.8 F 97 18 110/70 04/01/21 14:21 110 H 18 116/78 Pulse Ox 04/02/21 08:00 99 04/02/21 07:37 100 04/02/21 04:00 100 04/01/21 23:54 99 04/01/21 22:02 04/01/21 20:00 100 04/01/21 14:50 04/01/21 14:49 100 04/01/21 14:21 98 Intake and Output 04/01/21 04/02/21 04/02/21 22:59 06:59 14:59 Intake Total 440 240 Balance 440 240 Intake: Oral 440 240 Other: Voiding Method Bedside Commode # Voids 2 2 Weight 91.6 kg - Constitutional General appearance: average body habitus, cooperative, disheveled - EENT Eyes: EOMI, PERRLA Ears: bilateral: normal - Neck Neck: normal ROM Carotids: bilateral: upstroke normal - Respiratory Respiratory: bilateral: CTA - Cardiovascular Rhythm: regular Heart sounds: normal: S1, S2 - Gastrointestinal General gastrointestinal: normal bowel sounds - Integumentary Integumentary: normal turgor - Neurologic Neurologic: CNII-XII intact - Musculoskeletal Status post right BKA Musculoskeletal: gait normal, generalized weakness, strength equal bilaterally - Psychiatric Psychiatric: A&O x's 3, appropriate affect, intact judgment & insight Results - Laboratory Findings CBC and BMP: 04/01/21 07:36 04/01/21 07:36 PT/INR, D-dimer PT 11.5 sec (9.0-12.0) 04/01/21 07:36 INR 1.1 (<1.2) 04/01/21 07:36 D-Dimer 4.49 mg/L FEU (<0.60) H 04/01/21 07:36 Abnormal lab findings: Abnormal Labs 04/01/21 04/01/21 04/01/21 07:36 07:36 07:36 RBC 3.87 L Hgb 9.2 L Hct 30.5 L MCV 78.8 L MCH 23.8 L MCHC 30.2 L RDW 15.6 H Plt Count 149 L D-Dimer 4.49 H Chloride 108 H BUN 35 H Creatinine 2.69 H Glucose 104 H - Diagnostic Findings Chest x-ray: report reviewed, image reviewed CT scan - chest: report reviewed, image reviewed (Chest x-ray significant for cardiomegaly postop changes aortic aneurysm with chronic pleural reaction and left lower lobe atelectasis) Additional studies: VQ scan is low probability for PE, CT chest shows right-sided pleural effusion small with minimal right-sided effusion and basal atelectasis, positive for effusion, cannot exclude [place] aneurysm, Assessment and Plan Assessment: Left-sided chest pain likely appeared to be due to aortic aneurysm, consider consultation with cardiothoracic surgery for transfer to [facility] Left lower lobe atelectasis deep breathing exercises incentive spirometry Chronic hypoxic respiratory failure continue supplemental oxygen Baseline COPD emphysema Plan: As noted above Time with Patient: Greater than 30
--- NOTE | 2021-04-02 16:40 | P.CON ---
Consult Note - . Consult date: 04/02/21 Assessment/Plan:: 81-year-old male presents with chest pain. He was tachycardic and hypertension on admission. This is now better controlled. He does have atrial fibrillation. Patient has known history of type A aortic dissection with repair in the d istant past. 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 He has been seen several times at [facility] for this and been told it was not leaking. Computed tomography scan was performed on admission to the hospital here. It was read as showing possible leak from descending thoracic aneurysm. Current CT is compared with a computed tomography scan from 06/23/2020. There is not significant change between these 2 CAT scans. It isn't possible to completely rule out leak without using IV dye but the patient has chronic kidney disease and IV dye is contraindicated. Given the unchanged nature of the CT scans and the lack of current symptomatology after control the patient's blood pressure and heart rate I am not concerned that there is anything acute going on at this point in time. The recommendation is continued blood pressure and heart rate control. Consideration should be given to elective stent grafting of the descending thoracic aorta. [facility] an outside center. Case was discussed with Dr. Puentes.
[2021-04-02] MEDS ORDERED: LORazepam 2 MG/ML INJ IV PRN (17:13)
--- NOTE | 2021-04-02 19:00 | ECHOF ---
Referral Reason:LV function, chest pain MEASUREMENTS -------- HEIGHT: 152.4 cm WEIGHT: 91.2 kg BP: IVSd: 1.5 cm (0.6 - 1.1) LVIDd: 7.0 cm (3.9 - 5.3) LVPWd: 1.5 cm (0.6 - 1.1) EDV(Teich): 257 ml IVSs: 1.6 cm LVIDs: 6.2 cm LVPWs: 1.5 cm %IVS Thck: 5 % ESV(Teich): 194 ml EF(Teich): 24 % %FS: 12 % SV(Teich): 62 ml LALs A4C: 7.0 cm LAAs A4C: 35.9 cm LAESV A-L A4C: 156 ml LAESV MOD A4C: 147 ml LALs A2C: 7.9 cm LAAs A2C: 40.4 cm LAESV A-L A2C: 175 ml LAESV MOD A2C: 160 ml LAESV(A-L): 176 ml LAESV Index (A-L): 93.91 ml/m Ao Diam: 4.2 cm (2.0 - 3.7) EPSS: 1.8 cm TR Vmax: 1.83 m/s TR maxP.47 mmHg RAP: 5.00 mmHg RVSP: 18.47 mmHg MV EF SLOPE: 101.99 mm/s (70 - 150) MV EXCURSION: 18.74 mm (> 18.000) FINDINGS -------- Atrial fibrillation. This was a technically good study. The left ventricular size is normal. Left ventricular wall thickness is normal. There is severe g lobal hypokinesis of LV . Overall left ventricular systolic function is severely impaired with, an EF < 20%. The right ventricle is normal in size. LA is severely dilated >40 ml/m2 The right atrial size is normal. There is mild aortic valve sclerosis. There is mild aortic regurgitation. The mitral valve leaflets are mildly thickened. Mild mitral annular calcification present. Modera [id number] mitral regurgitation is present. Mild tricuspid regurgitation present. There is no evidence of pulmonary hypertension. Trace/mild (physiologic) pulmonic regurgitation. There is no pericardial effusion. CONCLUSIONS -------- 1. The left ventricular size is normal. 2. Left ventricular wall thickness is normal. 3. There is severe global hypokinesis of LV . 4. Overall left ventricular systolic function is severely impaired with, an EF < 20%. 5. The right ventricle is normal in size. 6. LA is severely dilated >40 ml/m2 7. The right atrial size is normal. 8. There is mild aortic valve sclerosis. 9. There is mild aortic regurgitation. 10. The mitral valve leaflets are mildly thickened. 11. Mild mitral annular calcification present. 12. Tjfjgvby-[id number]-lchjzd mitral regurgitation is present. 13. Mild tricuspid regurgitation present. 14. Trace/mild (physiologic) pulmonic regurgitation. 15. There is no pericardial effusion. RN BIRTHING: Zehra Nicole RDCS
--- NOTE | 2021-04-03 02:54 | PN ---
PROGRESS NOTE HISTORY: 71-year-old white male. We had concern about dissecting aortic aneurysm which he has had chronically. He was recently ( ) a week or two ago and they discharged him, due to aneurysm, has not changed in the last couple years. He feels back to normal at this time. I suspect he had tachycardia, hypoxemia due to sleep apnea or hypoxemia from COPD at night. ( ) tachycardia and shortness of breath and chest pain. Cardiology is evaluating him, as well as to the cardiac surgeon. Possibly check him for oxygen levels going below 88-90, set him up with home oxygen tomorrow and go home. PHYSICAL EXAM: CARDIOVASCULAR: S1-S2. LUNGS: Clear. GI: Soft. HEMATOLOGY: Negative Homans. PSYCH: Fair mood and affect. ASSESSMENT: 1. Prerenal renal insufficiency. 2. Hypertension acceleration. 3. History of pulmonary embolism. 4. Aortic aneurysm status post carotid anastomosis. Prognosis guarded. Risk factor modification. Set up for home oxygen at night and continue current treatments. and both refused to have transfer today for 2nd opinion on the aneurysm. MMODL / IJN: [id number] /
[2021-04-03] MEDS: carvediloL 12.5 MG TAB PO SCH ×2 (06:34→17:06)
[2021-04-03 08:03] LABS: Basophils % (A) 1 %; Eosinophils # (A) 0.4 k/uL (0-0.7); Eosinophils % (A) 9 %; HCT 29.1 % (39.0-53.0); HGB 9.1 gm/dL (13.0-17.5); Hypochromasia Marked; Lymphocytes % (A) 21 %; MCH 24.9 pg (25.0-35.0); MCHC 31.4 g/dL (31.0-37.0); MCV 79.2 fL (80.0-100.0); Mean Platelet Volume 7.8; Monocytes # (A) 0.3 k/uL (0-1.0); Monocytes % (A) 7 %; Neutrophils % (A) 61 %; Platelet Count 124 k/uL (150-450); RBC 3.68 m/uL (4.30-5.90); RDW 15.9 % (11.5-15.5); WBC 4.9 k/uL (3.8-10.6)
[2021-04-03 08:04] LABS: Albumin 3.6 g/dL (3.5-5.0); Calcium 8.9 mg/dL (8.4-10.2); Potassium 4.9 mmol/L (3.5-5.1); Total Bilirubin 0.4 mg/dL (0.2-1.3); Total Protein 6.3 g/dL (6.3-8.2)
[2021-04-03 08:20] VITALS: RESP 17
[2021-04-03] MEDS: TAMSULOSIN 0.4 MG CAP.ER.24H PO SCH (08:32)
[2021-04-03] MEDS: CLOPIDOGREL 75 MG TAB PO SCH (08:32)
[2021-04-03] MEDS: APIXABAN 2.5 MG TABLET PO SCH (08:32)
[2021-04-03] MEDS: hydrALAZINE HCL 25 MG TAB PO SCH (08:32)
[2021-04-03] MEDS: AMIODARONE 200 MG TAB PO SCH (08:32)
[2021-04-03] MEDS: ISOSORBIDE MONONITRATE ER 30 MG TAB.ER.24H PO SCH (08:33)
[2021-04-03] MEDS: prednisoLONE ACETATE 1% OPHTH DROPS 5 ML BTL RIGHT EYE SCH ×2 (08:33→17:07)
[2021-04-03] MEDS: BRIMONIDINE TARTRATE 0.2% DROPS 5 ML BTL RIGHT EYE SCH (08:33)
--- NOTE | 2021-04-03 10:05 | CONS ---
CONSULTATION DATE OF SERVICE: 04/02/21 I have seen, examined, and agree with the midlevel's findings. MMODL / IJN: [id number] / -49
[2021-04-03] MEDS: FUROSEMIDE 20 MG TAB PO SCH (10:27)
--- NOTE | 2021-04-03 12:58 | P.PN ---
Subjective Progress Note Date: 04/03/21 HISTORY OF PRESENT ILLNESS: This is a 71-year-old male with a past medical history significant for coronary artery disease with previous PCI, paroxysmal atrial fibrillation on antico agulation with Eliquis, aortic dissection repair, right BKA, systolic heart failure, chronic kidney disease, hypertension, hyperlipidemia, and ischemic cardiomyopathy. Patient follows in the office with Dr. Harding. We have been asked to see the patient in consultation for chest pain. Patient examined at the bedside. Patient states yesterday morning when he woke up he began having palpitations, shortness of breath, and chest pain. He denies any radiation of the pain. He does report feeling lightheaded during this time. He denied nausea, vomiting, or diaphoresis. Patient states his symptoms have all resolved this morning. Telemetry reveals atrial fibrillation with controlled ventricular rate. EKG reveals atrial fibrillation with controlled ventricular rate Chest xray stable abnormal findings. Patient with known aortic aneurysm and dissection. There is cardiomegaly, postoperative change, possible chronic pleural reaction, lower lobe atelectasis or scar. VQ scan: Low probability for PE Chest CT: Slight interval increase in left pleural effusion, minimal right pleural effusion has developed. Some local atelectatic changes or scarring at the left lung base along the descending aorta has increased compared to old exam. Cardiomegaly. Coronary artery disease. Descending thoracic aortic aneurysm with dissection. Postoperative changes. Laboratory data: WBC 4.8. Hemoglobin 9.2. Platelet count 149. D-dimer 4.49. Sodium 141. Potassium 4.3. BUN 35. Creatinine 2.69. Troponin negative 3. BNP 11,400. Current home cardiac medications include hydralazine 25 mg twice a day, Imdur 30 mg daily, Lasix 20 mg daily, Plavix 75 mg daily, Coreg 25 mg twice a day, Eliquis 2.5 mg twice a day, amiodarone 200 mg daily Most recent echocardiogram obtained in June 2020 revealed ejection fraction 35-40% basal inferior and mid inferior LV wall hypokinesis. Cardiac catheterization history: June 2020 with stenting to the RCA with 4 stents. Proximal LAD 50-60% stenosis. Mid LAD 30-40% stenosis. Diagonal 1 branch with 30% stenosis and mid 40% diagonal one stenosis. Distal apical LAD has 100% stenosis with left to left collaterals. Proximal circumflex 40% stenosis. 04/03/2021 Patient examined this morning at the bedside. Patient denies chest pain or p ressure. He denies shortness of breath. He remains in atrial fibrillation with controlled ventricular rates. Echocardiogram completed revealed ejection fraction less than 20%. Mild aortic regurgitation. Moderate to severe mitral regurgitation. Mild tricuspid regurgitation. PHYSICAL EXAM: VITAL SIGNS: Reviewed. GENERAL: Well-developed in no acute distress. HEENT: Head is normocephalic. Pupils are equal, round. Sclerae anicteric. Mucous membranes of the mouth are moist. Neck supple. No JVD or thyromegaly LUNGS: Respirations even and unlabored. Lungs essentially clear to auscultation bilaterally. HEART: Irregular rate and rhythm. S1 and S2 heard. Systolic murmur noted. ABDOMEN: Soft. Nondistended. Nontender. EXTREMITIES: Normal range of motion. No clubbing or cyanosis. Peripheral pulses intact. No lower extremity edema. Right BKA noted. NEUROLOGIC: Awake and alert. Oriented x 3. ASSESSMENT: Chest pain, troponin negative x 3 Shortness of breath Paroxysmal atrial fibrillation, on anticoagulation with Eliquis Coronary artery disease with PCI to [id number] History of aortic dissection with repair Right BKA Chronic systolic heart failure, currently euvolemic, despite elevated BNP Ischemic cardiomyopathy Hypertension Hyperlipidemia Chronic kidney disease PLAN: Continue current cardiac medications No ABRIL/ARB due to renal function Patient may be discharged home from a cardiac standpoint We will sign off. Please reconsult if needed Nurse practitioner note has been reviewed by physician. Signing provider agrees with the documented findings, assessment, and plan of care. Objective - Vital Signs Vital signs: Vital Signs Temp 98.0 F 04/03/21 11:51 Pulse 82 04/03/21 11:51 Resp 17 04/03/21 11:51 BP 122/90 04/03/21 11:51 Pulse Ox 98 04/03/21 11:51 Intake & Output 04/02/21 04/03/21 04/03/21 18:59 06:59 18:59 Intake Total 480 360 Output Total 320 300 Balance 480 -320 60 Weight 91.5 kg Intake: Oral 480 360 Output: Urine 320 300 Other: Voiding Method Bedside Commode Toilet # Voids 2 1 1 # Bowel Movements 1 - Labs CBC & Chem 7: 04/03/21 07:18 04/03/21 07:18 Labs: Abnormal Lab Results - Last 24 Hours (Table) 07/13/21 07/13/21 Range/Units 07:18 07:18 RBC 3.68 L (4.30-5.90) m/uL Hgb 9.1 L (13.0-17.5) gm/dL Hct 29.1 L (39.0-53.0) % MCV 79.2 L (80.0-100.0) fL MCH 24.9 L (25.0-35.0) pg RDW 15.9 H (11.5-15.5) % Plt Count 124 L (150-450) k/uL Chloride 109 H (98-107) mmol/L BUN 44 H (9-20) mg/dL Creatinine 2.73 H (0.66-1.25) mg/dL
[2021-04-03 16:22] VITALS: BP 101/64; PULSE 76; TEMP 98.2
== END 2021-04-03 17:30 | disposition home or self-care (01) | DRG 313 ==
LOC: EC 06:39 → 3SCARD 08:47
PROVIDERS: ADMIT Family Medicine; ATTEND Family Medicine
DX: R07.9 Chest pain, unspecified (principal); I71.01 Dissection of thoracic aorta; I13.0 Hypertensive heart and chronic kidney disease with heart failure and stage 1 through stage 4 chronic kidney disease, or unspecified chronic kidney disease; I25.110 Atherosclerotic heart disease of native coronary artery with unstable angina pectoris; I50.22 Chronic systolic (congestive) heart failure; J96.11 Chronic respiratory failure with hypoxia; J98.11 Atelectasis; I69.351 Hemiplegia and hemiparesis following cerebral infarction affecting right dominant side; I42.9 Cardiomyopathy, unspecified; J43.9 Emphysema, unspecified; R00.0 Tachycardia, unspecified; N18.30 Chronic kidney disease, stage 3 unspecified; I73.9 Peripheral vascular disease, unspecified; I69.328 Other speech and language deficits following cerebral infarction; E78.5 Hyperlipidemia, unspecified; I25.5 Ischemic cardiomyopathy; I25.2 Old myocardial infarction; I08.3 Combined rheumatic disorders of mitral, aortic and tricuspid valves; I48.0 Paroxysmal atrial fibrillation; Z79.01 Long term (current) use of anticoagulants; Z79.02 Long term (current) use of antithrombotics/antiplatelets; Z20.822 Contact with and (suspected) exposure to COVID-19; Z79.899 Other long term (current) drug therapy; Z86.711 Personal history of pulmonary embolism; Z87.442 Personal history of urinary calculi; Z89.511 Acquired absence of right leg below knee; Z98.61 Coronary angioplasty status; Z87.19 Personal history of other diseases of the digestive system; Z90.49 Acquired absence of other specified parts of digestive tract; Z88.5 Allergy status to narcotic agent; Z88.0 Allergy status to penicillin; Z91.02 Food additives allergy status; Z88.1 Allergy status to other antibiotic agents; Z82.49 Family history of ischemic heart disease and other diseases of the circulatory system
CPT/HCPCS: 36415; 71046; 71250; 78582; 80053; 80061; 83735; 83880; 84484; 85025; 85379; 85610; 85730; 93005; 93306; 94760; 99291

== ENCOUNTER 2021-09-15 13:29 | Inpatient (IN) | payer MEDICARE, OTHER ==
[2021-09-15] MEDS ORDERED: ASPIRIN 81 MG PO STA (13:48)
[2021-09-15] MEDS ORDERED: NITROGLYCERIN OINT 1 INCH/GM PACKET TOPICAL STA (13:48)
--- NOTE | 2021-09-15 14:00 | ED ---
General Adult HPI - General Chief complaint: Chest Pain Stated complaint: Chest pain Time Seen by Provider: 09/15/21 13:35 Source: patient, RN notes reviewed, old records reviewed Mode of arrival: wheelchair Limitations: no limitations - History of Present Illness Initial comments: This is a 71-year-old male with past medical history significant for thoracic aortic aneurysm repair patient also has an abdominal aortic aneurysm which is nonoperable. Patient also has renal failure. Patient comes in today because he has chest pain he states it does not radiate anywhere to the center of his chest it started approximately one hour ago. Patient states it does not feel anything like his dissection felt. Patient is also slightly short of breath. Patient denies any diaphoretic episodes. Patient denies vomiting but states she does have some mild nausea. Patient denies any recent fever chills or cough. Patient denies any lightheadedness or dizziness. Patient denies any swelling to the legs or calf tenderness. - Related Data Home Medications Medication Instructions Recorded Confirmed Furosemide [Lasix] 20 mg PO DAILY@0600 06/23/20 09/15/21 Apixaban [Eliquis] 2.5 mg PO BID@0600,1800 02/28/21 09/15/21 Amiodarone HCl [Pacerone] 200 mg PO DAILY@0600 04/01/21 09/15/21 Brimonidine Tartrate [Alphagan P 1 drop RIGHT EYE BID@0600,1800 04/01/21 09/15/21 0.2% Ophth Soln] Carvedilol [Coreg] 25 mg PO BID@0600,1800 04/01/21 09/15/21 Isosorbide Mononitrate ER [Imdur] 30 mg PO DAILY@0600 04/01/21 09/15/21 Clopidogrel [Plavix] 75 mg PO DAILY@0600 09/15/21 09/15/21 Sodium Bicarbonate Tab 650 mg PO BID@0600,1800 09/15/21 09/15/21 Timolol 0.5% Ophth Soln [Timoptic 1 drop RIGHT EYE BID@0600,1800 09/15/21 09/15/21 0.5% Ophth Soln] hydrALAZINE HCL [Apresoline] 25 mg PO BID@0600,1800 09/15/21 09/15/21 Allergies Allergy/AdvReac Type Severity Reaction Status Date / Time cephalexin [From Keflex] Allergy Rash/Hives Verified 09/15/21 14:26 codeine Allergy Unknown Verified 09/15/21 14:26 Penicillins Allergy Rash/Hives Verified 09/15/21 14:26 strawberry Allergy Rash/Hives Verified 09/15/21 14:26 Review of Systems ROS Statement: Those systems with pertinent positive or pertinent negative responses have been documented in the HPI. ROS Other: All systems not noted in ROS Statement are negative. Past Medical History Past Medical History: Coronary Artery Disease (CAD), Heart Failure, CVA/TIA, Deep Vein Thrombosis (DVT), Eye Disorder, Hyperlipidemia, Hypertension, Myocardial Infarction ([place]), Pneumonia, Renal Disease, Skin Disorder Additional Past Medical History / Comment(s): NSTEMI/AMS d/t dehydration/chf/c hronic L hydronephrosis which is to be followed up outpt. 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 Date of Last Stent Placement:: 07/01/20 Past Psychological History: Anxiety Smoking Status: Never smoker Past Alcohol Use History: None Reported Past Drug Use History: None Reported - Past Family History Mother Family Medical History: Myocardial Infarction ([place]) Additional Family Medical History / Comment(s): Mother of a [place] at the age of 37yrs. Father Family Medical History: Myocardial Infarction ([place]) Additional Family Medical History / Comment(s): Father of a [place] at the age of 58yrs. General Exam - General Exam Comments Initial Comments: GENERAL: Patient is well-developed and well-nourished. Patient is nontoxic and well- hydrated and is in mild distress. ENT: Neck is soft and supple. No significant lymphadenopathy is noted. Oropharynx is clear. Moist mucous membranes. Neck has full range of motion without eliciting any pain. EYES: The sclera were anicteric and conjunctiva were pink and moist. Extraocular movements were intact and pupils were equal round and reactive to light. Eyelids were unremarkable. PULMONARY: Unlabored respirations. Good breath sounds bilaterally. No audible rales rhonchi or wheezing was noted. CARDIOVASCULAR: There is a regular rate and rhythm without any murmurs gallops or rubs. ABDOMEN: Soft and nontender with normal bowel sounds. SKIN: Skin is clear with no lesions or rashes and otherwise unremarkable. NEUROLOGIC: Patient is alert and oriented x3. Cranial nerves II through XII are grossly intact. Motor and sensory are also intact. Normal speech, volume and content. Symmetrical smile. MUSCULOSKELETAL: Normal extremities with adequate strength and full range of motion. LYMPHATICS: No significant lymphadenopathy is noted PSYCHIATRIC: Normal psychiatric evaluation. Limitations: no limitations Course Vital Signs 09/15/21 09/15/21 13:32 14:16 Temperature 98.2 F Pulse Rate 102 H 95 Respiratory 18 18 Rate Blood Pressure 139/98 144/98 O2 Sat by Pulse 98 95 Oximetry Medical Decision Making - Medical Decision Making EKG shows atrial fibrillation at 95 bpm QRS is 164 Q-T intervals 48 QTC is 613. Patient's EKG is unchanged compared to an old EKG. Chest x-ray shows no acute abnormality. I spoke with Dr. Chirinos he agreed to admit the patient admitted the patient wrote admitting orders. - Lab Data Result diagrams: 09/15/21 14:02 09/15/21 14:02 Lab Results 09/15/21 09/15/21 09/15/21 Range/Units 14:02 14:02 14:02 WBC 6.3 (3.8-10.6) k/uL RBC 4.16 L (4.30-5.90) m/uL Hgb 11.8 L (13.0-17.5) gm/dL Hct 37.1 L (39.0-53.0) % MCV 89.3 (80.0-100.0) fL MCH 28.3 (25.0-35.0) pg MCHC 31.7 (31.0-37.0) g/dL RDW 14.9 (11.5-15.5) % Plt Count 127 L (150-450) k/uL MPV 9.0 Neutrophils % 60 % Lymphocytes % 20 % Monocytes % 8 % Eosinophils % 10 % Basophils % 0 % Neutrophils # 3.8 (1.3-7.7) k/uL Lymphocytes # 1.3 (1.0-4.8) k/uL Monocytes # 0.5 (0-1.0) k/uL Eosinophils # 0.6 (0-0.7) k/uL Basophils # 0.0 (0-0.2) k/uL Hypochromasia Slight PT 11.2 (9.0-12.0) sec INR 1.1 (<1.2) APTT 26.7 (22.0-30.0) sec Sodium 137 (137-145) mmol/L Potassium 4.5 (3.5-5.1) mmol/L Chloride 100 (98-107) mmol/L Carbon Dioxide 25 (22-30) mmol/L Anion Gap 12 mmol/L BUN 36 H (9-20) mg/dL Creatinine 2.93 H (0.66-1.25) mg/dL Est GFR (CKD-EPI)AfAm 24 (>60 ml/min/1.73 sqM) Est GFR (CKD-EPI)NonAf 20 (>60 ml/min/1.73 sqM) Glucose 106 H (74-99) mg/dL Calcium 9.2 (8.4-10.2) mg/dL Magnesium 2.1 (1.6-2.3) mg/dL Total Bilirubin 0.7 (0.2-1.3) mg/dL AST 24 (17-59) U/L ALT 16 (4-49) U/L Alkaline Phosphatase 103 (38-126) U/L Troponin I (0.000-0.034) ng/mL Total Protein 7.6 (6.3-8.2) g/dL Albumin 4.1 (3.5-5.0) g/dL 09/15/21 Range/Units 14:02 WBC (3.8-10.6) k/uL RBC (4.30-5.90) m/uL Hgb (13.0-17.5) gm/dL Hct (39.0-53.0) % MCV (80.0-100.0) fL MCH (25.0-35.0) pg MCHC (31.0-37.0) g/dL RDW (11.5-15.5) % Plt Count (150-450) k/uL MPV Neutrophils % % Lymphocytes % % Monocytes % % Eosinophils % % Basophils % % Neutrophils # (1.3-7.7) k/uL Lymphocytes # (1.0-4.8) k/uL Monocytes # (0-1.0) k/uL Eosinophils # (0-0.7) k/uL Basophils # (0-0.2) k/uL Hypochromasia PT (9.0-12.0) sec INR (<1.2) APTT (22.0-30.0) sec Sodium (137-145) mmol/L Potassium (3.5-5.1) mmol/L Chloride (98-107) mmol/L Carbon Dioxide (22-30) mmol/L Anion Gap mmol/L BUN (9-20) mg/dL Creatinine (0.66-1.25) mg/dL Est GFR (CKD-EPI)AfAm (>60 ml/min/1.73 sqM) Est GFR (CKD-EPI)NonAf (>60 ml/min/1.73 sqM) Glucose (74-99) mg/dL Calcium (8.4-10.2) mg/dL Magnesium (1.6-2.3) mg/dL Total Bilirubin (0.2-1.3) mg/dL AST (17-59) U/L ALT (4-49) U/L Alkaline Phosphatase (38-126) U/L Troponin I 0.044 H* (0.000-0.034) ng/mL Total Protein (6.3-8.2) g/dL Albumin (3.5-5.0) g/dL Disposition Clinical Impression: Chest pain, Elevated troponin Disposition: ADMITTED IP TO THIS [facility] Referrals: Og Escoto MD [Primary Care Provider] - 1-2 days Time of Disposition: 15:04
[2021-09-15] MEDS ORDERED: METOCLOPRAMIDE 5 MG/ML 2 ML VIAL IVP STA (14:03)
[2021-09-15 14:13] LABS: Basophils % (A) 0 %; Eosinophils # (A) 0.6 k/uL (0-0.7); Eosinophils % (A) 10 %; HCT 37.1 % (39.0-53.0); HGB 11.8 gm/dL (13.0-17.5); Hypochromasia Slight; Lymphocytes # (A) 1.3 k/uL (1.0-4.8); Lymphocytes % (A) 20 %; MCH 28.3 pg (25.0-35.0); MCHC 31.7 g/dL (31.0-37.0); MCV 89.3 fL (80.0-100.0); Monocytes # (A) 0.5 k/uL (0-1.0); Monocytes % (A) 8 %; Neutrophils # (A) 3.8 k/uL (1.3-7.7); Neutrophils % (A) 60 %; Platelet Count 127 k/uL (150-450); RBC 4.16 m/uL (4.30-5.90); RDW 14.9 % (11.5-15.5); WBC 6.3 k/uL (3.8-10.6)
[2021-09-15 14:22] LABS: INR 1.1 (<1.2); Partial Thromboplastin Time 26.7 sec (22.0-30.0); Prothrombin Time 11.2 sec (9.0-12.0)
[2021-09-15 14:35] LABS: Albumin 4.1 g/dL (3.5-5.0); Calcium 9.2 mg/dL (8.4-10.2); Magnesium 2.1 mg/dL (1.6-2.3); Potassium 4.5 mmol/L (3.5-5.1); Total Bilirubin 0.7 mg/dL (0.2-1.3); Total Protein 7.6 g/dL (6.3-8.2)
[2021-09-15] MEDS ORDERED: NITROGLYCERIN SL TABS 0.4 MG TAB SUBLINGUAL PRN (15:04)
--- NOTE | 2021-09-15 15:10 | XR ---
EXAMINATION TYPE: XR chest 2V DATE OF EXAM: 09/15/2021 COMPARISON: 04/01/2021 HISTORY: 71-year-old male with chest pain TECHNIQUE: AP and lateral views FINDINGS: Median sternotomy wires are present. Endovascular stent graft of the ascending aorta. Heart remains e nlarged. Moderate left pleural effusion with adjacent left basilar opacity. Surgical clips right axil la. IMPRESSION: Cardiomegaly with ongoing moderate left pleural effusion with adjacent atelectasis and/or consolidati on.
[2021-09-15] MEDS: SODIUM BICARBONATE TAB 650 MG TAB PO SCH (18:04)
[2021-09-15] MEDS: APIXABAN 2.5 MG TABLET PO SCH (18:04)
[2021-09-15] MEDS: TIMOLOL 0.5% OPHTH DROPS 5 ML BTL RIGHT EYE SCH (18:04)
[2021-09-15] MEDS: NITROGLYCERIN OINT 1 INCH/GM PACKET TOPICAL SCH ×2 (18:04→23:11)
[2021-09-15] MEDS: carvediloL 12.5 MG TAB PO SCH (18:04)
[2021-09-15] MEDS: hydrALAZINE HCL 25 MG TAB PO SCH (18:04)
[2021-09-15] MEDS: BRIMONIDINE TARTRATE 0.2% DROPS 5 ML BTL RIGHT EYE SCH (18:05)
[2021-09-16] MEDS: NITROGLYCERIN OINT 1 INCH/GM PACKET TOPICAL SCH ×4 (06:09→23:26)
[2021-09-16] MEDS: BRIMONIDINE TARTRATE 0.2% DROPS 5 ML BTL RIGHT EYE SCH ×2 (06:11→16:58)
[2021-09-16] MEDS: AMIODARONE 200 MG TAB PO SCH (06:11)
[2021-09-16] MEDS: CLOPIDOGREL 75 MG TAB PO SCH (06:11)
[2021-09-16] MEDS: APIXABAN 2.5 MG TABLET PO SCH ×2 (06:11→16:59)
[2021-09-16] MEDS: carvediloL 12.5 MG TAB PO SCH ×2 (06:11→16:58)
[2021-09-16] MEDS: hydrALAZINE HCL 25 MG TAB PO SCH ×2 (06:12→16:59)
[2021-09-16] MEDS: FUROSEMIDE 20 MG TAB PO SCH (06:12)
[2021-09-16] MEDS: SODIUM BICARBONATE TAB 650 MG TAB PO SCH ×2 (06:12→16:58)
[2021-09-16] MEDS: TIMOLOL 0.5% OPHTH DROPS 5 ML BTL RIGHT EYE SCH ×2 (06:12→16:58)
[2021-09-16] MEDS: ISOSORBIDE MONONITRATE ER 30 MG TAB.ER.24H PO SCH (06:12)
[2021-09-16] MEDS ORDERED: ASPIRIN 325 MG TAB PO SCH (09:00)
--- NOTE | 2021-09-16 10:03 | P.CRDCN ---
History of Present Illness Consult date: 09/16/21 History of present illness: This is a 71-year-old gentleman with history of coronary artery disease with previous PCI, paroxysmal atrial fibrillation on anticoagulation therapy, history of high aortic dissection for which she had repair, ischemic cardiomyopathy, hypertension, hyperlipidemia. He follows with a Dr. Harding. Patient was last seen in the hospital in March of this year for chest pains. He claims that chest pain is in the middle of the chest and CV nature. Since admission patient's chest pains have improved. He claims the pain is slightly different than the pains he had before. His last echo Cardigan showed an ejection fraction about 20-25%. His EKG showed looks like atrial flutter with a controlled ventricular response without any acute changes. His troponins are mildly elevated but the pattern is not consistent with acute coronary injury pattern. Patient seemed to be comfortable at the time of my examination. His chest pains appear to be typical. X-ray showed cardiac megaly with a moderate left pleural effusion and atelectasis. His lab work showed hemoglobin 11.8. BMP is within normal limits. His creatinine is 2.93. She has chronic renal failure. Troponin elevation could be related to high creatinine. If echo Cardigan shows stable LV function without any new findings. Patient could be discharged home. Follow-up with Dr. Harding Review of Systems As per the chart Past Medical History Past Medical History: Coronary Artery Disease (CAD), Heart Failure, CVA/TIA, Deep Vein Thrombosis (DVT), Eye Disorder, Hyperlipidemia, Hypertension, Myocardial Infarction ([place]), Pneumonia, Renal Disease, Skin Disorder Additional Past Medical History / Comment(s): NSTEMI/AMS d/t dehydration/chf/chronic L hydronephrosis which is to be followed up outpt. 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 Date of Last Stent Placement:: 07/01/20 Past Psychological History: Anxiety Additional Psychological History / Comment(s): Pt resides with his spouse. He uses a cane prn. He drives. He is independent. Smoking Status: Never smoker Past Alcohol Use History: None Reported Past Drug Use History: None Reported - Past Family History Mother Family Medical History: Myocardial Infarction ([place]) Additional Family Medical History / Comment(s): Mother of a OK at the age of 37yrs. Father Family Medical History: Myocardial Infarction ([place]) Additional Family Medical History / Comment(s): Father of a OK at the age of 58yrs. Medications and Allergies Home Medications Medication Instructions Recorded Confirmed Type Furosemide [Lasix] 20 mg PO DAILY@0600 06/23/20 09/15/21 History Apixaban [Eliquis] 2.5 mg PO BID@06,179902/28/21 09/15/21 History Amiodarone HCl [Pacerone] 200 mg PO DAILY@59904/01/21 09/15/21 History Brimonidine Tartrate [Alphagan P 1 drop RIGHT EYE BID@06,179904/01/21 09/15/21 History 0.2% Ophth Soln] Carvedilol [Coreg] 25 mg PO BID@0600,179904/01/21 09/15/21 History Isosorbide Mononitrate ER [Imdur] 30 mg PO DAILY@0600 04/01/21 09/15/21 History Clopidogrel [Plavix] 75 mg PO DAILY@0609/15/21 09/15/21 History Sodium Bicarbonate Tab 650 mg PO BID@0600,1800 09/15/21 09/15/21 History Timolol 0.5% Ophth Soln [Timoptic 1 drop RIGHT EYE BID@0600,1800 09/15/21 09/15/21 History 0.5% Ophth Soln] hydrALAZINE HCL [Apresoline] 25 mg PO BID@0600,1800 09/15/21 09/15/21 History Allergies Allergy/AdvReac Type Severity Reaction Status Date / Time cephalexin [From Keflex] Allergy Rash/Hives Verified 09/15/21 14:26 codeine Allergy Unknown Verified 09/15/21 14:26 Penicillins Allergy Rash/Hives Verified 09/15/21 14:26 strawberry Allergy Rash/Hives Verified 09/15/21 14:26 Physical Exam Vitals: Vital Signs Temp Pulse Pulse Resp BP BP Pulse Ox 09/16/21 08:00 97.8 F 78 18 124/67 95 09/16/21 03:45 81 19 143/91 96 09/15/21 23:00 78 17 125/77 95 09/15/21 19:40 97.7 F 69 18 110/69 95 09/15/21 18:00 96.6 F L 60 173/86 99 09/15/21 17:46 97.9 F 73 16 153/87 98 09/15/21 16:37 97.9 F 73 16 153/87 98 09/15/21 14:16 95 18 144/98 95 09/15/21 13:32 98.2 F 102 H 18 139/98 98 Intake and Output 09/15/21 09/16/21 09/16/21 22:59 06:59 14:59 Intake Total 240 Balance 240 Intake: Oral 240 Other: # Voids 3 Weight 92.986 kg GENERAL EXAM: Patient is alert and oriented and doesn't appear to be in any acute distress HEENT: Normocephalic. Normal reaction of pupils, equal size, normal range of extraocular motion. No erythema or exudates in the throat. NECK: No masses, no nuchal rigidity. CHEST: No chest wall deformity. LUNGS: Equal air entry with no crackles or wheeze. HEART: S1 and S2 normal with no audible mumurs or gallops. Regular rhythm, femorals equal on both sides.. ABDOMEN: No hepatosplenomegaly, normal bowel sounds, no guarding or rigidity. SKIN: No rashes CENTRAL NERVOUS SYSTEM: No focal deficits. EXTREMITIES: No cyanosis, clubbing or edema. Results 09/15/21 14:02 09/15/21 14:02 Cardiac Enzymes 09/15/21 09/15/21 09/15/21 Range/Units 14:02 14:02 17:04 AST 24 (17-59) U/L Troponin I 0.044 H* 0.048 H* (0.000-0.034) ng/mL 09/15/21 Range/Units 20:19 AST (17-59) U/L Troponin I 0.048 H* (0.000-0.034) ng/mL Coagulation 09/15/21 Range/Units 14:02 PT 11.2 (9.0-12.0) sec APTT 26.7 (22.0-30.0) sec CBC 09/15/21 Range/Units 14:02 WBC 6.3 (3.8-10.6) k/uL RBC 4.16 L (4.30-5.90) m/uL Hgb 11.8 L (13.0-17.5) gm/dL Hct 37.1 L (39.0-53.0) % Plt Count 127 L (150-450) k/uL Comprehensive Metabolic Panel 09/15/21 Range/Units 14:02 Sodium 137 (137-145) mmol/L Potassium 4.5 (3.5-5.1) mmol/L Chloride 100 (98-107) mmol/L Carbon Dioxide 25 (22-30) mmol/L BUN 36 H (9-20) mg/dL Creatinine 2.93 H (0.66-1.25) mg/dL Glucose 106 H (74-99) mg/dL Calcium 9.2 (8.4-10.2) mg/dL AST 24 (17-59) U/L ALT 16 (4-49) U/L Alkaline Phosphatase 103 (38-126) U/L Total Protein 7.6 (6.3-8.2) g/dL Albumin 4.1 (3.5-5.0) g/dL Current Medications Generic Name Dose Route Start Last Admin Trade Name Freq PRN Reason Stop Dose Admin Amiodarone HCl 200 mg 09/16/21 06:00 09/16/21 06:11 Amiodarone 200 Mg Tab PO 200 mg DAILY@0600 [facility] Administration Apixaban 2.5 mg 09/15/21 18:00 09/16/21 06:11 Apixaban 2.5 Mg Tablet PO 2.5 mg BID@0600,1800 [facility] Administration Protocol Aspirin 325 mg 09/16/21 09:00 09/16/21 08:41 Aspirin 325 Mg Tab PO Not Given DAILY [facility] Brimonidine Tartrate 1 drops 09/15/21 18:00 09/16/21 06:11 Brimonidine Tartrate 0.2% Drops 5 Ml Btl RIGHT EYE 1 drops BID@0600,1800 [facility] Administration Carvedilol 25 mg 09/15/21 18:00 09/16/21 06:11 Carvedilol 12.5 Mg Tab PO 25 mg BID@0600,1800 [facility] Administration Clopidogrel Bisulfate 75 mg 09/16/21 06:00 09/16/21 06:11 Clopidogrel 75 Mg Tab PO 75 mg DAILY@0600 [facility] Administration Furosemide 20 mg 09/16/21 06:00 09/16/21 06:12 Furosemide 20 Mg Tab PO 20 mg DAILY@0600 [facility] Administration Hydralazine HCl 25 mg 09/15/21 18:00 09/16/21 06:12 Hydralazine Hcl 25 Mg Tab PO 25 mg BID@0600,1800 [facility] Administration Isosorbide Mononitrate 30 mg 09/16/21 06:00 09/16/21 06:12 Isosorbide Mononitrate Er 30 Mg Tab.Er.24h PO 30 mg DAILY@0600 [facility] Administration Nitroglycerin 0.4 mg 09/15/21 15:04 Nitroglycerin Sl Tabs 0.4 Mg Tab SUBLINGUAL Q5M PRN Chest Pain Nitroglycerin 1 inch 09/15/21 18:00 09/16/21 06:09 Nitroglycerin Oint 1 Inch/Gm Packet TOPICAL Not Given Q6HR [facility] Sodium Bicarbonate 650 mg 09/15/21 18:00 09/16/21 06:12 Sodium Bicarbonate Tab 650 Mg Tab PO 650 mg BID@0600,1800 [facility] Administration Timolol Maleate 1 drops 09/15/21 18:00 09/16/21 06:12 Timolol 0.5% Ophth Drops 5 Ml Btl RIGHT EYE 1 drops BID@0600,1800 [facility] Administration Intake and Output 09/15/21 09/16/21 09/16/21 22:59 06:59 14:59 Intake Total 240 Balance 240 Intake: Oral 240 Other: # Voids 3 Weight 92.986 kg 09/15/21 14:02 09/15/21 14:02 EKG Interpretations (text) Atrial flutter with controlled ventricular response Assessment and Plan (1) CAD in [place] artery Current Visit: Yes Status: Acute Code(s): I25.10 - ATHSCL HEART DISEASE OF [place] CORONARY ARTERY W/O ANG PCTRS SNOMED Code(s): 74896751 (2) Chest pain Current Visit: Yes Status: Acute Code(s): R07.9 - CHEST PAIN, UNSPECIFIED SNOMED Code(s): 90798786 (3) Elevated troponin Current Visit: Yes Status: Acute Code(s): R77.8 - OTHER SPECIFIED ABNORMALITIES OF PLASMA PROTEINS SNOMED Code(s): 756076147 (4) Chronic renal failure Current Visit: No Status: Acute Code(s): N18.9 - CHRONIC KIDNEY DISEASE, UNSPECIFIED SNOMED Code(s): 19955385 (5) Cardiomyopathy Current Visit: Yes Status: Acute Code(s): I42.9 - CARDIOMYOPATHY, UNSPECIFIED SNOMED Code(s): 24335436 (6) Aortic dissection Current Visit: Yes Status: Acute Code(s): I71.00 - DISSECTION OF UNSPECIFIED SITE OF AORTA SNOMED Code(s): 701065134 Plan: Continue current medical therapy. Echocardiogram. If echo doesn't show any new findings, patient could be discharged home on medical therapy. Follow up with Dr. Harding
[2021-09-16 11:48] LABS: Chol/HDL Ratio 3.93 Ratio; LDL Cholesterol,Calculated 75.2 mg/dL (0.0-131.0); VLDL Calculation 14.26 mg/dL (5.00-40.00)
--- NOTE | 2021-09-16 12:25 | CONS ---
CONSULTATION REASON FOR CONSULT: Renal failure. HISTORY OF PRESENT ILLNESS: The patient is a 71-year-old male who was admitted to the hospital with complaints of chest pain. The patient has previous history of CKD, hypertension, coronary artery disease, history of CVA/TIA. He has stage 4 chronic kidney disease with previous creatinine at about 3-2.9 mg/dL. Serum creatinine is 2.93 today. Currently patient does not have any further chest pains. He is being followed by Cardiology. There are no plans for intervention. Troponin was 0.044 and is not increasing. PAST MEDICAL HISTORY: CKD stage 4 with solitary kidney, CHF, CVA, TIA, DVT, coronary artery disease, hypertension, hyperlipidemia, RI, history of pneumonia, history of chronic left hydronephrosis, history of nephrolithiasis bronchitis, history of lithotripsy. PAST SURGICAL HISTORY: Right BKA, lithotripsy, appendectomy, cholecystectomy, coronary stent placement, cardiac catheterization, aortic arch repair, fem-fem bypass, bilateral knee arthroscopies, colonoscopy, polypectomy, resection of angioma on the head between the skin and the skull. SOCIAL HISTORY: Negative for smoking, drug abuse or alcohol abuse. MEDICATIONS: Medications prior to admission included Lasix, Eliquis, amiodarone, carvedilol, Imdur, Plavix, hydralazine, sodium bicarb. ALLERGIES: INCLUDE CODEINE, PENICILLIN, STRAWBERRIES, KEFLEX, MOST OF WHICH ALL CAUSE RASH AND HIVES. REVIEW OF SYSTEMS: As per HPI. Other systems negative. EXAMINATION: Comfortable, awake, alert, oriented x3, not in any acute distress. Blood pressure 124/67, heart rate 78 per minute. He is afebrile. Examination of the HEART S1, S2. Examination of the LUNGS, bilateral breath sounds are heard. ABDOMEN is soft, nontender, obese. Examination of lower EXTREMITIES shows no evidence of edema. PET CAREGIVER exam is grossly intact. LAB: Show sodium 137, potassium 4.5, BUN 36, creatinine 2.9. Troponin 0.04 and hemoglobin 11.8 g/dL. Nixon virus PCR negative. ASSESSMENT: 1. Chronic kidney disease NKF stage IV. Baseline creatinine about 2.9-3 mg/dL. Etiology is obstructive uropathy, solitary functioning kidney and nephrolithiasis. The patient has had severe right hydronephrosis previously with ureteral stent placement and removal. He follows with Urology. The patient will need to continue to follow up with Urology. Last CT scan was done in February of 2021 which showed right hydronephrosis for which patient has had removal of stone and stent placement and removal. 2. Cardiomyopathy, ejection fraction 30-35%. 3. Elevated troponin being followed by Cardiology. No plans for intervention. 4. History of cerebrovascular accident. PLAN: Renal function is currently stable. Continue with current dose of diuretics. There are no nephrotoxic agents on board. Outpatient followup for CKD. Continue to follow up with Urology as well. Thank you for this consultation. MMODL / IJN: [id number] /
[2021-09-16] MEDS: diphenhydrAMINE ELIXIR 25 MG/10 ML CUP PO PRN (20:09)
--- NOTE | 2021-09-16 21:12 | P.HPIM ---
History of Present Illness H&P Date: 09/16/21 Chief Complaint: Chest pain This is a pleasant 71-year-old patient who follows with Dr. Og Escoto. Day Care Supervisor Dr. Henry Harding. Extensive medical history that includes CAD with stent in June 2020 aortic dissection which led to right leg BKA, aortic arch repair with fem-fem bypass, thoracic aneurysm repair left side had hemangioma with resection DVT hyperlipidemia hypertension kidney disease left kidney nonfunctioning. Patient now presents when he was sitting yesterday felt the middle of the chest pushing sensation. Lasted for about 3 hours. Patient was dizzy and tired. No radiation. Did get some help from nitroglycerin. Finally decided to come in. Review of systems: GEN.: Tired EYES: None HEENT: None NECK: None RESPIRATORY: None CARDIOVASCULAR: As above GASTROINTESTINAL: None GENITOURINARY: None MUSCULOSKELETAL: Joint pains LYMPHATICS: None HEMATOLOGICAL: None PSYCHIATRY: None NEUROLOGICAL: None Past medical history to include:: CHF, DVT, hypertension, hyperlipidemia, left hydronephrosis chronic, aortic dissection with impaired perfusion right lower extremity leading to BKA, cardiomyopathy, aortic aneurysm 7. centimeter with further workup. PAD, stroke with left arm weakness and symptoms starting with speech, kidney stones, left kidney nonfunctioning, right kidney about 50%. CAD with stent to RCA in June 2020 etc. Social history: . No smoking no alcohol Family history: Mother of a heart attack age of 37 Physical examination: VITAL SIGNS: 98.2, 102, 18, 139/98, 98% on room air upon presentation GENERAL: BMI 29.4, reclining bed, awake tired. EYES: Pupils equal. Conjunctiva normal. HEENT: External appearance of nose and ears normal, oral cavity grossly normal. NECK: JVD not raised; masses not palpable. HEART: First and second heart sounds are normal; mild edema. LUNGS: Respiratory rate normal; clear to auscultation. ABDOMEN: Soft, nontender, liver spleen not palpable, no masses palpable. PSYCH: [Alert and oriented x3; mood and affect anxious l. NEUROLOGICAL: Cranial nerves grossly intact; no facial asymmetry, power and sensation grossly intact. LYMPHATICS: No lymph nodes palpable in the axilla and neck INVESTIGATIONS, reviewed in the clinical context: White count 6.3 hemoglobin 11.8 platelets 127 potassium 4.5 BUN 36 creatinine 2.93 Troponin I 0.044, 0.048, 0.048 LDL 75 Coronavirus [PCR]: Not detected EKG tracing personally reviewed by me-atrial fibrillation rate 95. Right bund le-branch block Chest x-ray film personally reviewed by me-cardiomegaly Assessment and plan: -Anterior chest wall pain. In a patient with known CAD with stent. Troponin levels aren't applied to with no rise and fall. In the setting of renal failure. Cardiology consulted. -CAD with stent to RCA in June 2020 -Hyperlipidemia -Essential hypertension Coreg 25 mg twice a day, hydralazine 25 mg twice a day -Chronic kidney disease stage 4 from systolic reflux kidney and nephrolithiasis. History of urinary leak previously had a rectal stent placement and removal. Follow with nephrology -Chronic metabolic acidosis from CK D Bicarbonate -Right below-knee amputation with a prosthesis -Peripheral arterial disease Plavix. Eliquis -Chronic DVT On eliquis 2.5 mg twice a day Home medications resumed. Consultation to cardiology and nephrology. Care was discussed with the patient. Patient has several cardiac questions and asked him to discuss this with his assistant district attorney. Pending 2-D echocardiogram. Past Medical History Past Medical History: Coronary Artery Disease (CAD), Heart Failure, CVA/TIA, Deep Vein Thrombosis (DVT), Eye Disorder, Hyperlipidemia, Hypertension, Myocardial Infarction ([place]), Pneumonia, Renal Disease, Skin Disorder Additional Past Medical History / Comment(s): NSTEMI/AMS d/t dehydration/chf/ chronic L hydronephrosis which is to be followed up outpt. 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 Date of Last Stent Placement:: 07/01/20 Past Psychological History: Anxiety Additional Psychological History / Comment(s): Pt resides with his spouse. He uses a cane prn. He drives. He is independent. Smoking Status: Never smoker Past Alcohol Use History: None Reported Past Drug Use History: None Reported - Past Family History Mother Family Medical History: Myocardial Infarction ([place]) Additional Family Medical History / Comment(s): Mother of a [place] at the age of 37yrs. Father Family Medical History: Myocardial Infarction ([place]) Additional Family Medical History / Comment(s): Father of a DE at the age of 58yrs. Medications and Allergies Home Medications Medication Instructions Recorded Confirmed Type Furosemide [Lasix] 20 mg PO DAILY@0600 06/23/20 09/15/21 History Apixaban [Eliquis] 2.5 mg PO BID@0600,1800 02/28/21 09/15/21 History Amiodarone HCl [Pacerone] 200 mg PO DAILY@0600 04/01/21 09/15/21 History Brimonidine Tartrate [Alphagan P 1 drop RIGHT EYE BID@0600,1800 04/01/21 09/15/21 History 0.2% Ophth Soln] Carvedilol [Coreg] 25 mg PO BID@0600,1800 04/01/21 09/15/21 History Isosorbide Mononitrate ER [Imdur] 30 mg PO DAILY@0600 04/01/21 09/15/21 History Clopidogrel [Plavix] 75 mg PO DAILY@0600 09/15/21 09/15/21 History Sodium Bicarbonate Tab 650 mg PO BID@0600,1800 09/15/21 09/15/21 History Timolol 0.5% Ophth Soln [Timoptic 1 drop RIGHT EYE BID@0600,1800 09/15/21 09/15/21 History 0.5% Ophth Soln] hydrALAZINE HCL [Apresoline] 25 mg PO BID@0600,1800 09/15/21 09/15/21 History Allergies Allergy/AdvReac Type Severity Reaction Status Date / Time cephalexin [From Keflex] Allergy Rash/Hives Verified 09/15/21 14:26 codeine Allergy Unknown Verified 09/15/21 14:26 Penicillins Allergy Rash/Hives Verified 09/15/21 14:26 strawberry Allergy Rash/Hives Verified 09/15/21 14:26 Physical Exam Vitals: Vital Signs Temp Pulse Pulse Resp BP BP Pulse Ox 09/16/21 11:50 70 18 117/73 98 09/16/21 08:00 97.8 F 78 18 124/67 95 09/16/21 03:45 81 19 143/91 96 09/15/21 23:00 78 17 125/77 95 09/15/21 19:40 97.7 F 69 18 110/69 95 09/15/21 18:00 96.6 F L 60 173/86 99 09/15/21 17:46 97.9 F 73 16 153/87 98 09/15/21 16:37 97.9 F 73 16 153/87 98 Intake and Output 09/15/21 09/16/21 09/16/21 22:59 06:59 14:59 Intake Total 240 Balance 240 Intake: Oral 240 Other: # Voids 3 Weight 92.986 kg Results CBC & Chem 7: 09/15/21 14:02 09/15/21 14:02 Labs: Abnormal Lab Results - Last 24 Hours (Table) 09/15/21 09/15/21 09/15/21 Range/Units 14:02 14:02 17:04 BUN 36 H (9-20) mg/dL Creatinine 2.93 H (0.66-1.25) mg/dL Glucose 106 H (74-99) mg/dL Troponin I 0.044 H* 0.048 H* (0.000-0.034) ng/mL HDL Cholesterol (40.00-60.00) mg/dL 09/15/21 09/16/21 Range/Units 20:19 07:33 BUN (9-20) mg/dL Creatinine (0.66-1.25) mg/dL Glucose (74-99) mg/dL Troponin I 0.048 H* (0.000-0.034) ng/mL HDL Cholesterol 30.50 L (40.00-60.00) mg/dL Thrombosis Risk Factor Assmnt - Choose All That Apply Each Factor Represents 1 point: Obesity (BMI >25) Each Risk Factor Represents 2 Points: Age 61-74 years Thrombosis Risk Factor Assessment Total Risk Factor Score: 3 Thrombosis Risk Factor Assessment Level: Moderate Risk
[2021-09-17] MEDS ORDERED: ONDANSETRON 4 MG/2 ML VIAL IVP PRN (01:00)
[2021-09-17] MEDS: MELATONIN 3 MG TABLET PO PRN ×2 (01:04→23:51)
[2021-09-17] MEDS: hydrALAZINE HCL 25 MG TAB PO SCH ×2 (05:34→17:26)
[2021-09-17] MEDS: TIMOLOL 0.5% OPHTH DROPS 5 ML BTL RIGHT EYE SCH ×2 (05:34→17:28)
[2021-09-17] MEDS: BRIMONIDINE TARTRATE 0.2% DROPS 5 ML BTL RIGHT EYE SCH ×2 (05:34→17:28)
[2021-09-17] MEDS: carvediloL 12.5 MG TAB PO SCH ×2 (05:34→17:26)
[2021-09-17] MEDS: APIXABAN 2.5 MG TABLET PO SCH ×2 (05:34→17:26)
[2021-09-17] MEDS: CLOPIDOGREL 75 MG TAB PO SCH (05:34)
[2021-09-17] MEDS: AMIODARONE 200 MG TAB PO SCH (05:34)
[2021-09-17] MEDS: NITROGLYCERIN OINT 1 INCH/GM PACKET TOPICAL SCH ×3 (05:34→17:05)
[2021-09-17] MEDS: SODIUM BICARBONATE TAB 650 MG TAB PO SCH ×2 (05:34→17:26)
[2021-09-17] MEDS: FUROSEMIDE 20 MG TAB PO SCH (05:34)
[2021-09-17] MEDS: ISOSORBIDE MONONITRATE ER 30 MG TAB.ER.24H PO SCH (05:34)
[2021-09-17 09:06] LABS: Glucose,Whole Blood 191 mg/dL (75-99)
--- NOTE | 2021-09-17 09:12 | P.PN ---
Subjective Progress Note Date: 09/17/21 Principal diagnosis: Coronary artery disease The patient is a 71-year-old gentleman with coronary artery disease and prior stenting as well as paroxysmal atrial fibrillation as well as history of aortic dissection as well as hypertension and dyslipidemia who was admitted to the hospital with generalized weakness and fatigue. We consulted to see the patient because of abnormal cardiac enzymes and we advised conservative medical approach as well as an echocardiogram. The patient was seen this morning. He remains chest pain-free. The echo still pending. Hemodynamically he is stable with slight blood pressure elevation . Currently he is on maximal dose of beta iron which I would agree giving his coronary artery disease as well as aortic disease. We will follow-up on the echo which is going to be done today. I would consider adding small dose of ABRIL inhibitor if it's okay from the nephro standpoint of view. Objective - Vital Signs Vital signs: Vital Signs Temp 98.1 F 09/16/21 20:10 Pulse 104 H 09/17/21 05:33 Resp 18 09/17/21 05:33 BP 111/64 09/17/21 05:33 Pulse Ox 92 L 09/17/21 05:33 Intake & Output 09/16/21 09/17/21 09/17/21 18:59 06:59 18:59 Weight 97.8 kg Other: # Voids 1 3 - Constitutional General appearance: Present: no acute distress - Respiratory Respiratory: bilateral: diminished - Cardiovascular Rhythm: regular Abnormal Heart Sounds: Present: systolic murmur - Labs CBC & Chem 7: 09/15/21 14:02 09/15/21 14:02 Labs: Abnormal Lab Results - Last 24 Hours (Table) 09/16/21 09/17/21 Range/Units 07:33 08:47 POC Glucose (mg/dL) 191 H (75-99) mg/dL HDL Cholesterol 30.50 L (40.00-60.00) mg/dL Assessment and Plan Assessment: Assessment #1 coronary artery disease #2 history of cardiomyopathy #3 valvular heart disease with mitral regurgitation #4 evidence of myocardial injury without ischemia #5 chronic kidney disease #6 history of aortic dissection Plan #1 continue the current high dose of beta iron #2 goal to achieve systolic pressure below 120 mmHg #3 consider adding small dose of ABRIL inhibitor if it's okay from the nephrology standpoint overview #4 follow-up with the patient #5 follow-up on the echo
--- NOTE | 2021-09-17 11:00 | ECHOF ---
Referral Reason:Chest pain MEASUREMENTS -------- HEIGHT: 180.3 cm WEIGHT: 97.5 kg BP: RVIDd: 2.7 cm (< 3.3) IVSd: 1.5 cm (0.6 - 1.1) LVIDd: 5.9 cm (3.9 - 5.3) LVPWd: 2.2 cm (0.6 - 1.1) IVSs: 1.7 cm LVIDs: 4.8 cm LVPWs: 2.3 cm LAESV Index (A-L): 36.32 ml/m Ao Diam: 4.0 cm (2.0 - 3.7) AV Cusp: 2.0 cm (1.5 - 2.6) LA Diam: 3.0 cm (2.7 - 3.8) MV EXCURSION: 22.560 mm (> 18.000) MV EF SLOPE: 113 mm/s (70 - 150) EPSS: 1.5 cm MV E Robby: 1.06 m/s MV DecT: 197 ms MV A Robby: 0.39 m/s MV E/A Ratio: 2.72 AR PHT: 1156 ms RAP: 5.00 mmHg RVSP: 19.65 mmHg FINDINGS -------- This was a technically difficult study with suboptimal views. The left ventricular size is normal. There is severe concentric left ventricular hypertrophy. Ove rall left ventricular systolic function is moderately impaired with, an EF between 35 - 40 %. Roxana l LAP Grade 1 Diastolic Dysfunction. Basal inferoseptal LV wall motion is hypokinetic. Mid infer oseptal LV wall motion is hypokinetic. Basal inferolateral hypokinesis. The right ventricle is normal in size. LA is moderately dilated 34-39 ml/m2 The right atrial size is normal. Lumason used The aortic valve is trileaflet and appears structurally normal. Trace amount of aortic regurgitatio n. The mitral valve is normal. The mitral valve leaflets are mildly thickened. Mild mitral regurgita tion is present. The tricuspid valve appears structurally normal. Mild tricuspid regurgitation present. Right vent ricular systolic pressure is normal at < 35 mmHg. Trace/mild (physiologic) pulmonic regurgitation. The aortic root size is normal. IVC Not well visulized. There is no pericardial effusion. CONCLUSIONS -------- 1. The left ventricular size is normal. 2. There is severe concentric left ventricular hypertrophy. 3. Overall left ventricular systolic function is moderately impaired with, an EF between 35 - 40 %. 4. Normal LAP Grade 1 Diastolic Dysfunction. 5. Basal inferoseptal LV wall motion is hypokinetic. 6. Mid inferoseptal LV wall motion is hypokinetic. 7. Basal inferolateral hypokinesis. 8. LA is moderately dilated 34-39 ml/m2 9. The aortic valve is trileaflet and appears structurally normal. 10. Trace amount of aortic regurgitation. 11. The mitral valve leaflets are mildly thickened. 12. Mild mitral regurgitation is present. 13. Mild tricuspid regurgitation present. 14. Trace/mild (physiologic) pulmonic regurgitation. 15. There is no pericardial effusion. NUCLEAR MEDICINE SPECIALIST: Ghazala Mills RDCS
--- NOTE | 2021-09-17 12:52 | PN ---
PROGRESS NOTE Patient is seen for followup for chronic kidney disease. Renal function remains stable. I do not see any labs from today. Patient denies any chest pains or shortness of breath. His blood pressure was low today at 82/53. Repeat blood pressure 110/64. Patient is afebrile. EXAMINATION OF THE HEAR: S1, S2. EXAMINATION OF THE LUNGS: Decreased breath sounds at the bases. Abdomen is soft, nontender. Examination of lower extremities shows no significant edema. POLICE INVESTIGATOR exam is grossly intact. Labs are not available from today. ASSESSMENT: 1. Chronic kidney disease, NKF stage 4. Renal function fairly stable. 2. Hypotension. Will decrease blood pressure medications. 3. Cardiomyopathy, ejection fraction 30% to 35%. 4. Elevated troponin. Being followed by Cardiology. No plans for intervention. 5. Previous history of cerebrovascular accident. 6. History of obstructive uropathy with right hydronephrosis and nephrolithiasis with previous stent placement and removal of stones, currently not following with Urology. Patient is encouraged to follow with Urology as outpatient. PLAN: Decrease hydralazine. Continue with current dose of Lasix. Check labs today. MMODL / IJN: [id number] /
[2021-09-17 13:56] LABS: Calcium 8.4 mg/dL (8.4-10.2); Potassium 4.5 mmol/L (3.5-5.1)
--- NOTE | 2021-09-17 21:30 | P.PN ---
Progress Note - Text Progress Note Date: 09/17/21 Chief Complaint: Chest pain This is a pleasant 71-year-old patient who follows with Dr. Og Escoto. 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 Extensive medical history that includes CAD with stent in June 2020 aortic dissection which led to right leg BKA, aortic arch repair with fem-fem bypass, thoracic aneurysm repair left side had hemangioma with resection DVT hyperlipidemia hypertension kidney disease left kidney nonfunctioning. Patient now presents when he was sitting yesterday felt the middle of the chest pushing sensation. Lasted for about 3 hours. Patient was dizzy and tired. No radiation. Did get some help from nitroglycerin. Finally decided to come in. September 17: No chest pain. Blood pressure running low but this morning. IV fluids given. Dose of hydralazine cutback. Review of systems: Was done for constitutional, cardiovascular, GI, pulmonary. relevant finding as above Active Medications Amiodarone HCl (Amiodarone 200 Mg Tab) 200 mg PO DAILY@0600 [facility] Last Admin: 09/17/21 05:34 Dose: 200 mg Documented by: Apixaban (Apixaban 2.5 Mg Tablet) 2.5 mg PO BID@0600,1800 [facility]; Protocol Last Admin: 09/17/21 17:26 Dose: 2.5 mg Documented by: Brimonidine Tartrate (Brimonidine Tartrate 0.2% Drops 5 Ml Btl) 1 drops RIGHT EYE BID@0600,1800 [facility] Last Admin: 09/17/21 17:28 Dose: 1 drops Documented by: Carvedilol (Carvedilol 12.5 Mg Tab) 25 mg PO BID@0600,1800 [facility] Last Admin: 09/17/21 17:26 Dose: 25 mg Documented by: Clopidogrel Bisulfate (Clopidogrel 75 Mg Tab) 75 mg PO DAILY@0600 [facility] Last Admin: 09/17/21 05:34 Dose: 75 mg Documented by: Diphenhydramine HCl (Diphenhydramine Elixir 25 Mg/10 Ml Cup) 12.5 mg PO QID PRN PRN Reason: itching Last Admin: 09/16/21 20:09 Dose: 12.5 mg Documented by: Furosemide (Furosemide 20 Mg Tab) 20 mg PO DAILY@0600 [facility] Last Admin: 09/17/21 05:34 Dose: 20 mg Documented by: Hydralazine HCl (Hydralazine Hcl 25 Mg Tab) 25 mg PO BID@0600,1800 [facility] Last Admin: 09/17/21 17:26 Dose: 25 mg Documented by: Isosorbide Mononitrate (Isosorbide Mononitrate Er 30 Mg Tab.Er.24h) 30 mg PO DAILY@0600 [facility] Last Admin: 09/17/21 05:34 Dose: 30 mg Documented by: Melatonin (Melatonin 3 Mg Tablet) 3 mg PO HS PRN PRN Reason: Insomnia Last Admin: 09/17/21 01:04 Dose: 3 mg Documented by: Nitroglycerin (Nitroglycerin Sl Tabs 0.4 Mg Tab) 0.4 mg SUBLINGUAL Q5M PRN PRN Reason: Chest Pain Nitroglycerin (Nitroglycerin Oint 1 Inch/Gm Packet) 1 inch TOPICAL Q6HR [facility] Last Admin: 09/17/21 17:05 Dose: Not Given Documented by: Ondansetron HCl (Ondansetron 4 Mg/2 Ml Vial) 4 mg IVP Q6HR PRN PRN Reason: Nausea And Vomiting Last Admin: 09/17/21 01:04 Dose: 4 mg Documented by: Sodium Bicarbonate (Sodium Bicarbonate Tab 650 Mg Tab) 650 mg PO BID@0600,1800 [facility] Last Admin: 09/17/21 17:26 Dose: 650 mg Documented by: Timolol Maleate (Timolol 0.5% Ophth Drops 5 Ml Btl) 1 drops RIGHT EYE BID@0600,1800 [facility] Last Admin: 09/17/21 17:28 Dose: 1 drops Documented by: Past medical history to include:: CHF, DVT, hypertension, hyperlipidemia, left hydronephrosis chronic, aortic dissection with impaired perfusion right lower extremity leading to BKA, cardiomyopathy, aortic aneurysm 7. centimeter with further workup. PAD, stroke with left arm weakness and symptoms starting with speech, kidney stones, left kidney nonfunctioning, right kidney about 50%. CAD with stent to RCA in June 2020 etc. Social history: . No smoking no alcohol Family history: Mother of a heart attack age of 37 Physical examination: VITAL SIGNS: 97.5, 67, 18, 82/58, 95% room air GENERAL: reclining bed, awake EYES: Pupils equal. Conjunctiva normal. HEENT: External appearance of nose and ears normal, oral cavity grossly normal. NECK: JVD not raised; masses not palpable. HEART: First and second heart sounds are normal; mild edema. LUNGS: Respiratory rate normal; clear to auscultation. ABDOMEN: Soft, nontender, liver spleen not palpable, no masses palpable. PSYCH: [Alert and oriented x3; mood and affect anxious INVESTIGATIONS, reviewed in the clinical context: September 17: Potassium 4.5 BUN 47 creatinine 3.3 White count 6.3 hemoglobin 11.8 platelets 127 potassium 4.5 BUN 36 creatinine 2.93 Troponin I 0.044, 0.048, 0.048 LDL 75 Coronavirus [PCR]: Not detected EKG tracing personally reviewed by me-atrial fibrillation rate 95. Right bundle-branch block Chest x-ray film personally reviewed by me-cardiomegaly Assessment and plan: -Anterior chest wall pain. In a patient with known CAD with stent. Troponin levels aren't applied to with no rise and fall. In the setting of renal failure. Cardiology consulted. -CAD with stent to RCA in June 2020 -Hyperlipidemia -Essential hypertension Coreg 25 mg twice a day, -Chronic kidney disease stage 4 from systolic reflux kidney and nephrolithiasis. History of urinary leak previously had a rectal stent placement and removal. Follow with nephrology Follow renal function -Chronic metabolic acidosis from CK D Bicarbonate -Right below-knee amputation with a prosthesis -Peripheral arterial disease Plavix. Eliquis -Chronic DVT On eliquis 2.5 mg twice a day Blood pressure running low this morning. Given IV fluid bolus. Will DC hydralazine. Discussed with patient
[2021-09-18] MEDS: diphenhydrAMINE ELIXIR 25 MG/10 ML CUP PO PRN (03:54)
[2021-09-18] MEDS: CLOPIDOGREL 75 MG TAB PO SCH (06:25)
[2021-09-18] MEDS: ISOSORBIDE MONONITRATE ER 30 MG TAB.ER.24H PO SCH (06:25)
[2021-09-18] MEDS: AMIODARONE 200 MG TAB PO SCH (06:26)
[2021-09-18] MEDS: APIXABAN 2.5 MG TABLET PO SCH (06:26)
[2021-09-18] MEDS: FUROSEMIDE 20 MG TAB PO SCH (06:26)
[2021-09-18] MEDS: carvediloL 12.5 MG TAB PO SCH (06:26)
[2021-09-18] MEDS: SODIUM BICARBONATE TAB 650 MG TAB PO SCH (06:26)
[2021-09-18] MEDS: TIMOLOL 0.5% OPHTH DROPS 5 ML BTL RIGHT EYE SCH (06:27)
[2021-09-18] MEDS: BRIMONIDINE TARTRATE 0.2% DROPS 5 ML BTL RIGHT EYE SCH (06:27)
[2021-09-18 08:45] VITALS: RESP 18; TEMP 97.6
[2021-09-18 09:54] LABS: Calcium 8.8 mg/dL (8.4-10.2); Potassium 4.5 mmol/L (3.5-5.1)
--- NOTE | 2021-09-18 10:34 | P.PN ---
Subjective Progress Note Date: 09/18/21 Principal diagnosis: Coronary artery disease The patient is a 71-year-old gentleman with coronary artery disease and prior stenting as well as paroxysmal atrial fibrillation as well as history of aortic dissection as well as hypertension and dyslipidemia who was admitted to the hospital with generalized weakness and fatigue. We consulted to see the patient because of abnormal cardiac enzymes and we advised conservative medical approach as well as an echocardiogram. The patient was seen this morning. He states "I feel better". He denies any symptoms of chest pain or chest discomfort or shortness of breath. Hemodynamically he continues to be stable. From the cardiac vascular standpoint of view, the patient can be discharged home and follow-up with his stove cleaner as an outpatient. The echo showed cardiomyopathy with EF between 35-40%. Cardiomyopathy medication need to be reinitiated probably as an outpatient Objective - Vital Signs Vital signs: Vital Signs Temp 97.6 F 09/18/21 08:00 Pulse 68 09/18/21 08:00 Resp 18 09/18/21 08:00 BP 111/65 09/18/21 08:00 Pulse Ox 94 L 09/18/21 08:00 Intake & Output 09/17/21 09/18/21 09/18/21 18:59 06:59 18:59 Intake Total 540 20 118 Balance 540 20 118 Weight 98.8 kg Intake: IV 20 Invasive Line 1 20 Oral 540 118 Other: Voiding Method Toilet # Voids 3 2 1 - Constitutional General appearance: Present: no acute distress - Respiratory Respiratory: bilateral: CTA - Cardiovascular Rhythm: regular Abnormal Heart Sounds: Present: systolic murmur - Labs CBC & Chem 7: 09/15/21 14:02 09/18/21 09:02 Labs: Abnormal Lab Results - Last 24 Hours (Table) 09/17/21 09/18/21 Range/Units 13:16 09:02 BUN 47 H 48 H (9-20) mg/dL Creatinine 3.30 H 3.43 H (0.66-1.25) mg/dL Glucose 107 H 110 H (74-99) mg/dL Assessment and Plan Assessment: Assessment #1 coronary artery disease #2 history of cardiomyopathy #3 valvular heart disease with mitral regurgitation #4 evidence of myocardial injury without ischemia #5 chronic kidney disease #6 history of aortic dissection Plan #1 continue the current high dose of beta iron #2 the patient is a stable hemodynamic the #3 he is asymptomatic #4 he potentially can be discharged home
[2021-09-18 12:05] VITALS: BP 126/72; PULSE 65
--- NOTE | 2021-09-18 17:50 | PN ---
PROGRESS NOTE Patient is seen for followup for CKD. His renal function remains fairly stable, creatinine staying at about 3 although this morning it was up to 3.4. The patient is maintained on small dose of diuretics. He is waiting to go home. His blood pressure had been low and hydralazine has now been discontinued. Overall, he states he is feeling better. PHYSICAL EXAMINATION: On examination today, blood pressure this morning 111/65, another blood pressure 126/72; heart rate 65 per minute. He is afebrile. Examination of the heart S1, S2. Examination of the lungs, bilateral breath sounds are heard. Abdomen is soft, nontender. Examination of lower extremities shows no evidence of edema. Patient has right BKA. LAB: Show sodium 138, potassium 4.5, chloride 101, BUN 48, creatinine 3.4. ASSESSMENT: 1. Chronic kidney disease secondary to nephrosclerosis. Previous UA showed trace protein in February of 2021. The patient will need outpatient followup. Baseline creatinine appears to be 2.9-3 mg/dL. Etiology is obstructive nephropathy with previous right hydronephrosis and previous ureteral stent placement and removal. No ultrasound was obtained this admission. Patient will need further workup and follow up as outpatient. 2. History of nephrolithiasis with previous right hydro. Follow up with Urology. 3. Bilateral renal cysts. 4. Elevated troponins with history of chest pain on admission, currently asymptomatic. No plans for intervention. 5. Cardiomyopathy, 35-40%. 6. Acute kidney injury mostly related to low blood pressure. Hydralazine has been discontinued. Expect improvement over the next few days. PLAN: Follow up in the office in about 1-2 weeks time. Maintain follow up with Urology. Will need further imaging studies as outpatient and repeat UA as well. MMODL / IJN: [id number] /
--- NOTE | 2021-09-18 22:53 | P.DS ---
Providers Date of admission: 09/15/21 15:04 Expected date of discharge: 09/18/21 Attending physician: Og Escoto Consults: 09/15/21 15:04 Consult Physician Urgent Consulting Provider: [facility] Consult Reason/Comments: Chest pain Do you want consulting provider notified?: Yes 09/15/21 16:21 Consult Physician Routine Consulting Provider: Tone Louis Consult Reason/Comments: CK D Do you want consulting provider notified?: Yes [facility] Course: Chief Complaint: Chest pain This is a pleasant 71-year-old patient who follows with Dr. Og Escoto. 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 Extensive medical history that includes CAD with stent in June 2020 aortic dissection which led to right leg BKA, aortic arch repair with fem-fem bypass, thoracic aneurysm repair left side had hemangioma with resection DVT hyperlipidemia hypertension kidney disease left kidney nonfunctioning. Patient now presents when he was sitting yesterday felt the middle of the chest pushing sensation. Lasted for about 3 hours. Patient was dizzy and tired. No radiation. Did get some help from nitroglycerin. Finally decided to come in. Blood pressures running on the lower side. Hydralazine discontinued. Today: Patient was seen by cardiology. Cleared for discharge. No further intervention. Care was discussed with the patient. Also cleared by nephrology. Consultation: Dr. Vincent from cardiology Dr. Araiza from nephrology Past medical history to include:: CHF, DVT, hypertension, hyperlipidemia, left hydronephrosis chronic, aortic dissection with impaired perfusion right lower extremity leading to BKA, cardiomyopathy, aortic aneurysm 7. centimeter with further workup. PAD, stroke with left arm weakness and symptoms starting with speech, kidney stones, left kidney nonfunctioning, right kidney about 50%. CAD with stent to RCA in June 2020 etc. Social history: . No smoking no alcohol Family history: Mother of a heart attack age of 37 Physical examination: VITAL SIGNS: 37.6, 65, 18, 126.72, 95% room air GENERAL: Sitting up, comfortable EYES: Pupils equal. Conjunctiva normal. HEENT: External appearance of nose and ears normal, oral cavity grossly normal. NECK: JVD not raised; masses not palpable. HEART: First and second heart sounds are normal; mild edema. LUNGS: Respiratory rate normal; clear to auscultation. ABDOMEN: Soft, nontender, liver spleen not palpable, no masses palpable. PSYCH: [Alert and oriented x3; mood and affect anxious INVESTIGATIONS, reviewed in the clinical context: September 18: Potassium 4.5 creatinine 3.43 September 17: Potassium 4.5 BUN 47 creatinine 3.3 White count 6.3 hemoglobin 11.8 platelets 127 potassium 4.5 BUN 36 creatinine 2.93 Troponin I 0.044, 0.048, 0.048 LDL 75 Coronavirus [PCR]: Not detected EKG tracing personally reviewed by me-atrial fibrillation rate 95. Right bundle-branch block Chest x-ray film personally reviewed by me-cardiomegaly Assessment and plan: -Anterior chest wall pain. In a patient with known CAD with stent. Troponin levels pleateau with no rise and fall. In the setting of renal failure. Seen by currently. 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 -CAD with stent to RCA in June 2020 -Hyperlipidemia -Essential hypertension Coreg 25 mg twice a day, hydralazine discontinued. -Chronic kidney disease stage 4 from systolic reflux kidney and nephrolithiasis. History of urinary leak previously had a rectal stent placement and removal. Follow with nephrology Follow renal function -Chronic metabolic acidosis from CK D Bicarbonate -Right below-knee amputation with a prosthesis -Peripheral arterial disease Plavix. Eliquis -Chronic DVT On eliquis 2.5 mg twice a day Disposition: Home Plan - Discharge Summary Discharge Rx Participant: Yes New Discharge Prescriptions: Continue Furosemide [Lasix] 20 mg PO DAILY@0600 Isosorbide Mononitrate ER [Imdur] 30 mg PO DAILY@0600 Carvedilol [Coreg] 25 mg PO BID@0600,1800 Brimonidine Tartrate [Alphagan P 0.2% Ophth Soln] 1 drop RIGHT EYE BID @0600,1800 Timolol 0.5% Ophth Soln [Timoptic 0.5% Ophth Soln] 1 drop RIGHT EYE BID@0600,1800 Sodium Bicarbonate Tab 650 mg PO BID@0600,1800 Clopidogrel [Plavix] 75 mg PO DAILY@0600 Apixaban [Eliquis] 2.5 mg PO BID@0600,1800 Amiodarone HCl [Pacerone] 200 mg PO DAILY@0600 Discontinued hydrALAZINE HCL [Apresoline] 25 mg PO BID@0600,1800 Discharge Medication List Furosemide [Lasix] 20 mg PO DAILY@0600 06/23/20 [History] Apixaban [Eliquis] 2.5 mg PO BID@0600,1800 02/28/21 [History] Amiodarone HCl [Pacerone] 200 mg PO DAILY@0600 04/01/21 [History] Brimonidine Tartrate [Alphagan P 0.2% Ophth Soln] 1 drop RIGHT EYE BID@0600,1800 04/01/21 [History] Carvedilol [Coreg] 25 mg PO BID@0600,1800 04/01/21 [History] Isosorbide Mononitrate ER [Imdur] 30 mg PO DAILY@59904/01/21 [History] Clopidogrel [Plavix] 75 mg PO DAILY@0600 09/15/21 [History] Sodium Bicarbonate Tab 650 mg PO BID@0600,1800 09/15/21 [History] Timolol 0.5% Ophth Soln [Timoptic 0.5% Ophth Soln] 1 drop RIGHT EYE BID@0600,1800 09/15/21 [History] Follow up Appointment(s)/Referral(s): cardiology, [Other] - 2 Weeks (Follow up with Dr. Harding. Office will call to make appointment.) Shakira Araiza MD [STAFF PHYSICIAN] - 09/24/21 2:20 pm (Friday) Og Escoto MD [Primary Care Provider] - 09/27/21 1:00 am () Patient Instructions/Handouts: Chest Pain (DC), Thoracic Aortic Aneurysm (DC) Discharge Disposition: HOME SELF-CARE
== END 2021-09-18 13:30 | disposition home or self-care (01) | DRG 315 ==
LOC: EC 13:29 → 3SCARD 15:04
PROVIDERS: ADMIT Family Medicine; ATTEND Family Medicine
DX: I5A Non-ischemic myocardial injury (non-traumatic) (principal); E87.2 Acidosis; I13.0 Hypertensive heart and chronic kidney disease with heart failure and stage 1 through stage 4 chronic kidney disease, or unspecified chronic kidney disease; I48.92 Unspecified atrial flutter; J98.11 Atelectasis; N13.2 Hydronephrosis with renal and ureteral calculous obstruction; N13.8 Other obstructive and reflux uropathy; N17.9 Acute kidney failure, unspecified; N18.4 Chronic kidney disease, stage 4 (severe); Z20.822 Contact with and (suspected) exposure to COVID-19; R07.9 Chest pain, unspecified; E78.5 Hyperlipidemia, unspecified; F41.9 Anxiety disorder, unspecified; J40 Bronchitis, not specified as acute or chronic; I25.10 Atherosclerotic heart disease of native coronary artery without angina pectoris; I95.9 Hypotension, unspecified; I25.2 Old myocardial infarction; I25.5 Ischemic cardiomyopathy; I34.0 Nonrheumatic mitral (valve) insufficiency; I48.0 Paroxysmal atrial fibrillation; I50.9 Heart failure, unspecified; I73.9 Peripheral vascular disease, unspecified; K21.9 Gastro-esophageal reflux disease without esophagitis; N28.1 Cyst of kidney, acquired; Z79.01 Long term (current) use of anticoagulants; Z79.02 Long term (current) use of antithrombotics/antiplatelets; Z79.899 Other long term (current) drug therapy; Z86.718 Personal history of other venous thrombosis and embolism; Z86.73 Personal history of transient ischemic attack (TIA), and cerebral infarction without residual deficits; Z87.01 Personal history of pneumonia (recurrent); Z87.442 Personal history of urinary calculi; Z89.511 Acquired absence of right leg below knee; Z95.5 Presence of coronary angioplasty implant and graft; Z82.49 Family history of ischemic heart disease and other diseases of the circulatory system; Z88.5 Allergy status to narcotic agent; Z88.0 Allergy status to penicillin; Z91.02 Food additives allergy status
CPT/HCPCS: 36415; 71046; 80048; 80053; 80061; 83735; 84484; 85025; 85610; 85730; 87635; 93005; 93306; 96374; 99285

== ENCOUNTER 2021-11-23 14:40 | Emergency (ER) | payer MEDICARE, OTHER ==
[2021-11-23 15:03] VITALS: PULSE 54; RESP 16; TEMP 98.8
[2021-11-23 16:17] LABS: Albumin 4.2 g/dL (3.5-5.0); Calcium 9.5 mg/dL (8.4-10.2); Potassium 4.8 mmol/L (3.5-5.1); Total Bilirubin 0.8 mg/dL (0.2-1.3); Total Protein 7.8 g/dL (6.3-8.2)
[2021-11-23 16:18] LABS: Basophils % (A) 1 %; Eosinophils # (A) 0.5 k/uL (0-0.7); Eosinophils % (A) 9 %; HCT 37.5 % (39.0-53.0); Hypochromasia Slight; Lymphocytes # (A) 1.4 k/uL (1.0-4.8); Lymphocytes % (A) 24 %; MCH 28.6 pg (25.0-35.0); MCHC 31.9 g/dL (31.0-37.0); MCV 89.7 fL (80.0-100.0); Mean Platelet Volume 9.6; Monocytes # (A) 0.4 k/uL (0-1.0); Monocytes % (A) 8 %; Neutrophils # (A) 3.3 k/uL (1.3-7.7); Neutrophils % (A) 57 %; Platelet Count 123 k/uL (150-450); RBC 4.18 m/uL (4.30-5.90); RDW 15.7 % (11.5-15.5); WBC 5.8 k/uL (3.8-10.6)
[2021-11-23 16:25] LABS: INR 1.1 (<1.2); Partial Thromboplastin Time 25.7 sec (22.0-30.0); Prothrombin Time 11.4 sec (9.0-12.0)
--- NOTE | 2021-11-23 16:26 | ED ---
General Adult HPI - General Chief complaint: Urogenital Stated complaint: Bruising, Rectal Bleeding,PCP sent,Blood Thinners Time Seen by Provider: 11/23/21 15:38 Source: patient Mode of arrival: ambulatory Limitations: no limitations - History of Present Illness Initial comments: Patient is a 71-year-old male who presents to the emergency department with a chief complaint of abdominal bruising and bleeding from penis x 2 days. Patient reports he saw Dr. Escoto today for the bruising who sent him here. Patient is on Eliquis. Patient denies any trauma or injury to the abdomen or penis. Patient reports blood when urinating as well as bleeding from penis in between urination as he notice small bloodstains in his underwear. Patient has no other complaints at this time including fever, chills, shortness of breath, chest pain, palpitations, dizziness, lightheadedness, abdominal pain, and dysuria. - Related Data Home Medications Medication Instructions Recorded Confirmed Furosemide [Lasix] 20 mg PO DAILY 06/23/20 11/23/21 Apixaban [Eliquis] 2.5 mg PO BID 02/28/21 11/23/21 Amiodarone HCl [Pacerone] 200 mg PO DAILY 04/01/21 11/23/21 Brimonidine Tartrate [Alphagan P 1 drop RIGHT EYE BID 04/01/21 11/23/21 0.2% Ophth Soln] Carvedilol [Coreg] 25 mg PO BID 04/01/21 11/23/21 Isosorbide Mononitrate ER [Imdur] 30 mg PO DAILY 04/01/21 11/23/21 Clopidogrel [Plavix] 75 mg PO DAILY 09/15/21 11/23/21 Sodium Bicarbonate Tab 650 mg PO BID 09/15/21 11/23/21 Timolol 0.5% Ophth Soln [Timoptic 1 drop RIGHT EYE BID 09/15/21 11/23/21 0.5% Ophth Soln] Aspirin EC [Ecotrin Low Dose] 81 mg PO DAILY 11/23/21 11/23/21 Nitroglycerin Sl Tabs [Nitrostat] 0.4 mg SUBLINGUAL Q5M PRN 11/23/21 11/23/21 Previous Rx's Medication Instructions Recorded Sulfamethox-Tmp 800-160Mg [Bactrim 1 tab PO Q12HR 7 Days #14 tab 11/23/21 DS 800-160 mg] Allergies Allergy/AdvReac Type Severity Reaction Status Date / Time cephalexin [From Keflex] Allergy Rash/Hives Verified 11/23/21 16:37 codeine Allergy Unknown Verified 11/23/21 16:37 Penicillins Allergy Rash/Hives Verified 11/23/21 16:37 strawberry Allergy Rash/Hives Verified 11/23/21 16:37 Review of Systems ROS Statement: Those systems with pertinent positive or pertinent negative responses have been documented in the HPI. ROS Other: All systems not noted in ROS Statement are negative. Past Medical History Past Medical History: Coronary Artery Disease (CAD), Heart Failure, CVA/TIA, Deep Vein Thrombosis (DVT), Eye Disorder, Hyperlipidemia, Hypertension, Myoca rdial Infarction ([place]), Pneumonia, Renal Disease, Skin Disorder Additional Past Medical History / Comment(s): NSTEMI/AMS d/t dehydration/chf/chronic L hydronephrosis which is to be followed up outpt. 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 Date of Last Stent Placement:: 07/01/20 Past Psychological History: Anxiety Smoking Status: Never smoker Past Alcohol Use History: None Reported Past Drug Use History: None Reported - Past Family History Mother Family Medical History: Myocardial Infarction ([place]) Additional Family Medical History / Comment(s): Mother of a [place] at the age of 37yrs. Father Family Medical History: Myocardial Infarction ([place]) Additional Family Medical History / Comment(s): Father of a MA at the age of 58yrs. General Exam Limitations: no limitations General appearance: alert, in no apparent distress Head exam: Present: atraumatic, normocephalic, normal inspection Eye exam: Present: normal appearance, PERRL, EOMI. Absent: scleral icterus, conjunctival injection, periorbital swelling Neck exam: Present: normal inspection. Absent: tenderness, meningismus, lym phadenopathy Respiratory exam: Present: normal lung sounds bilaterally. Absent: respiratory distress, wheezes, rales, rhonchi, stridor Cardiovascular Exam: Present: regular rate, normal rhythm, systolic murmur GI/Abdominal exam: Present: soft, normal bowel sounds, other (minimal ecchymosis of the right and left abdomen laterally. mobile nodules with palpation. Tender with deep palpation). Absent: distended, guarding, rebound, rigid Neurological exam: Present: alert, oriented X3, CN II-XII intact Psychiatric exam: Present: normal affect, normal mood Skin exam: Present: warm, dry, intact, normal color. Absent: rash Course Vital Signs 11/23/21 14:58 Temperature 98.8 F Pulse Rate 54 L Respiratory 16 Rate Blood Pressure 127/73 O2 Sat by Pulse 98 Oximetry Medical Decision Making - Medical Decision Making This is a 71-year-old male on Eliquis who presents with minimal ecchymosis of the abdomen and urethral bleeding x 2 days. Thorough history and examination were performed. Patient looks well and is resting in bed. There are healing bruises on the lateral abdomen bilaterally, likely due to minor injury, despite patient denying trauma. Laboratory studies reveal chronic normocytic normochromic anemia. Urinalysis reveals large leukocyte esterase and 35 RBC. Results discussed with patient. Patient will be discharged with Bactrim prescription for possible urinary tract infection. He is referred to urology for further evaluation of blood in urine and urethral bleeding. Return parameters discussed. Patient verbalizes understanding and is agreeable to plan. Dr. Vizcarra is my attending. - Lab Data Result diagrams: 11/23/21 15:57 11/23/21 15:57 Lab Results 11/23/21 11/23/21 11/23/21 Range/Units 15:57 15:57 15:57 WBC 5.8 (3.8-10.6) k/uL RBC 4.18 L (4.30-5.90) m/uL Hgb 12.0 L (13.0-17.5) gm/dL Hct 37.5 L (39.0-53.0) % MCV 89.7 (80.0-100.0) fL MCH 28.6 (25.0-35.0) pg MCHC 31.9 (31.0-37.0) g/dL RDW 15.7 H (11.5-15.5) % Plt Count 123 L (150-450) k/uL MPV 9.6 Neutrophils % 57 % Lymphocytes % 24 % Monocytes % 8 % Eosinophils % 9 % Basophils % 1 % Neutrophils # 3.3 (1.3-7.7) k/uL Lymphocytes # 1.4 (1.0-4.8) k/uL Monocytes # 0.4 (0-1.0) k/uL Eosinophils # 0.5 (0-0.7) k/uL Basophils # 0.0 (0-0.2) k/uL Hypochromasia Slight PT 11.4 (9.0-12.0) sec INR 1.1 (<1.2) APTT 25.7 (22.0-30.0) sec Sodium 139 (137-145) mmol/L Potassium 4.8 (3.5-5.1) mmol/L Chloride 102 (98-107) mmol/L Carbon Dioxide 25 (22-30) mmol/L Anion Gap 12 mmol/L BUN 53 H (9-20) mg/dL Creatinine 3.48 H (0.66-1.25) mg/dL Est GFR (CKD-EPI)AfAm 19 (>60 ml/min/1.73 sqM) Est GFR (CKD-EPI)NonAf 17 (>60 ml/min/1.73 sqM) Glucose 97 (74-99) mg/dL Calcium 9.5 (8.4-10.2) mg/dL Total Bilirubin 0.8 (0.2-1.3) mg/dL AST 31 (17-59) U/L ALT 22 (4-49) U/L Alkaline Phosphatase 98 (38-126) U/L Total Protein 7.8 (6.3-8.2) g/dL Albumin 4.2 (3.5-5.0) g/dL Urine Color Urine Appearance (Clear) Urine pH (5.0-8.0) Ur Specific [place] (1.001-1.035) Urine Protein (Negative) Urine Glucose (UA) (Negative) Urine Ketones (Negative) Urine Blood (Negative) Urine Nitrite (Negative) Urine Bilirubin (Negative) Urine Urobilinogen (<2.0) mg/dL Ur Leukocyte Esterase (Negative) Urine RBC (0-5) /hpf Urine WBC (0-5) /hpf Urine WBC Clumps (None) /hpf Ur Squamous Epith Cells (0-4) /hpf Urine Mucus (None) /hpf 11/23/21 Range/Units 17:13 WBC (3.8-10.6) k/uL RBC (4.30-5.90) m/uL Hgb (13.0-17.5) gm/dL Hct (39.0-53.0) % MCV (80.0-100.0) fL MCH (25.0-35.0) pg MCHC (31.0-37.0) g/dL RDW (11.5-15.5) % Plt Count (150-450) k/uL MPV Neutrophils % % Lymphocytes % % Monocytes % % Eosinophils % % Basophils % % Neutrophils # (1.3-7.7) k/uL Lymphocytes # (1.0-4.8) k/uL Monocytes # (0-1.0) k/uL Eosinophils # (0-0.7) k/uL Basophils # (0-0.2) k/uL Hypochromasia PT (9.0-12.0) sec INR (<1.2) APTT (22.0-30.0) sec Sodium (137-145) mmol/L Potassium (3.5-5.1) mmol/L Chloride (98-107) mmol/L Carbon Dioxide (22-30) mmol/L Anion Gap mmol/L BUN (9-20) mg/dL Creatinine (0.66-1.25) mg/dL Est GFR (CKD-EPI)AfAm (>60 ml/min/1.73 sqM) Est GFR (CKD-EPI)NonAf (>60 ml/min/1.73 sqM) Glucose (74-99) mg/dL Calcium (8.4-10.2) mg/dL Total Bilirubin (0.2-1.3) mg/dL AST (17-59) U/L ALT (4-49) U/L Alkaline Phosphatase (38-126) U/L Total Protein (6.3-8.2) g/dL Albumin (3.5-5.0) g/dL Urine Color Yellow Urine Appearance Clear (Clear) Urine pH 5.5 (5.0-8.0) Ur Specific [place] 1.013 (1.001-1.035) Urine Protein Trace H (Negative) Urine Glucose (UA) Negative (Negative) Urine Ketones Negative (Negative) Urine Blood Moderate H (Negative) Urine Nitrite Negative (Negative) Urine Bilirubin Negative (Negative) Urine Urobilinogen <2.0 (<2.0) mg/dL Ur Leukocyte Esterase Large H (Negative) Urine RBC 35 H (0-5) /hpf Urine WBC 56 H (0-5) /hpf Urine WBC Clumps Few H (None) /hpf Ur Squamous Epith Cells <1 (0-4) /hpf Urine Mucus Rare H (None) /hpf Disposition Clinical Impression: Blood in urine, UTI (urinary tract infection), Anemia Disposition: HOME SELF-CARE Condition: Good Instructions (If sedation given, give patient instructions): Urinary Tract Infection in Men (ED) Additional Instructions: Take medication as prescribed. Schedule an appointment with urologist at earliest available appointment. Return to the emergency department if you experience new, concerning, or worsening symptoms. Prescriptions: Sulfamethox-Tmp 800-160Mg [Bactrim DS 800-160 mg] 1 tab PO Q12HR 7 Days #14 tab Is patient prescribed a controlled substance at d/c from ED?: No Referrals: Og Escoto MD [Primary Care Provider] - 1-2 days Nick Clinton MD [STAFF PHYSICIAN] - 1-2 days Time of Disposition: 18:35
[2021-11-23 18:06] LABS: Appearance,Urine Clear (Clear); Bilirubin,Urine Negative (Negative); Blood,Urine Moderate (Negative); Color,Urine Yellow; Glucose,Urine (UA) Negative (Negative); Ketones,Urine Negative (Negative); Leukocyte Esterase,Urine Large (Negative); Mucus,Urine Rare /hpf; Nitrite,Urine Negative (Negative); PH, Urine 5.5 (5.0-8.0); Protein,Urine Trace (Negative); RBC,Urine 35 /hpf (0-5); Specific Gravity,Urine 1.013 (1.001-1.035); Squamous Epithelial Cell,Urine <1 /hpf (0-4); Urobilinogen,Urine <2.0 mg/dL (<2.0); WBC,Urine 56 /hpf (0-5)
[2021-11-23 19:06] VITALS: BP 137/80
== END 2021-11-23 19:05 | disposition home or self-care (01) ==
LOC: EC 14:40
DX: R31.9 Hematuria, unspecified (principal); N39.0 Urinary tract infection, site not specified; D64.9 Anemia, unspecified; I25.2 Old myocardial infarction; I13.0 Hypertensive heart and chronic kidney disease with heart failure and stage 1 through stage 4 chronic kidney disease, or unspecified chronic kidney disease; N18.30 Chronic kidney disease, stage 3 unspecified; I50.9 Heart failure, unspecified; I25.10 Atherosclerotic heart disease of native coronary artery without angina pectoris; E78.5 Hyperlipidemia, unspecified; F41.9 Anxiety disorder, unspecified; Z79.01 Long term (current) use of anticoagulants; Z79.82 Long term (current) use of aspirin; Z88.0 Allergy status to penicillin; Z88.1 Allergy status to other antibiotic agents; Z88.5 Allergy status to narcotic agent; Z86.73 Personal history of transient ischemic attack (TIA), and cerebral infarction without residual deficits; Z86.718 Personal history of other venous thrombosis and embolism; Z87.442 Personal history of urinary calculi; Z90.49 Acquired absence of other specified parts of digestive tract
CPT/HCPCS: 36415; 80053; 81001; 85025; 85610; 85730; 87086; 99283

== ENCOUNTER 2022-03-26 10:34 | Inpatient (IN) | payer MEDICARE, OTHER ==
[2022-03-26] MEDS ORDERED: SODIUM CHLORIDE 0.9% 500 ML 500 ML IV STA (10:43)
--- NOTE | 2022-03-26 10:51 | ED ---
General Adult HPI - General Chief complaint: Neuro Symptoms/Deficit Stated complaint: Stroke symptoms Time Seen by Provider: 03/26/22 10:34 Source: patient, EMS, RN notes reviewed, old records reviewed Mode of arrival: EMS Limitations: no limitations - History of Present Illness Initial comments: This is a 72-year-old male with past medical history significant for diabetes coronary artery stents and a thoracic aortic dissection in the past with repair. Patient states this morning he woke about 8:30 was having chest pain or chest pain was constant until about 9:30 when his noted him to have some right- sided facial droop. The facial droop continues this time. Patient states since then the chest pain is been intermittent and currently has a little bit of chest pain. Patient states he has had no difficulty breathing or shortness of breath. Patient denies any diaphoretic episodes. Patient denies any weakness in his arms or legs. Patient denies any slurred speech. Patient denies any recent fever chills or cough. Patient denies any abdominal pain. - Related Data Home Medications Medication Instructions Recorded Confirmed Furosemide [Lasix] 20 mg PO DAILY 06/23/20 11/23/21 Apixaban [Eliquis] 2.5 mg PO BID 02/28/21 11/23/21 Amiodarone HCl [Pacerone] 200 mg PO DAILY 04/01/21 11/23/21 Brimonidine Tartrate [Alphagan P 1 drop RIGHT EYE BID 04/01/21 11/23/21 0.2% Ophth Soln] Isosorbide Mononitrate ER [Imdur] 30 mg PO DAILY 04/01/21 11/23/21 carvediloL [Coreg] 25 mg PO BID 04/01/21 11/23/21 Clopidogrel [Plavix] 75 mg PO DAILY 09/15/21 11/23/21 Sodium Bicarbonate Tab 650 mg PO BID 09/15/21 11/23/21 Timolol 0.5% Ophth Soln [Timoptic 1 drop RIGHT EYE BID 09/15/21 11/23/21 0.5% Ophth Soln] Aspirin EC [Ecotrin Low Dose] 81 mg PO DAILY 11/23/21 11/23/21 Nitroglycerin Sl Tabs [Nitrostat] 0.4 mg SUBLINGUAL Q5M PRN 11/23/21 11/23/21 Previous Rx's Medication Instructions Recorded Sulfamethox-Tmp 800-160Mg [Bactrim 1 tab PO Q12HR 7 Days #14 tab 11/23/21 DS 800-160 mg] Allergies Allergy/AdvReac Type Severity Reaction Status Date / Time cephalexin [From Keflex] Allergy Rash/Hives Verified 03/26/22 10:45 codeine Allergy Unknown Verified 03/26/22 10:45 Penicillins Allergy Rash/Hives Verified 03/26/22 10:45 strawberry Allergy Rash/Hives Verified 03/26/22 10:45 Review of Systems ROS Statement: Those systems with pertinent positive or pertinent negative responses have been documented in the HPI. ROS Other: All systems not noted in ROS Statement are negative. Past Medical History Past Medical History: Coronary Artery Disease (CAD), Heart Failure, CVA/TIA, Deep Vein Thrombosis (DVT), Eye Disorder, Hyperlipidemia, Hypertension, Myocardial Infarction ([place]), Pneumonia, Renal Disease, Skin Disorder Additional Past Medical History / Comment(s): NSTEMI/AMS d/t dehydration/chf/chronic L hydronephrosis which is to be followed up outpt. 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 Date of Last Stent Placement:: 07/01/20 Past Psychological History: Anxiety Smoking Status: Never smoker Past Alcohol Use History: None Reported Past Drug Use History: None Reported - Past Family History Mother Family Medical History: Myocardial Infarction ([place]) Additional Family Medical History / Comment(s): Mother of a [place] at the age of 37yrs. Father Family Medical History: Myocardial Infarction ([place]) Additional Family Medical History / Comment(s): Father of a [place] at the age of 58yrs. General Exam - General Exam Comments Initial Comments: GENERAL: Patient is well-developed and well-nourished. Patient is nontoxic and well- hydrated and is in no acute distress. ENT: Neck is soft and supple. No significant lymphadenopathy is noted. Oropharynx is clear. Moist mucous membranes. Neck has full range of motion without eliciting any pain. EYES: The sclera were anicteric and conjunctiva were pink and moist. Extraocular movements were intact and pupils were equal round and reactive to light. Eyelids were unremarkable. PULMONARY: Unlabored respirations. Good breath sounds bilaterally. No audible rales rhonchi or wheezing was noted. CARDIOVASCULAR: There is a regular rate and rhythm without any murmurs gallops or rubs. ABDOMEN: Soft and nontender with normal bowel sounds. SKIN: Skin is clear with no lesions or rashes and otherwise unremarkable. NEUROLOGIC: Patient is alert and oriented x3. Patient has right-sided facial droop forehead does not appear to be involved. Motor and sensory are also intact. Normal speech, volume and content. MUSCULOSKELETAL: Normal extremities with adequate strength and full range of motion. LYMPHATICS: No significant lymphadenopathy is noted PSYCHIATRIC: Normal psychiatric evaluation. Limitations: no limitations Course Vital Signs 03/26/22 03/26/22 03/26/22 10:40 10:45 11:00 Temperature 97.6 F Pulse Rate 71 76 Respiratory 18 18 Rate Blood Pressure 98/62 96/76 O2 Sat by Pulse 95 97 Oximetry 03/26/22 03/26/22 11:15 12:27 Temperature Pulse Rate 72 75 Respiratory 18 18 Rate Blood Pressure 102/75 110/77 O2 Sat by Pulse 97 99 Oximetry Medical Decision Making - Medical Decision Making EKG shows sinus rhythm at 73 bpm [place] interval is 158 QRSs 193 QT interval is 475 QTC is 500. Patient's EKG shows no ST segment elevation or depression. Patient has a right bundle branch block CT of the brain shows no acute abnormality. CT angiogram shows no acute abnormalities by the patient's symptoms. CT of the aorta shows no new dissection and no leak however there is no cyst on the left kidney that shows a possible hemorrhage in the cyst. I spoke with Dr. Escoto he agreed to admit the patient admitted the patient wrote admitting orders. - Lab Data Result diagrams: 03/26/22 10:56 03/26/22 10:56 Lab Results 03/26/22 03/26/22 03/26/22 Range/Units 10:56 10:56 10:56 WBC 8.7 (3.8-10.6) k/uL RBC 3.84 L (4.30-5.90) m/uL Hgb 11.5 L (13.0-17.5) gm/dL Hct 35.2 L (39.0-53.0) % MCV 91.7 (80.0-100.0) fL MCH 30.0 (25.0-35.0) pg MCHC 32.8 (31.0-37.0) g/dL RDW 14.9 (11.5-15.5) % Plt Count 128 L (150-450) k/uL MPV 9.5 Neutrophils % 73 % Lymphocytes % 15 % Monocytes % 6 % Eosinophils % 5 % Basophils % 0 % Neutrophils # 6.3 (1.3-7.7) k/uL Lymphocytes # 1.3 (1.0-4.8) k/uL Monocytes # 0.6 (0-1.0) k/uL Eosinophils # 0.4 (0-0.7) k/uL Basophils # 0.0 (0-0.2) k/uL PT 11.3 (9.0-12.0) sec INR 1.0 (<1.2) APTT 26.9 (22.0-30.0) sec Sodium 139 (137-145) mmol/L Potassium 4.3 (3.5-5.1) mmol/L Chloride 99 (98-107) mmol/L Carbon Dioxide 26 (22-30) mmol/L Anion Gap 14 mmol/L BUN 55 H (9-20) mg/dL Creatinine 4.46 H (0.66-1.25) mg/dL Est GFR (CKD-EPI)AfAm 14 (>60 ml/min/1.73 sqM) Est GFR (CKD-EPI)NonAf 12 (>60 ml/min/1.73 sqM) Glucose 150 H (74-99) mg/dL Calcium 9.0 (8.4-10.2) mg/dL Total Bilirubin 0.9 (0.2-1.3) mg/dL AST 23 (17-59) U/L ALT 19 (4-49) U/L Alkaline Phosphatase 109 (38-126) U/L Troponin I (0.000-0.034) ng/mL Total Protein 7.4 (6.3-8.2) g/dL Albumin 4.2 (3.5-5.0) g/dL Urine Color Urine Appearance (Clear) Urine pH (5.0-8.0) Ur Specific [place] (1.001-1.035) Urine Protein (Negative) Urine Glucose (UA) (Negative) Urine Ketones (Negative) Urine Blood (Negative) Urine Nitrite (Negative) Urine Bilirubin (Negative) Urine Urobilinogen (<2.0) mg/dL Ur Leukocyte Esterase (Negative) Urine RBC (0-5) /hpf Urine WBC (0-5) /hpf Ur Squamous Epith Cells (0-4) /hpf Urine Mucus (None) /hpf 03/26/22 03/26/22 Range/Units 10:56 11:45 WBC (3.8-10.6) k/uL RBC (4.30-5.90) m/uL Hgb (13.0-17.5) gm/dL Hct (39.0-53.0) % MCV (80.0-100.0) fL MCH (25.0-35.0) pg MCHC (31.0-37.0) g/dL RDW (11.5-15.5) % Plt Count (150-450) k/uL MPV Neutrophils % % Lymphocytes % % Monocytes % % Eosinophils % % Basophils % % Neutrophils # (1.3-7.7) k/uL Lymphocytes # (1.0-4.8) k/uL Monocytes # (0-1.0) k/uL Eosinophils # (0-0.7) k/uL Basophils # (0-0.2) k/uL PT (9.0-12.0) sec INR (<1.2) APTT (22.0-30.0) sec Sodium (137-145) mmol/L Potassium (3.5-5.1) mmol/L Chloride (98-107) mmol/L Carbon Dioxide (22-30) mmol/L Anion Gap mmol/L BUN (9-20) mg/dL Creatinine (0.66-1.25) mg/dL Est GFR (CKD-EPI)AfAm (>60 ml/min/1.73 sqM) Est GFR (CKD-EPI)NonAf (>60 ml/min/1.73 sqM) Glucose (74-99) mg/dL Calcium (8.4-10.2) mg/dL Total Bilirubin (0.2-1.3) mg/dL AST (17-59) U/L ALT (4-49) U/L Alkaline Phosphatase (38-126) U/L Troponin I 0.054 H* (0.000-0.034) ng/mL Total Protein (6.3-8.2) g/dL Albumin (3.5-5.0) g/dL Urine Color Yellow Urine Appearance Clear (Clear) Urine pH 6.0 (5.0-8.0) Ur Specific [place] 1.024 (1.001-1.035) Urine Protein Trace H (Negative) Urine Glucose (UA) Negative (Negative) Urine Ketones Negative (Negative) Urine Blood Trace H (Negative) Urine Nitrite Negative (Negative) Urine Bilirubin Negative (Negative) Urine Urobilinogen <2.0 (<2.0) mg/dL Ur Leukocyte Esterase Moderate H (Negative) Urine RBC 3 (0-5) /hpf Urine WBC 13 H (0-5) /hpf Ur Squamous Epith Cells <1 (0-4) /hpf Urine Mucus Rare H (None) /hpf Critical Care Time Critical Care Time: Yes Total Critical Care Time: 35 Disposition Clinical Impression: Cerebrovascular accident (CVA), Chest pain Disposition: ADMITTED IP TO THIS [facility] Referrals: None,Stated [REFERRING] - 1-2 days Time of Disposition: 12:46
[2022-03-26 11:09] LABS: Basophils % (A) 0 %; Eosinophils # (A) 0.4 k/uL (0-0.7); Eosinophils % (A) 5 %; HCT 35.2 % (39.0-53.0); HGB 11.5 gm/dL (13.0-17.5); Lymphocytes # (A) 1.3 k/uL (1.0-4.8); Lymphocytes % (A) 15 %; MCHC 32.8 g/dL (31.0-37.0); MCV 91.7 fL (80.0-100.0); Mean Platelet Volume 9.5; Monocytes # (A) 0.6 k/uL (0-1.0); Monocytes % (A) 6 %; Neutrophils # (A) 6.3 k/uL (1.3-7.7); Neutrophils % (A) 73 %; Platelet Count 128 k/uL (150-450); RBC 3.84 m/uL (4.30-5.90); RDW 14.9 % (11.5-15.5); WBC 8.7 k/uL (3.8-10.6)
[2022-03-26] MEDS ORDERED: SODIUM CHLORIDE 0.9% 500 ML 500 ML IV ONE (11:10)
--- NOTE | 2022-03-26 11:13 | CT ---
EXAMINATION TYPE: CT brain wo con DATE OF EXAM: 03/26/2022 COMPARISON: 06/27/2020 HISTORY: tia CT DLP: [address] of the brain was performed. The ventricles, basal cisterns and sulci overlying the cerebral convexities demonstrate mild enlargem ent. Again noted is remote insult left cerebellum as well as the right frontal region. Remote insult left frontal lobe as well. There is no evidence for intracranial hemorrhage or sulcal effacement. There is decreased attenuation about the periventricular white matter and deep white matter of both c erebral hemispheres, compatible with chronic small vessel ischemia. Differential diagnosis does inclu de demyelination. No mass effects are seen.No midline shift. Osseous calvarium is intact. If symptoms persist consider MRI. IMPRESSION: 1. Age related atrophic and chronic small vessel ischemic change without acute intracranial process s een at this time.
[2022-03-26 11:18] LABS: Albumin 4.2 g/dL (3.5-5.0); Potassium 4.3 mmol/L (3.5-5.1); Total Bilirubin 0.9 mg/dL (0.2-1.3); Total Protein 7.4 g/dL (6.3-8.2)
[2022-03-26 11:19] LABS: Partial Thromboplastin Time 26.9 sec (22.0-30.0); Prothrombin Time 11.3 sec (9.0-12.0)
--- NOTE | 2022-03-26 11:47 | CT ---
EXAMINATION TYPE: CT angio chest DATE OF EXAM: 03/26/2022 COMPARISON: HISTORY: chest pain CT DLP: 1486.2 mGycm CONTRAST: CTA thoracic and abdominal aorta with 3-D reconstruction is performed and with IV Contrast, patient i njected with 50 mL of Isovue 370. Contrast CTA of the thoracic and abdominal aorta was performed from the lung apex through the base of the pelvis. 3-D reconstruction imaging obtained at a separate workstation. CT thoracic and abdominal aorta: Again noted is ascending thoracic aortic stent. There is chronic di ssection again noted to involve the descending thoracic aorta with maximal dimension of 6.7 cm in tra nsverse dimension versus 6.7 cm on the prior examination. Slow flow is again noted within the false l umen. Dissection continues into the abdominal aorta. There is an enlarging infrarenal abdominal aorti c aneurysm measuring 6.3 cm in AP dimension versus 5 cm previously. No definite evidence for rupture or ParaAortic collection at this time. Dissection extends into the right common iliac artery. Right c ommon iliac artery aneurysm measures 3.1 cm. LUNGS: Left basilar atelectasis or parenchymal scarring. No pulmonary nodule or mass is detected. No pleural effusion or CT evidence of interstitial lung disease. MEDIASTINUM: The heart is not enlarged. No evidence for mediastinal mass or adenopathy. HILAR STRUCTURES: No evidence for mass. No hilar adenopathy is appreciated. OTHER: No significant abnormality. LIVER/GB- No significant abnormality is seen. The gallbladder is surgically absent. PANCREAS- No significant abnormality is seen. SPLEEN- No significant abnormality is seen. ADRENALS- No significant abnormality is seen. KIDNEYS/BLADDER-enlarging exophytic cystic mass arising from the lower pole of the left kidney curren tly measuring 11.5 x 11.3 x 11.8 cm versus prior measurement of 9.2 x 9.8 cm. There is a hyperdensity seen within the dependent portion of the mass as well as stranding about the mass may reflect underl alejandro hemorrhage and/or leak. Additional renal cysts are seen bilaterally. Renal parenchymal thinning noted. BOWEL- No Significant abnormality GENITAL ORGANS: No gross abnormality seen. LYMPH NODES- No greater than 1cm abdominal or pelvic lymph nodes are appreciated. OSSEOUS STRUCTURES- No significant abnormality is seen. OTHER- No significant abnormality is seen. IMPRESSION- 1. 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 Thor acic component appears stable. There is an enlarging aneurysm involving the distal abdominal aorta as discussed above. No evidence for perforation at this time. Dissection extends into the right common iliac artery. Right common iliac artery aneurysm measures 3.1 cm. 2. Enlarging cystic mass lower pole left kidney with internal hemorrhage and surrounding attenuation may reflect fluid leak. 3. Stable left postoperative changes ascending thoracic aorta with aortic stent graft in place.
[2022-03-26 12:02] LABS: Appearance,Urine Clear (Clear); Bilirubin,Urine Negative (Negative); Blood,Urine Trace (Negative); Color,Urine Yellow; Glucose,Urine (UA) Negative (Negative); Ketones,Urine Negative (Negative); Leukocyte Esterase,Urine Moderate (Negative); Mucus,Urine Rare /hpf; Nitrite,Urine Negative (Negative); Protein,Urine Trace (Negative); RBC,Urine 3 /hpf (0-5); Specific Gravity,Urine 1.024 (1.001-1.035); Squamous Epithelial Cell,Urine <1 /hpf (0-4); Urobilinogen,Urine <2.0 mg/dL (<2.0); WBC,Urine 13 /hpf (0-5)
--- NOTE | 2022-03-26 12:05 | CT ---
EXAMINATION TYPE: CT angio head neck DATE OF EXAM: 03/26/2022 COMPARISON: None HISTORY: neuro deficit CT DLP: 748.7 mGycm CONTRAST: Performed with IV Contrast, patient injected with 50 mL of Isovue 370. Combination Contrast CTA cervical carotids and [place] CTA cervical carotids with 3-D recons truction Contrast CTA of the cervical carotids was performed 3-D reconstruction imaging obtained at a separate workstation. Right carotid system: Mild plaque is seen of the right common carotid artery. There is mild plaque a lso noted at the carotid bulb and proximal ICA. No significant diameter reduction. ECA is patent. Right vertebral artery appears unremarkable. Left carotid system: Mild plaque is seen of the left common carotid artery. There is mild plaque als o noted at the carotid bulb and proximal ICA. No significant diameter reduction. ECA is patent. Lef t vertebral artery appears unremarkable. IMPRESSION: 1. No significant diameter reduction to account for the patient's symptoms. CTA [place] with 3-D reconstruction Contrast CTA of the [place] was performed 3-D reconstruction imaging obtained at a separate workstation. Vertebrobasilar system as well as intracranial portions of the internal carotid arteries and their ma jasvir tributaries are patent. Diminutive left vertebral artery with dominant right vertebral artery. I do not see evidence for sizable aneurysm or vascular malformation. Please note MRI provides greater sensitivity and specificity. Visualized brain appears grossly unremarkable. IMPRESSION: 1. Significant abnormality seen to account for the patient's symptoms. NASCET criteria was used in interpretation of this exam?
[2022-03-26] MEDS ORDERED: NITROGLYCERIN SL TABS 0.4 MG TAB SUBLINGUAL PRN ×2 (12:47→14:44)
[2022-03-26] MEDS: ONDANSETRON 4 MG/2 ML VIAL IVP PRN (13:43)
[2022-03-26] MEDS: SODIUM CHLORIDE 0.9% 1,000 ML IV SCH (15:06)
--- NOTE | 2022-03-26 15:19 | HP ---
HISTORY AND PHYSICAL Wilner spears is a 72-year-old white male who had some altered mental status at home. He had last time when he was admitted but he was fixed with wearing oxygen all the time. Hypoxemia which fixed most of his altered mental status at home, but his says he just became acting funny, so she brought him to the ER. He had a CTA in the ER showed chronic dissection of the ascending thoracic aorta and enlarging aneurysm distal abdominal aorta, right common iliac aneurysm 3.1, enlarging cystic mass in the lower pole of the left kidney with internal hemorrhage may reflect reflective fluid leak. We had sent him down to [facility] to have that looked at less than a year ago and they left it alone. The kidney mass about 12 cm, which is what it used to be when we sent him down to [facility] last time. I do not think that is new at all. It was hemorrhagic before. Maximal diameter of the aneurysm in his chest, 6.7 cm and infrarenal abdominal aortic aneurysm up to 6.3. He had a angiography CT which shows no significant abnormalities to cause any symptoms. He had a regular brain CT in the ER, which showed age-related changes, however awaiting Neurology recommendations at this time. He had worsening renal function for which kidney doctor was also consulted. He was found to have a facial droop in the emergency room on the right side and continues in the ER and intermittent chest pain and some diaphoresis. Denies any weakness or slurred speech. Home medicines: Lasix 20 mg daily, Eliquis 2.5 b.i.d., 200 mg daily, eyedrops b.i.d., Imdur 30 mg daily, Coreg 25 b.i.d., Plavix 75 mg daily, sodium bicarb 650 b.i.d., timolol eye drops daily, aspirin 81 mg daily, nitro sublingual daily. ALLERGIES: TO KEFLEX, CODEINE, PENICILLIN, STRAWBERRIES. PAST MEDICAL HISTORY: Coronary artery disease, heart failure, CVA, TIA, DVT, eye disorder, dyslipidemia, hypertension, myocardial infarction, pneumonia, renal disease, skin disorder, history of non STEMI. PAST SURGICAL HISTORY: Appendectomy, cholecystectomy, heart catheterization, stent, orthopedic surgery. Lives with his . FAMILY HISTORY: Mother myocardial infarction. He does not do any smoking or alcohol drinking at this time. He is retired, lives with his . He wears oxygen 24 hours a day apparently, except when he goes to the bathroom. PHYSICAL EXAMINATION: He is well-developed, well-nourished, nontoxic in appearance. His speech is normal. Lungs mild wheeze. Cardiovascular S1, S2. Pupils equal, round, reactive. Skin no rash, excoriations or bruising. Neurologic: He has some mild right-sided facial drooping in the forehead. Musculoskeletal: Range of motion full x4 limbs normal. Psych normal. Temp 97.6, pulse 71 to 76, respiratory 18-16, blood pressure 98 over 60s to 70s. O2 95 to [address] as mentioned above. Hemoglobin is 11.5, white count 8.7, BUN is 45, creatinine 4.46, hemoglobin 11.5. Normally his creatinine is around 3. He definitely has elevated creatinine and BUN. I suspect he is dehydrated. ASSESSMENT AND PLAN: 1. Dehydration. 2. Probable cerebrovascular accident. 3. Atypical chest pain. 4. Multiple aneurysms. 5. History of coronary artery disease. 6. Elevated troponin, possibly due to renal. We will have to rule out heart disease. 7. Prognosis is guarded. 8. Rehydrate the patient. MMODL / IJN: [id number] /
--- NOTE | 2022-03-26 16:50 | P.CNNES ---
History of Present Illness Consult date: 03/26/22 Requesting physician: Anastacio Mishra Reason for Consult: cva History of Present Illness: This is a 72-year-old gentleman with medical history of peripheral vascular disease, thoracic aortic dissection status post repair, coronary artery disease status post stents, hypertension, carotid bypass right left on 2018, heme angioma status post removal at the age of [age] years old, stroke over the right frontal parietal and left cerebellar, chronic kidney insufficiency, hypertension, hyperlipidemia, [id number] amputation on right and legally blind over the right eye who presented emergency department because he woke up with the chest pain and it was felt he possibly had right facial droop. It seems that the patient woke up today 8:30 AM with chest pain which was constant and then his family member noticed some right facial droop. He denies of any other neurological deficits and feels back to baseline. Patient is on home medication of Eliquis 2.5mg bid and Plavix 75mg daily. Some other workup in our facility during this hospitalization consisted of: CT of the head is reported as age-related atrophy and chronic small vessel ischemic change without acute intracranial process seen at this time. I perso celio reviewed the CT of the head and I do not see any acute subacute ischemic stroke and I see his old encephalomaciac changes from old stroke. CT angiography of the head and neck is reported as no significant abnormality to account for the patient's symptoms. Patient initial troponin is 0.054 and it's minimally trending down. Creatinine is 4.46. Urinalysis seem possible suggestive for ureter tract infection. Review of Systems Review of system: The 12 point system was reviewed and apparent positive and negative per HPI. 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 Date of Last Stent Placement:: 07/01/20 Past Psychological History: Anxiety Additional Psychological History / Comment(s): Pt resides with his spouse. He uses a cane. He drives. He is independent. Pt states he has a private nurse thru [facility]. He uses oxygen at 3L/NC prn and at HS. He has a pulse oximeter. Smoking Status: Never smoker Past Alcohol Use History: None Reported Past Drug Use History: None Reported - Past Family History Mother Family Medical History: Myocardial Infarction (VT) Additional Family Medical History / Comment(s): Mother of a VT at the age of 37yrs. Father Family Medical History: Myocardial Infarction (VT) Additional Family Medical History / Comment(s): Father of a VT at the age of 58yrs. Medications and Allergies Home Medications Medication Instructions Recorded Confirmed Type Furosemide [Lasix] 20 mg PO DAILY 06/23/20 03/26/22 History Apixaban [Eliquis] 2.5 mg PO BID 02/28/21 03/26/22 History Amiodarone HCl [Pacerone] 200 mg PO DAILY 04/01/21 03/26/22 History Brimonidine Tartrate [Alphagan P 1 drop RIGHT EYE BID 04/01/21 03/26/22 History 0.2% Ophth Soln] Isosorbide Mononitrate ER [Imdur] 30 mg PO BID 04/01/21 03/26/22 History carvediloL [Coreg] 25 mg PO BID 04/01/21 03/26/22 History Clopidogrel [Plavix] 75 mg PO DAILY 09/15/21 03/26/22 History Sodium Bicarbonate Tab 650 mg PO BID 09/15/21 03/26/22 History Timolol 0.5% Ophth Soln [Timoptic 1 drop RIGHT EYE BID 09/15/21 03/26/22 History 0.5% Ophth Soln] Nitroglycerin Sl Tabs [Nitrostat] 0.4 mg SUBLINGUAL Q5M PRN 11/23/21 03/26/22 History Midodrine HCl [ProAmatine] 10 mg PO TID 03/26/22 03/26/22 History Tamsulosin HCl [Flomax] 0.4 mg PO DAILY 03/26/22 03/26/22 History hydrALAZINE HCL 25 mg PO BID 03/26/22 03/26/22 History Allergies Allergy/AdvReac Type Severity Reaction Status Date / Time cephalexin [From Keflex] Allergy Rash/Hives Verified 03/26/22 13:04 codeine Allergy Unknown Verified 03/26/22 13:04 Penicillins Allergy Rash/Hives Verified 03/26/22 13:04 strawberry Allergy Rash/Hives Verified 03/26/22 13:04 Physical Examination - Vital Signs Vital Signs: Vital Signs Temp Pulse Resp BP Pulse Ox 03/26/22 14:57 71 16 123/69 94 L 03/26/22 12:27 75 18 110/77 99 03/26/22 11:15 72 18 102/75 97 03/26/22 11:00 76 18 96/76 97 03/26/22 10:45 71 18 98/62 95 03/26/22 10:40 97.6 F Intake and Output 03/26/22 03/26/22 03/26/22 06:59 14:59 22:59 Other: Weight 108.862 kg GENERAL: The patient is lying in bed and is not in acute distress. CHEST: The heart rate is regular rate rhythm. No murmurs to auscultation. LUNG: Clear to auscultation bilaterally no wheezing noted throughout. Not labored breathing. ABDOMEN/GI: Bowel sounds present in all 4 quadrants. No tenderness to palpation throughout. NEUROLOGICAL: Higher mental function: The patient is awake, alert, oriented to self, place and time. Patient is following commands. No aphasia and no neglect. Cranial nerves: The pupil is round,an d reactive to light on left. He is legally blind on the right (old) and hazy looking appearance. Visual garcia is full on left. Facial sensation is normal to touch throughout. The facial strength isright nasolabial flattening (stated that is his baseline). Hearing is mildly decreased bilaterally to hand rub. Tongue is midline and moved [id number] without any difficulty. No dysarthria is noted. Shoulder shrug is normal bilaterally. Motor: The strength is limited over the right lower extremity because of his amputation otherwise the strength is 5 out of 5. Normal tone and bulk. Cerebellum: Minimal dysmetria of finger to nose over the left (old) otherwise normal on the right. Sensation: Sensation is normal to touch throughout. Reflexes (right/left): 1+ throughout Plantars is downgoing over left. Results - Laboratory Findings CBC and BMP: 03/26/22 10:56 03/26/22 10:56 Abnormal Lab Findings: Abnormal Labs 03/26/22 03/26/22 03/26/22 10:56 10:56 10:56 RBC 3.84 L Hgb 11.5 L Hct 35.2 L Plt Count 128 L BUN 55 H Creatinine 4.46 H Glucose 150 H Troponin I 0.054 H* Urine Protein Urine Blood Ur Leukocyte Esterase Urine WBC Urine Mucus 03/26/22 03/26/22 11:45 14:22 RBC Hgb Hct Plt Count BUN Creatinine Glucose Troponin I 0.052 H* Urine Protein Trace H Urine Blood Trace H Ur Leukocyte Esterase Moderate H Urine WBC 13 H Urine Mucus Rare H Assessment and Plan Assessment: Probable TIA (right facial droop). Acute Chest pain with slight elevated troponin. History of carotid bypass right left on 2018 History of hemeangioma status post removal at the age of [age] years old History of stroke over the right frontal parietal and left cerebellarHistory of carotid bypass right left on 2018 History of hemeangioma status post removal at the age of [age] years old History of stroke over the right frontal parietal and left cerebellar History of peripheral vascular disease History of thoracic aortic dissection status post repair History of coronary artery disease status post stents Hypertension Hyperlipidemia chronic kidney insufficiency, [id number] amputation on right Legally blind on the right eye Plan: TSH, hemoglobin A1c, lipid panel is ordered by the primary team is pending. Lipid panel is ordered by the ED team is pending Ordered 2D echo. I'll get a repeat CT of the head within 48 hours of symptoms to see if any new finding not seen on initial CT. He does not want to pursue with MRI. He is on his home medication of eliquis and Plavix 75mg daily. Started on Lipitor 20mg qhs for secondary stroke prophylaxis. Every 4 hours neuro checks On cardiac monitoring Cardiology team is consulted Nephrology team is consulted We'll defer the rest of the medical management to primary team For DVT prophylaxis on eliquis. Thank you for the consultation Bob Cabrera M.D. Neuro-hospitalist Time with Patient: Greater than 30
--- NOTE | 2022-03-26 17:26 | US ---
EXAMINATION TYPE: US kidneys/renal and bladder DATE OF EXAM: 03/26/2022 COMPARISON: CT 02/26/21 CLINICAL HISTORY: 72 year-old male acute kidney injury, history of multiple cysts TECHNIQUE: Multiple sonographic images of the kidneys and bladder are obtained. FINDINGS: EXAM MEASUREMENTS: Right Kidney: 12.6 x 6.8 x 6.4 cm Left Kidney: 11.9 x 4.4 x 5.6 cm Right Kidney: Multiple cysts visualized. Largest = 4.7 x 4.3 x 4.1 cm at mid pole. Left Kidney: Multiple large cysts visualized. Largest = 9.6 x 7.8 x 5.6 cm. Anechoic area seen medial , likely cyst rather than hydronephrosis when correlated with the patient's 02/26/2021 CT. Bladder: Underdistention of the bladder limits its evaluation. Bilateral Jets seen: Yes IMPRESSION: Multiple bilateral renal cysts. These measure up to 9.6 cm. Query potential ADPCKD. No de finite hydronephrosis on either side.
[2022-03-26] MEDS: carvediloL 12.5 MG TAB PO SCH (17:39)
[2022-03-26] MEDS: MIDODRINE 5 MG TAB PO SCH (17:40)
[2022-03-26] MEDS: ISOSORBIDE MONONITRATE ER 30 MG TAB.ER.24H PO SCH (20:35)
[2022-03-26] MEDS: APIXABAN 2.5 MG TABLET PO SCH (20:35)
[2022-03-26] MEDS: hydrALAZINE HCL 25 MG TAB PO SCH (20:35)
[2022-03-26] MEDS: SODIUM BICARBONATE TAB 650 MG TAB PO SCH (20:35)
[2022-03-26] MEDS: ATORVASTATIN 20 MG TAB PO SCH (20:35)
[2022-03-26] MEDS: TIMOLOL 0.5% OPHTH DROPS 5 ML BTL RIGHT EYE SCH (20:49)
[2022-03-26] MEDS: BRIMONIDINE TARTRATE 0.2% DROPS 5 ML BTL RIGHT EYE SCH (20:49)
[2022-03-26 23:29] LABS: % Iron Saturation 6.62 (15.00-50.00); Iron 22 ug/dL (65-175); Total Iron Binding Capacity 326 ug/dL (228-460)
[2022-03-27] MEDS: MIDODRINE 5 MG TAB PO SCH ×4 (06:18→18:11)
[2022-03-27] MEDS: carvediloL 12.5 MG TAB PO SCH ×2 (06:19→18:11)
[2022-03-27 08:24] LABS: Basophils % (A) 0 %; Eosinophils # (A) 0.2 k/uL (0-0.7); Eosinophils % (A) 3 %; HGB 10.7 gm/dL (13.0-17.5); Hypochromasia Slight; Lymphocytes # (A) 1.1 k/uL (1.0-4.8); Lymphocytes % (A) 14 %; MCH 30.8 pg (25.0-35.0); MCHC 32.5 g/dL (31.0-37.0); MCV 94.7 fL (80.0-100.0); Mean Platelet Volume 9.8; Monocytes # (A) 0.7 k/uL (0-1.0); Monocytes % (A) 8 %; Neutrophils % (A) 73 %; Platelet Count 121 k/uL (150-450); RBC 3.48 m/uL (4.30-5.90); RDW 15.2 % (11.5-15.5); WBC 8.2 k/uL (3.8-10.6)
[2022-03-27 08:54] LABS: ALT 15 U/L (4-49); AST 19 U/L (17-59); African American GFR (CKD) 16 (>60 ml/min/1.73 sqM); Albumin 3.6 g/dL (3.5-5.0); Alkaline Phosphatase 95 U/L (38-126); Anion Gap 6 mmol/L; Blood Urea Nitrogen 50 mg/dL (9-20); Calcium 8.4 mg/dL (8.4-10.2); Carbon Dioxide 29 mmol/L (22-30); Chloride 101 mmol/L (98-107); Glucose 102 mg/dL (74-99); Magnesium 2.1 mg/dL (1.6-2.3); Non-African American GFR(CKD) 13 (>60 ml/min/1.73 sqM); Potassium 4.8 mmol/L (3.5-5.1); Sodium 136 mmol/L (137-145); Total Protein 6.7 g/dL (6.3-8.2)
[2022-03-27] MEDS ORDERED: FUROSEMIDE 20 MG TAB PO SCH (09:00)
[2022-03-27] MEDS: TAMSULOSIN 0.4 MG CAP.ER.24H PO SCH (09:10)
[2022-03-27] MEDS: AMIODARONE 200 MG TAB PO SCH (09:11)
[2022-03-27] MEDS: hydrALAZINE HCL 25 MG TAB PO SCH (09:11)
[2022-03-27] MEDS: SODIUM BICARBONATE TAB 650 MG TAB PO SCH (09:12)
[2022-03-27] MEDS: CLOPIDOGREL 75 MG TAB PO SCH (09:12)
[2022-03-27] MEDS: ISOSORBIDE MONONITRATE ER 30 MG TAB.ER.24H PO SCH ×2 (09:12→21:06)
[2022-03-27] MEDS: BRIMONIDINE TARTRATE 0.2% DROPS 5 ML BTL RIGHT EYE SCH ×2 (09:14→21:14)
[2022-03-27] MEDS: TIMOLOL 0.5% OPHTH DROPS 5 ML BTL RIGHT EYE SCH ×2 (09:15→21:14)
[2022-03-27] MEDS: APIXABAN 2.5 MG TABLET PO SCH (09:16)
--- NOTE | 2022-03-27 10:15 | P.NPCON ---
History of Present Illness - Reason for Consult acute renal failure, chronic renal failure - History of Present Illness Reason for consultation: Acute kidney injury on chronic kidney disease History of present illness: Patient is a 72-year-old male seen in renal consultation for acute kidney injury on chronic kidney disease. Patient has chronic kidney disease stage IV with baseline creatinine range of 2.7-3 secondary to obstructive uropathy and nephrosclerosis. Patient presented to the hospital due to weakness. Patient states he was at a barbecue on Friday and was outside for about 5 hours. Priscilla ent states that his daughter noticed facial droop and was concerned about him having a stroke and brought him to the hospital. Brain CT showed chronic small vessel ischemic change without any acute intracranial process. 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 He was noted to have a cystic mass in the left kidney with internal hemorrhage. CT and she also head and neck showed no significant abnormality. Currently he feels well. Has been voiding. States the urine stream has been slow as he ran out of Flomax last few days. He is receiving IV fluids. No vomiting or diarrhea. No fever or chills. Denies use of nonsteroidals. No history of diabetes. Vital signs are stable. General: Awake. No acute distress. HEENT: Head exam is unremarkable. LUNGS: Breath sounds decreased. HEART: Rate and Rhythm are regular. ABDOMEN: Soft, no distention. EXTREMITITES: No edema. Right BKA. 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 Date of Last Stent Placement:: 07/01/20 Past Psychological History: Anxiety Additional Psychological History / Comment(s): Pt resides with his spouse. He uses a cane. He drives. He is independent. Pt states he has a private nurse thru [facility]. He uses oxygen at 3L/NC prn and at HS. He has a pulse oximeter. Smoking Status: Never smoker Past Alcohol Use History: None Reported Past Drug Use History: None Reported - Past Family History Mother Family Medical History: Myocardial Infarction ([place]) Additional Family Medical History / Comment(s): Mother of a LA at the age of 37yrs. Father Family Medical History: Myocardial Infarction ([place]) Additional Family Medical History / Comment(s): Father of a LA at the age of 58yrs. Medications and Allergies Home Medications Medication Instructions Recorded Confirmed Type Furosemide [Lasix] 20 mg PO DAILY 06/23/20 03/26/22 History Apixaban [Eliquis] 2.5 mg PO BID 02/28/21 03/26/22 History Amiodarone HCl [Pacerone] 200 mg PO DAILY 04/01/21 03/26/22 History Brimonidine Tartrate [Alphagan P 1 drop RIGHT EYE BID 04/01/21 03/26/22 History 0.2% Ophth Soln] Isosorbide Mononitrate ER [Imdur] 30 mg PO BID 04/01/21 03/26/22 History carvediloL [Coreg] 25 mg PO BID 04/01/21 03/26/22 History Clopidogrel [Plavix] 75 mg PO DAILY 09/15/21 03/26/22 History Sodium Bicarbonate Tab 650 mg PO BID 09/15/21 03/26/22 History Timolol 0.5% Ophth Soln [Timoptic 1 drop RIGHT EYE BID 09/15/21 03/26/22 History 0.5% Ophth Soln] Nitroglycerin Sl Tabs [Nitrostat] 0.4 mg SUBLINGUAL Q5M PRN 11/23/21 03/26/22 History Midodrine HCl [ProAmatine] 10 mg PO TID 03/26/22 03/26/22 History Tamsulosin HCl [Flomax] 0.4 mg PO DAILY 03/26/22 03/26/22 History hydrALAZINE HCL 25 mg PO BID 03/26/22 03/26/22 History Allergies Allergy/AdvReac Type Severity Reaction Status Date / Time cephalexin [From Keflex] Allergy Rash/Hives Verified 03/26/22 13:04 codeine Allergy Unknown Verified 03/26/22 13:04 Penicillins Allergy Rash/Hives Verified 03/26/22 13:04 strawberry Allergy Rash/Hives Verified 03/26/22 13:04 Physical Exam Vitals: Vital Signs Temp Pulse Pulse Resp BP BP Pulse Ox 03/27/22 04:00 98.4 F 94 16 84/48 96 03/27/22 00:00 98.2 F 80 18 100/65 98 03/26/22 20:00 98.1 F 90 18 114/69 95 03/26/22 17:42 95 15 135/88 100 03/26/22 14:57 71 16 123/69 94 L 03/26/22 12:27 75 18 110/77 99 03/26/22 11:15 72 18 102/75 97 03/26/22 11:00 76 18 96/76 97 03/26/22 10:45 71 18 98/62 95 03/26/22 10:40 97.6 F Intake and Output 03/26/22 03/27/22 03/27/22 22:59 06:59 14:59 Intake Total 360 240 Output Total 275 Balance 360 -275 240 Intake: Oral 360 240 Output: Urine 275 Other: # Voids 1 2 Results - Lab Results Most recent lab results Calcium 8.4 mg/dL (8.4-10.2) 03/27/22 07:35 Magnesium 2.1 mg/dL (1.6-2.3) 03/27/22 07:35 03/27/22 07:35 03/27/22 07:35 Assessment and Plan Plan: Assessment: 1. Acute kidney injury mostly prerenal secondary to hypotension and hypovolemia. Creatinine was 4.46 on admission and is 4.11 today. Renal ultrasound showed bilateral cysts without any evidence of hydronephrosis. UA with trace protein. 2. Chronic kidney disease stage IV with baseline creatinine in the range of 2.73 secondary to nephrosclerosis and obstructive uropathy. 3. Left cystic mass with internal hemorrhage noted on CAT scan. 4. Probable TIA with facial droop. Neurology following. 5. 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 6. Status post right BKA. 7. Anemia of chronic kidney disease. Iron deficiency noted. Plan: Maintain IV fluids. Stop Lasix. Stop hydralazine as blood pressure is low. Stop bicarb. Add IV iron. Maintain midodrine. Hold for systolic blood pressure greater than 110. Check cortisol level. Consult urology for hemorrhagic cyst. Avoid nephrotoxins. Strongly advised patient to follow up outpatient to establish CKD care. Discussed with the patient that he will likely require renal placement therapy in the near future. He is quite hesitant to do OVERCASTER. Thank you for the consultation. I will continue to follow the patient with you during his hospital stay.
--- NOTE | 2022-03-27 11:58 | P.PN ---
Subjective Progress Note Date: 03/27/22 The patient is seen at bedside and feels about the same. Denies of any new neurological symptoms. Objective - Vital Signs Vital signs: Vital Signs Temp 97.5 F L 03/27/22 08:00 Pulse 70 03/27/22 08:00 Resp 18 03/27/22 08:00 BP 112/61 03/27/22 08:00 Pulse Ox 97 03/27/22 08:00 FiO2 Intake & Output 03/26/22 03/27/22 03/27/22 18:59 06:59 18:59 Intake Total 360 240 Output Total 275 Balance 85 240 Weight 108.862 kg Intake: Oral 360 240 Output: Urine 275 Other: # Voids 1 2 - Exam GENERAL: The patient is lying in bed and is not in acute distress. NEUROLOGICAL: Higher mental function: The patient is awake, alert, oriented to self, place and time. Patient is following commands. No aphasia and no neglect. Cranial nerves: The pupil is round,an d reactive to light on left. He is legally blind on the right (old) and hazy looking appearance. Visual garcia is full on left. Facial sensation is normal to touch throughout. The facial strength isright nasolabial flattening (stated that is his baseline). Hearing is mildly decreased bilaterally to hand rub. Tongue is midline and moved [id number] without any difficulty. No dysarthria is noted. Shoulder shrug is normal bilaterally. Motor: The strength is limited over the right lower extremity because of his amputation otherwise the strength is 5 out of 5. Normal tone and bulk. Cerebellum: Minimal dysmetria of finger to nose over the left (old) otherwise normal on the right. Sensation: Sensation is normal to touch throughout. Reflexes (right/left): 1+ throughout Plantars is downgoing over left. Some other workup in our facility during this hospitalization consisted of: Serum B12 is 392 Serum folate is 17.50 TSH is 1.360 Hemoglobin A1c is 5.3 CT of the head is reported as age-related atrophy and chronic small vessel ischemic change without acute intracranial process seen at this time. I personally reviewed the CT of the head and I do not see any acute subacute ischemic stroke and I see his old encephalomaciac changes from old stroke. CT angiography of the head and neck is reported as no significant abnormality to account for the patient's symptoms. Patient initial troponin is 0.054 and it's minimally trending down. Creatinine is 4.46. Urinalysis seem possible suggestive for ureter tract infection. - Labs CBC & Chem 7: 03/27/22 07:35 03/27/22 07:35 Labs: Abnormal Lab Results - Last 24 Hours (Table) 03/26/22 03/26/22 03/26/22 Range/Units 11:45 14:22 17:01 RBC (4.30-5.90) m/uL Hgb (13.0-17.5) gm/dL Hct (39.0-53.0) % Plt Count (150-450) k/uL Sodium (137-145) mmol/L BUN (9-20) mg/dL Creatinine (0.66-1.25) mg/dL Glucose (74-99) mg/dL Iron (65-175) ug/dL % Saturation (15.00-50.00) Troponin I 0.052 H* 0.054 H* (0.000-0.034) ng/mL Urine Protein Trace H (Negative) Urine Blood Trace H (Negative) Ur Leukocyte Esterase Moderate H (Negative) Urine WBC 13 H (0-5) /hpf Urine Mucus Rare H (None) /hpf 03/26/22 03/27/22 03/27/22 Range/Units 17:01 07:35 07:35 RBC 3.48 L (4.30-5.90) m/uL Hgb 10.7 L (13.0-17.5) gm/dL Hct 33.0 L (39.0-53.0) % Plt Count 121 L (150-450) k/uL Sodium 136 L (137-145) mmol/L BUN 50 H (9-20) mg/dL Creatinine 4.11 H (0.66-1.25) mg/dL Glucose 102 H (74-99) mg/dL Iron 22 L (65-175) ug/dL % Saturation 6.62 L (15.00-50.00) Troponin I (0.000-0.034) ng/mL Urine Protein (Negative) Urine Blood (Negative) Ur Leukocyte Esterase (Negative) Urine WBC (0-5) /hpf Urine Mucus (None) /hpf Microbiology - Last 24 Hours (Table) 03/26/22 11:45 Urine Culture - Preliminary Urine,Voided Assessment and Plan Assessment: Probable TIA (right facial droop). Acute Chest pain with slight elevated troponin. Slightly Low normal Vitamin (392) History of carotid bypass right left on 2018 History of hemeangioma status post removal at the age of [age] years old History of stroke over the right frontal parietal and left cerebellarHistory of carotid bypass right left on 2018 History of hemeangioma status post removal at the age of [age] years old History of stroke over the right frontal parietal and left cerebellar History of peripheral vascular disease History of thoracic aortic dissection status post repair History of coronary artery disease status post stents Hypertension Hyperlipidemia chronic kidney insufficiency, [id number] amputation on right Legally blind on the right eye Plan: Pending 2D echo. I'll get a repeat CT of the head tomorrow to see if any new finding not seen on initial CT. He does not want to pursue with MRI. He is on his home medication of eliquis and Plavix 75mg daily. Continue Lipitor 20mg qhs for secondary stroke prophylaxis. Every 4 hours neuro checks On cardiac monitoring Because of mildly low normal vitamin B12: I started the patient on Vitamin B12 1000mcg daily. Cardiology team is consulted Nephrology team is consulted We'll defer the rest of the medical management to primary team For DVT prophylaxis on eliquis. Bob Cabrera M.D. Neuro-hospitalist Time with Patient: Less than 30
--- NOTE | 2022-03-27 12:37 | P.CRDCN ---
History of Present Illness History of present illness: This is a 71-year-old male with a past medical history significant for coronary artery disease with previous PCI RCA 06/2020, paroxysmal atrial fibrillation on anticoagulation with Eliquis, aortic dissection repair, right BKA, systolic heart failure, chronic kidney disease, hypertension, hyperlipidemia, and ischemic cardiomyopathy. Patient follows in the office with Dr. Harding, but has not followed up since 11/2020. We have been asked to see the patient in consultation for chest pain. Patient presents emergency room with complaints of lightheadedness, dizziness. He states he woke up yesterday and states he "thought he was having a stroke". There was question of a right sided facial droop, but patient states this is not new. He endorses symptoms of lightheadedness or dizziness. No syncope. No loss of consciousness. He also had an episode of midsternal chest pain. Describes as a tightness. Nonradiating, nonexertional. No specific aggravating or alleviating factors. He states it did not last long and resolved on its own. No further chest pain. DIAGNOSTICS * EKG reveals atrial flutter, heart rate 73, right bundle-branch block * Chest CTA revealed chronic dissection involving the ascending thoracic aorta extending into abdominal aorta. Thoracic component appears stable. Enlarging aneurysm involving the distal dominant now aorta. Dissection extending into the right common iliac artery. Right common iliac artery aneurysm measures 2.1 cm, enlarging cystic mass lower pole left kidney with internal hemorrhage, stable left postoperative changes ascending thoracic aorta with aortic stent graft in place. * Laboratory data: Troponin 0.05, sodium 139, potassium 4.3, BUN 55, serum creatinine 4.4, hemoglobin 11.5 * Current home cardiac medications include hydralazine 25 mg twice a day, Imdur 30 mg daily, Lasix 20 mg daily, Plavix 75 mg daily, Coreg 25 mg twice a day, Eliquis 2.5 mg twice a day, amiodarone 200 mg daily * Most recent echocardiogram obtained in August 2021 revealed an EF of 3540 percent, basal inferior septal LV wall hypokinetic, mid inferior LV wall hypokinetic, basal inferior lateral hypokinesis. Mild mitral regurgitation, mild tricuspid regurgitation * Cardiac catheterization history: June 2020 with stenting to the RCA with 4 stents. Proximal LAD 50-60% stenosis. Mid LAD 30-40% stenosis. Diagonal 1 branch with 30% stenosis and mid 40% diagonal one stenosis. Distal apical LAD has 100% stenosis with left to left collaterals. Proximal circumflex 40% stenosis. REVIEW OF SYSTEMS: At the time of my exam: CONSTITUTIONAL: Denies fever or chills. HEENT: Denies blurred vision, vision changes, or eye pain. Denies hemoptysis CARDIOVASCULAR: Denies chest pain. Denies orthopnea. Denies PND. Denies palpitations RESPIRATORY: Denies shortness of breath. GASTROINTESTINAL: Denies abdominal pain. Denies nausea or vomiting. HEMATOLOGIC: Denies bleeding disorders. GENITOURINARY: Denies any blood in urine. SKIN: Denies pruitis. Denies rash. PHYSICAL EXAM: VITAL SIGNS: Reviewed. GENERAL: Well-developed in no acute distress. HEENT: Head is normocephalic. Pupils are equal, round. Sclerae anicteric. Mucous membranes of the mouth are moist. Neck supple. No JVD or thyromegaly LUNGS: Respirations even and unlabored. Lungs essentially clear to auscultation bilaterally. HEART: Irregular rate and rhythm. S1 and S2 heard. Systolic murmur noted. ABDOMEN: Soft. Nondistended. Nontender. EXTREMITIES: Normal range of motion. No clubbing or cyanosis. Peripheral pulses intact. No lower extremity edema. Right BKA noted. NEUROLOGIC: Awake and alert. Oriented x 3. ASSESSMENT: Chest pain, atypical, resolved, no acute ischemia on EKG, unlikely ACS Elevated troponin, likely secondary to renal disease Acute on chronic kidney disease Possible TIA with right facial droop Left cystic mass with internal hemorrhage noted on CAT scan. Paroxysmal atrial fibrillation, on anticoagulation with Eliquis Coronary artery disease with PCI to RCA, 06/2020 History of aortic dissection with repair History of Right BKA Chronic systolic heart failure, currently euvolemic, despite elevated BNP Ischemic cardiomyopathy Hypertension Hyperlipidemia PLAN: Continue home Eliquis, amiodarone, statin, Plavix, carvedilol Hydralazine and Lasix on hold secondary to hypotension and EVELIO Nephrology following Neurology following Will follow up on 2D echocardiogram Further recommendations based on clinical course Nurse practitioner note has been reviewed by physician. Signing provider agrees with the documented findings, assessment, and plan of care. 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 Date of Last Stent Placement:: 07/01/20 Past Psychological History: Anxiety Additional Psychological History / Comment(s): Pt resides with his spouse. He uses a cane. He drives. He is independent. Pt states he has a private nurse thru [facility]. He uses oxygen at 3L/[place] prn and at HS. He has a pulse oximeter. Smoking Status: Never smoker Past Alcohol Use History: None Reported Past Drug Use History: None Reported - Past Family History Mother Family Medical History: Myocardial Infarction ([place]) Additional Family Medical History / Comment(s): Mother of a [place] at the age of 37yrs. Father Family Medical History: Myocardial Infarction ([place]) Additional Family Medical History / Comment(s): Father of a MN at the age of 58yrs. Medications and Allergies Home Medications Medication Instructions Recorded Confirmed Type Furosemide [Lasix] 20 mg PO DAILY 06/23/20 03/26/22 History Apixaban [Eliquis] 2.5 mg PO BID 02/28/21 03/26/22 History Amiodarone HCl [Pacerone] 200 mg PO DAILY 04/01/21 03/26/22 History Brimonidine Tartrate [Alphagan P 1 drop RIGHT EYE BID 04/01/21 03/26/22 History 0.2% Ophth Soln] Isosorbide Mononitrate ER [Imdur] 30 mg PO BID 04/01/21 03/26/22 History carvediloL [Coreg] 25 mg PO BID 04/01/21 03/26/22 History Clopidogrel [Plavix] 75 mg PO DAILY 09/15/21 03/26/22 History Sodium Bicarbonate Tab 650 mg PO BID 09/15/21 03/26/22 History Timolol 0.5% Ophth Soln [Timoptic 1 drop RIGHT EYE BID 09/15/21 03/26/22 History 0.5% Ophth Soln] Nitroglycerin Sl Tabs [Nitrostat] 0.4 mg SUBLINGUAL Q5M PRN 11/23/21 03/26/22 History Midodrine HCl [ProAmatine] 10 mg PO TID 03/26/22 03/26/22 History Tamsulosin HCl [Flomax] 0.4 mg PO DAILY 03/26/22 03/26/22 History hydrALAZINE HCL 25 mg PO BID 03/26/22 03/26/22 History Allergies Allergy/AdvReac Type Severity Reaction Status Date / Time cephalexin [From Keflex] Allergy Rash/Hives Verified 03/26/22 13:04 codeine Allergy Unknown Verified 03/26/22 13:04 Penicillins Allergy Rash/Hives Verified 03/26/22 13:04 strawberry Allergy Rash/Hives Verified 03/26/22 13:04 Physical Exam Vitals: Vital Signs Temp Pulse Resp BP Pulse Ox 03/26/22 12:27 75 18 110/77 99 03/26/22 11:15 72 18 102/75 97 03/26/22 11:00 76 18 96/76 97 03/26/22 10:45 71 18 98/62 95 03/26/22 10:40 97.6 F Intake and Output 03/25/22 03/26/22 03/26/22 22:59 06:59 14:59 Other: Weight 108.862 kg Results 03/27/22 07:35 03/27/22 07:35 Cardiac Enzymes 03/26/22 03/26/22 Range/Units 10:56 10:56 AST 23 (17-59) U/L Troponin I 0.054 H* (0.000-0.034) ng/mL Coagulation 03/26/22 Range/Units 10:56 PT 11.3 (9.0-12.0) sec APTT 26.9 (22.0-30.0) sec CBC 03/26/22 Range/Units 10:56 WBC 8.7 (3.8-10.6) k/uL RBC 3.84 L (4.30-5.90) m/uL Hgb 11.5 L (13.0-17.5) gm/dL Hct 35.2 L (39.0-53.0) % Plt Count 128 L (150-450) k/uL Comprehensive Metabolic Panel 03/26/22 Range/Units 10:56 Sodium 139 (137-145) mmol/L Potassium 4.3 (3.5-5.1) mmol/L Chloride 99 (98-107) mmol/L Carbon Dioxide 26 (22-30) mmol/L BUN 55 H (9-20) mg/dL Creatinine 4.46 H (0.66-1.25) mg/dL Glucose 150 H (74-99) mg/dL Calcium 9.0 (8.4-10.2) mg/dL AST 23 (17-59) U/L ALT 19 (4-49) U/L Alkaline Phosphatase 109 (38-126) U/L Total Protein 7.4 (6.3-8.2) g/dL Albumin 4.2 (3.5-5.0) g/dL Current Medications Generic Name Dose Route Start Last Admin Trade Name Freq PRN Reason Stop Dose Admin Amiodarone HCl 200 mg 03/27/22 09:00 Amiodarone 200 Mg Tab PO DAILY [facility] Apixaban 2.5 mg 03/26/22 21:00 Apixaban 2.5 Mg Tablet PO BID [facility] Protocol Brimonidine Tartrate 1 drops 03/26/22 21:00 Brimonidine Tartrate 0.2% Drops 5 Ml Btl RIGHT EYE BID [facility] Clopidogrel Bisulfate 75 mg 03/27/22 09:00 Clopidogrel 75 Mg Tab PO DAILY [facility] Furosemide 20 mg 03/27/22 09:00 Furosemide 20 Mg Tab PO DAILY [facility] Hydralazine HCl 25 mg 03/26/22 21:00 Hydralazine Hcl 25 Mg Tab PO BID [facility] Sodium Chloride 1,000 mls @ 50 mls/hr 03/26/22 14:45 Saline 0.9% IV .Q20H [facility] Isosorbide Mononitrate 30 mg 03/26/22 21:00 Isosorbide Mononitrate Er 30 Mg Tab.Er.24h PO BID [facility] Nitroglycerin 0.4 mg 03/26/22 12:47 Nitroglycerin Sl Tabs 0.4 Mg Tab SUBLINGUAL Q5M PRN Chest Pain Nitroglycerin 0.4 mg 03/26/22 14:44 Nitroglycerin Sl Tabs 0.4 Mg Tab SUBLINGUAL Q5M PRN Chest Pain Non-Formulary Medication 25 mg 03/26/22 21:00 Carvedilol [Coreg] PO BID [facility] Non-Formulary Medication 10 mg 03/26/22 16:00 Midodrine Hcl [Proamatine] PO TID [facility] Ondansetron HCl 4 mg 03/26/22 13:34 03/26/22 13:43 Ondansetron 4 Mg/2 Ml Vial IVP 4 mg Q6HR PRN Administration Nausea And Vomiting Sodium Bicarbonate 650 mg 03/26/22 21:00 Sodium Bicarbonate Tab 650 Mg Tab PO BID [facility] Tamsulosin HCl 0.4 mg 03/27/22 09:00 Tamsulosin 0.4 Mg Cap.Er.24h PO DAILY [facility] Timolol Maleate 1 drops 03/26/22 21:00 Timolol 0.5% Ophth Drops 5 Ml Btl RIGHT EYE BID [facility] Intake and Output 03/25/22 03/26/22 03/26/22 22:59 06:59 14:59 Other: Weight 108.862 kg Patient Weight 03/27/22 06:59 Weight 108.862 kg 03/26/22 10:56 03/26/22 10:56
[2022-03-27] MEDS: CYANOCOBALAMIN 500 MCG TAB PO SCH (13:05)
[2022-03-27] MEDS: SODIUM FERRIC GLUCONAT-SUCROSE 125 MG in SODIUM CHLORIDE 0.9% 100 ML IVPB SCH (13:05)
[2022-03-27 14:53] LABS: Chol/HDL Ratio 3.75 Ratio; LDL Cholesterol,Calculated 68.3 mg/dL (0.0-131.0); VLDL Calculation 14.62 mg/dL (5.00-40.00)
[2022-03-27] MEDS: SODIUM CHLORIDE 0.9% 1,000 ML IV SCH (16:00)
[2022-03-27] MEDS: ATORVASTATIN 20 MG TAB PO SCH (21:06)
[2022-03-28] MEDS ORDERED: HYDROcodone/APAP 5-325MG 1 EACH TAB PO PRN (02:03)
[2022-03-28 05:46] VITALS: RESP 16
[2022-03-28] MEDS: APIXABAN 2.5 MG TABLET PO SCH ×3 (06:37→21:03)
[2022-03-28] MEDS: MIDODRINE 5 MG TAB PO SCH ×3 (06:38→16:23)
[2022-03-28] MEDS: carvediloL 12.5 MG TAB PO SCH ×2 (06:39→16:22)
[2022-03-28 07:57] LABS: Basophils % (A) 0 %; Eosinophils # (A) 0.2 k/uL (0-0.7); Eosinophils % (A) 3 %; HCT 29.7 % (39.0-53.0); Hypochromasia Slight; Lymphocytes # (A) 0.9 k/uL (1.0-4.8); Lymphocytes % (A) 12 %; MCH 31.4 pg (25.0-35.0); MCHC 33.5 g/dL (31.0-37.0); MCV 93.7 fL (80.0-100.0); Mean Platelet Volume 9.8; Monocytes # (A) 0.6 k/uL (0-1.0); Monocytes % (A) 9 %; Neutrophils # (A) 5.3 k/uL (1.3-7.7); Neutrophils % (A) 74 %; Platelet Count 107 k/uL (150-450); RBC 3.17 m/uL (4.30-5.90); RDW 14.8 % (11.5-15.5); WBC 7.1 k/uL (3.8-10.6)
[2022-03-28 08:05] LABS: Albumin 3.2 g/dL (3.5-5.0); Calcium 8.3 mg/dL (8.4-10.2); Magnesium 2.2 mg/dL (1.6-2.3); Potassium 4.5 mmol/L (3.5-5.1); Total Protein 6.2 g/dL (6.3-8.2)
--- NOTE | 2022-03-28 08:35 | PN ---
PROGRESS NOTE 72-year-old white male admitted with possible TIA type symptomatology. Neurologist ordered a repeat CT scan for tomorrow to see if there is any change. We are hydrating him. His creatinine went from 4.44 down to 4.11 with rehydration. Suspect he was severely dehydrated, he was out in the heat for 5 hours and elevated creatinine on admission, which could cause a lot of the symptoms, especially him being without oxygen for 5 hours, which is the longest he has been without his oxygen for long time. He states he does wear his oxygen at home. He gets severely confused his says in the past. He is a little bit anemic. We will give him Ferritin through the IV. He feels better than when he came in. Oxygen is 98 at 1 L, blood pressure 105/61, temp 98.4, respiratory 16 to 18. ASSESSMENT: 1. Prerenal azotemia. 2. Acute kidney injury. 3. Dehydration. 4. Chronic obstructive pulmonary disease. 5. Multiple aneurysms. 6. He also has hemorrhagic cysts in the kidney, which does not appear to be worsened from prior in my opinion, but we will get urology opinion. Continue to rehydrate him. Monitor his electrolytes. MMODL / IJN: [id number] /
[2022-03-28] MEDS: ISOSORBIDE MONONITRATE ER 30 MG TAB.ER.24H PO SCH ×2 (09:08→21:03)
[2022-03-28] MEDS: TAMSULOSIN 0.4 MG CAP.ER.24H PO SCH (09:08)
[2022-03-28] MEDS: AMIODARONE 200 MG TAB PO SCH (09:08)
[2022-03-28] MEDS: CYANOCOBALAMIN 500 MCG TAB PO SCH (09:08)
[2022-03-28] MEDS: BRIMONIDINE TARTRATE 0.2% DROPS 5 ML BTL RIGHT EYE SCH ×2 (09:09→21:02)
[2022-03-28] MEDS: TIMOLOL 0.5% OPHTH DROPS 5 ML BTL RIGHT EYE SCH ×2 (09:09→21:02)
--- NOTE | 2022-03-28 09:47 | P.PN ---
Subjective Patient is seen in follow-up for acute kidney injury on chronic kidney disease. Renal function is fairly stable. Has been voiding. Receiving IV fluids area and also on midodrine. Diuretic held. Denies chest pain or shortness of breath. Oral intake is fair. Vital signs are stable. Blood pressure on the lower side. General: Awake and alert. No acute distress. HEENT: Head exam is unremarkable. LUNGS: Breath sounds decreased. HEART: Rate and Rhythm are regular. ABDOMEN: Soft, no distention. EXTREMITITES: No edema. Right BKA noted. Objective - Vital Signs Vital signs: Vital Signs Temp 98.5 F 03/28/22 04:00 Pulse 68 03/28/22 08:00 Resp 16 03/28/22 08:00 BP 90/49 03/28/22 08:00 Pulse Ox 99 03/28/22 08:00 FiO2 Intake & Output 03/27/22 03/28/22 03/28/22 18:59 06:59 18:59 Intake Total 690 Output Total 150 Balance 690 -150 Intake: Oral 690 Output: Urine 150 Other: Voiding Method Toilet Toilet Urinal Urinal # Voids 1 1 - Labs CBC & Chem 7: 03/28/22 07:24 03/28/22 07:24 Labs: Abnormal Lab Results - Last 24 Hours (Table) 03/27/22 03/28/22 03/28/22 Range/Units 07:35 07:24 07:24 RBC 3.17 L (4.30-5.90) m/uL Hgb 10.0 L (13.0-17.5) gm/dL Hct 29.7 L (39.0-53.0) % Plt Count 107 L (150-450) k/uL Lymphocytes # 0.9 L (1.0-4.8) k/uL Sodium 135 L (137-145) mmol/L BUN 52 H (9-20) mg/dL Creatinine 4.26 H (0.66-1.25) mg/dL Glucose 102 H (74-99) mg/dL Calcium 8.3 L (8.4-10.2) mg/dL Total Protein 6.2 L (6.3-8.2) g/dL Albumin 3.2 L (3.5-5.0) g/dL HDL Cholesterol 30.10 L (40.00-60.00) mg/dL Microbiology - Last 24 Hours (Table) 03/26/22 11:45 Urine Culture - Final Urine,Voided Assessment and Plan Plan: Assessment: 1. Acute kidney injury mostly prerenal secondary to hypotension and hypovolemia. Also component of contrast-induced acute kidney injury. Patient received IV contrast on 03/26/2022 for a CTA. Creatinine was 4.46 on admission and is 4.26 today. Renal ultrasound showed bilateral cysts without any evidence of hydronephrosis. UA with trace protein. 2. Chronic kidney disease stage IV with baseline creatinine in the range of 2.7-3 secondary to nephrosclerosis and obstructive uropathy. 3. Left cystic mass with internal hemorrhage noted on CAT scan. 4. Probable TIA with facial droop. Neurology following. 5. 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 6. Status post right BKA. 7. Anemia of chronic kidney disease. Iron deficiency noted. Plan: Maintain IV fluids. Continue to hold diuretics. Continue to hold antihypertensives. Maintain IV iron. Maintain midodrine. Hold for systolic blood pressure greater than 110. Follow-up cortisol level. Urology consulted for hemorrhagic cyst. Avoid nephrotoxins. Strongly advised patient to follow up outpatient to establish CKD care. Discussed with the patient that he will likely require renal placement therapy in the near future. He is quite hesitant to do [employer]. No urgency at this time. Continue to monitor renal function and urine output.
[2022-03-28] MEDS: SODIUM FERRIC GLUCONAT-SUCROSE 125 MG in SODIUM CHLORIDE 0.9% 100 ML IVPB SCH (10:56)
--- NOTE | 2022-03-28 11:25 | CA ---
Transthoracic Echo Report Name: Wilner Up Age: 72 Gender: M : 1950 Exam Date: 03/27/2022 07:49 Exam Location: [facility] Ht (in): 60 Wt (lb): 240 Ordering Physician: Bob Cabrera MD Attending/Referring Phys: Fleet Maintenance Manager Zehra Nicole RDCS Procedure CPT: Indications: stroke. chest pain Cardiac Hx: Technical Quality: Technically difficult study Contrast 1: Lumason Total Dose (mL): 3 Contrast 2: Total Dose (mL): MEASUREMENTS (Male / Female) Normal Values 2D ECHO LV Diastolic Diameter PLAX 7.1 cm 4.2 - 5.9 / 3.9 - 5.3 cm LV Systolic Diameter PLAX 6.5 cm IVS Diastolic Thickness 1.3 cm 0.6 - 1.0 / 0.6 - 0.9 cm LVPW Diastolic Thickness 1.8 cm 0.6 - 1.0 / 0.6 - 0.9 cm LV Relative Wall Thickness 0.4 RV Internal Dim ED PLAX 4.3 cm LA Systolic Diameter LX 5.3 cm 3.0 - 4.0 / 2.7 - 3.8 cm LA Volume 192.8 cm??? 18 - 58 / 22 - 52 cm??? M-MODE Aortic Root Diameter MM 3.6 cm LA Systolic Diameter MM 5.0 cm LA Ao Ratio MM 1.4 MV E Point Septal Separation 1.9 cm AV Cusp Separation MM 1.9 cm DOPPLER MV Area PHT 4.3 cm??? Mitral E Point Velocity 81.3 cm/s Mitral A Point Velocity 54.3 cm/s Mitral E to A Ratio 1.5 MV Deceleration Time 178.3 ms TR Peak Velocity 213.8 cm/s TR Peak Gradient 18.3 mmHg Right Ventricular Systolic Press 23.3 mmHg FINDINGS Left Ventricle Severely reduced global left ventricular systolic function. Left ventricular ejection fraction is estimated at 20-25%. Moderate left ventricular dilatation. Right Ventricle Mild right ventricular dilatation. Right Atrium Normal right atrial size. Left Atrium Severely increased left atrial diameter. Severely increased left atrial volume. Severely increased left atrial area. Mitral Valve Structurally normal mitral valve. . Moderate mitral regurgitation. Aortic Valve Trileaflet aortic valve. Aortic valve sclerosis. Tricuspid Valve Structurally normal tricuspid valve. Mild tricuspid regurgitation. Pulmonic Valve Pulmonic valve not well visualized. Pericardium Normal pericardium. Aorta Normal size aortic root and proximal ascending aorta. CONCLUSIONS Impaired LV function was EF between 20-25% Moderate mitral regurgitation Previewed by: Dr. Hieu Celestin MD (Electronically Signed) Final Date: 28 March 2022 11:24
--- NOTE | 2022-03-28 11:27 | CT ---
EXAMINATION TYPE: CT brain wo con DATE OF EXAM: 03/28/2022 COMPARISON: 06/27/2020, this 03/26/2022 INDICATION: weakness, dizziness DLP: 1117.4 mGycm, Automated exposure control for dose reduction was used. CONTRAST: None CT of the brain is performed utilizing 3 mm thick sections through the posterior fossa and 3 mm thick sections through the remaining calvarium. Study is not performed within 24 hours of arrival to the hospital. No abnormal hyperdensity is present to suggest an acute intracranial hemorrhage. No mass lesion is evident. No acute infarcts are evident. Old posterior inferior left cerebellar infarct. Periventricular fluent white matter hypodensity is present most likely on the basis of chronic white matter ischemic change . There appears to be a right frontal parietal infarct present previously Ventricles and sulci are appropriate for the patient age. Paranasal sinuses and mastoid air cells within the [id number] are clear. IMPRESSIONS: 1. Old chronic appearing white matter ischemic-type changes and old infarcts discussed above. If sy mptoms persist, consider follow-up MRI.
--- NOTE | 2022-03-28 13:53 | P.PN ---
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 Patient follows in the office with Dr. Harding, but has not followed up since 11/2020. We have been asked to see the patient in consultation for chest pain. Patient presents emergency room with complaints of lightheadedness, dizziness. He states he woke up yesterday and states he "thought he was having a stroke". There was question of a right sided facial droop, but patient states this is not new. He endorses symptoms of lightheadedness or dizziness. No syncope. No loss of consciousness. He also had an episode of midsternal chest pain. Describes as a tightness. Nonradiating, nonexertional. No specific aggravating or alleviating factors. He states it did not last long and resolved on its own. No further chest pain. 03/28/2022 Patient seen and examined at bedside, no acute distress. Denies any chest pain or shortness of breath. Repeat CT of the brain revealed chronic appearing white matter ischemic changes, oldright frontoparietal infarct. No acute infarct or hemorrhage reported. Echocardiogram revealed an EF of 5% , moderate left ventricular dilatation, severely increased left atrial area, moderate mitral regurgitation, mild tricuspid regurgitation PHYSICAL EXAM: VITAL SIGNS: Reviewed. GENERAL: Well-developed in no acute distress. HEENT: Head is normocephalic. Pupils are equal, round. Sclerae anicteric. Mucous membranes of the mouth are moist. Neck supple. No JVD or thyromegaly LUNGS: Respirations even and unlabored. Lungs essentially clear to auscultation bilaterally. HEART: Irregular rate and rhythm. S1 and S2 heard. Systolic murmur noted. ABDOMEN: Soft. Nondistended. Nontender. EXTREMITIES: Normal range of motion. No clubbing or cyanosis. Peripheral pulses intact. No lower extremity edema. Right BKA noted. NEUROLOGIC: Awake and alert. Oriented x 3. ASSESSMENT: Chest pain, atypical, resolved, no acute ischemia on EKG, unlikely ACS Elevated troponin, likely secondary to renal disease Acute on chronic kidney disease, patient received IV contrast this admission Possible TIA with right facial droop Left cystic mass with internal hemorrhage noted on CAT scan. Paroxysmal atrial fibrillation, on anticoagulation with Eliquis Coronary artery disease with PCI to RCA, 06/2020 History of aortic dissection with repair History of Right BKA Chronic heart failure with reduced EF, currently euvolemic, despite elevated BNP Ischemic cardiomyopathy Hypertension Hyperlipidemia PLAN: Continue home medications with Carvedilol, Amiodarone, Eliquis, statin, Plavix, Imdur Hydralazine and Lasix on hold secondary to hypotension and EVELIO Patient not on ACEI/ARB secondary to hypotension and kidney disease Nephrology following Neurology following From cardiology perspective no further inpatient changes at this time. We will f ollow the patient as needed. Please reconsult if needed. Endorsed close follow up outpatient with Dr. Harding Nurse practitioner note has been reviewed by physician. Signing provider agrees with the documented findings, assessment, and plan of care. Objective - Vital Signs Vital signs: Vital Signs Temp 98.5 F 03/28/22 04:00 Pulse 68 03/28/22 08:00 Resp 16 03/28/22 08:00 BP 90/49 03/28/22 08:00 Pulse Ox 99 03/28/22 08:00 FiO2 Intake & Output 03/27/22 03/28/22 03/28/22 18:59 06:59 18:59 Intake Total 690 Output Total 150 Balance 690 -150 Intake: Oral 690 Output: Urine 150 Other: Voiding Method Toilet Toilet Toilet Urinal Urinal Urinal # Voids 1 1 - Labs CBC & Chem 7: 03/28/22 07:24 03/28/22 07:24 Labs: Abnormal Lab Results - Last 24 Hours (Table) 03/27/22 03/28/22 03/28/22 Range/Units 07:35 07:24 07:24 RBC 3.17 L (4.30-5.90) m/uL Hgb 10.0 L (13.0-17.5) gm/dL Hct 29.7 L (39.0-53.0) % Plt Count 107 L (150-450) k/uL Lymphocytes # 0.9 L (1.0-4.8) k/uL Sodium 135 L (137-145) mmol/L BUN 52 H (9-20) mg/dL Creatinine 4.26 H (0.66-1.25) mg/dL Glucose 102 H (74-99) mg/dL Calcium 8.3 L (8.4-10.2) mg/dL Total Protein 6.2 L (6.3-8.2) g/dL Albumin 3.2 L (3.5-5.0) g/dL HDL Cholesterol 30.10 L (40.00-60.00) mg/dL Microbiology - Last 24 Hours (Table) 03/26/22 11:45 Urine Culture - Final Urine,Voided
--- NOTE | 2022-03-28 15:57 | P.GSCN ---
History of Present Illness Consult date: 03/28/22 Reason for Consult: renal cyst History of present illness: This 72 yo male admitted to the hospital with atypical chest pain, and acute on chronic kidney disease. Creatinine was 4.3 from baseline of 2.7-3. Underwent a renal ultrasound that showed evidence of bilateral renal cyst. He does have chronic left flank pain with radiation to the left lower quadrant. Indicated no changes to pain compared to his baseline. On ultrasound the largest cyst was on the left side measured approximately 9.6 cm. Of note the cysto were visualized previous ultrasounds. Denies any gross hematuria or urinary issues. No evidence of hydronephrosis on ultrasound. He follows up with Dr. Clinton for history of stones. Underwent a right-sided ureteroscopy for a 1.7 cm right ureteral stone in February 2021. Review of Systems - Constitutional Denies fever, Denies weight loss - EENT Ears, nose, mouth and throat: Denies dysphagia - Cardiovascular Denies chest pain, Denies shortness of breath - Respiratory Denies cough, Denies 7 - Gastrointestinal Reports as per HPI, Reports abdominal pain - Genitourinary Reports flank pain, Denies hematuria - Neurological Denies headaches, Denies syncope Past Medical History Past Medical History: Coronary Artery Disease (CAD), Chest Pain / Angina, Heart Failure, CVA/TIA, Deep Vein Thrombosis (DVT), Eye Disorder, Hyperlipidemia, Hypertension, Myocardial Infarction (NM), Pneumonia, Renal Disease, Vascular Disorder Additional Past Medical History / Comment(s): Aortic arch dissection/caused decreased circulation/DVT R leg resulting in R leg BKA, thoracic aortic aneurysm, CVA with L arm weakness/slurred speech at times, cardiomyiopathy, CKD stage IV, L kidney nonfunctioning, past nephrolithiasis, recent decreased blood pressure when stands, R eye blindness/glaucoma, bronchitis. 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 Date of Last Stent Placement:: 07/01/20 Past Psychological History: Anxiety Additional Psychological History / Comment(s): Pt resides with his spouse. He uses a cane. He drives. He is independent. Pt states he has a private nurse thru [facility]. He uses oxygen at 3L/NC prn and at HS. He has a pulse oximeter. Smoking Status: Never smoker Past Alcohol Use History: None Reported Past Drug Use History: None Reported - Past Family History Mother Family Medical History: Myocardial Infarction (NM) Additional Family Medical History / Comment(s): Mother of a NM at the age of 37yrs. Father Family Medical History: Myocardial Infarction (NM) Additional Family Medical History / Comment(s): Father of a NM at the age of 58yrs. Medications and Allergies Home Medications Medication Instructions Recorded Confirmed Type Furosemide [Lasix] 20 mg PO DAILY 06/23/20 03/26/22 History Apixaban [Eliquis] 2.5 mg PO BID 02/28/21 03/26/22 History Amiodarone HCl [Pacerone] 200 mg PO DAILY 04/01/21 03/26/22 History Brimonidine Tartrate [Alphagan P 1 drop RIGHT EYE BID 04/01/21 03/26/22 History 0.2% Ophth Soln] Isosorbide Mononitrate ER [Imdur] 30 mg PO BID 04/01/21 03/26/22 History carvediloL [Coreg] 25 mg PO BID 04/01/21 03/26/22 History Clopidogrel [Plavix] 75 mg PO DAILY 09/15/21 03/26/22 History Sodium Bicarbonate Tab 650 mg PO BID 09/15/21 03/26/22 History Timolol 0.5% Ophth Soln [Timoptic 1 drop RIGHT EYE BID 09/15/21 03/26/22 History 0.5% Ophth Soln] Nitroglycerin Sl Tabs [Nitrostat] 0.4 mg SUBLINGUAL Q5M PRN 11/23/21 03/26/22 History Midodrine HCl [ProAmatine] 10 mg PO TID 03/26/22 03/26/22 History Tamsulosin HCl [Flomax] 0.4 mg PO DAILY 03/26/22 03/26/22 History hydrALAZINE HCL 25 mg PO BID 03/26/22 03/26/22 History Allergies Allergy/AdvReac Type Severity Reaction Status Date / Time cephalexin [From Keflex] Allergy Rash/Hives Verified 03/26/22 13:04 codeine Allergy Unknown Verified 03/26/22 13:04 Penicillins Allergy Rash/Hives Verified 03/26/22 13:04 strawberry Allergy Rash/Hives Verified 03/26/22 13:04 Surgical - Exam Vital Signs Temp 97.6 F 03/26/22 10:40 - General no distress, moderate pain - Eyes normal ocular movement, no pale - ENT normal nares, normal mucosa - Respiratory normal expansion, normal respiratory effort - Abdomen Abdomen: soft, tender (left Lower quadrant) - Psychiatric oriented to time, oriented to person, oriented to place Results - Labs 03/28/22 07:24 03/28/22 07:24 Abnormal Lab Results - Last 24 Hours (Table) 03/28/22 03/28/22 Range/Units 07:24 07:24 RBC 3.17 L (4.30-5.90) m/uL Hgb 10.0 L (13.0-17.5) gm/dL Hct 29.7 L (39.0-53.0) % Plt Count 107 L (150-450) k/uL Lymphocytes # 0.9 L (1.0-4.8) k/uL Sodium 135 L (137-145) mmol/L BUN 52 H (9-20) mg/dL Creatinine 4.26 H (0.66-1.25) mg/dL Glucose 102 H (74-99) mg/dL Calcium 8.3 L (8.4-10.2) mg/dL Total Protein 6.2 L (6.3-8.2) g/dL Albumin 3.2 L (3.5-5.0) g/dL Microbiology - Last 24 Hours (Table) 03/26/22 11:45 Urine Culture - Final Urine,Voided Diabetes panel 03/28/22 Range/Units 07:24 Sodium 135 L (137-145) mmol/L Potassium 4.5 (3.5-5.1) mmol/L Chloride 103 (98-107) mmol/L Carbon Dioxide 26 (22-30) mmol/L BUN 52 H (9-20) mg/dL Creatinine 4.26 H (0.66-1.25) mg/dL Glucose 102 H (74-99) mg/dL Calcium 8.3 L (8.4-10.2) mg/dL AST 20 (17-59) U/L ALT 13 (4-49) U/L Alkaline Phosphatase 87 (38-126) U/L Total Protein 6.2 L (6.3-8.2) g/dL Albumin 3.2 L (3.5-5.0) g/dL Calcium panel 03/28/22 Range/Units 07:24 Calcium 8.3 L (8.4-10.2) mg/dL Albumin 3.2 L (3.5-5.0) g/dL Pituitary panel 03/28/22 Range/Units 07:24 Sodium 135 L (137-145) mmol/L Potassium 4.5 (3.5-5.1) mmol/L Chloride 103 (98-107) mmol/L Carbon Dioxide 26 (22-30) mmol/L BUN 52 H (9-20) mg/dL Creatinine 4.26 H (0.66-1.25) mg/dL Glucose 102 H (74-99) mg/dL Calcium 8.3 L (8.4-10.2) mg/dL Adrenal panel 03/28/22 Range/Units 07:24 Sodium 135 L (137-145) mmol/L Potassium 4.5 (3.5-5.1) mmol/L Chloride 103 (98-107) mmol/L Carbon Dioxide 26 (22-30) mmol/L BUN 52 H (9-20) mg/dL Creatinine 4.26 H (0.66-1.25) mg/dL Glucose 102 H (74-99) mg/dL Calcium 8.3 L (8.4-10.2) mg/dL Total Bilirubin 1.0 (0.2-1.3) mg/dL AST 20 (17-59) U/L ALT 13 (4-49) U/L Alkaline Phosphatase 87 (38-126) U/L Total Protein 6.2 L (6.3-8.2) g/dL Albumin 3.2 L (3.5-5.0) g/dL Assessment and Plan Assessment: 72 yo hx of bilateral renal cysts, long-standing history of renal cyst, cyst appears simple on ultrasound. Chronic left flank pain and left lower quadrant pain, could be related to the cyst. But he indicated it's unchanged from baseline. I discussed with him given the benign appearance of the cyst no further intervention is needed. Can follow-up with Dr. Clinton on as-needed basis
--- NOTE | 2022-03-28 16:20 | P.PN ---
Subjective Progress Note Date: 03/28/22 The patient is seen at bedside and feels about the same. Denies of any new neurological issues. Objective - Vital Signs Vital signs: Vital Signs Temp 98.5 F 03/28/22 04:00 Pulse 77 03/28/22 12:00 Resp 16 03/28/22 12:00 BP 109/71 03/28/22 12:00 Pulse Ox 99 03/28/22 12:00 FiO2 Intake & Output 03/27/22 03/28/22 03/28/22 18:59 06:59 18:59 Intake Total 690 Output Total 150 Balance 690 -150 Intake: Oral 690 Output: Urine 150 Other: Voiding Method Toilet Toilet Toilet Urinal Urinal Urinal # Voids 1 1 - Exam GENERAL: The patient is lying in bed and is not in acute distress. NEUROLOGICAL: Higher mental function: The patient is awake, alert, oriented to self, place and time. Patient is following commands. No aphasia and no neglect. Cranial nerves: The pupil is round,an d reactive to light on left. He is legally blind on the right (old) and hazy looking appearance. Visual garcia is full on left. Facial sensation is normal to touch throughout. The facial strength isright nasolabial flattening (stated that is his baseline). Hearing is mildly decreased bilaterally to hand rub. Tongue is midline and moved [id number] without any difficulty. No dysarthria is noted. Shoulder shrug is normal bilaterally. Motor: The strength is limited over the right lower extremity because of his amputation otherwise the strength is 5 out of 5. Normal tone and bulk. Cerebellum: Minimal dysmetria of finger to nose over the left (old) otherwise normal on the right. Sensation: Sensation is normal to touch throughout. Reflexes (right/left): 1+ throughout Plantars is downgoing over left. Some other workup in our facility during this hospitalization consisted of: Serum B12 is 392 Serum folate is 17.50 TSH is 1.360 Hemoglobin A1c is 5.3 CT of the head is reported as age-related atrophy and chronic small vessel ischemic change without acute intracranial process seen at this time. I personally reviewed the CT of the head and I do not see any acute subacute ischemic stroke and I see his old encephalomaciac changes from old stroke. CT angiography of the head and neck is reported as no significant abnormality to account for the patient's symptoms. Patient initial troponin is 0.054 and it's minimally trending down. Creatinine is 4.46. Urinalysis seem possible suggestive for ureter tract infection. 2D echo is reported as impaired left ventricle function with ejection fraction of 20-25%. Moderate mitral regurgitation. Severe increased left atrial diameter. Severely increased left atrial volume. Severely increased left atrial area. - Labs CBC & Chem 7: 03/28/22 07:24 03/28/22 07:24 Labs: Abnormal Lab Results - Last 24 Hours (Table) 03/27/22 03/28/22 03/28/22 Range/Units 07:35 07:24 07:24 RBC 3.17 L (4.30-5.90) m/uL Hgb 10.0 L (13.0-17.5) gm/dL Hct 29.7 L (39.0-53.0) % Plt Count 107 L (150-450) k/uL Lymphocytes # 0.9 L (1.0-4.8) k/uL Sodium 135 L (137-145) mmol/L BUN 52 H (9-20) mg/dL Creatinine 4.26 H (0.66-1.25) mg/dL Glucose 102 H (74-99) mg/dL Calcium 8.3 L (8.4-10.2) mg/dL Total Protein 6.2 L (6.3-8.2) g/dL Albumin 3.2 L (3.5-5.0) g/dL HDL Cholesterol 30.10 L (40.00-60.00) mg/dL Microbiology - Last 24 Hours (Table) 03/26/22 11:45 Urine Culture - Final Urine,Voided Assessment and Plan Assessment: Probable TIA (right facial droop). Acute Chest pain with slight elevated troponin. Systolic ejection fraction (EF with 20-25%) Slightly Low normal Vitamin (392) History of carotid bypass right left on 2018 History of hemeangioma status post removal at the age of [age] years old History of stroke over the right frontal parietal and left cerebellarHistory of carotid bypass right left on 2018 History of hemeangioma status post removal at the age of [age] years old History of stroke over the right frontal parietal and left cerebellar History of peripheral vascular disease History of thoracic aortic dissection status post repair History of coronary artery disease status post stents Hypertension Hyperlipidemia chronic kidney insufficiency, [id number] amputation on right Legally blind on the right eye Plan: Repeat CT of the head today (48 hours post initial neurological symptoms tomorrow to see if any new finding not seen on initial CT): It is reported as ol d chronic-appearing white matter ischemic type changes and old infarct. I personally reviewed the CT of the head and I agree there is no acute or subacute ischemia. There is no typical hemorrhage. Patient continues to refuse MRI Brain. He is on his home medication of eliquis 2.5mg bid and Plavix 75mg daily. Continue Lipitor 20mg qhs for secondary stroke prophylaxis. Every 4 hours neuro checks On cardiac monitoring Because of mildly low normal vitamin B12: I started the patient on Vitamin B12 1000mcg daily. 2D echo is reported as impaired left ventricle function with ejection fraction of 20-25%. Moderate mitral regurgitation. Severe increased left atrial diameter. Severely increased left atrial volume. Severely increased left atrial area. Cardiology team is consulted Nephrology team is consulted We'll defer the rest of the medical management to primary team For DVT prophylaxis on eliquis. There is no further neurological work-up. Patient is clear for discharge. Please notify neurology team if any further concerns. Bob Cabrera M.D. Neuro-hospitalist Time with Patient: Less than 30
[2022-03-28] MEDS: ONDANSETRON 4 MG/2 ML VIAL IVP PRN (16:22)
[2022-03-28] MEDS ORDERED: SODIUM CHLORIDE 0.9% 1,000 ML IV ONE (17:51)
[2022-03-28] MEDS: SODIUM CHLORIDE 0.9% 1,000 ML IV SCH (17:58)
[2022-03-28] MEDS: CLOPIDOGREL 75 MG TAB PO SCH (18:00)
[2022-03-28] MEDS ORDERED: LORazepam 2 MG/ML INJ IV PRN (20:35)
[2022-03-28] MEDS ORDERED: LORazepam 1 MG/0.5 ML VIAL IV PRN (20:47)
[2022-03-28] MEDS: ATORVASTATIN 20 MG TAB PO SCH (21:03)
[2022-03-29] MEDS: MIDODRINE 5 MG TAB PO SCH (07:04)
[2022-03-29] MEDS: carvediloL 12.5 MG TAB PO SCH (07:04)
[2022-03-29 09:03] LABS: Basophils % (A) 0 %; Eosinophils # (A) 0.3 k/uL (0-0.7); Eosinophils % (A) 5 %; HCT 31.8 % (39.0-53.0); HGB 10.4 gm/dL (13.0-17.5); Hypochromasia Moderate; Lymphocytes # (A) 0.8 k/uL (1.0-4.8); Lymphocytes % (A) 14 %; MCH 31.3 pg (25.0-35.0); MCHC 32.6 g/dL (31.0-37.0); Mean Platelet Volume 9.7; Monocytes # (A) 0.4 k/uL (0-1.0); Monocytes % (A) 7 %; Neutrophils # (A) 4.2 k/uL (1.3-7.7); Neutrophils % (A) 71 %; Platelet Count 128 k/uL (150-450); RBC 3.31 m/uL (4.30-5.90); RDW 15.1 % (11.5-15.5)
[2022-03-29] MEDS: ISOSORBIDE MONONITRATE ER 30 MG TAB.ER.24H PO SCH (09:25)
[2022-03-29] MEDS: CYANOCOBALAMIN 500 MCG TAB PO SCH (09:25)
[2022-03-29] MEDS: AMIODARONE 200 MG TAB PO SCH (09:25)
[2022-03-29] MEDS: TIMOLOL 0.5% OPHTH DROPS 5 ML BTL RIGHT EYE SCH (09:26)
[2022-03-29] MEDS: CLOPIDOGREL 75 MG TAB PO SCH (09:26)
[2022-03-29] MEDS: APIXABAN 2.5 MG TABLET PO SCH (09:26)
[2022-03-29] MEDS: TAMSULOSIN 0.4 MG CAP.ER.24H PO SCH (09:26)
[2022-03-29] MEDS: BRIMONIDINE TARTRATE 0.2% DROPS 5 ML BTL RIGHT EYE SCH (09:27)
--- NOTE | 2022-03-29 09:47 | P.PN ---
Subjective Patient is seen in follow-up for acute kidney injury on chronic kidney disease. Renal function a little better - creatinine 3.62 yesterday. Has been voiding. Receiving IV fluids area and also on midodrine. Diuretic held. Denies chest pain or shortness of breath. Oral intake is fair. No active complaints. Vital signs are stable. Blood pressure on the lower side. General: Awake and alert. No acute distress. HEENT: Head exam is unremarkable. LUNGS: Breath sounds decreased. HEART: Rate and Rhythm are regular. ABDOMEN: Soft, no distention. EXTREMITITES: No edema. Right BKA noted. Objective - Vital Signs Vital signs: Vital Signs Temp 96.3 F L 03/29/22 04:00 Pulse 64 03/29/22 04:00 Resp 16 03/29/22 04:00 BP 149/67 03/29/22 04:00 Pulse Ox 96 03/29/22 04:00 FiO2 Intake & Output 03/28/22 03/29/22 03/29/22 18:59 06:59 18:59 Output Total 150 500 Balance -150 -500 Output: Urine 150 500 Other: Voiding Method Toilet Toilet Urinal Urinal # Voids 1 2 # Bowel Movements 1 - Labs CBC & Chem 7: 03/29/22 07:43 03/28/22 19:41 Labs: Abnormal Lab Results - Last 24 Hours (Table) 03/28/22 03/29/22 Range/Units 19:41 07:43 RBC 3.31 L (4.30-5.90) m/uL Hgb 10.4 L (13.0-17.5) gm/dL Hct 31.8 L (39.0-53.0) % Plt Count 128 L (150-450) k/uL Lymphocytes # 0.8 L (1.0-4.8) k/uL Creatinine 3.62 H (0.66-1.25) mg/dL Assessment and Plan Plan: Assessment: 1. Acute kidney injury mostly prerenal secondary to hypotension and hypovolemia. Also component of contrast-induced acute kidney injury. Patient received IV contrast on 03/26/2022 for a CTA. Creatinine was 4.46 on admission - 3.62 yesterday. Renal ultrasound showed bilateral cysts without any evidence of hydronephrosis. UA with trace protein. 2. Chronic kidney disease stage IV with baseline creatinine in the range of 2.7-3 secondary to nephrosclerosis and obstructive uropathy. 3. Left cystic mass with internal hemorrhage noted on CAT scan. Seen by urology. No interventions planned at this time. 4. Probable TIA with facial droop. Neurology following. 5. 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 6. Status post right BKA. 7. Anemia of chronic kidney disease. Iron deficiency noted. Plan: Maintain IV fluids. Continue to hold diuretics. Continue to hold antihypertensives. Maintain IV iron. Maintain midodrine. Hold for systolic blood pressure greater than 110. Cortisol level was low. Avoid nephrotoxins. Strongly advised patient to follow up outpatient in 1 week post discharge to establish CKD care. Discussed with the patient that he will likely require renal placement therapy in the near future. 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 No urgency at this time. Continue to monitor renal function and urine output.
[2022-03-29 09:49] LABS: Albumin 3.5 g/dL (3.5-5.0); Calcium 8.4 mg/dL (8.4-10.2); Magnesium 2.2 mg/dL (1.6-2.3); Total Bilirubin 0.8 mg/dL (0.2-1.3); Total Protein 6.7 g/dL (6.3-8.2)
[2022-03-29 10:19] VITALS: BP 92/55; PULSE 81; TEMP 98.2
--- NOTE | 2022-04-01 15:03 | CDI ---
Documentation Clarification Form Date: 04/01/2022 02:29:39 PM From: Kimmy Ponce Phone: Admit Date: 03/26/2022 12:51:00 PM Patient Name: Wilner Up Visit Number: [id number] Discharge Date: 03/29/2022 11:13:00 AM ATTENTION: The Clinical Documentation Specialists (CDI) and [facility] Coding Staff appreciate your assistance in clarifying documentation. Please respond to the clarification below the line at the bottom and electronically sign. The CDI & [facility] Coding staff will review the response and follow-up if needed. Please note: Queries are made part of the Legal Health Record. If you have any questions, please contact the author of this message via ITS. Dr. Og Escoto Pt with hypoxemia andoxygendependence per documentation in H&P. Additional clarification is requested. History/Risk Factors: 72yo M, TIA facial droop w AMS POA , Anemia of CKD, iron def, DM, CAD w/stents, Thoracic aortic dissection, RBBB, multiple lorraine renal cysts. EVELIO on CKD IV, Hx rt ureteral stone, hypoxemia, ch dissection of ascending thoracic aorta & enlarging aneurysm distal abd aorta, rt common iliac aneurysm, enlarging cystic mass in lt kidney w/internal hemorrhage, dehydration, atypical CP, Elev trop poss due to renal, COPD, Legally blind rt eye. Clinical Indicators: COPD, LUNGS: Respirations even and unlabored. Lungs essentially clear to auscultation bilaterally. He had last time when he was admitted but he was fixed with wearing oxygen all the time. Hypoxemiawhich fixed most of hisaltered mental statusat home, but his says he just became acting funny, so she brought him to the ER. H&P Pt being without oxygen for 5 hours, which is the longest he has been without his oxygen for long time. He states he doeswearhis oxygen at home. Dr Escoto Progress Note 03/27/22 Treatment: O2 support Please clarify if there is an additional valid diagnosis? [ ] Chronic Hypoxic Respiratory Failure is present as evidence by (additional clinical support): [ ] COPD exacerbation [ ] Other (please specify diagnosis) [ ] Unable to determine (Template Last Revised: November 2020) MTDD
--- NOTE | 2022-04-02 08:02 | PN ---
PROGRESS NOTE This is a white male admitted to the hospital with COPD, aspiration pneumonia, CHF. He went home and was readmitted due to hypoxemia and turned off his air conditioning. He is breathing better now. He was started back on Lasix which Cardiology had stopped on previous admissions. Cardiovascular S1-S2. Lungs scattered rhonchi and wheeze. Hematology 2+ edema. ASSESSMENT: 1. Congestive heart failure. 2. Chronic obstructive pulmonary disease. 3. Generalized weakness. 4. Acute hypoxemic respiratory distress. Continue with steroids, Lasix, oral updrafts. Prognosis guarded. MMODL / IJN: [id number] /
--- NOTE | 2022-04-02 17:38 | PN ---
PROGRESS NOTE ADDENDUM: Please add: Chronic hypoxemic respiratory failure secondary to COPD exacerbation and systolic CHF. MMODL / IJN: [id number] /
== END 2022-03-29 11:13 | disposition home health service (06) | DRG 69 ==
LOC: EC 10:34 → 3SCARD 12:51
PROVIDERS: ADMIT Family Medicine; ATTEND Family Medicine
DX: G45.9 Transient cerebral ischemic attack, unspecified (principal); I71.01 Dissection of thoracic aorta; J69.0 Pneumonitis due to inhalation of food and vomit; I13.0 Hypertensive heart and chronic kidney disease with heart failure and stage 1 through stage 4 chronic kidney disease, or unspecified chronic kidney disease; N18.4 Chronic kidney disease, stage 4 (severe); N17.9 Acute kidney failure, unspecified; I48.92 Unspecified atrial flutter; I50.22 Chronic systolic (congestive) heart failure; J44.1 Chronic obstructive pulmonary disease with (acute) exacerbation; J96.11 Chronic respiratory failure with hypoxia; I71.4 Abdominal aortic aneurysm, without rupture; I72.3 Aneurysm of iliac artery; Z95.828 Presence of other vascular implants and grafts; E11.22 Type 2 diabetes mellitus with diabetic chronic kidney disease; E11.51 Type 2 diabetes mellitus with diabetic peripheral angiopathy without gangrene; R29.810 Facial weakness; I25.10 Atherosclerotic heart disease of native coronary artery without angina pectoris; E86.0 Dehydration; F41.9 Anxiety disorder, unspecified; R27.8 Other lack of coordination; H54.61 Unqualified visual loss, right eye, normal vision left eye; E78.5 Hyperlipidemia, unspecified; E86.1 Hypovolemia; I95.9 Hypotension, unspecified; D63.1 Anemia in chronic kidney disease; E61.1 Iron deficiency; I25.5 Ischemic cardiomyopathy; T50.8X5A Adverse effect of diagnostic agents, initial encounter; N13.9 Obstructive and reflux uropathy, unspecified; J44.9 Chronic obstructive pulmonary disease, unspecified; I48.0 Paroxysmal atrial fibrillation; H40.9 Unspecified glaucoma; R77.8 Other specified abnormalities of plasma proteins; R07.89 Other chest pain; I34.0 Nonrheumatic mitral (valve) insufficiency; I45.10 Unspecified right bundle-branch block; N28.1 Cyst of kidney, acquired; N28.89 Other specified disorders of kidney and ureter; R58 Hemorrhage, not elsewhere classified; Z95.5 Presence of coronary angioplasty implant and graft; Z79.899 Other long term (current) drug therapy; Z79.01 Long term (current) use of anticoagulants; Z79.02 Long term (current) use of antithrombotics/antiplatelets; Z79.82 Long term (current) use of aspirin; Z88.5 Allergy status to narcotic agent; Z88.0 Allergy status to penicillin; Z91.018 Allergy to other foods; Z88.1 Allergy status to other antibiotic agents; I25.2 Old myocardial infarction; Z86.718 Personal history of other venous thrombosis and embolism; Z87.442 Personal history of urinary calculi; Z89.511 Acquired absence of right leg below knee; Z87.01 Personal history of pneumonia (recurrent); Z90.49 Acquired absence of other specified parts of digestive tract; Z90.89 Acquired absence of other organs; Z86.018 Personal history of other benign neoplasm; Z98.890 Other specified postprocedural states; Z82.49 Family history of ischemic heart disease and other diseases of the circulatory system; Z99.81 Dependence on supplemental oxygen; Z86.73 Personal history of transient ischemic attack (TIA), and cerebral infarction without residual deficits
CPT/HCPCS: 36415; 70450; 70496; 70498; 71275; 76770; 80053; 80061; 81001; 82533; 82565; 82607; 82746; 83036; 83540; 83550; 83735; 83880; 84443; 84484; 85025; 85610; 85730; 87086; 93005; 93306; 94760; 96361; 96374; 99291

== ENCOUNTER 2022-03-31 03:42 | Observation (INO) | payer MEDICARE, OTHER ==
[2022-03-31] MEDS ORDERED: SODIUM CHLORIDE 0.9% 1,000 ML IV STA (03:50)
[2022-03-31] MEDS ORDERED: IPRATROPIUM-ALBUTEROL 3 ML NEB INHALATION STA (03:50)
--- NOTE | 2022-03-31 04:23 | ED ---
SOB HPI - General Chief Complaint: Shortness of Breath Stated Complaint: SOB Time Seen by Provider: 03/31/22 03:45 Source: EMS, RN notes reviewed, old records reviewed Mode of arrival: EMS Limitations: no limitations - History of Present Illness Initial Comments: This is a 72-year-old male to the emergency department for evaluation patient states is having significant difficulty breathing severe weakness and not feeling well. Patient states he has history of COPD. Patient has overall generalized weakness. States he's not overall feeling well. Patient states he was is admitted to hospital and discharge and states he didn't feel any better when he left as opposed well he does now. Patient otherwise has no chest pain. No fevers. Just states he wasn't feeling better when he was discharged from the hospital MD Complaint: shortness of breath, cough -: days(s) Severity: moderate Severity scale (1-10): 6 Quality: dull Consistency: constant Improves With: nothing Worsens With: exertion, movement Known History Of: COPD, congestive heart failure Context: recent URI, anxiety, recent illness Associated Symptoms: chest pain, cough, sputum production, palpitations Treatments Prior to Arrival: bronchodilator - Related Data Home Medications Medication Instructions Recorded Confirmed Apixaban [Eliquis] 2.5 mg PO BID 02/28/21 03/31/22 Amiodarone HCl [Pacerone] 200 mg PO DAILY 04/01/21 03/31/22 Brimonidine Tartrate [Alphagan P 1 drop RIGHT EYE BID 04/01/21 03/31/22 0.2% Ophth Soln] Isosorbide Mononitrate ER [Imdur] 30 mg PO BID 04/01/21 03/31/22 carvediloL [Coreg] 25 mg PO BID 04/01/21 03/31/22 Clopidogrel [Plavix] 75 mg PO DAILY 09/15/21 03/31/22 Timolol 0.5% Ophth Soln [Timoptic 1 drop RIGHT EYE BID 09/15/21 03/31/22 0.5% Ophth Soln] Midodrine HCl [ProAmatine] 10 mg PO TID 03/26/22 03/31/22 Previous Rx's Medication Instructions Recorded Atorvastatin [Lipitor] 20 mg PO HS 90 Days #90 tab 03/29/22 Nitroglycerin Sl Tabs [Nitrostat] 0.4 mg SUBLINGUAL Q5M PRN 90 Days 03/29/22 #100 tab Albuterol Nebulized [Ventolin 2.5 mg INHALATION RT-QID 30 Days 04/02/22 Nebulized] #120 ml Bumetanide [BUMEX] 1 mg PO BID@0900,1600 30 Days #60 04/02/22 tab Calcium Carbonate [Tums] 1,000 mg PO TID PRN 30 Days #90 tab 04/02/22 Pantoprazole [Protonix] 40 mg PO AC-BRKFST 30 Days #30 tab 04/02/22 Tamsulosin [Flomax] 0.4 mg PO PC-BRKFST 30 Days #30 cap 04/02/22 methylPREDNISolone Dose Pack 24 mg PO DAILY 5 Days #1 tab 04/02/22 [Medrol Dose Pack] Allergies Allergy/AdvReac Type Severity Reaction Status Date / Time cephalexin [From Keflex] Allergy Rash/Hives Verified 04/04/22 17:30 codeine Allergy Unknown Verified 04/04/22 17:30 Penicillins Allergy Rash/Hives Verified 04/04/22 17:30 strawberry Allergy Rash/Hives Verified 04/04/22 17:30 Review of Systems ROS Statement: Those systems with pertinent positive or pertinent negative responses have been documented in the HPI. ROS Other: All systems not noted in ROS Statement are negative. Past Medical History Past Medical History: Coronary Artery Disease (CAD), Chest Pain / Angina, Heart Failure, CVA/TIA, Deep Vein Thrombosis (DVT), Eye Disorder, Hyperlipidemia, Hypertension, Myocardial Infarction (MD), Pneumonia, Renal Disease, Vascular Disorder Additional Past Medical History / Comment(s): Aortic arch dissection/caused decreased circulation/DVT R leg resulting in R leg BKA, thoracic aortic ane urysm, CVA with L arm weakness/slurred speech at times, cardiomyiopathy, CKD stage IV, L kidney nonfunctioning, past nephrolithiasis, recent decreased blood pressure when stands, R eye blindness/glaucoma, bronchitis. 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 Date of Last Stent Placement:: 07/01/20 Past Psychological History: Anxiety Smoking Status: Never smoker Past Alcohol Use History: None Reported Past Drug Use History: None Reported - Past Family History Mother Family Medical History: Myocardial Infarction (MD) Additional Family Medical History / Comment(s): Mother of a MD at the age of 37yrs. Father Family Medical History: Myocardial Infarction (MD) Additional Family Medical History / Comment(s): Father of a MD at the age of 58yrs. General Exam General appearance: alert, in no apparent distress Head exam: Present: atraumatic, normocephalic, normal inspection Eye exam: Present: normal appearance, PERRL, EOMI. Absent: scleral icterus, conjunctival injection, periorbital swelling ENT exam: Present: normal exam, mucous membranes moist Neck exam: Present: normal inspection. Absent: tenderness, meningismus, lymphadenopathy Respiratory exam: Present: wheezes, decreased breath sounds, prolonged expiratory. Absent: respiratory distress, rales, rhonchi, stridor Cardiovascular Exam: Present: regular rate, normal rhythm, normal heart sounds. Absent: systolic murmur, diastolic murmur, rubs, gallop, clicks GI/Abdominal exam: Present: soft, normal bowel sounds. Absent: distended, tenderness, guarding, rebound, rigid Extremities exam: Present: normal inspection, full ROM, normal capillary refill. Absent: tenderness, pedal edema, joint swelling, calf tenderness Back exam: Present: normal inspection Neurological exam: Present: alert, oriented X3, CN II-XII intact Psychiatric exam: Present: normal affect, normal mood Skin exam: Present: warm, dry, intact, normal color. Absent: rash Course Vital Signs 03/31/22 03/31/22 03/31/22 03:43 07:15 07:25 Temperature 98.1 F Pulse Rate 94 90 90 Respiratory 18 Rate Blood Pressure 139/84 O2 Sat by Pulse 100 100 Oximetry - Reevaluation(s) Reevaluation #1: 03/31/22 05:35 Medical record is reviewed Reevaluation #2: 03/31/22 05:35 Patient informed results and questions answered Reevaluation #3: 03/31/22 05:35 Patient is improving here in the ER - Consultations Consultation #1: Spoke with admitting physicians will admit this patient Medical Decision Making - Medical Decision Making 69 female DF for evaluation of COPD exacerbation shortness breath and weakness. Recent hospital discharge, patient be admitted for continued breathing treatments - Lab Data Result diagrams: 04/01/22 04:40 04/02/22 04:16 - EKG Data -: EKG Interpreted by Me (EKG is a rhythm of 96, IL 83 QRS 154 QTc 452) - Radiology Data Radiology results: report reviewed (Chest x-rays negative for acute disease), image reviewed Disposition Clinical Impression: Generalized weakness, Acute alteration in mental status, Cough, Acute bronchitis, Acute exacerbation of chronic obstructive pulmonary disease Disposition: ADMITTED IP TO THIS HOSP Condition: Fair Is patient prescribed a controlled substance at d/c from ED?: No Time of Disposition: 05:20
[2022-03-31] MEDS ORDERED: methylPREDNISolone SOD SUCCI 125 MG/2 ML VIAL IV STA (05:16)
[2022-03-31 06:02] LABS: Basophils % (A) 0 %; Eosinophils # (A) 0.3 k/uL (0-0.7); Eosinophils % (A) 5 %; HCT 31.6 % (39.0-53.0); HGB 10.3 gm/dL (13.0-17.5); Hypochromasia Moderate; Lymphocytes # (A) 0.9 k/uL (1.0-4.8); Lymphocytes % (A) 14 %; MCH 30.6 pg (25.0-35.0); MCHC 32.5 g/dL (31.0-37.0); MCV 94.1 fL (80.0-100.0); Mean Platelet Volume 9.1; Monocytes # (A) 0.5 k/uL (0-1.0); Monocytes % (A) 8 %; Neutrophils # (A) 4.4 k/uL (1.3-7.7); Neutrophils % (A) 71 %; Platelet Count 146 k/uL (150-450); RBC 3.36 m/uL (4.30-5.90); RDW 14.6 % (11.5-15.5); WBC 6.2 k/uL (3.8-10.6)
[2022-03-31] MEDS: methylPREDNISolone SOD SUCCI 125 MG/2 ML VIAL IV SCH ×4 (06:08→22:55)
[2022-03-31 06:14] LABS: Albumin 3.7 g/dL (3.5-5.0); Calcium 8.6 mg/dL (8.4-10.2); Magnesium 2.1 mg/dL (1.6-2.3); Total Bilirubin 0.7 mg/dL (0.2-1.3); Total Protein 6.9 g/dL (6.3-8.2)
[2022-03-31 06:22] LABS: INR 1.1 (<1.2); Partial Thromboplastin Time 29.1 sec (22.0-30.0); Prothrombin Time 11.5 sec (9.0-12.0)
[2022-03-31] MEDS: ALBUTEROL NEBULIZED 2.5 MG/3 ML INHALATION SCH ×4 (07:16→20:10)
--- NOTE | 2022-03-31 07:32 | XR ---
EXAMINATION TYPE: XR chest 1V portable DATE OF EXAM: 03/31/2022 CLINICAL HISTORY: Difficulty breathing progress study. TECHNIQUE: Single AP portable upright view of the chest is obtained. COMPARISON: Chest x-ray from September 15, 2021. CTA chest March 26, 2022 FINDINGS: Persistent cardiomegaly with atherosclerotic and aneurysmal thoracic aorta. Chronic parenc hymal changes bilaterally without suspicious new focal airspace opacity, pleural effusion, or pneumot horax seen. Overlying sternal wires and mediastinal clips redemonstrated. Stent graft in the ascendin g aorta seen better on CT versus plain films. Osseous structures are intact. IMPRESSION: Mild chronic parenchymal changes and cardiomegaly with known thoracic aortic aneurysm all redemonstrated. No new acute infiltrate.
--- NOTE | 2022-03-31 16:51 | P.CRDCN ---
History of Present Illness History of present illness: This is a 71-year-old male with a past medical history significant for coronary artery disease with previous PCI RCA 06/2020, paroxysmal atrial fibrillation on anticoagulation with Eliquis, aortic dissection repair, right BKA, systolic heart failure, chronic kidney disease, hypertension, hyperlipidemia, and ischemic cardiomyopathy. Patient follows in the office with Dr. Harding. Patient was recently admitted for atypical right-sided chest pain as well as altered mental status with concern of facial droop. Chest pain was atypical and Echocardiogram showed EF 20-25% with moderate mitral regurgitation. There was concern of further dissection and therefore a chest CTA was performed despite his advanced EKG. He was seen by nephrology and his diuretics were stopped going home. He was discharged 03/29 and did okay for a day however this morning 03/31 started feeling severely short of breath. He admits orthopnea. Blood work shows proBNP 66303, troponin 0.05, 0.04, creatinine 3.4 previously 3.87/8, hemoglobin 10.3. DIAGNOSTICS * Cardiac catheterization history: June 2020 with stenting to the RCA with 4 stents. Proximal LAD 50-60% stenosis. Mid LAD 30-40% stenosis. Diagonal 1 branch with 30% stenosis and mid 40% diagonal one stenosis. Distal apical LAD has 100% stenosis with left to left collaterals. Proximal circumflex 40% stenosis. REVIEW OF SYSTEMS: At the time of my exam: CONSTITUTIONAL: Denies fever or chills. HEENT: Denies blurred vision, vision changes, or eye pain. Denies hemoptysis CARDIOVASCULAR: Denies chest pain. +SOB, +orthopnea. Denies PND. Denies palpitations RESPIRATORY: Denies shortness of breath. GASTROINTESTINAL: Denies abdominal pain. Denies nausea or vomiting. HEMATOLOGIC: Denies bleeding disorders. GENITOURINARY: Denies any blood in urine. SKIN: Denies pruitis. Denies rash. PHYSICAL EXAM: VITAL SIGNS: Reviewed. GENERAL: Well-developed in no acute distress. HEENT: Head is normocephalic. Pupils are equal, round. Sclerae anicteric. Mucous membranes of the mouth are moist. Neck supple. +JVD no thyromegaly LUNGS: +Crackles bilaterally HEART: Rregular rate and rhythm. S1 and S2 heard. Systolic murmur noted. ABDOMEN: Soft. Nondistended. Nontender. EXTREMITIES: Normal range of motion. No clubbing or cyanosis. Peripheral pulses intact. No lower extremity edema. Right BKA noted. NEUROLOGIC: Awake and alert. Oriented x 3. ASSESSMENT: Acute on chronic systolic heart failure Previous chest pain, with prior hospitalizations since improved Elevated troponin, chronically elevated secondary to renal disease Chronic kidney disease, likely exacerbated by contrast used during recent admission Possible TIA with right facial droop previous admission since improved Left cystic mass with internal hemorrhage noted on CAT scan. Paroxysmal atrial fibrillation, on anticoagulation with Eliquis Coronary artery disease with PCI to RCA, 06/2020 History of aortic dissection with repair History of Right BKA Ischemic cardiomyopathy Hypertension Hyperlipidemia PLAN: Patient's diuretics were stopped secondary to contrast load during recent admission and acute kidney injury. He appears to be an acute heart failure with crackles and JVD. Start Bumex and monitor response. Monitor creatinine closely. No need to repeat echo. Continue with heart failure regimen as tolerated. Further recommendations to follow. 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 Date of Last Stent Placement:: 07/01/20 Past Psychological History: Anxiety Additional Psychological History / Comment(s): Pt resides with his spouse. He uses a cane. He drives. He is independent. Pt states he has a private nurse thru [facility]. He uses oxygen at 3L/NC prn and at HS. He has a pulse oximeter. Smoking Status: Never smoker Past Alcohol Use History: None Reported Past Drug Use History: None Reported - Past Family History Mother Family Medical History: Myocardial Infarction (MD) Additional Family Medical History / Comment(s): Mother of a MD at the age of 37yrs. Father Family Medical History: Myocardial Infarction (MD) Additional Family Medical History / Comment(s): Father of a MD at the age of 58yrs. Medications and Allergies Home Medications Medication Instructions Recorded Confirmed Type Apixaban [Eliquis] 2.5 mg PO BID 02/28/21 03/31/22 History Amiodarone HCl [Pacerone] 200 mg PO DAILY 04/01/21 03/31/22 History Brimonidine Tartrate [Alphagan P 1 drop RIGHT EYE BID 04/01/21 03/31/22 History 0.2% Ophth Soln] Isosorbide Mononitrate ER [Imdur] 30 mg PO BID 04/01/21 03/31/22 History carvediloL [Coreg] 25 mg PO BID 04/01/21 03/31/22 History Clopidogrel [Plavix] 75 mg PO DAILY 09/15/21 03/31/22 History Timolol 0.5% Ophth Soln [Timoptic 1 drop RIGHT EYE BID 09/15/21 03/31/22 History 0.5% Ophth Soln] Midodrine HCl [ProAmatine] 10 mg PO TID 03/26/22 03/31/22 History Atorvastatin [Lipitor] 20 mg PO HS 90 Days #90 tab 03/29/22 03/31/22 Rx Nitroglycerin Sl Tabs [Nitrostat] 0.4 mg SUBLINGUAL Q5M PRN 90 Days 03/29/22 03/31/22 Rx #100 tab Allergies Allergy/AdvReac Type Severity Reaction Status Date / Time cephalexin [From Keflex] Allergy Rash/Hives Verified 03/31/22 11:14 codeine Allergy Unknown Verified 03/31/22 11:14 Penicillins Allergy Rash/Hives Verified 03/31/22 11:14 strawberry Allergy Rash/Hives Verified 03/31/22 11:14 Physical Exam Vitals: Vital Signs Temp Pulse Pulse Resp BP BP Pulse Ox 03/31/22 16:07 88 03/31/22 15:27 20 03/31/22 15:17 97.7 F 94 16 137/85 99 03/31/22 09:32 20 03/31/22 07:43 97.9 F 96 18 121/79 99 03/31/22 07:25 90 03/31/22 07:15 90 100 03/31/22 03:43 98.1 F 94 18 139/84 100 Intake and Output 03/31/22 03/31/22 03/31/22 06:59 14:59 22:59 Intake Total 358 Output Total 510 Balance 358 -510 Intake: Oral 358 Output: Urine 510 Other: Voiding Method Toilet Toilet Weight 99.79 kg 99.79 kg Results 03/31/22 05:47 03/31/22 05:47 Cardiac Enzymes 03/31/22 03/31/22 03/31/22 Range/Units 05:47 05:47 10:54 AST 38 (17-59) U/L Troponin I 0.055 H* 0.040 H* (0.000-0.034) ng/mL Coagulation 03/31/22 Range/Units 05:47 PT 11.5 (9.0-12.0) sec APTT 29.1 (22.0-30.0) sec CBC 03/31/22 Range/Units 05:47 WBC 6.2 (3.8-10.6) k/uL RBC 3.36 L (4.30-5.90) m/uL Hgb 10.3 L (13.0-17.5) gm/dL Hct 31.6 L (39.0-53.0) % Plt Count 146 L (150-450) k/uL Comprehensive Metabolic Panel 03/31/22 Range/Units 05:47 Sodium 138 (137-145) mmol/L Potassium 5.0 (3.5-5.1) mmol/L Chloride 106 (98-107) mmol/L Carbon Dioxide 24 (22-30) mmol/L BUN 48 H (9-20) mg/dL Creatinine 3.46 H (0.66-1.25) mg/dL Glucose 98 (74-99) mg/dL Calcium 8.6 (8.4-10.2) mg/dL AST 38 (17-59) U/L ALT 23 (4-49) U/L Alkaline Phosphatase 119 (38-126) U/L Total Protein 6.9 (6.3-8.2) g/dL Albumin 3.7 (3.5-5.0) g/dL Current Medications Generic Name Dose Route Start Last Admin Trade Name Freq PRN Reason Stop Dose Admin Albuterol Sulfate 2.5 mg 03/31/22 08:00 03/31/22 16:07 Albuterol Nebulized 2.5 Mg/3 Ml INHALATION 2.5 mg RT-QID CARY Administration Bumetanide 2 mg 03/31/22 16:45 Bumetanide 0.25 Mg/Ml 10 Ml Vial IV Q12H CARY Methylprednisolone Sodium Succinate 60 mg 03/31/22 06:00 03/31/22 13:05 Methylprednisolone Sod Succi 125 Mg/2 Ml Vial IV 60 mg Q6HR CARY Administration Intake and Output 03/31/22 03/31/22 03/31/22 06:59 14:59 22:59 Intake Total 358 Output Total 510 Balance 358 -510 Intake: Oral 358 Output: Urine 510 Other: Voiding Method Toilet Toilet Weight 99.79 kg 99.79 kg Patient Weight 04/01/22 06:59 Weight 99.79 kg 03/31/22 05:47 03/31/22 05:47
[2022-03-31] MEDS: BUMETANIDE 0.25 MG/ML 10 ML VIAL IV SCH (17:15)
[2022-03-31] MEDS ORDERED: NITROGLYCERIN SL TABS 0.4 MG TAB SUBLINGUAL PRN (17:51)
--- NOTE | 2022-03-31 17:55 | P.HPIM ---
History of Present Illness H&P Date: 03/31/22 Chief Complaint: Shortness of breath 72-year-old male to the emergency department for evaluation patient states is having significant difficulty breathing severe weakness and not feeling well. Patient states he has history of COPD. Patient has overall generalized weakness. States he's not overall feeling well. Patient states he was is admitted to hospital and discharge and states he didn't feel any better when he left as opposed well he does now. Patient otherwise has no chest pain. No fevers. Just states he wasn't feeling better when he was discharged from the hospital; was recently admitted for atypical right-sided chest pain as well as altered mental status with concern of facial droop. Chest pain was atypical and Echocardiogram showed EF 20-25% with moderate mitral regurgitation. There was concern of further dissection and therefore a chest CTA was performed despite his advanced EKG. He was seen by nephrology and his diuretics were stopped going home. He was discharged 03/29 and did okay for a day however this morning 03/31 started feeling severely short of breath. He admits orthopnea. Blood work shows proBNP 19303, troponin 0.05, 0.04, creatinine 3.4 previously 3.87/8, hemoglobin 10.3. ---- Cardiac catheterization history: June 2020 with stenting to the RCA with 4 stents. Proximal LAD 50-60% stenosis. Mid LAD 30-40% stenosis. Diagonal 1 branch with 30% stenosis and mid 40% diagonal one stenosis. Distal apical LAD has 100% stenosis with left to left collaterals. Proximal circumflex 40% stenosis. Review of Systems REVIEW OF SYSTEMS: CONSTITUTIONAL: No fever, no malaise, no fatigue. HEENT: No recent visual problems or hearing problems. Denied any sore throat. CARDIOVASCULAR: No chest pain, orthopnea, PND, no palpitations, no syncope. PULMONARY: No shortness of breath, no cough, no hemoptysis. GASTROINTESTINAL: No diarrhea, no nausea, no vomiting, no abdominal pain. NEUROLOGICAL: No headaches, no weakness, no numbness. HEMATOLOGICAL: Denies any bleeding or petechiae. GENITOURINARY: Denies any burning micturition, frequency, or urgency. MUSCULOSKELETAL/RHEUMATOLOGICAL: Denies any joint pain, swelling, or any muscle pain. ENDOCRINE: Denies any polyuria or polydipsia. The rest of the 14-point review of systems is negative. 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 Date of Last Stent Placement:: 07/01/20 Past Psychological History: Anxiety Additional Psychological History / Comment(s): Pt resides with his spouse. He uses a cane. He drives. He is independent. Pt states he has a private nurse thru [facility]. He uses oxygen at 3L/NC prn and at HS. He has a pulse oximeter. Smoking Status: Never smoker Past Alcohol Use History: None Reported Past Drug Use History: None Reported - Past Family History Mother Family Medical History: Myocardial Infarction (NV) Additional Family Medical History / Comment(s): Mother of a NV at the age of 37yrs. Father Family Medical History: Myocardial Infarction (NV) Additional Family Medical History / Comment(s): Father of a NV at the age of 58yrs. Medications and Allergies Home Medications Medication Instructions Recorded Confirmed Type Apixaban [Eliquis] 2.5 mg PO BID 02/28/21 03/31/22 History Amiodarone HCl [Pacerone] 200 mg PO DAILY 04/01/21 03/31/22 History Brimonidine Tartrate [Alphagan P 1 drop RIGHT EYE BID 04/01/21 03/31/22 History 0.2% Ophth Soln] Isosorbide Mononitrate ER [Imdur] 30 mg PO BID 04/01/21 03/31/22 History carvediloL [Coreg] 25 mg PO BID 04/01/21 03/31/22 History Clopidogrel [Plavix] 75 mg PO DAILY 09/15/21 03/31/22 History Timolol 0.5% Ophth Soln [Timoptic 1 drop RIGHT EYE BID 09/15/21 03/31/22 History 0.5% Ophth Soln] Midodrine HCl [ProAmatine] 10 mg PO TID 03/26/22 03/31/22 History Atorvastatin [Lipitor] 20 mg PO HS 90 Days #90 tab 03/29/22 03/31/22 Rx Nitroglycerin Sl Tabs [Nitrostat] 0.4 mg SUBLINGUAL Q5M PRN 90 Days 03/29/22 03/31/22 Rx #100 tab Allergies Allergy/AdvReac Type Severity Reaction Status Date / Time cephalexin [From Keflex] Allergy Rash/Hives Verified 03/31/22 11:14 codeine Allergy Unknown Verified 03/31/22 11:14 Penicillins Allergy Rash/Hives Verified 03/31/22 11:14 strawberry Allergy Rash/Hives Verified 03/31/22 11:14 Physical Exam Vitals: Vital Signs Temp Pulse Pulse Resp BP BP Pulse Ox 03/31/22 07:43 97.9 F 96 18 121/79 99 03/31/22 07:25 90 03/31/22 07:15 90 100 03/31/22 03:43 98.1 F 94 18 139/84 100 Intake and Output 03/30/22 03/31/22 03/31/22 22:59 06:59 14:59 Intake Total 240 Balance 240 Intake: Oral 240 Other: Voiding Method Toilet Weight 99.79 kg 99.79 kg PHYSICAL EXAMINATION: GENERAL: The patient is alert and oriented x3, not in any acute distress. Well developed, well nourished. HEENT: Pupils are round and equally reacting to light. EOMI. No scleral icterus. No conjunctival pallor. Normocephalic, atraumatic. No pharyngeal erythema. No thyromegaly. CARDIOVASCULAR: S1 and S2 present. No murmurs, rubs, or gallops. PULMONARY: Chest is clear to auscultation, no wheezing or crackles. ABDOMEN: Soft, nontender, nondistended, normoactive bowel sounds. No palpable organomegaly. MUSCULOSKELETAL: No joint swelling or deformity. EXTREMITIES: No cyanosis, clubbing, or pedal edema. NEUROLOGICAL: Gross neurological examination did not reveal any focal deficits. SKIN: No rashes. Results CBC & Chem 7: 03/31/22 05:47 03/31/22 05:47 Labs: Abnormal Lab Results - Last 24 Hours (Table) 03/31/22 03/31/22 03/31/22 Range/Units 05:47 05:47 05:47 RBC 3.36 L (4.30-5.90) m/uL Hgb 10.3 L (13.0-17.5) gm/dL Hct 31.6 L (39.0-53.0) % Plt Count 146 L (150-450) k/uL Lymphocytes # 0.9 L (1.0-4.8) k/uL BUN 48 H (9-20) mg/dL Creatinine 3.46 H (0.66-1.25) mg/dL Troponin I 0.055 H* (0.000-0.034) ng/mL Thrombosis Risk Factor Assmnt - Choose All That Apply Any of the Below Risk Factors Present?: Yes Each Factor Represents 1 point: Obesity (BMI >25), Varicose veins Other Risk Factors: Yes Each Risk Factor Represents 2 Points: Age 61-74 years Other congenital or acquired thrombophilia - If yes, enter type in comment: No Thrombosis Risk Factor Assessment Total Risk Factor Score: 4 Thrombosis Risk Factor Assessment Level: Moderate Risk Assessment and Plan Assessment: 1. Acute on chronic systolic CHF - Patient has been placed on IV Bumex 2 mg IV every 12 hours; we will monitor strict ASPEN's and daily weight; low-salt and fluid restricted diet - 2-D echo 2. Elevated troponin; likely chronic given chronic kidney disease; 2-D echo is ordered; we will trend troponin; further recommendations per cardiology evaluation 3. Dyspnea on exertion; likely mild COPD exacerbation; patient denies any history of COPD; patient takes amiodarone we will consult pulmonary for further evaluation - Patient has been placed on Solu-Medrol 60 mg IV every 6 hours; DuoNeb nebulizer treatments 4 times a day and when necessary 4. Hypertension; Coreg 25 mg twice a day; Imdur 30 mg daily 5. Hyperlipidemia; Lipitor 20 mg by mouth daily at bedtime 6. CAD/history of NV; continue with statins, beta blockers, Plavix and anticoagulation 7. CVA/TIA; Plavix and statin therapy 8. DVT; patient remains on anticoagulation with Eliquis 2.5 mg twice a day
[2022-03-31] MEDS: carvediloL 12.5 MG TAB PO SCH (18:14)
[2022-03-31] MEDS: MIDODRINE 5 MG TAB PO SCH (20:04)
[2022-03-31] MEDS: ISOSORBIDE MONONITRATE ER 30 MG TAB.ER.24H PO SCH (21:57)
[2022-03-31] MEDS: APIXABAN 2.5 MG TABLET PO SCH (21:57)
[2022-03-31] MEDS: ATORVASTATIN 20 MG TAB PO SCH (21:57)
[2022-03-31] MEDS: TIMOLOL 0.5% OPHTH DROPS 5 ML BTL RIGHT EYE SCH (22:55)
[2022-03-31] MEDS: BRIMONIDINE TARTRATE 0.2% DROPS 5 ML BTL RIGHT EYE SCH (22:55)
[2022-03-31] MEDS ORDERED: HYDROcodone/APAP 5-325MG 1 EACH TAB PO PRN (23:45)
[2022-04-01] MEDS: BUMETANIDE 0.25 MG/ML 10 ML VIAL IV SCH (06:03)
[2022-04-01] MEDS: methylPREDNISolone SOD SUCCI 125 MG/2 ML VIAL IV SCH ×3 (06:04→20:15)
[2022-04-01] MEDS: ALBUTEROL NEBULIZED 2.5 MG/3 ML INHALATION SCH ×4 (08:17→20:46)
[2022-04-01] MEDS: APIXABAN 2.5 MG TABLET PO SCH ×2 (08:58→20:15)
[2022-04-01] MEDS: ISOSORBIDE MONONITRATE ER 30 MG TAB.ER.24H PO SCH ×2 (08:58→20:15)
[2022-04-01] MEDS: CLOPIDOGREL 75 MG TAB PO SCH ×2 (08:58→08:59)
[2022-04-01] MEDS: TAMSULOSIN 0.4 MG CAP.ER.24H PO SCH (08:58)
[2022-04-01] MEDS: MIDODRINE 5 MG TAB PO SCH ×3 (08:58→17:44)
[2022-04-01] MEDS: AMIODARONE 200 MG TAB PO SCH (08:58)
[2022-04-01] MEDS: carvediloL 12.5 MG TAB PO SCH ×2 (08:59→17:44)
[2022-04-01] MEDS: BRIMONIDINE TARTRATE 0.2% DROPS 5 ML BTL RIGHT EYE SCH ×2 (09:01→20:16)
[2022-04-01] MEDS: TIMOLOL 0.5% OPHTH DROPS 5 ML BTL RIGHT EYE SCH ×2 (09:01→20:16)
[2022-04-01 09:12] LABS: Basophils # (A) 0 X 10*3/uL (0.00-0.10); Basophils % (A) 0 %; Eosinophils # (A) 0 X 10*3/uL (0.04-0.35); Eosinophils % (A) 0 %; HCT 30.5 % (39.6-50.0); Immature Grans, Automated 0.5 %; Lymphocytes # (A) 0.59 X 10*3/uL (0.90-5.00); Lymphocytes % (A) 10.2 %; MCH 28.2 pg (27.0-32.0); MCHC 29.5 g/dL (32.0-37.0); MCV 95.6 fL (80.0-97.0); Monocytes # (A) 0.18 X 10*3/uL (0.20-1.00); Monocytes % (A) 3.1 %; NRBC Per 100 WBC 0 /100 WBCS (0.0-0.0); Neutrophils # (A) 4.98 X 10*3/uL (1.80-7.70); Neutrophils % (A) 86.2 %; Platelet Count 150 X 10*3/uL (140-440); RBC 3.19 X 10*6/uL (4.40-5.60); RDW 14.4 % (11.5-14.5); WBC 5.78 X 10*3/uL (4.50-10.00)
--- NOTE | 2022-04-01 09:27 | P.PN ---
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 Patient follows in the office with Dr. Harding, but has not followed up since 11/2020. We have been asked to see the patient in consultation for congestive heart failure. Patient was recently admitted for atypical right-sided chest pain as well as altered mental status with concern of facial droop. Chest pain was atypical and Echocardiogram showed EF 20-25% with moderate mitral regurgitation. There was concern of further dissection and therefore a chest CTA was performed despite his advanced EKG. He was seen by nephrology and his diuretics were stopped going home. He was discharged 03/29 and did okay for a day however this morning 03/31 started feeling severely short of breath. He admits orthopnea. Blood work shows proBNP 51621 04/01/2022 Patient seen and examined at bedside, no acute distress. He continues to have some shortness of breath but states it has improved since admission. Patient with -1369mL fluid balance over past 24 hours. Weight the same. Labs: Pending Meds: Bumex 2mg BID IV, amiodarone 20 mg daily, Eliquis 2.5 mg twice a day, atorvastatin 20 mg nightly, Coreg 25 mg twice a day, Plavix 75 mg daily, Imdur 30 mg twice a day, midodrine 10 mg 3 times a day PHYSICAL EXAM: VITAL SIGNS: Reviewed. GENERAL: Well-developed in no acute distress. HEENT: Head is normocephalic. Pupils are equal, round. Sclerae anicteric. Mucous membranes of the mouth are moist. Neck supple. No JVD LUNGS: Respirations even and unlabored. Lungs mild crackles in bases bilaterally HEART: Irregular rate and rhythm. S1 and S2 heard. Systolic murmur noted. ABDOMEN: Soft. Nondistended. Nontender. EXTREMITIES: Normal range of motion. No clubbing or cyanosis. Peripheral pulses intact. No lower extremity edema. Right BKA noted. NEUROLOGIC: Awake and alert. Oriented x 3. ASSESSMENT: Acute on chronic heart failure with reduced EF, 20-25% Elevated troponin, chronically elevated secondary to renal disease Chronic kidney disease, patient received IV contrast last admission Possible TIA with right facial droop recently last admission Left cystic mass with internal hemorrhage noted on CAT scan. Paroxysmal atrial fibrillation, on anticoagulation with Eliquis Coronary artery disease with PCI to RCA, 06/2020 History of aortic dissection with repair History of Right BKA Ischemic cardiomyopathy Hypertension Hyperlipidemia PLAN: Continue home medications with Carvedilol, Amiodarone, Eliquis, statin, Plavix, Imdur IV Bumex 2mg BID, BMP pending, likely transition to PO this evenin dose Patient not on ACEI/ARB secondary to kidney function Monitor I/Os, daily weights, renal function and electrolytes Further recommendations based on clinical course Nurse practitioner note has been reviewed by physician. Signing provider agrees with the documented findings, assessment, and plan of care. Objective - Vital Signs Vital signs: Vital Signs Temp 97.6 F 04/01/22 07:00 Pulse 88 04/01/22 08:25 Resp 16 04/01/22 09:04 BP 125/88 04/01/22 07:00 Pulse Ox 99 04/01/22 08:18 FiO2 Intake & Output 03/31/22 04/01/22 04/01/22 18:59 06:59 18:59 Intake Total 476 40 Output Total 935 950 640 Balance -217 -996 -168 Weight 99.79 kg Intake: Intake, IV Titration 40 Amount Sodium Chloride 0.9% 1, 40 000 ml @ 130 mls/hr IV . Q7H42M STA Rx#:[id number] Oral 476 Output: Urine 935 950 640 Other: Voiding Method Toilet Toilet - Labs CBC & Chem 7: 04/01/22 04:40 04/01/22 04:40 Labs: Abnormal Lab Results - Last 24 Hours (Table) 03/31/22 04/01/22 Range/Units 10:54 04:40 RBC 3.19 L (4.40-5.60) X 10*6/uL Hgb 9.0 L (13.0-17.0) g/dL Hct 30.5 L (39.6-50.0) % MCHC 29.5 L (32.0-37.0) g/dL Lymphocytes # 0.59 L (0.90-5.00) X 10*3/uL Monocytes # 0.18 L (0.20-1.00) X 10*3/uL Eosinophils # 0 L (0.04-0.35) X 10*3/uL Troponin I 0.040 H* (0.000-0.034) ng/mL
[2022-04-01 09:31] LABS: African American GFR (CKD) 18.8 (60.0-200.0); Anion Gap 10.9 mmol/L (10.00-18.00); BUN/Creat Ratio 12.56 Ratio (12.00-20.00); Blood Urea Nitrogen 44.2 mg/dL (9.0-27.0); Calcium 8.6 mg/dL (8.7-10.3); Carbon Dioxide 23.3 mmol/L (20.0-27.5); Non-African American GFR(CKD) 16.2 (60.0-200.0); Potassium 5.1 mmol/L (3.5-5.5)
[2022-04-01] MEDS: BUMETANIDE 1 MG TAB PO SCH (16:17)
[2022-04-01] MEDS: DOCUSATE 100 MG CAP PO SCH (20:15)
[2022-04-01] MEDS: ATORVASTATIN 20 MG TAB PO SCH (20:15)
[2022-04-01] MEDS: PANTOPRAZOLE 40 MG/10 ML VIAL IVP SCH (20:16)
[2022-04-02] MEDS: methylPREDNISolone SOD SUCCI 125 MG/2 ML VIAL IV SCH ×4 (00:42→16:31)
[2022-04-02 06:18] LABS: African American GFR (CKD) 19 (>60 ml/min/1.73 sqM); Anion Gap 8 mmol/L; Blood Urea Nitrogen 59 mg/dL (9-20); Calcium 8.5 mg/dL (8.4-10.2); Carbon Dioxide 26 mmol/L (22-30); Chloride 104 mmol/L (98-107); Glucose 134 mg/dL (74-99); Non-African American GFR(CKD) 16 (>60 ml/min/1.73 sqM); Potassium 4.8 mmol/L (3.5-5.1); Sodium 138 mmol/L (137-145)
[2022-04-02 07:29] VITALS: RESP 16
[2022-04-02] MEDS: BRIMONIDINE TARTRATE 0.2% DROPS 5 ML BTL RIGHT EYE SCH (07:37)
[2022-04-02] MEDS: TAMSULOSIN 0.4 MG CAP.ER.24H PO SCH (07:37)
[2022-04-02] MEDS: AMIODARONE 200 MG TAB PO SCH (07:37)
[2022-04-02] MEDS: APIXABAN 2.5 MG TABLET PO SCH (07:37)
[2022-04-02] MEDS: MIDODRINE 5 MG TAB PO SCH ×3 (07:37→16:31)
[2022-04-02] MEDS: carvediloL 12.5 MG TAB PO SCH ×2 (07:37→16:31)
[2022-04-02] MEDS: BUMETANIDE 1 MG TAB PO SCH ×2 (07:37→16:30)
[2022-04-02] MEDS: DOCUSATE 100 MG CAP PO SCH (07:38)
[2022-04-02] MEDS: ISOSORBIDE MONONITRATE ER 30 MG TAB.ER.24H PO SCH (07:38)
[2022-04-02] MEDS: CLOPIDOGREL 75 MG TAB PO SCH (07:38)
[2022-04-02] MEDS: PANTOPRAZOLE 40 MG/10 ML VIAL IVP SCH (07:38)
[2022-04-02] MEDS: TIMOLOL 0.5% OPHTH DROPS 5 ML BTL RIGHT EYE SCH (07:38)
[2022-04-02] MEDS: ALBUTEROL NEBULIZED 2.5 MG/3 ML INHALATION SCH ×3 (07:59→15:21)
[2022-04-02] MEDS ORDERED: LACTULOSE 20 GM/30 ML CUP PO ONE (08:42)
--- NOTE | 2022-04-02 10:57 | P.PN ---
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 Patient follows in the office with Dr. Harding, but has not followed up since 11/2020. We have been asked to see the patient in consultation for congestive heart failure. Patient was recently admitted for atypical right-sided chest pain as well as altered mental status with concern of facial droop. Chest pain was atypical and Echocardiogram showed EF 20-25% with moderate mitral regurgitation. There was concern of further dissection and therefore a chest CTA was performed despite his advanced EKG. He was seen by nephrology and his diuretics were stopped going home. He was discharged 03/29 and did okay for a day however this morning 03/31 started feeling severely short of breath. He admits orthopnea. Blood work shows proBNP [id number] 04/02/2022 Patient seen and examined at bedside, no acute distress. He states his breathing has significantly improved. He denies any chest pain. He is overall doing well, fealing better. Patient with -1832mL fluid balance over past 24 hours. Labs:Sodium 138, potassium 4.8, BUN 59, serum creatinine 3.49 Meds: PO Bumex 1mg BID , amiodarone 200 mg daily, Eliquis 2.5 mg twice a day, atorvastatin 20 mg nightly, Coreg 25 mg twice a day, Plavix 75 mg daily, Imdur 30 mg twice a day, midodrine 10 mg 3 times a day PHYSICAL EXAM: VITAL SIGNS: Reviewed. GENERAL: Well-developed in no acute distress. HEENT: Head is normocephalic. Pupils are equal, round. Sclerae anicteric. Mucous membranes of the mouth are moist. Neck supple. No JVD LUNGS: Respirations even and unlabored. Lungs clear to auscultation bilaterally HEART: Irregular rate and rhythm. S1 and S2 heard. Systolic murmur noted. ABDOMEN: Soft. Nondistended. Nontender. EXTREMITIES: Normal range of motion. No clubbing or cyanosis. Peripheral pulses intact. No lower extremity edema. Right BKA noted. NEUROLOGIC: Awake and alert. Oriented x 3. ASSESSMENT: Acute on chronic heart failure with reduced EF, 20-25% Elevated troponin, chronically elevated secondary to renal disease Chronic kidney disease, patient received IV contrast last admission Possible TIA with right facial droop recently last admission Left cystic mass with internal hemorrhage noted on CAT scan. Paroxysmal atrial fibrillation, on anticoagulation with Eliquis Coronary artery disease with PCI to RCA, 06/2020 History of aortic dissection with repair History of Right BKA Ischemic cardiomyopathy Hypertension Hyperlipidemia PLAN: Continue home medications with Carvedilol, Amiodarone, Eliquis, statin, Plavix, Imdur Continue PO Bumex 1mg BID Patient not on ACEI/ARB/ARNi secondary to kidney function from cardiology perspective, patient stable to be discharged when cleared medically and by other consultants. Follow up outpatient with Dr. Harding Nurse practitioner note has been reviewed by physician. Signing provider agrees with the documented findings, assessment, and plan of care. Objective - Vital Signs Vital signs: Vital Signs Temp 98 F 04/02/22 07:00 Pulse 88 04/02/22 08:09 Resp 16 04/02/22 07:00 BP 135/107 04/02/22 07:00 Pulse Ox 100 04/02/22 07:59 FiO2 Intake & Output 04/01/22 04/02/22 04/02/22 18:59 06:59 18:59 Intake Total 118 240 Output Total 1040 910 125 Balance -922 -910 115 Weight 102.2 kg 102 kg Intake: Oral 118 240 Output: Urine 1040 910 125 Other: Voiding Method Toilet Urinal Urinal # Voids 1 2 - Labs CBC & Chem 7: 04/01/22 04:40 04/02/22 04:16 Labs: Abnormal Lab Results - Last 24 Hours (Table) 04/02/22 Range/Units 04:16 BUN 59 H (9-20) mg/dL Creatinine 3.49 H (0.66-1.25) mg/dL Glucose 134 H (74-99) mg/dL
[2022-04-02 13:55] VITALS: BP 126/74; TEMP 97.9
[2022-04-02 15:31] VITALS: PULSE 74
[2022-04-02] MEDS ORDERED: CALCIUM CARBONATE 500 MG CHEWABLE PO PRN (16:39)
--- NOTE | 2022-04-02 17:41 | DS ---
DISCHARGE SUMMARY DISCHARGE DIAGNOSES: 1. Altered mental status. 2. Acute chronic obstructive pulmonary disease exacerbation. 3. Tracheobronchitis. 4. Acute congestive heart failure. 5. Systolic congestive heart failure, exacerbation, acute on chronic. 6. Aortic aneurysms. 7. Coronary artery disease. 8. Atrial fibrillation. 9. Dyslipidemia. 10.Oxygen-dependent chronic obstructive pulmonary disease. Home medicines: Bumex 1 mg b.i.d., Flomax 0.4 mg daily, Medrol Dosepak, dispense 1 as directed, calcium carbonate 1000 t.i.d., Protonix 40 mg a.c. breakfast, albuterol updrafts q.i.d., Imdur 30 mg b.i.d., Coreg 25 b.i.d., Alphagan 1 drop right eye b.i.d., Timoptic 1 drop right eye b.i.d., Plavix 75 daily, Midodrine 10 mg a.c. t.i.d. Eliquis 2.5 daily, amiodarone 200 mg daily, Lipitor 20 mg daily, nitro sublingual daily. CONDITION: Stable. PROGNOSIS: Guarded. Ambulate as tolerated. White male came in with acute on chronic systolic CHF, COPD exacerbation, noncompliant. Noncompliant with oxygen and staying out of the heat, humidity. Not using his air conditioning at home. He had recurrent shortness of breath. He was sent home without Lasix on recent admission due to worsening renal function. He has chronic renal disease due to prerenal renal insufficiency. He has acute on chronic anemia. Hemoglobin is 9 on discharge. His BUN is 59 on discharge. Creatinine is 3.49 with a GFR about 16. He is refusing dialysis. Will need to be followed up as outpatient. His breathing improved when he was placed back on Lasix and given steroids for his breathing. He was switched over to Medrol Dosepak and oral Bumex on discharge. He will follow up in office with chronic renal disease, stage 4, near 5, COPD exacerbation acute on chronic systolic CHF. Prognosis extremely guarded. Compliance with wearing oxygen and air conditioning in the summer, stay out of the heat, humidity, following a low-sodium diet, etc. Prognosis guarded. MMODL / IJN: [id number] /
[2022-04-03] MEDS ORDERED: PANTOPRAZOLE 40 MG TABLET PO SCH (07:30)
[2022-04-03] MEDS ORDERED: methylPREDNISolone 4 MG TAB TAPER PO SCH (09:00)
== END 2022-04-02 18:56 | disposition home or self-care (01) ==
LOC: EC 03:42 → 6NMEDSUR 05:16
PROVIDERS: ADMIT Family Medicine; ATTEND Family Medicine
DX: R41.82 Altered mental status, unspecified (principal); I13.0 Hypertensive heart and chronic kidney disease with heart failure and stage 1 through stage 4 chronic kidney disease, or unspecified chronic kidney disease; I50.23 Acute on chronic systolic (congestive) heart failure; N18.4 Chronic kidney disease, stage 4 (severe); J44.1 Chronic obstructive pulmonary disease with (acute) exacerbation; I71.9 Aortic aneurysm of unspecified site, without rupture; I25.10 Atherosclerotic heart disease of native coronary artery without angina pectoris; E78.5 Hyperlipidemia, unspecified; I48.0 Paroxysmal atrial fibrillation; I25.5 Ischemic cardiomyopathy; I34.0 Nonrheumatic mitral (valve) insufficiency; R29.810 Facial weakness; R07.89 Other chest pain; I25.82 Chronic total occlusion of coronary artery; I25.2 Old myocardial infarction; H40.9 Unspecified glaucoma; H54.61 Unqualified visual loss, right eye, normal vision left eye; R47.81 Slurred speech; D64.9 Anemia, unspecified; F41.9 Anxiety disorder, unspecified; R00.2 Palpitations; N17.9 Acute kidney failure, unspecified; I83.90 Asymptomatic varicose veins of unspecified lower extremity; E66.9 Obesity, unspecified; Z68.30 Body mass index [BMI] 30.0-30.9, adult; Z91.19 Patient's noncompliance with other medical treatment and regimen; Z91.15 Patient's noncompliance with renal dialysis; Z87.01 Personal history of pneumonia (recurrent); Z87.442 Personal history of urinary calculi; Z89.511 Acquired absence of right leg below knee; Z90.49 Acquired absence of other specified parts of digestive tract; Z95.5 Presence of coronary angioplasty implant and graft; Z79.899 Other long term (current) drug therapy; Z79.02 Long term (current) use of antithrombotics/antiplatelets; Z79.01 Long term (current) use of anticoagulants; Z88.5 Allergy status to narcotic agent; Z88.0 Allergy status to penicillin; Z91.018 Allergy to other foods; Z88.1 Allergy status to other antibiotic agents; Z99.81 Dependence on supplemental oxygen; Z82.49 Family history of ischemic heart disease and other diseases of the circulatory system
CPT/HCPCS: 96376 ×3; 96361 ×3; 96375; 96374; 99285; 36415; 94640 ×5; 94760 ×2; 93005; 83880; 80053; 80048 ×2; 83605; 83735; 84484; 85025 ×2; 85610; 85730; 71045; G0378 ×3; J2930 ×3; C9113 ×2

== ENCOUNTER 2022-04-04 15:31 | Emergency (ER) | payer MEDICARE, OTHER ==
[2022-04-04] MEDS ORDERED: SODIUM CHLORIDE 0.9% 1,000 ML IV STA (17:18)
[2022-04-04] MEDS ORDERED: ONDANSETRON 4 MG/2 ML VIAL IVP STA (17:18)
[2022-04-04] MEDS ORDERED: HYDROmorphone 0.5 MG/0.5 ML SYRINGE IVP STA (17:18)
[2022-04-04] MEDS ORDERED: PANTOPRAZOLE 40 MG/10 ML VIAL IVP STA (17:18)
--- NOTE | 2022-04-04 17:22 | ED ---
General Adult HPI - General Stated complaint: Abd pain Time Seen by Provider: 04/04/22 17:10 Source: patient, RN notes reviewed Mode of arrival: ambulatory Limitations: no limitations - History of Present Illness Initial comments: Patient is a pleasant 72-year-old male presenting to the emergency Department with abdominal pain. Onset of symptoms was 2 or 3 days ago. Patient does feel slightly constipated and has not had a bowel movement couple of days. Discomfort is mostly right lower abdomen. Patient has some mild decreased appetite. No vomiting. No diarrhea. Patient states symptoms feel somewhat similar to when he had his appendix problem many years ago. Patient was seen in the waiting room secondary to no beds being available at this time - Related Data Home Medications Medication Instructions Recorded Confirmed Apixaban [Eliquis] 2.5 mg PO BID 02/28/21 03/31/22 Amiodarone HCl [Pacerone] 200 mg PO DAILY 04/01/21 03/31/22 Brimonidine Tartrate [Alphagan P 1 drop RIGHT EYE BID 04/01/21 03/31/22 0.2% Ophth Soln] Isosorbide Mononitrate ER [Imdur] 30 mg PO BID 04/01/21 03/31/22 carvediloL [Coreg] 25 mg PO BID 04/01/21 03/31/22 Clopidogrel [Plavix] 75 mg PO DAILY 09/15/21 03/31/22 Timolol 0.5% Ophth Soln [Timoptic 1 drop RIGHT EYE BID 09/15/21 03/31/22 0.5% Ophth Soln] Midodrine HCl [ProAmatine] 10 mg PO TID 03/26/22 03/31/22 Previous Rx's Medication Instructions Recorded Atorvastatin [Lipitor] 20 mg PO HS 90 Days #90 tab 03/29/22 Nitroglycerin Sl Tabs [Nitrostat] 0.4 mg SUBLINGUAL Q5M PRN 90 Days 03/29/22 #100 tab Albuterol Nebulized [Ventolin 2.5 mg INHALATION RT-QID 30 Days 04/02/22 Nebulized] #120 ml Bumetanide [BUMEX] 1 mg PO BID@0900,1600 30 Days #60 04/02/22 tab Calcium Carbonate [Tums] 1,000 mg PO TID PRN 30 Days #90 tab 04/02/22 Pantoprazole [Protonix] 40 mg PO AC-BRKFST 30 Days #30 tab 04/02/22 Tamsulosin [Flomax] 0.4 mg PO PC-BRKFST 30 Days #30 cap 04/02/22 methylPREDNISolone Dose Pack 24 mg PO DAILY 5 Days #1 tab 04/02/22 [Medrol Dose Pack] Allergies Allergy/AdvReac Type Severity Reaction Status Date / Time cephalexin [From Keflex] Allergy Rash/Hives Verified 04/04/22 17:30 codeine Allergy Unknown Verified 04/04/22 17:30 Penicillins Allergy Rash/Hives Verified 04/04/22 17:30 strawberry Allergy Rash/Hives Verified 04/04/22 17:30 Review of Systems ROS Statement: Those systems with pertinent positive or pertinent negative responses have been documented in the HPI. ROS Other: All systems not noted in ROS Statement are negative. Constitutional: Denies: fever Eyes: Denies: eye pain ENT: Denies: ear pain Respiratory: Denies: cough Cardiovascular: Denies: chest pain Endocrine: Denies: fatigue Gastrointestinal: Reports: as per HPI, abdominal pain, constipation. 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 Date of Last Stent Placement:: 07/01/20 Past Psychological History: Anxiety Additional Psychological History / Comment(s): Pt resides with his spouse. He uses a cane. He drives. He is independent. Pt states he has a private nurse thru [facility], [place]. He uses oxygen at 3L/NC prn and at HS. He has a pulse oximeter. Smoking Status: Never smoker Past Alcohol Use History: None Reported Past Drug Use History: None Reported - Past Family History Mother Family Medical History: Myocardial Infarction (MD) Additional Family Medical History / Comment(s): Mother of a MD at the age of 37yrs. Father Family Medical History: Myocardial Infarction (MD) Additional Family Medical History / Comment(s): Father of a MD at the age of 58yrs. General Exam Limitations: no limitations General appearance: alert, in no apparent distress Head exam: Present: normocephalic Eye exam: Present: normal appearance Neck exam: Present: normal inspection Respiratory exam: Present: normal lung sounds bilaterally Cardiovascular Exam: Present: regular rate, normal rhythm Expanded Peripheral pulses: 2+: Posterior Tibialis (R), Posterior Tibialis (L) GI/Abdominal exam: Present: soft, tenderness (Moderate right lower quadrant abd ominal tenderness. Mild superpubic tenderness), guarding, hyperactive bowel sounds. Absent: distended, rebound, rigid, pulsatile mass Extremities exam: Present: normal inspection. Absent: pedal edema, calf tenderness Neurological exam: Present: alert Psychiatric exam: Present: normal affect, normal mood Skin exam: Present: normal color Course Vital Signs 04/04/22 17:28 Temperature 98.5 F Pulse Rate 78 Respiratory 16 Rate Blood Pressure 127/68 O2 Sat by Pulse 96 Oximetry Medical Decision Making - Medical Decision Making Patient reevaluated and updated. Abdomen soft and nontender. Patient updated on results and plan. Patient states he is aware of the cystic structure and they're still watch at this time. Patient is receptive to enema for his constipation symptoms. - Lab Data Result diagrams: 04/04/22 17:32 04/04/22 17:32 Lab Results 04/04/22 04/04/22 04/04/22 Range/Units 17:32 17:32 17:32 WBC 12.3 H (3.8-10.6) k/uL RBC 3.74 L (4.30-5.90) m/uL Hgb 10.9 L (13.0-17.5) gm/dL Hct 34.3 L (39.0-53.0) % MCV 91.9 (80.0-100.0) fL MCH 29.1 (25.0-35.0) pg MCHC 31.6 (31.0-37.0) g/dL RDW 14.4 (11.5-15.5) % Plt Count 155 (150-450) k/uL MPV 9.2 Neutrophils % 91 % Lymphocytes % 2 % Monocytes % 5 % Eosinophils % 1 % Basophils % 0 % Neutrophils # 11.2 H (1.3-7.7) k/uL Lymphocytes # 0.3 L (1.0-4.8) k/uL Monocytes # 0.6 (0-1.0) k/uL Eosinophils # 0.1 (0-0.7) k/uL Basophils # 0.1 (0-0.2) k/uL PT 11.9 (9.0-12.0) sec INR 1.1 (<1.2) APTT 25.9 (22.0-30.0) sec Sodium 141 (137-145) mmol/L Potassium 4.3 (3.5-5.1) mmol/L Chloride 103 (98-107) mmol/L Carbon Dioxide 31 H (22-30) mmol/L Anion Gap 7 mmol/L BUN 66 H (9-20) mg/dL Creatinine 3.46 H (0.66-1.25) mg/dL Est GFR (CKD-EPI)AfAm 19 (>60 ml/min/1.73 sqM) Est GFR (CKD-EPI)NonAf 17 (>60 ml/min/1.73 sqM) Glucose 120 H (74-99) mg/dL Calcium 8.3 L (8.4-10.2) mg/dL Total Bilirubin 0.6 (0.2-1.3) mg/dL AST 32 (17-59) U/L ALT 49 (4-49) U/L Alkaline Phosphatase 102 (38-126) U/L Total Protein 6.5 (6.3-8.2) g/dL Albumin 3.5 (3.5-5.0) g/dL Amylase <30 L (30-110) U/L Lipase 135 (23-300) U/L - Radiology Data Radiology results: image reviewed (Large cystic structure up to 15 cm related to left kidney, previous was 11 cm approximately one year ago.) Disposition Clinical Impression: Abdominal pain Disposition: HOME SELF-CARE Condition: Stable Instructions (If sedation given, give patient instructions): Abdominal Pain (ED) Additional Instructions: Please follow-up with your primary care physician in the next one to 2 days for recheck. Consider colonoscopy. [id number] Maalox if needed. Return for increased pain, vomiting, fever, worsening or changing symptoms or other concerns. Is patient prescribed a controlled substance at d/c from ED?: No Referrals: Og Escoto MD [Primary Care Provider] - 1-2 days Time of Disposition: 21:21
[2022-04-04 17:30] VITALS: BP 127/68; PULSE 78; RESP 16; TEMP 98.5
[2022-04-04 17:47] LABS: Basophils # (A) 0.1 k/uL (0-0.2); Basophils % (A) 0 %; Eosinophils # (A) 0.1 k/uL (0-0.7); Eosinophils % (A) 1 %; HCT 34.3 % (39.0-53.0); HGB 10.9 gm/dL (13.0-17.5); Lymphocytes # (A) 0.3 k/uL (1.0-4.8); Lymphocytes % (A) 2 %; MCH 29.1 pg (25.0-35.0); MCHC 31.6 g/dL (31.0-37.0); MCV 91.9 fL (80.0-100.0); Mean Platelet Volume 9.2; Monocytes # (A) 0.6 k/uL (0-1.0); Monocytes % (A) 5 %; Neutrophils # (A) 11.2 k/uL (1.3-7.7); Neutrophils % (A) 91 %; Platelet Count 155 k/uL (150-450); RBC 3.74 m/uL (4.30-5.90); RDW 14.4 % (11.5-15.5); WBC 12.3 k/uL (3.8-10.6)
[2022-04-04 17:54] LABS: ALT 49 U/L (4-49); AST 32 U/L (17-59); African American GFR (CKD) 19 (>60 ml/min/1.73 sqM); Albumin 3.5 g/dL (3.5-5.0); Alkaline Phosphatase 102 U/L (38-126); Amylase <30 U/L (30-110); Anion Gap 7 mmol/L; Blood Urea Nitrogen 66 mg/dL (9-20); Calcium 8.3 mg/dL (8.4-10.2); Carbon Dioxide 31 mmol/L (22-30); Chloride 103 mmol/L (98-107); Glucose 120 mg/dL (74-99); Lipase 135 U/L (23-300); Non-African American GFR(CKD) 17 (>60 ml/min/1.73 sqM); Potassium 4.3 mmol/L (3.5-5.1); Sodium 141 mmol/L (137-145); Total Bilirubin 0.6 mg/dL (0.2-1.3); Total Protein 6.5 g/dL (6.3-8.2)
[2022-04-04 17:59] LABS: INR 1.1 (<1.2)
[2022-04-04 18:00] LABS: Partial Thromboplastin Time 25.9 sec (22.0-30.0); Prothrombin Time 11.9 sec (9.0-12.0)
--- NOTE | 2022-04-04 21:05 | CT ---
EXAMINATION TYPE: CT abdomen pelvis wo con DATE OF EXAM: 04/04/2022 HISTORY: lower abdominal pain CT DLP: 1232.7 mGycm. Automated Exposure Control for Dose Reduction was Utilized. TECHNIQUE: CT scan of the abdomen and pelvis is performed without oral or IV contrast. COMPARISON: 02/26/2021 FINDINGS: Within the limitations of a non-contrast study, the following observations are made. LUNG BASES: No acute process. LIVER/GB: No significant abnormality is appreciated. PANCREAS: No significant abnormality is seen. SPLEEN: No significant abnormality is seen. ADRENALS: No significant abnormality is seen. KIDNEYS: Multifocal bilateral cysts redemonstrated. BOWEL: No significant abnormality is seen. LYMPH NODES: No greater than 1cm abdominal or pelvic lymph nodes are appreciated. OSSEOUS STRUCTURES: No significant abnormality is seen. OTHER: The previously seen left lower quadrant solid/cystic mass has increased in its longitudinal di mension since the prior study of 02/26/2021, now measuring 15 cm craniocaudal (previously 11.3 cm). Axi al cross section dimensions are similar to the prior study, currently measuring 12 x 11 cm. This mass appears to be emanating from the lower pole left kidney. If clinically indicated, it further charact erized with MRI. IMPRESSION: Left lower quadrant solid/cystic mass has increased in its longitudinal dimension since prior study , as above. No other CT findings to correlate with the patient's symptoms.
[2022-04-04] MEDS ORDERED: NA PHOS,M-B/NA PHOS,DI-BA 133 ML ENEMA RECTAL STA (21:29)
== END 2022-04-04 22:14 | disposition home or self-care (01) ==
LOC: EC 15:31
DX: R10.9 Unspecified abdominal pain (principal); I11.0 Hypertensive heart disease with heart failure; I50.9 Heart failure, unspecified; I25.2 Old myocardial infarction; I25.10 Atherosclerotic heart disease of native coronary artery without angina pectoris; E78.5 Hyperlipidemia, unspecified; Z90.49 Acquired absence of other specified parts of digestive tract; Z88.1 Allergy status to other antibiotic agents; Z88.5 Allergy status to narcotic agent; Z88.0 Allergy status to penicillin; Z91.018 Allergy to other foods; Z79.01 Long term (current) use of anticoagulants; Z79.899 Other long term (current) drug therapy; Z79.02 Long term (current) use of antithrombotics/antiplatelets
CPT/HCPCS: 36415; 80053; 82150; 83690; 85025; 85610; 85730; 74176; 99284; 96374; 96375; 96361; J2405; C9113; J1170